=== PATIENT | female | born 1975 | race Native Hawaiian/Other Pacific Islander ===

== ENCOUNTER 2020-11-20 12:08 | Outpatient (REF) | payer MEDICAID, SELFPAY ==
--- NOTE | 2020-11-20 12:29 | XR_ITS ---
EXAMINATION: THORACIC AND LUMBAR SPINE. RIGHT SHOULDER AND RIGHT CLAVICLE. CLINICAL INFORMATION: Pain. Fall. COMPARISON: None TECHNIQUE: Thoracic spine 2 views. Lumbar spine 3 views. Right shoulder 3 views. Right clavicle 2 views. FINDINGS: Thoracic spine: There is normal thoracic kyphosis. The vertebral heights, alignment and disc heights are normal. No visible acute fracture, dislocation or subluxation seen. Lumbar spine: There is normal lumbar lordosis. The vertebral heights, alignment and disc heights are normal. No visible acute fracture, dislocation or subluxation seen. The soft tissues are normal. Right shoulder: There is no visible acute fracture, dislocation or subluxation seen. There is a small enthesophyte along the right greater tuberosity. The soft tissues are normal. Right clavicle: There is mild uneven appearing AC joint suggestive of grade 1 strain. No calcifications seen. No fracture noted. XR/XR clavicle RT IMPRESSION: Unremarkable thoracic spine exam. Unremarkable lumbar spine exam Mild grade 1 AC separation suspected. The glenohumeral joint is unremarkable. No acute fracture or dislocation.
--- NOTE | 2020-11-20 12:29 | XR_ITS ---
EXAMINATION: THORACIC AND LUMBAR SPINE. RIGHT SHOULDER AND RIGHT CLAVICLE. CLINICAL INFORMATION: Pain. Fall. COMPARISON: None TECHNIQUE: Thoracic spine 2 views. Lumbar spine 3 views. Right shoulder 3 views. Right clavicle 2 views. FINDINGS: Thoracic spine: There is normal thoracic kyphosis. The vertebral heights, alignment and disc heights are normal. No visible acute fracture, dislocation or subluxation seen. Lumbar spine: There is normal lumbar lordosis. The vertebral heights, alignment and disc heights are normal. No visible acute fracture, dislocation or subluxation seen. The soft tissues are normal. Right shoulder: There is no visible acute fracture, dislocation or subluxation seen. There is a small enthesophyte along the right greater tuberosity. The soft tissues are normal. Right clavicle: There is mild uneven appearing AC joint suggestive of grade 1 strain. No calcifications seen. No fracture noted. XR/XR shoulder RT min 2V IMPRESSION: Unremarkable thoracic spine exam. Unremarkable lumbar spine exam Mild grade 1 AC separation suspected. The glenohumeral joint is unremarkable. No acute fracture or dislocation.
[2020-11-20 12:34] LABS: MANUAL DIFF FLAG NO
--- NOTE | 2020-11-20 12:34 | XR_ITS ---
EXAMINATION: THORACIC AND LUMBAR SPINE. RIGHT SHOULDER AND RIGHT CLAVICLE. CLINICAL INFORMATION: Pain. Fall. COMPARISON: None TECHNIQUE: Thoracic spine 2 views. Lumbar spine 3 views. Right shoulder 3 views. Right clavicle 2 views. FINDINGS: Thoracic spine: There is normal thoracic kyphosis. The vertebral heights, alignment and disc heights are normal. No visible acute fracture, dislocation or subluxation seen. Lumbar spine: There is normal lumbar lordosis. The vertebral heights, alignment and disc heights are normal. No visible acute fracture, dislocation or subluxation seen. The soft tissues are normal. Right shoulder: There is no visible acute fracture, dislocation or subluxation seen. There is a small enthesophyte along the right greater tuberosity. The soft tissues are normal. Right clavicle: There is mild uneven appearing AC joint suggestive of grade 1 strain. No calcifications seen. No fracture noted. XR/XR lumbar spine 2-3V IMPRESSION: Unremarkable thoracic spine exam. Unremarkable lumbar spine exam Mild grade 1 AC separation suspected. The glenohumeral joint is unremarkable. No acute fracture or dislocation.
--- NOTE | 2020-11-20 12:34 | XR_ITS ---
EXAMINATION: THORACIC AND LUMBAR SPINE. RIGHT SHOULDER AND RIGHT CLAVICLE. CLINICAL INFORMATION: Pain. Fall. COMPARISON: None TECHNIQUE: Thoracic spine 2 views. Lumbar spine 3 views. Right shoulder 3 views. Right clavicle 2 views. FINDINGS: Thoracic spine: There is normal thoracic kyphosis. The vertebral heights, alignment and disc heights are normal. No visible acute fracture, dislocation or subluxation seen. Lumbar spine: There is normal lumbar lordosis. The vertebral heights, alignment and disc heights are normal. No visible acute fracture, dislocation or subluxation seen. The soft tissues are normal. Right shoulder: There is no visible acute fracture, dislocation or subluxation seen. There is a small enthesophyte along the right greater tuberosity. The soft tissues are normal. Right clavicle: There is mild uneven appearing AC joint suggestive of grade 1 strain. No calcifications seen. No fracture noted. XR/XR thoracic spine 2V IMPRESSION: Unremarkable thoracic spine exam. Unremarkable lumbar spine exam Mild grade 1 AC separation suspected. The glenohumeral joint is unremarkable. No acute fracture or dislocation.
[2020-11-20 12:37] LABS: Basophils Percent Auto 0.2 % (0-2); Eosinophils Absolute Auto 0.4 X10*3/uL (0.0-0.4); Eosinophils Percent Auto 4.6 % (0-4); Hematocrit 38.5 % (37-47); Hemoglobin 12.3 g/dl (12.0-16.0); Imm Gran Abs Auto 0.02 X10*3/uL (0.00-0.03); Imm Gran Pct Auto 0.2 % (0.0-0.4); Lymphocytes Absolute Auto 3.5 X10*3/uL (1.2-4.9); Lymphocytes Percent Auto 43.3 % (20-40); Mean Corpuscular HGB Conc 31.9 g/dl (31.0-35.0); Mean Corpuscular Hemoglobin 28.3 pg (27.0-33.0); Mean Corpuscular Volume 88.7 fL (80-98); Monocytes Absolute Auto 0.4 X10*3/uL (0.1-1.2); Monocytes Percent Auto 5.5 % (2-11); Neutrophils Absolute Auto 3.7 X10*3/uL (2.0-8.3); Neutrophils Percent Auto 46.2 % (45-73); Platelet Count 285 X10*3/uL (160-400); Red Blood Count 4.34 X10*6/uL (4.20-5.50); Red Cell Distribution Width 15.1 % (11.0-16.0)
== END 2020-11-20 12:09 | disposition home or self-care (01) ==
LOC: HO.LAB 12:08
PROVIDERS: Absent Provider Family Medicine; PCP Family Medicine; Referring Provider Emergency Medicine; Visit Provider Internal Medicine Pulmonary Disease
DX: S46.911A Strain of unspecified muscle, fascia and tendon at shoulder and upper arm level, right arm, initial encounter (principal); M54.9 Dorsalgia, unspecified; Z91.09 Other allergy status, other than to drugs and biological substances; W10.9XXA Fall (on) (from) unspecified stairs and steps, initial encounter; Y93.9 Activity, unspecified; Y92.9 Unspecified place or not applicable; Y99.9 Unspecified external cause status
CPT/HCPCS: 36415; 72070; 72100; 73000; 73030; 82785; 85025; 86003

== ENCOUNTER → 2021-04-06 14:40 | Outpatient (BNVA) | payer MEDICAID, SELFPAY | PROVIDERS: Visit Provider Advanced Practice Midwife ==

== ENCOUNTER 2021-04-13 14:15 | Outpatient (REF) | payer MEDICAID, SELFPAY ==
[2021-04-14 12:42] LABS: CT PCR NOT DETECTED (Not Detect.); NG PCR NOT DETECTED (Not Detect.)
[2021-04-14 12:47] LABS: BV Int Neg Control Negative (Negative); BV Int Pos Control Positive (Positive)
== END 2021-04-13 14:16 | disposition home or self-care (01) ==
LOC: HO.LAB 14:15
PROVIDERS: Visit Provider Advanced Practice Midwife
DX: Z11.3 Encounter for screening for infections with a predominantly sexual mode of transmission (principal); R10.2 Pelvic and perineal pain; R23.2 Flushing
CPT/HCPCS: 81003; 87086; 87480; 87491; 87510; 87591; 87660; 99212

== ENCOUNTER 2021-06-11 11:04 | Outpatient (REF) | payer MEDICAID, SELFPAY ==
--- NOTE | ~2021-06-11 | US_ITS ---
EXAMINATION: US PELVIS AND TRANSVAGINAL CLINICAL INFORMATION: Pelvic and perineal pain. COMPARISON: Pelvic ultrasound dated 03/23/2009 TECHNIQUE: Ultrasound of the pelvis is performed using both transabdominal and transvaginal transducers along with Doppler. Transvaginal imaging is performed due to inadequate visualization transabdominally. FINDINGS: Uterus: The uterus is anteverted and measures 7.5 x 4.7 x 4.6 cm. There are multiple nabothian cysts. The endometrium is partially visualized measuring 0.2 cm in thickness. The uterus is smooth in contour and has heterogeneous myometrial echogenicity. No visible fibroid. Adnexa: Both ovaries are visualized. There is normal color flow to the adnexa. There is no ovarian torsion. There is no pelvic ascites or fluid collection. Right ovary measures 2.3 x 1.7 x 2.1 cm. Ovarian volume of 4.0 mL. Left ovary measures 4.7 x 2.6 x 4.1 cm. Ovarian volume of 26.2 mL. US/US pelvic and transvaginal IMPRESSION: Heterogeneous myometrium without discrete lesion. Partially visualized and unremarkable endometrium. Slight asymmetric enlargement of the left ovary. Normal Doppler detectable vascular flow within the right and left ovary. No discrete ovarian lesion.
== END 2021-06-11 11:05 | disposition home or self-care (01) ==
LOC: HO.US 11:04
PROVIDERS: Visit Provider Advanced Practice Midwife
DX: R10.2 Pelvic and perineal pain (principal)
CPT/HCPCS: 76830; 76856

== ENCOUNTER → 2021-06-21 11:05 | Outpatient (BNVA) | payer MEDICAID, SELFPAY | PROVIDERS: Visit Provider Advanced Practice Midwife ==

== ENCOUNTER 2022-03-22 15:32 | Outpatient (REF) | payer MEDICAID, SELFPAY ==
--- NOTE | ~2022-03-22 | US_ITS ---
EXAMINATION: US VENOUS ULTRASOUND WITH DOPPLER LOWER EXTREMITY, LEFT CLINICAL INFORMATION: Left lower extremity pain. COMPARISON: None TECHNIQUE: Ultrasound of the deep veins is performed from the hip to the calf with compression sonography and color and pulse Doppler assessment. Spectral analysis with color-flow imaging is performed. FINDINGS: There is normal venous compression and respiratory variation and augmented flow. The visualized common femoral vein, superficial femoral vein, profunda femoral vein, popliteal vein, and the trifurcation region shows no evidence of deep venous thrombosis. No left popliteal cyst. The subcutaneous soft tissues are unremarkable. If the patient's symptoms persist, followup ultrasound in 5 days 7 days might be of value to exclude proximal propagation from a non-visualized calf vein. US/US venous duplex LE LT IMPRESSION: No DVT demonstrated in the left lower extremity.
== END 2022-03-22 15:33 | disposition home or self-care (01) ==
LOC: HO.US 15:32
PROVIDERS: Visit Provider General Practice
DX: M25.562 Pain in left knee (principal)
CPT/HCPCS: 93971

== ENCOUNTER 2022-11-27 13:58 | Outpatient (REF) | payer MEDICAID, SELFPAY ==
--- NOTE | ~2022-11-27 | MM_ITS ---
EXAMINATION: MM DIAGNOSTIC DIGITAL BREAST TOMOSYNTHESIS, BILATERAL US DIAGNOSTIC ULTRASOUND BREAST, BILATERAL CLINICAL INFORMATION: Pain bilateral upper breast for approximately 2 months. No palpable mass or discharge. Due for yearly. No known family history breast cancer. The lifetime risk of breast cancer based on the Tyrer-Cuzick Model is 7%. COMPARISON: Mammography: 04/14/2020, 07/08/2019 TECHNIQUE: Digital breast tomosynthesis is performed in both the craniocaudal and mediolateral oblique views along with computer-aided detection (CAD). Synthesized 2D images are generated from the tomosynthesis. Ultrasound bilateral breasts is performed targeted to the areas of clinical concern bilateral upper breasts. Grayscale imaging and color Doppler are performed without and with harmonics. FINDINGS: There are scattered areas of fibroglandular density (ACR BI-RADS breast composition Category b). No architectural abnormality or developing density or significant change from prior studies. There are no significant masses, abnormal calcifications, or other abnormalities. No skin thickening or coarsening of the Jose Miguel's ligaments. The axilla are unremarkable. No significant changes. Ultrasound bilateral breasts demonstrate no cystic or solid mass, architectural abnormality, or focal duct ectasia on either side. No skin thickening or edema tracking in soft tissue planes. Results are discussed with the patient at time of visit. MM/MM tomosynthesis diagnostic BI IMPRESSION: 1. No mammographic evidence of malignancy or inflammatory changes. 2. Unremarkable bilateral targeted breast ultrasound. ASSESSMENT: BI-RADS 1: Negative RECOMMENDATION: 1. Patient's bilateral mastodynia should be managed based on the clinical impression. 2. Otherwise, routine annual screening mammography. This patient's information was entered into a reminder system with a target due date for their next mammogram.
== END 2022-11-27 13:59 | disposition home or self-care (01) ==
LOC: HO.MAMMO 13:58
PROVIDERS: PCP Family Medicine; Visit Provider Advanced Practice Midwife
DX: N64.4 Mastodynia (principal)
CPT/HCPCS: 76642; 77062; 77066

== ENCOUNTER 2023-01-30 14:45 | Outpatient (REF) | payer MEDICAID, SELFPAY ==
[2023-01-31 02:29] LABS: CT PCR NOT DETECTED (Not Detect.); NG PCR NOT DETECTED (Not Detect.)
[2023-01-31 09:07] LABS: BV Int Neg Control Negative (Negative); BV Int Pos Control Positive (Positive)
== END 2023-01-30 14:46 | disposition home or self-care (01) ==
LOC: HO.LAB 14:45
PROVIDERS: PCP Family Medicine; Visit Provider Advanced Practice Midwife
DX: N89.8 Other specified noninflammatory disorders of vagina (principal); Z20.2 Contact with and (suspected) exposure to infections with a predominantly sexual mode of transmission
CPT/HCPCS: 0353U; 87480; 87510; 87660

== ENCOUNTER 2023-01-30 15:32 | Outpatient (REF) | payer MEDICAID, SELFPAY | END 2023-01-30 15:33 | disposition home or self-care (01) | LOC: HO.LNP 15:32 | PROVIDERS: Visit Provider Advanced Practice Midwife | DX: Z13.89 Encounter for screening for other disorder (principal) ==

== ENCOUNTER 2024-02-27 14:03 | Outpatient (AMB) | payer MEDICAID, SELFPAY ==
--- NOTE | 2024-02-27 14:07 | A.OFFVIS_ITS ---
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 Doing well with concerns: Her primary care ordered a abdominal CT scan for upper GI pain and it was found that she had adenomyosis, she is concerned and wonders what that is. She denies any pelvic pain. She not eat healthy and stays active with exercise. She has not had a period for 2+ years, following her brain aneurysm. Currently is sexually active. She denies vaginal itching and irritation. STI screening offered; she declines. Denies family history of breast, ovarian or colon cancer. Last pap smear 2019, negative. Mammogram: 2022 [facility] Medical History Migraine with aura Asthma Aneurysm Surgical History S/P Botox injection Status post cholecystectomy Family History Mother Diabetes Social History Household Members: Spouse and Children Housing: House Alcohol intake: never Patient Tobacco Use Status: Never used Tobacco Current occupational status: unemployed Sexual orientation: Straight/Heterosexual Gender identity: Female Female Reproductive History Menstrual Age of Menarche: 8 Menopause type: natural Total pregnancies: 4 Full term: 3 Number of Living Children: 3 Date of Mammogram: 11/27/22 Review of Systems Const All systems reviewed & are unremarkable except as noted in HPI and below Reports as per HPI Eyes Reports no additional complaints ENT Reports no additional complaints Card Reports no additional complaints Resp Reports no additional complaints GI Reports as per HPI and Reports no additional complaints Reports as per HPI Musc Reports no additional complaints Skin/Breast Reports as per HPI Neuro Reports no additional complaints Psych Reports no additional complaints Endo Reports no additional complaints Duane/Lymph Reports no additional complaints Aller/Immun Reports no additional complaints Physical Exam Vital Signs: Last Vital Signs BP 120/72 02/27/24 14:10 BMI result Body Mass Index 32.6 Const General: cooperative, healthy appearing, no acute distress, well developed and alert Orientation/consciousness: patient oriented x3 HEENT Head: Yes normal to inspection Eyes General: appearance normal, both eyes and all related structures Neck Neck: Yes normal visual inspection Thyroid: Thyroid normal Chest Chest palpation & inspection: normal inspection of the chest and other (no puckering, dimpling, peau de orange, retraction, discharge, masses) Breast/axilla inspection: normal inspection of the breasts Breast/axilla palpation: normal palpation of the breasts Resp Effort & Inspection: normal respiratory effort GI Inspection: Yes normal to inspection Palpation (GI): Soft to palpation Rectal Exam - Female: deferred General: Yes bladder normal to palpation External Female Exam: normal external appearance and normal appearance of the urethra Speculum Exam - Vagina: normal appearance of the vagina, normal palpation and normal vaginal discharge Speculum Exam - Cervix: normal appearance of the cervix and normal palpation Bimanual exam- vagina & uterus: normal bimanual exam, normal palpation, uterine size normal, bladder normal to palpation, normal palpation and non-tender Bimanual Exam- Adnexa, other: no masses Skin General skin exam: no rashes or lesions noted Rashes: no rashes Neuro General: patient oriented x3 Cognition (Neuro): normal cognition Extrem General: Yes normal to inspection Psych Attitude: cooperative Thought process: Normal thought process present Assessment & Plan Assessment & Plan (1) Encounter for well woman exam with routine gynecological exam: Code(s): Z01.419 - Encounter for gynecological examination (general) (routine) without abnormal findings Plan Discussed: Current recommendations for pap smears per ASCCP guidelines. Discussed adenomyosis, and she is asymptomatic. Breast awareness and periodic breast exams. Maintain a healthy lifestyle including a well balanced diet and routine exercise. Mammogram yearly. Call with any postmenopausal bleeding for further evaluation. Patient verbalizes understanding and agrees to the plan of care. She was given opportunity to ask questions and all questions were answered to the best of my ability. 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 This note is constructed using voice recognition software. While every effort has been made to ensure accuracy, data compiler errors may have been included. Orders: Orders MM tomosynthesis screening BI Today Z12.31 - Encounter for screening mammogram for malignant neoplasm of breast Coding Level of Care Code Est Pt Prev Care 40-64y(93603) Diagnoses Encounter for well woman exam with routine gynecological exam Z01.419
[2024-02-27 14:10] VITALS: BP 120/72; BMI 32.6
== END 2024-02-27 14:54 | disposition home or self-care (01) ==
PROVIDERS: PCP Family Medicine; Visit Provider Advanced Practice Midwife
DX: Z01.419 Encounter for gynecological examination (general) (routine) without abnormal findings (principal)
CPT/HCPCS: 99396

== ENCOUNTER → 2024-02-27 14:03 | Outpatient (BNVA) | payer MEDICAID, SELFPAY | PROVIDERS: PCP Family Medicine; Visit Provider Advanced Practice Midwife | DX: Z01.419 Encounter for gynecological examination (general) (routine) without abnormal findings (principal) | CPT/HCPCS: 99396 ==

== ENCOUNTER 2024-03-05 15:47 | Outpatient (AMB) | payer MEDICAID, SELFPAY ==
--- NOTE | 2024-03-05 15:51 | A.OFFVIS_ITS ---
Vital Signs 03/05/24 15:53 Height 5 ft 2 in Weight 176 lb 5.917 oz BMI 32.3 BP 107/60 Blood Pressure Location Lt brachial Position Sitting Pulse 87 Intake Visit Reasons: chronic GERD Intake Note: Eli presents in the office as a new patient for GERD. CC: states she also has a medication for her migraines that is a ruthie. (Thompson block) She states that she takes pantoprazole and pepcid for her acid reflux. She goes back and forth between having constipation for months and back to diarrhea. She takes Pepto bismol, mylanta, and aklaseltzer as well every night. Tin Assorter Required: No Allergies No Known Allergies Allergy (Verified 03/05/24 15:53) HPI HPI chronic GERD: Details: 48-year-old female is here today for initial consultation. Patient was sent to us by her PCP. Patient has been experiencing epigastric discomfort and burning postprandially. Patient also reports feeling full for couple hours after eating. Patient reports that her symptoms are worse at night time. Patient has to sleep on couple pillows so acid reflux does not go up all the way to her throat. Patient feels epigastric burning regardless sleeping on couple pills. Patient started taking pantoprazole at night time and is taking famotidine as well. In addition patient has to sometimes take Maalox and [place] his her symptoms are pretty severe. Patient reports that she is not moving her bowels well. Patient feels like she is constipated sometimes after even drinking water though she will have loose stools. Does not feel like she empties her bowels even though she might have loose stools postprandially. Patient denies any abdominal pain or discomfort. Reports dyspepsia without dysphagia or odynophagia. Denies any melena, hematochezia, unintentional weight loss or ribbon like stools. Patient never had colonoscopy in the past. [facility] Medical History Migraine with aura Asthma Aneurysm Surgical History S/P Botox injection Status post cholecystectomy Family History Mother Diabetes Social History Household Members: Spouse and Children Housing: House Alcohol intake: never Patient Tobacco Use Status: Never used Tobacco Current occupational status: unemployed Sexual orientation: Straight/Heterosexual Gender identity: Female Female Reproductive History Menstrual Age of Menarche: 8 Review of Systems Const Denies weight gain and Denies weight loss ENT Reports no additional complaints, Denies dysphagia and Denies odynophagia Card Reports no additional complaints Resp Reports no additional complaints GI Reports abdominal pain (Epigastric), Denies belching, Denies melena, Reports bloating, Reports constipation, Denies dysphagia, Denies excessive flatus, Reports dyspepsia, Reports heartburn, Denies diarrhea, Reports loose stools, Denies nausea, Denies odynophagia and Denies vomiting Reports no additional complaints Musc Reports no additional complaints Neuro Reports no additional complaints Psych Reports no additional complaints Endo Reports no additional complaints Physical Exam Vital Signs: BMI result Body Mass Index 32.3 Const General: healthy appearing and no acute distress Nutritional Appearance: obese Orientation/consciousness: patient oriented x3 Resp Effort & Inspection: normal respiratory effort, able to speak in complete sente nces, no tracheal deviation and symmetric chest movement Auscultation: clear to auscultation bilaterally Cardio Rate: regular rate GI Inspection: Yes normal to inspection, No distended and Yes obesity Palpation (GI): Soft to palpation, not firm, nontender and No hepatosplenomegaly present Auscultation: normal bowel sounds General: Yes no CVA tenderness Back/Spine/Pelvis Back: no CVA tenderness Skin General skin exam: elasticity normal, turgor normal and dry skin Neuro General: patient oriented x3 Psych Appearance: grossly normal Mental Status: mental status grossly normal Assessment & Plan Assessment & Plan (1) Postprandial epigastric pain: Code(s): R10.13 - Epigastric pain (2) GERD (gastroesophageal reflux disease): Code(s): K21.9 - Gastro-esophageal reflux disease without esophagitis Qualifiers: Esophagitis presence: esophagitis presence not specified Qualified Code(s): K21.9 - Gastro-esophageal reflux disease without esophagitis (3) Dyspepsia: Code(s): R10.13 - Epigastric pain (4) Constipation: Code(s): K59.00 - Constipation, unspecified Qualifiers: Constipation type: slow transit constipation Qualified Code(s): K59.01 - Slow transit constipation (5) IBS (irritable bowel syndrome): Code(s): K58.9 - Irritable bowel syndrome without diarrhea Qualifiers: Irritable bowel syndrome type: with both diarrhea and constipation Qualified Code(s): K58.2 - Mixed irritable bowel syndrome Plan Patient will start taking Nexium in the morning half an hour before breakfast. Will take sucralfate at bedtime. Continue avoiding dietary triggers and late night snacking. Staying upright for minimal 3 hours after meals discussed with patient. Patient will start taking Citrucel after breakfast with full glass of water to help her bulk stools. Take Senokot in the evening to help her evacuate her bowels better. Will rule out H pylori, celiac, malabsorption. Patient will go for upper GI with barium swallow to check for reflux, sliding hiatal hernia. If patient continues to feel full postprandially despite moving her bowels well and well controlled reflux we can send her for gastric emptying study to rule out gastroparesis. In the case patient will have to stop fiber. Patient is status post cholecystectomy her symptoms of loose stools postprandially could be related to diet. Avoid food high in fat, greasy or fried. I will see patient in 6 weeks, sooner on as needed basis. Patient is agreeable to this plan and verbalizes understanding of instructions. She was given the opportunity to ask questions and all questions answered. Thank you for allowing me to participate in her care Orders: Orders Transglutaminase Ab IgG Today R10.9 - Unspecified abdominal pain Transglutaminase IgA Today R10.9 - Unspecified abdominal pain Vitamin D 25-OH (D2 and D3) Today E55.9 - Vitamin D deficiency, unspecified TSH reflex Free T4 Today K59.00 - Constipation, unspecified Vitamin B12 and Folate Today R19.7 - Diarrhea, unspecified FL upper GI w Ba Swallow Today K21.9 - Gastro-esophageal reflux disease without esophagitis, R10.13 - Epigastric pain Medications: New sennosides (Natural Senna Laxative) 17.2 mg (2 x 8.6 mg) PO BEDTIME 60 tabs 3RF constipation K59.00 - Constipation, unspecified methylcellulose (laxative) (Citrucel) take it with full glass of water 500 mg PO DAILY 90 tabs 2RF K59.00 - Constipation, unspecified Coding Level of Care Code New Pt Level 4 (74348) Diagnoses Postprandial epigastric pain R10.13 Gastroesophageal reflux disease, unspecified whether esophagitis present K21.9 Esophagitis presence: esophagitis presence not specified Dyspepsia R10.13 Slow transit constipation K59.01 Constipation type: slow transit constipation Irritable bowel syndrome with both constipation and diarrhea K58.2 Irritable bowel syndrome type: with both diarrhea and constipation Time Spent (min) 45 Comment 30 minutes spent with patient and additional 15 minutes spent reviewing her records
[2024-03-05 15:53] VITALS: BP 107/60; PULSE 87; BMI 32.3
== END 2024-03-05 16:22 | disposition home or self-care (01) ==
PROVIDERS: PCP Family Medicine; Visit Provider Nurse Practitioner Family
DX: R10.13 Epigastric pain (principal); K21.9 Gastro-esophageal reflux disease without esophagitis; K59.01 Slow transit constipation; K58.2 Mixed irritable bowel syndrome
CPT/HCPCS: 99204

== ENCOUNTER → 2024-03-05 15:47 | Outpatient (BNVA) | payer MEDICAID, SELFPAY | PROVIDERS: PCP Family Medicine; Visit Provider Nurse Practitioner Family | DX: K21.9 Gastro-esophageal reflux disease without esophagitis (principal); R10.13 Epigastric pain; K59.01 Slow transit constipation; K58.2 Mixed irritable bowel syndrome | CPT/HCPCS: 99212 ==

== ENCOUNTER 2024-04-02 13:56 | Outpatient (REF) | payer MEDICAID, SELFPAY ==
[2024-04-02 16:03] LABS: Folate 11.2 ng/mL (> or = 4.0); Vitamin B12 478 pg/mL (200-900)
[2024-04-05 17:03] LABS: Transglutaminase Ab IgG <1.0 U/mL; Transglutaminase IgA <1.0 U/mL
[2024-04-06 13:12] LABS: Vitamin D 25-OH, D2 <4 ng/mL; Vitamin D 25-OH, D3 35 ng/mL; Vitamin D 25-OH, Total 35 ng/mL (30-100)
== END 2024-04-02 13:57 | disposition home or self-care (01) ==
LOC: HO.LAB 13:56
PROVIDERS: PCP Family Medicine; Visit Provider Nurse Practitioner Family
DX: R10.9 Unspecified abdominal pain (principal); E55.9 Vitamin D deficiency, unspecified; R19.7 Diarrhea, unspecified; K59.00 Constipation, unspecified
CPT/HCPCS: 36415; 82306; 82607; 82746; 84443; 86364

== ENCOUNTER 2024-06-04 16:55 | Outpatient (REF) | payer MEDICAID, SELFPAY ==
[2024-06-05 02:36] LABS: CT PCR NOT DETECTED (Not Detect.); NG PCR NOT DETECTED (Not Detect.)
[2024-06-05 11:21] LABS: Bacterial Vaginosis PCR NEGATIVE (Negative); Candida Group PCR NOT DETECTED (Not Detect); Candida glab krusei PCR DETECTED (Not Detect); Trichomonas vaginalis PCR NOT DETECTED (Not Detect)
== END 2024-06-04 16:56 | disposition home or self-care (01) ==
LOC: HO.HHCLNP 16:55
PROVIDERS: Visit Provider Family Medicine
DX: N89.8 Other specified noninflammatory disorders of vagina (principal); Z68.33 Body mass index [BMI] 33.0-33.9, adult
CPT/HCPCS: 0352U; 87491; 87591

== ENCOUNTER 2024-06-15 09:45 | Outpatient (REF) | payer MEDICAID, SELFPAY ==
--- NOTE | ~2024-06-15 | XR_ITS ---
EXAMINATION: XR KNEE, LEFT CLINICAL INFORMATION: Worsening knee and hamstring pain. COMPARISON: Radiograph dated 04/28/2013. TECHNIQUE: AP, lateral, tunnel, and sunrise views of the left knee. FINDINGS: No fracture or joint effusion. Alignment is anatomic. Joint spaces are maintained. No abnormal soft tissue calcification. XR/XR knee LT 4V IMPRESSION: Normal left knee. Electronically signed by: Tony Cruz MD 07/08/2024 04:04 PM EDT
--- NOTE | ~2024-06-15 | FL_ITS ---
EXAMINATION: XR FLUOROSCOPY UPPER GI WITH AIR CLINICAL INFORMATION: Reflux. COMPARISON: None TECHNIQUE: Fluoroscopic air contrast upper GI examination was performed utilizing standard techniques with thin and thick barium and effervescent granules. Numerous spot images were obtained. FINDINGS: Dual and single contrast images of the esophagus demonstrate a patulous esophagus with a normal contour. There is a granular appearance of the esophageal mucosa, which is suggestive of esophagitis. No mass, or ulcerations are identified. Esophageal peristalsis is moderately disorganized. A nonobstructing Schatzki's ring is present. A small type I hiatal hernia is present. No significant gastroesophageal reflux was seen during the course of the examination and on reflux views. Dual contrast and single contrast images of the stomach demonstrated a normal contour. The gastric rugal folds have a thickened appearance, which suggests gastritis. No masses or ulcerations are seen. Contrast freely passed into the gastric antrum and duodenal bulb without delay. Single and air-contrast images of the duodenal bulb demonstrate no abnormality. The duodenal sweep has a normal appearance, course, and mucosal fold appearance. The imaged proximal jejunum has a normal fold pattern and caliber. FLUOROSCOPY TIME: 3 minutes 59 seconds Number of Spot Images: 16 Number of Cine: 7 DOSE AREA PRODUCT: [id number] uGy-m2 (microgray-meter squared) FL/FL upper GI w air w Ba Swallow IMPRESSION: 1. Patulous esophagus with moderately disorganized peristalsis consistent with esophageal dysmotility. 2. Granular appearance of the esophageal mucosa, suggestive of esophagitis. 3. Nonobstructing Schatzki's ring. 4. Thickened appearance of the gastric rugal folds, which suggest gastritis. This procedure was performed by Humberto Purvis PA-C, and supervised by Dr. Puckett Electronically signed by: Avinash Puckett MD 06/17/2024 03:16 PM EDT
== END 2024-06-15 09:46 | disposition home or self-care (01) ==
LOC: HO.XRAY 09:45
PROVIDERS: Absent Provider Family Medicine; PCP Family Medicine; Visit Provider Nurse Practitioner Family
DX: M25.562 Pain in left knee (principal); G89.29 Other chronic pain; R10.13 Epigastric pain; K21.9 Gastro-esophageal reflux disease without esophagitis
CPT/HCPCS: 73564; 74246

== ENCOUNTER → 2024-06-15 09:52 | Outpatient (BNV) | payer MEDICAID, SELFPAY | PROVIDERS: Absent Provider Family Medicine; PCP Family Medicine; Visit Provider Radiology Diagnostic Radiology | DX: K21.9 Gastro-esophageal reflux disease without esophagitis (principal) | CPT/HCPCS: 74246 ==

== ENCOUNTER 2024-07-02 12:01 | Outpatient (REF) | payer MEDICAID, SELFPAY ==
[2024-07-02 13:44] LABS: Hemoglobin 10.1 g/dl (12.0-16.0); Mean Corpuscular HGB Conc 30.6 g/dl (31.0-35.0); Mean Corpuscular Hemoglobin 25.4 pg (27.0-33.0); Mean Corpuscular Volume 82.9 fL (80.0-98.0); Mean Platelet Volume 9.3 fL (9.4-12.3); Platelet Count 289 X10*3/uL (160-400); Red Blood Count 3.98 X10*6/uL (4.20-5.50); Red Cell Distribution Width 17.3 % (11.0-16.0); White Blood Count 7.5 X10*3/uL (4.8-10.8)
[2024-07-02 14:21] LABS: Estimated Average Glucose 123 mg/dL; Hemoglobin A1c % 5.9 % (<6.0)
[2024-07-02 14:24] LABS: Cortisol Random 6.6 ug/dL
[2024-07-02 14:35] LABS: Anion Gap 13 (12-20); Blood Urea Nitrogen 8 mg/dL (9-16); Calcium 9.5 mg/dL (8.4-10.2); Carbon Dioxide 30 mmol/L (22-29); Chloride 103 mmol/L (96-108); Cholesterol 259 mg/dL (<200); Estimated Glomerular Filt Rate 49; Free T4 (Free Thyroxine) 0.97 ng/dL (0.71-1.85); Glucose Random 85 mg/dL (60-115); HDL Cholesterol 45 mg/dL (>40); LDL Cholesterol Calculated 167 mg/dL (<100); Potassium 3.2 mmol/L (3.3-5.1); Sodium 143 mmol/L (135-145); Thyroid Stimulating Hormone 1.04 uIU/mL (0.32-4.0); Triglycerides 239 mg/dL (<150); Vitamin D 25-OH Total 32.8 ng/mL (>30)
[2024-07-03 07:37] LABS: Hepatitis A Antibody IgG Nonreactive (Nonreactive); ~Hepatitis A Antibody IgG 0.24 S/CO (0.00-0.99)
[2024-07-03 08:01] LABS: HBc Num1 0.14 S/CO (0.00-0.79); HIV AB/AG Nonreactive (Nonreactive); HIV Num 1 0.05 S/CO (0.00-0.99); Hepatitis B Core Antibody Nonreactive (Nonreactive); Hepatitis B Surface Antigen Negative (Negative); ~HepC Num1 0.13 S/CO (0.00-0.79); ~Hepatitis B Surface Antibody NONREACTIVE (Nonreactive); ~Hepatitis C Antibody Nonreactive (Nonreactive)
[2024-07-05 12:39] LABS: RPR Rapid Plasma Reagin NON-REACTIVE (NON-REACTIVE)
== END 2024-07-02 12:02 | disposition home or self-care (01) ==
LOC: HO.LAB 12:01
PROVIDERS: PCP Family Medicine; Visit Provider Family Medicine
DX: Z13.89 Encounter for screening for other disorder (principal)
CPT/HCPCS: 36415; 80048; 80061; 82306; 82533; 83036; 84439; 84443; 85027; 86592; 86704; 86706; 86708; 86803; 87340; 87389

== ENCOUNTER 2024-10-06 12:43 | Outpatient (REF) | payer MEDICAID, SELFPAY ==
[2024-10-06 13:24] LABS: Hemoglobin 10.1 g/dl (12.0-16.0); Mean Corpuscular HGB Conc 31.6 g/dl (31.0-35.0); Mean Corpuscular Volume 82.5 fL (80.0-98.0); Mean Platelet Volume 9.3 fL (9.4-12.3); Platelet Count 309 X10*3/uL (160-400); Red Blood Count 3.88 X10*6/uL (4.20-5.50); Red Cell Distribution Width 16.8 % (11.0-16.0); White Blood Count 9.7 X10*3/uL (4.8-10.8)
[2024-10-06 14:13] LABS: Anion Gap 12 (12-20); Blood Urea Nitrogen 21 mg/dL (9-16); Calcium 10.6 mg/dL (8.4-10.2); Carbon Dioxide 28 mmol/L (22-29); Chloride 104 mmol/L (96-108); Cholesterol 249 mg/dL (<200); Estimated Glomerular Filt Rate 44; Ferritin 10 ng/mL (10-250); Glucose Random 90 mg/dL (60-115); HDL Cholesterol 43 mg/dL (>40); Iron 29 mcg/dL (30-160); LDL Cholesterol Calculated 152 mg/dL (<100); Percent Iron Saturation 8 % (15-50); Potassium 4.1 mmol/L (3.3-5.1); Sodium 140 mmol/L (135-145); Total Iron Binding Capacity 378 mcg/dL (228-428); Triglycerides 272 mg/dL (<150); Unsaturated Iron Binding 349 ug/dL
[2024-10-06 14:31] LABS: Folate 5.3 ng/mL (> or = 4.0); Vitamin B12 437 pg/mL (200-900)
--- OUTSIDE RECORDS SUMMARY | 2024-10-07 02:13 | XMS_ITS | Continuity of Care Document ---
Author Organization [facility] Address [address] [place] [address] Phone Care Team Providers Care Remedial Teacher Name Role Phone Jacob HOYOS, RVT, VALERY, Danilo Unavailable U navailable Allergies, Adverse Reactions, Alerts Substance Reaction Status Criticality No Known Allergies Active No Inform ation Medications Medication Instructions Dosage Effective Dates (start - stop) Status Comments baclofen 20 mg tablet - Acti ve diazepam 10 mg tablet - Acti ve quetiapine 25 mg tablet - Ac tive Zofran 4 mg tablet - Active Nurtec ODT 75 mg disintegrating tablet - Active Plavix 75 mg tablet - Active aspirin 325 mg tablet - Acti ve montelukast 10 mg tablet - A ctive Advair Diskus 250 mcg-50 mcg/dose powder for inhalation - Active Proair Digihaler 90 mcg/actuation aerosol powder breath act, sensor - Active Procedures Procedure Date Office/Outpt E&M Established 15 Mins- CT & [place] Duplex Scan-extrem Veins; Comp- CT & [place] Office/Outpt E&M Established 15 Mins Sep Duplex Scan-extrem Veins; Comp Office/Outpt E&M Established 15 Mins Aug Duplex Scan-extrem Veins; Uni/ Endovenous Laser, 1st Vein Endovenous Laser, 1st Vein Endovenous laser vein addon Duplex Scan-extrem Veins; Uni/ Endovenous Laser, 1st Vein Endovenous Laser, 1st Vein Endovenous laser vein addon Office/Outpt E&M Established 15 Mins Jan Duplex Scan-extrem Veins; Comp Office/Outpt E&M Established 25 Mins Oct Advance Directives Directive Yes / No Effective Date File Name No Information Encounters Encounter Description Practice Location Reason(s) For Visit Diagnoses Date Provider Providers Copied on Encounter Office/Outpt E&M Established 15 Mins- CT & [place] [facility], [address] [place] [address] Dr Lerma [address] [place], [id number], [place] tel:[phone] CVR - [facility] Localized edemaVenous insufficiency (chronic) (peripheral) 4 Jacob HOYOS RVT, VALERY Carrasco. [address] [place] [address], [facility] [place], [id number], [place]. tel:[phone] Referring Provider: Sera Morales, [address], [address]. tel:[phone] [facility], [address] [place] [address] Dr Lerma [address], [place], [id number], [place] tel:[phone] [facility] Chronic venous hypertension (idiopathic) with inflammation of bilateral lower extremity 4 Jacob HOYOS RVT, VALERY Carrasco. [address] [place] [address], Barb hernandez [place], [id number], [place]. tel:[phone] Referring Provider: Sera Morales, [address], [address]. tel:[phone] Office/Outpt E&M Established 15 Mins [facility], [address] [place] [address] Dr Lerma [address]Remy [place], [id number], [place] tel:[phone] CV[facility] - [facility] Encounter for other preprocedural examination 3 Paloma Da Silva. [address] [facility], Suite [facility], [place], [place], [id number], [place]. tel:[phone] Referring Provider: Sera Morales, [address], [address]. tel:[phone] [facility], [address] [place] [address] Dr Lerma [address]Suite Remy Swain [place], [id number], [place] tel:[phone] CVR - [facility] Chronic venous hypertension (idiopathic) with other complications of bilateral lower extremityEdema , unspecified 3 Yehuda HOYOS FACS T VALERY Pedraza. [facility] [address], [place], [address], [place]. tel:[phone] Referring Provider: Sera Morales, [address], [address]. tel:[phone] Office/Outpt E&M Established 15 Mins [facility], [address] [place] [address] Dr Lerma 1000SuRemy armas [place], [id number], [place] tel:[phone] CVR - [facility] Varicose veins of bilateral lower extremities with pain 3 Yehuda HOYOS FACS T VALERY Pedraza. [address] [address], [place], [address], [place]. tel:[phone] Referring Provider: Sera Morales, [address], [address]. tel:[phone] [facility], [address] [place] [address] Dr Lerma [address]Suite Remy Swain [place], [id number], [place] tel:[phone] CVR - [facility] Encounter for follow-up examination after completed treatment for conditions other than malignant neVaricose veins of right lower extremity with pain Jul- 3 Yehuda HOYOS FACS T VALERY Pedraza. [address] [facility], [address] [address], [place], [address], [place]. tel:[phone] Referring Provider: Sera Morales, [address], [address]. tel:[phone] [facility], [address] [place] [address] [facility] [address]Remy [place], [id number], [place] tel:[phone] [facility] - [place] [facility] [place] Chronic venous hypertension (idiopathic) with inflammation of right lower extremity Jul-0 3 Yehuda HOYOS FACS Juan Pedraza. [address] [place] [address], [place], [address], [place]. tel:[phone] Referring Provider: Sera Morales, [address], [address]. tel:[phone] [facility], [address] [place] [address] Dr Lerma [address]Remy [place], [id number], [place] tel:[phone] CVR - [place] Chronic venous hypertension (idiopathic) with inflammation of right lower extremity Jul-0 3 Yehuda HOYSO FACS T VALERY Pedraza. [facility], [place] [address], [place], [address], [place]. tel:[phone] Referring Provider: Sera Morales, [address], [address]. tel:[phone] [facility], [address] [place] [address] [address]Remy [place], [id number], [place] tel:[phone] CV[facility] - [place] [facility] [place] Chronic venous hypertension w oth comp of l low extrem 3 Yehuda HOYOS FACS T VALERY Pedraza. [address] [facility], Suite [facility], [place], [address], [place]. tel:[phone] Referring Provider: Sera Morales, [address], [address]. tel:[phone] [facility], [address] [place] [address] Dr Lerma 1000[address] 1000Remy [place], [id number], [place] tel:[phone] CVR - [facility] Chronic venous hypertension w inflammation of l low extrem 3 Yehuda HOYOS FACS Juan Pedraza. [address] [place] [address], [place], [address], [place]. tel:[phone] Referring Provider: Sera Morales, [address], [address]. tel:[phone] [facility], [address] [place] [address] Dr Lerma [address]Remy [place], [id number], [place] tel:[phone] CVR - [facility] Chronic venous hypertension w inflammation of l low [facility] 3 Yehuda HOYOS FACS Juan Pedraza. [address] [place] [address], [place], [address], [place]. tel:[phone] Referring Provider: Sera Morales, [address], [address]. tel:[phone] Office/Outpt E&M Established 15 Mins [facility], [address] [place] [address] Dr Lerma 1000[address] 1000Remy [place], [id number], [place] tel:[phone] [facility] - [facility] Body mass index (BMI) 32.0-32.9, adultVenous insufficiency (chronic) (peripheral) 3 Yehuda HOYOS FACS Juan Pedraza. [address] [place] [address], [place], [address], [place]. tel:[phone] Referring Provider: Sera Morales, [address], [address]. tel:[phone] [facility], [address] [place] [address] Dr Lerma [address] 1000Remy [place], [id number], tel:[phone] CVR - [place] - [place] Venous insufficiency (chronic) (peripheral) [address] [facility] [employer]. [address] [facility], [place] [address], [place], [address], . tel:[phone] Referring Provider: Sera Morales, [address], [address]. tel:[phone] Office/Outpt E&M Established 25 Mins [facility], [address] [facility] [address], [place], [id number], [place] tel:[phone] CVR - [place] Body mass index (BMI) 30.0-30.9, adultVenous insufficiency (chronic) (peripheral) 3 [facility] [employer]. [facility] [address], [place], [address], [place]. tel:[phone] Referring Provider: Sera Morales, [address], [address]. tel:[phone] Family History Family Member Type Diagnosis Age At Onset No Information Payers Payer name Insurance type Covered alliance party ID Authoriza tijeremy(s) Medical Assistance KIRERA [id number] Social History Type Description Quantity Date Captured Comments Alcohol Use Details Unknown Caffeine Use Details Unknown Tobacco Use Status Current non-smoker Smoking Status Never Smoker Non-Smoking Tobacco Use Details : No Details Available : No Details Available Sex Female Vital Signs Date / Time: Height Weight BMI Pulse Rate Blood Pressure Temperature Respiratory Rate Body Surface Area Head Circumference Head Circ. Percentile Wt./Jem. Percentile BMI percentile Pulse Ox Inhaled Ox 80.740 kg (178.00 lbs) 32.5 9 kg/m eter (2) 120/80 mm[Hg] Chief Complaint And Reason For Visit No Information Reason For Referral Reason For Referral No Information Plan Of Treatment Date Type Action Status Goal Diet education completed Goal Tobacco cessation counseling completed Goal Diet education completed Goal Diet education completed Referral Ordered: Weight management: Referral to physician timeframe: 3 Months (related to Body mass index (BMI) 32.0-32.9, adult) ordered History Of Present Illness Encounter Date Complaint History Of Prese nt Illness No Information Functional Status Date Functional Assessmen t No Information Instructions Date Instruction Additional Infor gage Diet education Related to Body mass index (BMI) 32.0-32.9, adult Giving Encouragement to exercise Related to Body mass index (BMI) 32.0-32.9, adult Lifestyle education Related to B luis mass index (BMI) 32.0-32.9, adult Compression stocking usage as conservative measure Related to Localized edema Patient education booklet given Related to Localized edema Patient education booklet given Related to V V w/ Other Complctns (PAIN); BILAT Continue compression stocking us e Related to V V w/ Other Complctns (PAIN); BILAT Dietary needs education Related to Body mass index [BMI] 32.0-32.9, adult Patient education booklet given Related to Venous Insufficiency (Chronic / Peripheral) Giving Encouragement to Exercise Related to Body mass index [BMI] 30.0-30.9, adult Diet education Related to Body mass index [BMI] 30.0-30.9, adult Giving Encouragement to Exercise Related to Body mass index [BMI] 30.0-30.9, adult Diet education Related to Body mass index [BMI] 30.0-30.9, adult Assessments Type Assessment Date No Information Patient Care Teams Name Effective Dates (start - stop) Status Members No Information
[2024-10-07 04:23] LABS: CT PCR NOT DETECTED (Not Detect.); NG PCR NOT DETECTED (Not Detect.)
[2024-10-07 09:21] LABS: Bacterial Vaginosis PCR NEGATIVE (Negative); Candida Group PCR NOT DETECTED (Not Detect); Candida glab krusei PCR NOT DETECTED (Not Detect); Trichomonas vaginalis PCR NOT DETECTED (Not Detect)
== END 2024-10-06 12:44 | disposition home or self-care (01) ==
LOC: HO.HHCL 12:43
PROVIDERS: Visit Provider Family Medicine
DX: E78.49 Other hyperlipidemia (principal); D64.9 Anemia, unspecified; N89.8 Other specified noninflammatory disorders of vagina
CPT/HCPCS: 0352U; 36415; 80048; 80061; 82607; 82728; 82746; 83540; 85027; 87491; 87591

== ENCOUNTER 2024-10-15 18:28 | Outpatient (REF) | payer MEDICAID, SELFPAY ==
--- NOTE | ~2024-10-15 | MR_ITS ---
EXAMINATION: MR KNEE WITHOUT CONTRAST, LEFT CLINICAL INFORMATION: Worsening knee pain and locking. COMPARISON: None available. TECHNIQUE: MRI of the knee without contrast was performed using routine sequences on a high-field scanner. FINDINGS: Exam partially limited by image degrading motion artifact. MENISCI: Medial Meniscus: Lateral Meniscus: There is linear horizontal increased signal in the body and posterior horn of the meniscus possibly extending to the tibial articular surface near the free edge. Findings suspicious but not definitive for tear. LIGAMENTS: Cruciate: Intact Collateral: z EXTENSOR MECHANISM: Intact ARTICULAR CARTILAGE/BONE: Patellofemoral Compartment: Cartilage heterogeneity in the lateral facet of the patella and lateral trochlea. Overall mild patellofemoral arthrosis. Medial Compartment: Normal Lateral Compartment: Focal cartilage heterogeneity and subchondral cystic change along the medial weightbearing tibial articular surface. There is some cartilage thinning and heterogeneity along the posterior weightbearing femoral articular surface. Small marginal osteophytes. Overall mild arthrosis. JOINT FLUID AND BURSAE: Mild joint effusion and synovitis. I cannot exclude a tiny loose body in the posterior recess. MR/MR knee LT wo con IMPRESSION: 1. Findings suspicious for tear of the lateral meniscus. 2. Mild arthrosis of the patellofemoral compartment and lateral compartment. 3. Mild joint effusion and synovitis. I cannot exclude tiny loose body in the posterior recess. Electronically signed by: Alonso Cheng MD 10/16/2024 08:00 AM EZEKIEL
== END 2024-10-15 18:29 | disposition home or self-care (01) ==
LOC: HO.MRI 18:28
PROVIDERS: PCP Family Medicine; Visit Provider Family Medicine
DX: M25.562 Pain in left knee (principal); G89.29 Other chronic pain
CPT/HCPCS: 73721

== ENCOUNTER → 2024-10-29 13:34 | Outpatient (BNVA) | payer MEDICAID, SELFPAY | PROVIDERS: PCP Family Medicine; Visit Provider Nurse Practitioner Family ==

== ENCOUNTER 2024-11-16 15:24 | Outpatient (REF) | payer MEDICAID, SELFPAY ==
--- OUTSIDE RECORDS SUMMARY | 2024-11-17 17:43 | XMS_ITS | Encounter Summary ---
Author Organization [employer] Address [address] [facility] 7t [place] [address] Care Team Providers Care Take Out Waiter Name Role Phone Jesse Sera Primary Care Provider + [phone] Reason for Visit * Reason Onset Date Comments Results 10/25/2024 Encounter Details Date Type Department Care Team ([facility] st Contact Info) Description 10/25/2024 Telephone [facility] [address] [place] [address] Jennifer Hernandez, RN [address] [place] [address] Results Social History Tobacco Use Types Packs/Day [...] PCP inquiring if patient kept appointment with [facility] as we will fax them the results for them to review and determine best POC otherwise PCP will place new ortho referral. TC placed to patient reports she was seen at [facility] on 10/19/24 for her R fibula fracture and was advised she will have a f/u in 6 weeks. Patient reports she was advised to increase protein and take a multivitamin as fracture is still not healing. Patient advised of knee MRI results. Patient advised RN will call [facility] to obtain fax number and will fax results for ortho provider to review at patientsnext appointment. Patient reports she will call [facility] to see if she can be seen sooner for MRI results POC. Patient to f/u PRN. TC placed to [facility] [phone] to obtain fax number to send MRI knee results. RN was provided fax number of [phone] and was informed patient has upcoming appointment for her knee on 11/09/24. RN has printed results and faxed to [phone], confirmation page received. documented in this encounter Plan of Treatment Upcoming Encounters Date Type Department Care Team (Late st Contact Info) Description 11/24/2024 3:30 PM EST Office Visit [facility] OPTOMETRY [address] [facility] [place] [address] Kaela Garcia, OD [address] [place] [address] 12/03/2024 10:30 AM EST Procedure Visit [facility] [address] [place] [address] Sera Molina DO [address] [place] [address] 12/20/2024 2:30 PM EST Office Visit [facility] ADULT DENTAL [address] [place] [address] Ward Schultz DDS [address] [place] [address] 04/12/2025 3:00 PM EDT Office Visit [facility] ADULT DENTAL [address] [place] [address] Jessica, Loreto [address] [place] [address] documented as of this encounter Visit Diagnoses Not on filedocumented in this encounter Additional Health Concerns Assessment Noted Time PHQ-9 Depression Total Score: 20 024 8:02 AM EST documented as of this encounter Care Teams Take Out Waiter Relationship Specialty Start Date End Date Sera Molina DO [address] [place] [address] PCP - General Family Medicine 09/09/13 documented as of this encounter
--- OUTSIDE RECORDS SUMMARY | 2024-11-17 17:43 | XMS_ITS | Encounter Summary ---
Author Organization [employer] Address [address] [facility] 7t [place] [address] Care Team Providers Care Drawing Kiln Operator Name Role Phone JesseSera Primary Care Provider + [phone] Encounter Details Date Type Department Care Team ([facility] st Contact Info) Description 11/01/2024 10:30 AM EST Office Visit [facility] OPTOMETRY [address] [place], [place] [phone] Jose, Kaela, OD [address] [place] [address] Myopia of both eyes (Primary Dx) Social [...] Description 11/24/2024 3:30 PM EST Office Visit [facility] OPTOMETRY [address] [place] [address] Kaela Garcia OD [address] [place] [address] 12/03/2024 10:30 AM EST Procedure Visit [facility] [address] [place] [address] Sera Molina DO [address] [place] [address] 12/20/2024 2:30 PM EST Office Visit [facility] ADULT DENTAL [address] [place] [address] Ward Schultz DDS [address] [place] [address] 04/12/2025 3:00 PM EDT Office Visit [facility] ADULT DENTAL [address] [place] [address] Loreto Lopez [address] [place], [place] [phone] documented as of this encounter Visit Diagnoses Diagnosis Myopia of both eyes- Primary documented in this encounter Additional Health Concerns Assessment Noted Time PHQ-9 Depression Total Score: 20 10/08/ 024 8:02 AM EST documented as of this encounter Care Teams Drawing Kiln Operator Relationship Specialty Start Date End Date Sera Molina DO [address] [place] [address] PCP - General Family Medicine 09/09/13 documented as of this encounter
--- OUTSIDE RECORDS SUMMARY | 2024-11-17 17:43 | XMS_ITS | Continuity of Care Document ---
Author Organization [facility] Address [address] [place] [address] Phone Care Team Providers Care Car Sweeper Name Role Phone Jacob HOYOS, RVT, VALERY, [...] Mins- [place] & [place] [facility], [address] [place] [address] Dr Lerma [address]Remy [place], [id number], [place] tel:[phone] CVR - [facility] Localized edemaVenous insufficiency (chronic) (peripheral) 4 Jacob HOYOS RVT, VAELRY Carrasco. [address] [place] [address], [facility] [place], [id number], [place]. tel:[phone] Referring Provider: Sera Morales, [address], [address]. tel:[phone] [facility], [address] [place] [address] Dr Lerma [address], [place], [id number], [place] tel:[phone] [facility] Chronic venous hypertension (idiopathic) with inflammation of bilateral lower extremity 4 Jacob HOYOS RVT, VALERY Carrasco. [address] [place] [address], Barb hernandez [place], [id number], [place]. tel:[phone] Referring Provider: Sera Morales, [address], [address]. tel:[phone] Office/Outpt E&M Established 15 Mins [facility] MD LEWIS, [address] [place] [address] Dr Lerma [address] 1000Remy [place], [id number], [place] tel:[phone] [facility] - [facility] Encounter for other preprocedural examination 3 Paloma Da Silva. [address] [facility], Suite [facility], [place], [place], [id number], [place]. tel:[phone] Referring Provider: Sera Morales, [address], [address]. tel:[phone] [facility] MD [place], [address] [place] [address] Dr Lerma 1000Suite Remy Swain [place], [id number], [place] tel:[phone] [facility] - [facility] Chronic venous hypertension (idiopathic) with other complications of bilateral lower extremityEdema , unspecified 3 Yehuda HOYOS FACS T VALERY Pedraza. [facility] [place] [address], [place], [address], [place]. tel:[phone] Referring Provider: Sera Morales, [address], [address]. tel:[phone] Office/Outpt E&M Established 15 Mins [facility] MD [place]W[facility], [address] [place] [address] Dr Lerma 1000SuRemy armas [place], [id number], [place] tel:[phone] [facility] - [facility] Varicose veins of bilateral lower extremities with pain 3 Yehuda HOYOS FACS T VALERY Pedraza. [address] [address], [place], [address], [place]. tel:[phone] Referring Provider: eSra Morales, [address], [address]. tel:[phone] [facility] MD [place], [address] [place] [address] Dr Lerma 1000Suite Remy Swain [place], [id number], [place] tel:[phone] [facility] - [facility] Encounter for follow-up examination after completed treatment for conditions other than malignant neVaricose veins of right lower extremity with pain Jul- 3 Yehuda HOYOS FACS T VALERY Pedraza. [address] [facility] [place], [place] [address], [place], [address], [place]. tel:[phone] Referring Provider: Sera Morales, [address], [address]. tel:[phone] [facility] MD [place], [address] [place] [address] [facility] 1000[address] 1000Remy [place], [id number], [place] tel:[phone] [facility] - [place] [facility] [place] Chronic venous hypertension (idiopathic) with inflammation of right lower extremity Jul-0 3 Yehuda HOYOS FACS Juan Pedraza. [address] [place] [address], [place], [address], [place]. tel:[phone] Referring Provider: Sera Morales, [address], [address]. tel:[phone] [facility] MD [facility], [address] [place] [address] Dr Lerma [address] 1000Remy [place], [id number], [place] tel:[phone] [facility] [place] [facility] [place] Chronic venous hypertension (idiopathic) with inflammation of right lower extremity Jul-0 3 Yehuda HOYOS FACS T VALERY Pedraza. [facility], [place], [place] [address], [place], [address], [place]. tel:[phone] Referring Provider: Sera Morales, [address], [address]. tel:[phone] [facility] MD [facility], [address] [place] [address] [address] 1000Remy [place], [id number], [place] tel:[phone] [facility] - [place] [facility] [place] Chronic venous hypertension w oth comp of l low extrem 3 Yehuda HOYOS FACS T VALERY Pedraza. [address] [facility], [place], Suite [facility], [place], [address], [place]. tel:[phone] Referring Provider: Sera Morales, [address], [address]. tel:[phone] [facility] MD [place], [address] [place] [address] Dr Lerma 1000[address] 1000Remy [place], [id number], [place] tel:[phone] [facility] - [facility] Chronic venous hypertension w inflammation of l low extrem 3 Yehuda HOYOS FACS Juan Pedraza. [address] [place] [address], [place], [address], [place]. tel:[phone] Referring Provider: Sera Morales, [address], [address]. tel:[phone] [facility] Taoist MD [place], [address] [place] [address] Dr Lerma [address] 1000Remy [place], [id number], [place] tel:[phone] [facility] - [facility] Chronic venous hypertension w inflammation of l low [facility] 3 Yehuda HOYOS FACS Juan Pedraza. [address] [place] [address], [place], [address], [place]. tel:[phone] Referring Provider: Sera Morales, [address], [address]. tel:[phone] Office/Outpt E&M Established 15 Mins Terell Thomas [facility] Taoist MD [facility], [address] [place] [address] Dr Lerma [address] 1000Remy [place], [id number], [place] tel:[phone] [facility] - [facility] Body mass index (BMI) 32.0-32.9, adultVenous insufficiency (chronic) (peripheral) 3 Yehuda HOYOS FACS Juan Pedraza. [address] [place] [address], [place], [address], [place]. tel:[phone] Referring Provider: Sera Morales, [address], [address]. tel:[phone] [facility] Tao[facility] MD [facility], [address] [place] [address] Dr Lerma [address] 1000Remy [place], [id number], tel:[phone] CVR - [place] - [place] Venous insufficiency (chronic) (peripheral) 3 Yehuda HOYOS FACS [facility] [employer]. [address] [facility], [place], [place] [address], [place], [address], . tel:[phone] Referring Provider: Sera Morales, [address], [address]. tel:[phone] Office/Outpt E&M Established 25 Mins [facility], [address] [facility] [address], [place], [id number], [place] tel:[phone] [facility] - [place] [facility] [place] Body mass index (BMI) 30.0-30.9, adultVenous insufficiency (chronic) (peripheral) [address] [facility] [employer]. [facility] [address], [place], [address], [place]. tel:[phone] Referring Provider: Sera Morales, [address], [address]. tel:[phone] Family History Family Member Type Diagnosis Age At Onset No Information Payers Payer name Insurance type Covered democrat ID Authoriza tijeremy(s) Medical Assistance KIERRA [id number] Social History Type Description Quantity Date Captured [...]
--- OUTSIDE RECORDS SUMMARY | 2024-11-17 17:43 | XMS_ITS | Encounter Summary ---
Author Organization [employer] Address [address] [facility] 7 [place] [address] Care Team Providers Care Bicycle Technician Name Role Phone Sera Molina DO Primary Care Provider + [phone] Reason for Visit * Reason Onset Date Comments Med Refill 11/16/2024 Encounter Details Date Type Department Care Team (Late st Contact Info) Description 11/16/[address] [facility] MEDICINE [address] [place], [place] [phone] Sera Molina DO [address] [place] [address] Social History Tobacco Use Types Packs/Day Years [...] sent to: [facility] [place], [place] - [address] [place] [address] documented in this encounter Plan of Treatment Upcoming Encounters Date Type Department Care Team (Late st Contact Info) Description 11/24/2024 3:30 PM EST Office Visit [facility] OPTOMETRY [address] [place] [address] Kaela Garcia, OD [address] [place] [address] 12/03/2024 10:30 AM EST Procedure Visit [facility] MEDICINE [address] [place] [address] Sera Molina DO [address] [place] [address] 12/20/2024 2:30 PM EST Office Visit [facility] ADULT DENTAL [address] [place] [address] Ward Schultz DDS [address] [place], [place] [phone] 04/12/2025 3:00 PM EDT Office Visit [facility] ADULT DENTAL [address] [facility], [place] [phone] Albert Lopezaris [address] [place], [place] [phone] documented as of this encounter Visit Diagnoses Not on filedocumented in this encounter Additional Health Concerns Assessment Noted Time PHQ-9 Depression Total Score: 20 10/08/ 024 8:02 AM EST documented as of this encounter Care Teams Bicycle Technician Relationship Specialty Start Date End Date Sera Molina DO [address] [place] [address] PCP - General Family Medicine 09/09/13 documented as of this encounter
--- OUTSIDE RECORDS SUMMARY | 2024-11-17 17:43 | XMS_ITS | Encounter Summary ---
Author Organization [employer] Address [address] [place] [address] 7t [place] [address] Care Team Providers Care Silk Weaver Name Role Phone Sera Molina DO Primary Care Provider + [phone] Reason for Referral * Imaging (Routine) - Closed Specialty Diagnoses / Procedures Referred By Contac t Referred To Contact Diagnoses Dizziness Tinnitus of both ears Procedures Mr Brain w/ and w/o Contrast Sera Molina DO [address] [place] [address] Phone: tel: fax: [address] Phone: tel: fax: Referral ID Status Reason Start Date Expiration Date Visits Re quested Visits Authorized [id number] Closed 03/12/2023 03/11/2024 1 1 Reason for Visit * Reason Onset Date Comments MRI order 03/12/2023 Encounter Details Date Type Department Care Team (Late st Contact Info) Description 03/12/2023 Telephone [facility] MED[facility] [address] [place], [place] [phone] Sera Molina DO [address] [place], [place] [phone] MRI order Social History Tobacco Use Types [...] 9:28 AM EDT Tc [place] [facility] [place] status on message below. Pt is scheduled for tomorrow 03/14/23 * Telephone Encounter - Adriana Ochoa - 03/12/2023 1:57 PM EDT Tc from Kwame from [facility] MRI department requesting for order to be modify to MRI brain with and without contract . Please call to clarify [phone] . documented in this encounter Plan of Treatment Upcoming Encounters Date Type Department Care Team (Late st Contact Info) Description 11/24/2024 3:30 PM EST Office Visit [facility] OPTOMETRY [address] [place] [address] Kaela Garcia, OD [address] [place] [address] 12/03/2024 10:30 AM EST Procedure Visit [facility] MEDICINE [address] [place] [address] Sera Molina DO [address] [place] [address] 12/20/2024 2:30 PM EST Office Visit [facility] ADULT DENTAL [address] [place], [place] [phone] Ward Schultz DDS [address] [place], [place] [phone] 04/12/2025 3:00 PM EDT Office Visit [facility] ADULT DENTAL [address] [place], [place] [phone] Loreto Lopez [address] [place], [place] [phone] Scheduled Orders Name Type Priority Associated Diagnoses [...] documented as of this encounter Care Teams Silk Weaver Relationship Specialty Start Date End Date Sera Molina DO [address] [place], [place] [phone] PCP - General Family Medicine 09/09/13 documented as of this encounter
--- OUTSIDE RECORDS SUMMARY | 2024-11-17 17:43 | XMS_ITS | Clinical Summary ---
Author Organization [facility] Address [address] [place] [address] Care Team Providers Care Dust Handler Name Role Phone Unavailable Primary Care Provider [...]
--- OUTSIDE RECORDS SUMMARY | 2024-11-17 17:43 | XMS_ITS | Encounter Summary ---
Author Organization [employer] Address [address] [facility] 7 [place] [address] Care Team Providers Care Line Dancer Name Role Phone Sera Molina DO Primary Care Provider + [phone] Reason for Visit * Reason Onset Date Comments Med Refill 11/16/2024 Encounter Details Date Type Department Care Team (Late st Contact Info) Description 11/16/[address] [facility] MEDICINE [address] [place], [place] [phone] Sera Molina DO [address] [place], [place] [phone] Nonintractable chronic migraine Social History Tobacco Use [...] sent to: [facility] [place], [place] - [address] [place] [address] TC from pt stating that the Neurologist wont Give pt the Tylenol till She is a established pt of his. documented in this encounter Plan of Treatment Upcoming Encounters Date Type Department Care Team (Late st Contact Info) Description 11/24/2024 3:30 PM EST Office Visit [facility] OPTOMETRY [address] [place] [address] Kaela Garcia, OD [address] [place] [address] 12/03/2024 10:30 AM EST Procedure Visit [facility] MEDICINE [address] [place] [address] Sera Molina DO [address] [place] [address] 12/20/2024 2:30 PM EST Office Visit [facility] ADULT DENTAL [address] [place], [place] [phone] Ward Schultz DDS [address] [place] [address] 04/12/2025 3:00 PM EDT Office Visit [facility] ADULT DENTAL [address] [place], [place] [phone] Jessica, Loreto [address] [place] [address] documented as of this encounter Visit Diagnoses Diagnosis Nonintractable chronic migraine documented in this encounter Additional Health Concerns Assessment Noted Time PHQ-9 Depression Total Score: 20 024 8:02 AM EST documented as of this encounter Care Teams Line Dancer Relationship Specialty Start Date End Date Sera Molina DO [address] [place] [address] PCP - General Family Medicine 09/09/13 documented as of this encounter
--- OUTSIDE RECORDS SUMMARY | 2024-11-17 17:43 | XMS_ITS | Encounter Summary ---
Author Organization [employer] Address [address] [place] [address] 7 [place] [address] Care Team Providers Care Customer Facilities Supervisor Name Role Phone Sera Molina DO Primary Care Provider + [phone] Reason for Visit * Reason Onset Date Comments Order US abdomen 04/16/2023 Encounter Details Date Type Department Care Team (Late st Contact Info) Description 04/16/2023 Telephone [facility] [address] [place], [place] [phone] Sera Molina DO [address] [place] [address] Order US abdomen Social History Tobacco Use [...] calling in regards to US abdomen order. Licensed Final Expense Agents does not see order on chart. Patientstates it was order on 03/22/23. documented in this encounter Plan of Treatment Upcoming Encounters Date Type Department Care Team (Late st Contact Info) Description 11/24/2024 3:30 PM EST Office Visit [facility] OPTOMETRY [address] [place] [address] Kaela Garcia, OD [address] [place] [address] 12/03/2024 10:30 AM EST Procedure Visit [facility] [address] [place] [address] Sera Molina DO [address] [place] [address] 12/20/2024 2:30 PM EST Office Visit [facility] ADULT DENTAL 230 [place] [address] Ward Schultz, DDS [address] [place] [address] 04/12/2025 3:00 PM EDT Office Visit [facility] [address] [place] [address] Albert Lopezaris [address] [place] [address] documented as of this encounter Visit Diagnoses Not on filedocumented in this encounter Additional Health Concerns Assessment Noted Time PHQ-9 Depression Total Score: 15 023 10:49 AM EDT documented as of this encounter Care Teams Customer Facilities Supervisor Relationship Specialty Start Date End Date Sera Molina DO [address] [place] [address] PCP - General Family Medicine 09/09/13 documented as of this encounter
--- OUTSIDE RECORDS SUMMARY | 2024-11-17 17:43 | XMS_ITS | Encounter Summary ---
Author Organization [employer] Address [address] [place] [address] 7 [place] [address] Care Team Providers Care Contract Assistant Name Role Phone Sera Molina DO Primary Care Provider + [phone] Encounter Details Date Type Department Care Team (Latest Contact Info) Description 04/24/2022 Abstract [facility] CONVERSIONS Dental, Provider, DDS Social History [...] 3:30 PM EST Office Visit [facility] OPTOMETRY [address] [place] [address] Kaela Garcia, OD 230 [place] [address] 12/03/2024 10:30 AM EST Procedure Visit [facility] MEDICINE [address] [place] [address] Sera Molina DO [address] [place] [address] 12/20/2024 2:30 PM EST Office Visit [facility] ADULT DENTAL 230 [place] [address] Ward Schultz DDS [address] [place] [address] 04/12/2025 3:00 PM EDT Office Visit [facility] ADULT DENTAL [address] [place], [place] [phone] JessicaLoreto 230 [place] [address] documented as of this encounter Visit Diagnoses Not on filedocumented in this encounter Care Teams Contract Assistant Relationship Specialty Start Date End Date Sera Molina DO [address] [place], [place] [phone] PCP - General Family Medicine 09/09/13 documented as of this encounter
--- OUTSIDE RECORDS SUMMARY | 2024-11-17 17:43 | XMS_ITS | Encounter Summary ---
Author Organization [email or web address] Address [address] [facility] [address] [place] [address] Care Team Providers Care Energy Sales Broker Name Role Phone Jesse Sera Primary Care Provider + [phone] Reason for Visit * Reason Comments Filling Encounter Details Date Type Department Care Team ([facility] st Contact Info) Description 11/16/2024 3:00 PM EST Office Visit [facility] ADULT DENTAL [address] [place], [place] [phone] Ward Schultz, DDS [address] [place] [address] Fractured dental alevism without loss of material (Primary Dx) Social [...] (composit tooth# 10), Timeout Time: 1524 Location: [facility] Tooth: Maxilla and #10 Procedure: Yazdanism Verified the above with patient, assistant facility manager, and provider. Confirmed via patient's chart, intraorally and by radiographs. Epitaxial Reactor Technician: not applicable Chief Complaint Patient presents with [...] ONE SURFACE, ANTERIOR 10 L Diagnosis: Fractured alevism Topical: 20% Benzocaine Anesthesia: 2% Lidocaine (Xylocaine) w/ 1:100,000 epinephrine Number of Cartridges: .50 Injection Type: Buccal infiltration Confirmed profound anesthesia. Isolation: high speed suction and cotton rolls Prep: Preparation finalized Matrix: None Etch: 37% Phosphoric Acid Etch Desensitizer: Gluma Liner/Base: None Camacho: I-Camacho Yazdanism Material: Filtek Lostant Flowable Composite and Paradigm Composite Shade: A3 Polished. Occlusion & contacts verified. Patient satisfied with comfort and esthetics. Patient tolerated procedure well. Post-operative instructions were given. Patient departed alert, oriented, and in stable condition. NV: Anuradha # 7 fractured incisal angle Dog Trainer: Katelyn Berger Dentist: Ward Schultz DDS documented in this encounter Plan of Treatment Upcoming Encounters Date Type Department Care Team (Late st Contact Info) Description 11/24/2024 3:30 PM EST Office Visit [facility] OPTOMETRY [address] [place] [address] Kaela Garcia, OD [address] [place] [address] 12/03/2024 10:30 AM EST Procedure Visit [facility] MEDICINE [address] [place] [address] Sera Molina DO 230 [place] [address] 12/20/2024 2:30 PM EST Office Visit [facility] ADULT DENTAL [address] [place] [address] Ward Schultz DDS [address] [place] [address] 04/12/2025 3:00 PM EDT Office Visit [facility] ADULT DENTAL [address] [place] [address] Loreto Lopez [address] [place] [address] documented as of this encounter Procedures Procedure [...] this encounter Visit Diagnoses Diagnosis Fractured dental alevism without loss of material- Primary Fractured dental restorative material without loss of material documented in this encounter Additional Health Concerns Assessment Noted Time PHQ-9 Depression Total Score: 20 10/08/ 024 8:02 AM EST documented as of this encounter Care Teams Energy Sales Broker Relationship Specialty Start Date End Date Sera Molina DO 230 [place] [address] PCP - General Family Medicine 09/09/13 documented as of this encounter
--- OUTSIDE RECORDS SUMMARY | 2024-11-17 17:43 | XMS_ITS | Encounter Summary ---
Author Organization [employer] Address [address] [facility] 7 [place] [address] Care Team Providers Care Travel Administrator Name Role Phone Sera Molina DO Primary Care Provider + [phone] Reason for Visit * Reason Onset Date Comments Med Refill 06/29/2024 Encounter Details Date Type Department Care Team (Late st Contact Info) Description 06/29/2024 Telephone [facility] 230 [place], [place] [phone] Sera Molina DO 230 [place], [place] [phone] Med Refill Social History Tobacco Use Types [...] sent to: [id number] [place], [place] - [address] [place] [address] documented in this encounter Plan of Treatment Upcoming Encounters Date Type Department Care Team (Late st Contact Info) Description 11/24/2024 3:30 PM EST Office Visit [facility] OPTOM[facility] [address] [place] [address] Kaela Garcia, OD [address] [place] [address] 12/03/2024 10:30 AM EST Procedure Visit [facility] [address] [place] [address] Sera Molina DO 230 [place] [address] 12/20/2024 2:30 PM EST Office Visit [facility] ADULT DENTAL [address] [place], [place] [phone] Ward Schultz, DAVIDS 230 [place], [place] [phone] 04/12/2025 3:00 PM EDT Office Visit [facility] ADULT DENTAL [address] [place], [place] [phone] Jessica, Loreto 230 [place], [place] [phone] documented as of this encounter Visit Diagnoses Not on filedocumented in this encounter Additional Health Concerns Assessment Noted Time PHQ-9 Depression Total Score: 15 023 10:49 AM EDT documented as of this encounter Care Teams Travel Administrator Relationship Specialty Start Date End Date Sera Molina DO 230 [place], [place] [phone] PCP - General Family Medicine 09/09/13 documented as of this encounter
--- OUTSIDE RECORDS SUMMARY | 2024-11-17 17:43 | XMS_ITS | Encounter Summary ---
Author Organization [employer] Address [address] [place] [address] 7 [place] [address] Care Team Providers Care Dump Attendant Name Role Phone Sera Molina DO Primary Care Provider + [phone] Encounter Details Date Type Department Care Team (Latest Contact Info) Description 01/04/2021 Abstract [facility] CONVERSIONS Dental, Provider, DDS Social History [...] Description 11/24/2024 3:30 PM EST Office Visit [facility] OPTOMETRY [address] [place] [address] Kaela Garcia, OD [address] [place] [address] 12/03/2024 10:30 AM EST Procedure Visit [facility] [address] [place] [address] Sera Molina DO 230 [place] [address] 12/20/2024 2:30 PM EST Office Visit [facility] ADULT DENTAL [address] [place] [address] Ward Schultz DDS [address] [place] [address] 04/12/2025 3:00 PM EDT Office Visit [facility] ADULT DENTAL [address] [place], [place] [phone] JessicaLoreto [address] [place] [address] documented as of this encounter Visit Diagnoses Not on filedocumented in this encounter Care Teams Dump Attendant Relationship Specialty Start Date End Date Sera Molina DO [address] [place], [place] [phone] PCP - General Family Medicine 09/09/13 documented as of this encounter
--- OUTSIDE RECORDS SUMMARY | 2024-11-17 17:43 | XMS_ITS | Encounter Summary ---
Author Organization [employer] Address [address] [facility] 7t [place] [address] Care Team Providers Care Mellowing Machine Operator Name Role Phone Jesse Sera Primary Care Provider + [phone] Reason for Visit * Reason Comments Med Refill Encounter Details Date Type Department Care Team ([facility] st Contact Info) Description 01/24/2024 Refill [facility] [address] [place], [place] [phone] Tigist Belcher NP [address] [place] [address] Chronic gastroesophageal reflux disease Social History Tobacco [...] Office Visit [facility] OPT[facility] [address] [place] [address] Jose, Kaela, OD [address] [place] [address] 12/03/2024 10:30 AM EST Procedure Visit [facility] [address] [place] [address] Sera Molina DO [address] [place] [address] 12/20/2024 2:30 PM EST Office Visit [facility] ADULT DENT[facility] [address] [place] [address] Ward Schultz DDS [address] [place] [address] 04/12/2025 3:00 PM EDT Office Visit [facility] ADULT DENT[facility] [address] [place] [address] Albert Lopezaris [address] [place] [address] documented as of this encounter Visit Diagnoses Diagnosis Chronic gastroesophageal reflux disease documented in this encounter Additional Health Concerns Assessment Noted Time PHQ-9 Depression Total Score: 15 023 10:49 AM EDT documented as of this encounter Care Teams Mellowing Machine Operator Relationship Specialty Start Date End Date Sera Molina DO [address] [place] [address] PCP - General Family Medicine 09/09/13 documented as of this encounter
--- OUTSIDE RECORDS SUMMARY | 2024-11-17 17:43 | XMS_ITS | Clinical Summary ---
Author Organization [employer] Address [address] [place] [address] 7[address] [place] [address] Care Team Providers Care Bioprocess Engineer Name Role Phone JesseSera Primary Care Provider + [phone] Allergies Active Allergy Reactions Criticality Noted Date [...] tooth 10/12/2024 Dental plaque 10/12/2024 Fractured dental jewish without loss of mat erial 10/12/2024 Chronic [...] Self Plan [facility], Patient to engage in OP therapy , and Patient to reach out to [facility] as needed Generalized anxiety disorder 03/07/2023 Assessment [...] Description 11/16/2024 3:00 PM EST Office Visit [facility] [address], [place] [address] Ward Schultz DDS Fractured dental jewish without loss of material (Primary Dx) 11/16/2024 Refill [facility] [address] [place] [address] Sera Molina, Nonintractable chronic migraine 11/16/2024 Refill [facility] [address] [place] [address] Sera Molina, 11/02/2024 Outside Procedure [facility] [address], [place] [address] Kaela Garcia, OD Presbyopia (Primary Dx) 11/02/2024 Telephone [facility] [address] [place] [address] Sera Molina, 11/01/2024 10:30 AM EST Office Visit [facility] [address] [place] [address] Kaela Garcia, OD Myopia of both eyes (Primary Dx) 11/01/2024 Refill [facility] [address], [place] [address] Sera Molina DO 10/25/2024 Telephone [facility] [address] [place] [address] Jennifer Hernandez, RN Results 10/15/2024 Telephone [facility] [address], [place] [address] Ward Schultz DDS 10/13/2024 Refill [facility] [address] [place] [address] Sera Molina DO 10/12/2024 1:00 PM EST Office Visit [facility] [address] [place] [address] Loreto Lopez Dental plaque (Primary Dx); Impacted tooth; Fractured dental jewish without loss of material 10/08/2024 Refill [facility] [address] [place] [address] Sera Molina DO Chronic migraine 10/08/2024 Refill [facility] [address] [place] [address] Jennifer Hernandez, ARVIN Bilateral swelling of feet and ankles 10/06/2024 10:45 AM EST Office Visit [facility] [address] [place] [address] Sera Molina DO Nonintractable chronic migraine (Primary Dx); Vaginal discharge 10/06/2024 Travel 09/27/2024 Refill [facility] [address] [place] [address] Sera Molina DO 09/16/2024 Telephone [facility] [address] [place] [address] Sera Molina DO Medication Question 09/10/2024 Telephone [facility] [address] [place] [address] Sera Molina DO 09/10/2024 Refill [facility] [address] [place] [address] Caterina Lan RN Chronic migraine (Primary Dx); Chronic low back pain, unspecified back pain laterality, unspecified whether sciatica present 09/09/2024 Telephone [facility] [address] [place] [address] Sera Molina DO Medication Question; Prior Authorization ( PA: Emgality) 09/08/2024 Telephone [facility] [address] [place] [address] Sheila Nair RNnibbler operator 09/08/2024 Telephone [facility] [address] [place] [address] Sheila Nair RNnibbler operator 09/07/[address] [address] Sheila Nair RNnibbler operator 09/03/[address] [address] Sera Molina DO Closed fracture of shaft of right fibula, unspecified fracture morphology, initial encounter (Primary Dx) 09/02/2024 10:15 AM EST Telemedicine [address] [address] Sera Molina DO Major depression, recurrent, chronic (CMS/HCC) (Primary Dx); Chronic migraine; Chronic pain of left knee; Chronic gastroesophageal reflux disease; BMI 33.0-33.9,adult; Moderate persistent asthma without complication; Dorsal cervical fat pad; Anemia, unspecified type; Other hyperlipidemia; Closed fracture of shaft of right fibula, unspecified fracture morphology, initial encounter 09/02/2024 Travel 08/30/2024 2:30 PM EST Office Visit [facility] [address] [place] [address] Jose, Kaela, OD Severe myopia of both eyes (Primary Dx) 08/30/2024 Travel 08/25/[address] [address] Sera Molina DO Nurse Triage 08/19/[address] [address] Sera Molina DO Hospital Follow-up 08/18/[address] [address] Sera Molina DO Med Refill 08/18/[address] [address] Sera Molina DO Nurse Triage from Last 3 Months [...] Description 11/24/2024 3:30 PM EST Office Visit [facility] [address] [place] [address] Kaela Garcia, OD [address] [place] [address] 12/03/2024 10:30 AM EST Procedure Visit [facility] [address] [place] [address] Sera Molina, DO 230 [place] [address] 12/20/2024 2:30 PM EST Office Visit [facility] [address] [place] [address] Ward Schultz, DDS [address] [place] [address] 04/12/2025 3:00 PM EDT Office Visit [facility] [address] [place] [address] Albert Lopezaris [address] [place] [address] Health Maintenance Due Date Last Done Comments [...] EST Narrative 10/16/2024 8:03 AM EST ? [facility] ?[address] ?[place] [address] ? Magnetic Resonance Report ? Signed ? Patient: Saenz,Eli ?MR#: [id number] ?? 89 ? : 1975 ?Acct:[id number] ? Age/Sex: 48 / F ?ADM Date: 12/20/24 ? Loc: HO.MRI ? Attending Dr: Sera Molina DO ? Ordering Physician: Sera Molina DO ?? Date of Service: 10/15/24 ?? Procedure(s): MR knee LT wo con ?? Accession Number(s): [id number] ? cc: Sera Molina DO ? EXAMINATION: [...] DD/ 1640 ? TD/TT: 10/15/24 1705 ? Assistant Professor Of Communication: WG ? Procedure Note Donotuseinterpreter, Image - 10/16/2024 [place] [address] Magnetic Resonance Report Signed Patient: Inocencia Saenz#: [id number] : 1975Acct:[id number] Age/Sex: 48 / FADM Date: 10/15/24 Loc: HO.MRI Attending Dr: Sera Molina DO Ordering Physician: Sera Molina DO Date of Service: 10/15/24 Procedure(s): MR knee LT wo con Accession Number(s): [id number] cc: Sera Molina DO EXAMINATION: MR KNEE [...] 10/16/24 0800 DD/ 1640 TD/TT: 10/15/24 1705 Assistant Professor Of Communication: GIANLUCA Sera Molina DO IMG MRI PROCEDURES Edited Re sult - Final * Vitamin B12 (Cobalamin) and Folate Panel, Serum (10/06/2024 12:46 PM EST) Vitamin B12 437 200 - 900 pg/mL [facility] Comment:NORMAL 200-900 PG/ML INDETERMINATE 160-199 PG/ML DEFICIENT < 160 PG/ML Folate 5.3 > or = 4.0 ng/mL [facility] Comment:Reference Values:> o r = 4.0 ng/mL< 4.0 ng/mL suggests folate deficiency Methotrexate, aminopterin and folinic acid(leucovorin) are chemotherapeutic agents whose molecularstructures are similar to folate; therefore, the Architectfolate assay cannot be used for patients using these drugs. Blood 10/06/2024 12:4 6 PM EST 10/06/2024 1:13 PM EST Sera Molina DO LAB BLOOD ORDERABLES Final R esult [facility] [address] [place] [phone] * (ABNORMAL) Iron And Total Iron Binding Capacity (10/06/2024 12:46 PM EST) Iron 29(L) 30 - 160 mcg/dL [facility] Total Iron Binding Capacity 378 228 - 428 mcg/dL [facility] Percent Iron Saturation 8(L) 15 - 50 % [facility] Unsaturated Iron Binding 349 ug/dL [facility] Blood Venous blood specimen / Unknown 10/06/2024 12:46 PM EST 10/06/2024 1:13 PM EST Sera Molina DO LAB BLOOD ORDERABLES Final R esult Performing Organization Address City/[facility]/ZIP Co de Phone Number [facility] [address] [place] [address] [phone] * (ABNORMAL) CBC (10/06/2024 12:46 PM EST) White Blood Count 9.7 4.8 - 10.8 X10*3/uL [facility] Red Blood Count 3.88(L) 4.20 - 5.50 X10*6/uL [facility] Hemoglobin 10.1(L) 12.0 - 16.0 g/dl [facility] Hematocrit 32.0(L) 37.0 - 47.0 % [facility] Mean Corpuscular Volume 82.5 80.0 - 98.0 fL [facility] Mean Corpuscular Hemoglobin 26.0(L) 27.0 - 33.0 pg [facility] Mean Corpuscular HGB Conc 31.6 31.0 - 35.0 g/dl [facility] Red Cell Distribution Width 16.8(H) 11.0 - 16.0 % [facility] Platelet Count 309 160 - 400 X10*3/uL [facility] Mean Platelet Volume 9.3(L) 9.4 - 12.3 fL [facility] NRBC Pct Auto 0.0 0.0 - 0.2 /100WBC [facility] NRBC Abs Auto 0.000 0.0 - 0.012 X10*3/uL [facility] Blood Venous blood specimen / Unknown 10/06/2024 12:46 PM EST 10/06/2024 1:13 PM EST Sera Molina DO LAB BLOOD ORDERABLES Final R esult Performing Organization Address City/[facility]/ZIP Co de Phone Number [facility] [address] [place] [address] [phone] * Ferritin (10/06/2024 12:46 PM EST) Ferritin 10 10 - 250 ng/mL [facility] Blood Venous blood specimen / Unknown 10/06/2024 12:46 PM EST 10/06/2024 1:13 PM EST Sera Molina LAB BLOOD ORDERABLES Final R esult Performing Organization Address [facility] Co de Phone Number [facility] [address] [place] [phone] * (ABNORMAL) Lipid Panel, Standard (10/06/2024 12:46 PM EST) Triglycerides 272(H) <150 mg/dL [facility] Comment:Desirable Triglyceri de: less than 150 mg/dLBorderline High Triglyceride 150-199 mg/dLHigh Triglyceride: 200-499 mg/dLVery High Triglyceride: greater than or equal to 5OO mg/dL Cholesterol 249(H) <200 mg/dL [facility] Comment:Desirable Cholestero l: less than 200 mg/dLBorderline High Cholesterol: 200-239 mg/dLHigh Cholesterol: greater than 239 mg/dL LDL Cholesterol Calculated 152(H) <100 mg/dL [facility] Comment:Desirable LDL: less than 100 mg/dLNear Optimal/Above Optimal LDL: 110- 129 mg/dLBorderline High LDL: 130-159 mg/dLHigh LDL: 160-189 mg/dLVery High LDL: greater than or equal to 190 mg/dL HDL Cholesterol 43 >40 mg/dL [facility] Comment:Desirable HDL: great er than 40 mg/dL Note: This HDL assay may give artificially low results in patients with liver disease. Blood Venous blood specimen / Unknown 10/06/2024 12:46 PM EST 10/06/2024 1:13 PM EST Sera Molina DO LAB BLOOD ORDERABLES Final R esult Performing Organization Address City/[facility]/ZIP Co de Phone Number [facility] [address] [place] [address] [phone] * (ABNORMAL) Basic Metabolic Panel (10/06/2024 12:46 PM EST) Pathologist [facility] Sodium 140 135 - 145 mmol/L [facility] Potassium 4.1 3.3 - 5.1 mmol/L [facility] Chloride 104 96 - 108 mmol/L [facility] Carbon Dioxide 28 22 - 29 mmol/L [facility] Anion Gap 12 12 - 20 [facility] Urea Nitrogen (BUN) 21(H) 9 - 16 mg/dL [facility] Creatinine, Serum 1.28 0.5 - 1.4 mg/dL [facility] Estimated Glomerular Filt Rate 44 [facility] Comment:Chronic Kidney Disea se: Estimated GFR < 60 mL/min/1.98h3Ggtpeq Kidney Disease: Estimated GFR < 15 mL/min/1.73m2 Glucose 90 60 - 115 mg/dL [facility] Calcium 10.6(H) 8.4 - 10.2 mg/dL [facility] Blood Venous blood specimen / Unknown 10/06/2024 12:46 PM EST 10/06/2024 1:13 PM EST Sera Molina DO LAB BLOOD ORDERABLES Final R esult [facility] [address] [place] [address] [phone] * Bacterial Vaginosis Panel (10/06/2024 11:52 AM EST) Pathologist [facility] TRICHOMONAS VAGINALIS DETECTION BY PCR NOT DETECTED Not Detect [facility] BACTERIAL VAGINOSIS DETECTION BY PCR NEGATIVE Negative [facility] Comment:The BV organism targ ets of [...] DETECTION BY PCR NOT DETECTED Not Detect [facility] Shayla glab krusei PCR NOT DETECTED Not Detect [facility] Swab Vaginal structure / Unknown 10/06/2024 11:52 AM EST 10/06/2024 6:07 PM EST us Sera Molina DO LAB MICROBIOLOGY - GENERAL O RDERABLES Final Result [facility] [address] [place] [address] [phone] * Chlamydia/N. Gonorrhoeae RNA, TMA, Urogenitial (10/06/2024 11:52 AM EST) CT PCR NOT DETECTED Not Detect. [facility] Comment:A not detected test result does [...] psychologicalconsequences. NG PCR NOT DETECTED Not Detect. [facility] Comment:A not detected test result does [...] AM EST 10/06/2024 6:07 PM EST Narrative [facility] - 10/07/2024 4:24 AM EST Vaginal Sera Molina DO LAB MICROBIOLOGY - GENERAL O RDERABLES Final Result Performing Organization Address [facility] Co de Phone Number [facility] [address] [place] [phone] * Hepatitis B, C Profile (07/02/2024 12:34 PM EDT) ~Hepatitis B Surface Antibody NONREACTIVE Nonreactive [facility] Comment:Nonreactive: < 8.00 mIU/mL Hepatitis B Core Antibody Nonreactive Nonreactive [facility] Hepatitis C Antibody Nonreactive Nonreactive [facility] Comment:Antibodies to HCV no t detected; does not exclude early acuteHCV infection. Hepatitis B Surface Ag Negative Negative [facility] 07/02/2024 12:3 4 PM EDT 07/02/2024 12:34 PM EDT Sera Molina DO LAB BLOOD ORDERABLES Final R esult Performing Organization Address [facility]/ZIP Co de Phone Number [facility] [address] [place] [phone] * HIV-1/2 Antigen and Antibodies, Fourth Generation, with Reflexes (07/02/2024 12:34 PM EDT) HIV AB/AG Nonreactive Nonreactive [facility] Comment:HIV-1 p24 Ag and/or HIV-1/HIV-2 Ab not detected.A test result that is nonreactive does not exclude thepossibility of exposure to or infection with HIV-1 and/orHIV-2. Nonreactive results in this assay for individualswith prior exposure to HIV-1 and/or HIV-2 may be due toantigen and antibody levels that are below the limit ofdetection of this assay.The [employer] HIV Ag/Ab Combo assay result andsupplemental assay results should be interpreted inconjunction with the patient's clinical presentation,history and other laboratory results. If the results areinconsistent with clinical evidence, additional testing issuggested to confirm the result. Blood Venous blood specimen / Unknown 07/02/2024 12:34 PM EDT 07/02/2024 12:34 PM EDT Sera Molina LAB BLOOD ORDERABLES Final R esult Performing Organization Address [facility] Co de Phone Number [facility] [address] [place] [phone] * Hemoglobin A1c (07/02/2024 12:34 PM EDT) Hemoglobin A1c 5.9 <6.0 % [facility] Comment:Hemoglobin A1C Refer ence Range Adults: 4.8 - 6.0 % Non diabetic: < 6.0 % Goal: < 7.0 %Additional Action Suggested: > 8.0 %Note: Hemoglobin A1c results are invalid for patients with abnormal amounts of HbF. Blood transfusions may impact the HbA1c concentration in the patient sample. Estimated Average Glucose 123 mg/dL [facility] Comment:eAG = Estimated ave rage glucose which is %A1C expressed asaverage glucose, using the formula of the V7V-DbiylfyTtmfaav Glucose study (ADAG), Diabetes Care, Vol.31,#8,2007 Blood Venous blood specimen / Unknown 07/02/2024 12:34 PM EDT 07/02/2024 12:34 PM EDT Sera Molina [employer] LAB BLOOD ORDERABLES Final R esult Performing Organization Address [facility] Co de Phone Number [facility] [address] [place] [phone] * Mammography (03/07/2023 2:40 PM EDT) Pathologist [facility] Mammogram BI-rads 1 Anatomical Region Laterality Modality Other Radha Pascual CN HEALTH MAINTENANCE Final Result * HPV E6/E7 RFLX FAROOQ 16 18/45 (07/24/2018 10:25 AM EDT) [facility] HPV 16 RNA Test not performed [facility] HPV 18/45 RNA Test not performed [facility] HPV mRNA E6/E7 Not Detected NOT DETECTED [facility] Comment: This test was performed using the APTIMA(R) HPV Assay ([employer] This assay detects E6/E7 viral messenger RNA (mRNA) from 14 high-risk HPV types (16,18,31,33,35,39,45,51, 52,56,58,59,66,68). For additional information please refer to: http://education.[employer]/faq/HKQ945s6 (This link is being provided for informational/ educational purposes only.) The analytical performance characteristics of this assay have been determined by [employer] [place], [place]. The modifications have not been cleared or approved by the FDA. This assay has been validated pursuant to the CLIA regulations and is used for clinical purposes. Please note: ??Effective 07/08/2016, HPV testing will be performed using [employer]'s APTIMA test which targets mRNA. Detecting mRNA instead of DNA, as in older methods, offers significant improvements in specificity. ADDITIONAL TESTING Not indicated () [facility] Comment: Test Performed by [email or web address], [employer], [address] [place] [address] Nikhil Ron M.D., Ph.D., Director of Laboratories , CLIA [id number] 07/24/2018 10:2 5 AM EDT Sera Molina DO HISTORICAL/NON ORDERABLE LAB S Final Result [facility] [address] * Pap Smear (07/24/2018) Pap smear performed Historical Provider MD HEALTH MAINTENANCE Final Result from Last 3 Months or Most Recently Relevant to Health Maintenance Insurance [employer] [id number] C3 D[facility]AL-[facility] MEDICAID STAND ADULT DENTAL - [facility] Care Teams Bioprocess Engineer Relationship Specialty Start Date End Date Sera Molina DO [address] [place] [phone] PCP - General Family Medicine 09/09/13
--- OUTSIDE RECORDS SUMMARY | 2024-11-17 17:43 | XMS_ITS | Encounter Summary ---
Author Organization [employer] Address [address] [facility] 7 [place] [address] Care Team Providers Care Fan Mail Clerk Name Role Phone Sera Molina DO Primary Care Provider + [phone] Reason for Visit * Reason Onset Date Comments Nurse Triage 08/18/2024 Encounter Details Date Type Department Care Team ([facility] st Contact Info) Description 08/18/2024 Telephone [facility] [address] [place], [place] [phone] Sera Molina DO [address] [place] [address] Nurse Triage Social History Tobacco Use Types [...] vapo rub liquid and [place] [facility] [place]. Pt reports ever since then has had some asthma symptoms that are not going away. Pt denies fever, cough. Pt reports using daughters symbicort inhaler with good effect. Pt is aware that using another persons prescription medication is not to be done. Pt is advised to come to [facility] and Pt reports will come tomorrow, Hours given thurs-fri 830am- 400pm and Sat. 900am-12pm. Pt agrees with this disposition. Pt is advised to bring insurance card to visit feature writer unable to verify. Protocol Used: Asthma Attack [...] Description 11/24/2024 3:30 PM EST Office Visit [facility] [address] [place] [address] JoseKaela neumann, OD [address] [place] [address] 12/03/2024 10:30 AM EST Procedure Visit [facility] [address] [place] [address] Sera Molina DO [address] [place] [address] 12/20/2024 2:30 PM EST Office Visit [facility] [address] [place] [address] Ward Schultz DDS [address] [place] [address] 04/12/2025 3:00 PM EDT Office Visit [facility] [address] [place] [address] Loreto Lopez [address] [place] [address] documented as of this encounter Visit Diagnoses Not on filedocumented in this encounter Additional Health Concerns Assessment Noted Time PHQ-9 Depression Total Score: 15 023 10:49 AM EDT documented as of this encounter Care Teams Fan Mail Clerk Relationship Specialty Start Date End Date Sera Molina DO [address] [place] [address] PCP - General Family Medicine 09/09/13 documented as of this encounter
--- OUTSIDE RECORDS SUMMARY | 2024-11-17 17:43 | XMS_ITS | Encounter Summary ---
Author Organization [employer] Address [address] [facility] 7 [place] [address] Care Team Providers Care Reagent Tender Name Role Phone Sera Molina DO Primary Care Provider + [phone] Reason for Visit * Reason Onset Date Comments Med Refill 08/22/2023 Encounter Details Date Type Department Care Team ([facility] st Contact Info) Description 08/22/2023 Telephone [facility] [address] [place], [place] [phone] Sera Molina DO [address] [place], [place] [phone] Med Refill Social History Tobacco Use Types [...] sign off on med. Please contact at [phone] * Telephone Encounter - Sera Zambrano LPN [...] Visit [facility] [address] [facility] [place] [address] Kaela Garcia, OD [address] [place] [address] 12/03/2024 10:30 AM EST Procedure Visit [facility] [address] [place] [address] Sera Molina DO [address] [place] [address] 12/20/2024 2:30 PM EST Office Visit [facility]ULT DENTAL [address] [place] [address] Ward Schultz DDS [address] [place] [address] 04/12/2025 3:00 PM EDT Office Visit [facility] [address] [place] [address] Jessica Loreto [address] [place] [address] documented as of this encounter Visit Diagnoses Not on filedocumented in this encounter Additional Health Concerns Assessment Noted Time PHQ-9 Depression Total Score: 15 023 10:49 AM EDT documented as of this encounter Care Teams Reagent Tender Relationship Specialty Start Date End Date Sera Molina DO [address] [place] [address] PCP - General Family Medicine 09/09/13 documented as of this encounter
--- OUTSIDE RECORDS SUMMARY | 2024-11-17 17:43 | XMS_ITS | Encounter Summary ---
Author Organization [employer] Address [address] [facility] 7t [place] [address] Care Team Providers Care Supervisor Waterproofing Name Role Phone JesseSera Primary Care Provider + [phone] Encounter Details Date Type Department Care Team (Latest Contact Info) Description 11/02/2024 Outside Procedure [facility] OPTOMETRY [address] [place] [address] Jose, Kaela, OD [address] [place] [address] Presbyopia (Primary Dx) Social History Tobacco Use [...] Description 11/24/2024 3:30 PM EST Office Visit [facility] OPTOMETRY [address] [place] [address] Kaela Garcia, JEAN CARLOS [address] [place] [address] 12/03/2024 10:30 AM EST Procedure Visit [facility] MEDICINE [address] [place] [address] Sera Molina DO [address] [place] [address] 12/20/2024 2:30 PM EST Office Visit [facility] ADULT DENTAL [address] [place] [address] Ward Schultz DDS [address] [place] [address] 04/12/2025 3:00 PM EDT Office Visit [facility] ADULT DENTAL [address] [place] [address] Loreto Lopez [address] [place] [address] documented as of this encounter Visit Diagnoses Diagnosis Presbyopia- Primary documented in this encounter Additional Health Concerns Assessment Noted Time PHQ-9 Depression Total Score: 20 10/08/ 024 8:02 AM EST documented as of this encounter Care Teams Supervisor Waterproofing Relationship Specialty Start Date End Date Sera Molina DO [address] [place] [address] PCP - General Family Medicine 09/09/13 documented as of this encounter
--- OUTSIDE RECORDS SUMMARY | 2024-11-17 17:43 | XMS_ITS | Encounter Summary ---
Author Organization [employer] Address [address] [facility] 7 [place] [address] Care Team Providers Care Infant Babysitter Name Role Phone Sera Molina DO Primary Care Provider + [phone] Reason for Visit * Reason Onset Date Comments Med Refill 11/01/2024 Encounter Details Date Type Department Care Team (Late st Contact Info) Description 11/01/2024 Refill [facility] MEDICINE [address] [place], [place] [phone] Sera Molina DO [address] [place] [address] Social History Tobacco Use Types Packs/Day Years [...] 11/24/2024 3:30 PM EST Office Visit [facility] OPTOMETRY [address] [place] [address] Kaela Garcia, OD [address] [place] [address] 12/03/2024 10:30 AM EST Procedure Visit [facility] MEDICINE [address] [place] [address] Sera Molina DO [address] [place] [address] 12/20/2024 2:30 PM EST Office Visit [facility] ADULT DENTAL [address] [place] [address] Ward Schultz DDS [address] [place] [address] 04/12/2025 3:00 PM EDT Office Visit [facility] ADULT DENTAL [address] [place] [address] Albert Lopezaris [address] [place] [address] documented as of this encounter Visit Diagnoses Not on filedocumented in this encounter Additional Health Concerns Assessment Noted Time PHQ-9 Depression Total Score: 20 024 8:02 AM EST documented as of this encounter Care Teams Infant Babysitter Relationship Specialty Start Date End Date Sera Molina DO [address] [place] [address] PCP - General Family Medicine 09/09/13 documented as of this encounter
--- OUTSIDE RECORDS SUMMARY | 2024-11-17 17:43 | XMS_ITS | Encounter Summary ---
Author Organization [employer] Address [address] [facility] 7t [place] [address] Care Team Providers Care Storage Solutions Architect Name Role Phone Sera Molina DO Primary Care Provider + [phone] Reason for Visit * Reason Comments Med Refill Encounter Details Date Type Department Care Team ([facility] st Contact Info) Description 09/10/2023 Refill [facility] MEDICINE [address] [place], [place] [phone] Sera Molina DO [address] [place], [place] [phone] Social History Tobacco Use Types Packs/Day Years [...] 3:30 PM EST Office Visit [facility] OPTOMETRY [address] [place] [address] Jose, Kaela, OD 230 [place] [address] 12/03/2024 10:30 AM EST Procedure Visit [facility] MEDICINE [address] [place] [address] Sera Molina DO [address] [place] [address] 12/20/2024 2:30 PM EST Office Visit [facility] ADULT DENTAL [address] [place] [address] Ward Schultz DDS [address] [place] [address] 04/12/2025 3:00 PM EDT Office Visit [facility] ADULT DENTAL [address] [place] [address] Jessica, Loreto [address] [place] [address] documented as of this encounter Visit Diagnoses Not on filedocumented in this encounter Additional Health Concerns Assessment Noted Time PHQ-9 Depression Total Score: 15 023 10:49 AM EDT documented as of this encounter Care Teams Storage Solutions Architect Relationship Specialty Start Date End Date Sera Molina DO [address] [place] [address] PCP - General Family Medicine 09/09/13 documented as of this encounter
--- OUTSIDE RECORDS SUMMARY | 2024-11-17 17:43 | XMS_ITS | Encounter Summary ---
Author Organization [employer] Address [address] [place] [address] 7 [place] [address] Care Team Providers Care Hard Candy Batch Mixer Name Role Phone Sera Molina DO Primary Care Provider + [phone] Encounter Details Date Type Department Care Team (Latest Contact Info) Description 08/11/2019 Abstract [facility] CONVERSIONS Dental, Provider, DDS Social History [...] Visit [facility] OPTOMETRY [address] [place] [address] Kaela Garcia, OD [address] [place] [address] 12/03/2024 10:30 AM EST Procedure Visit [facility] MEDICINE [address] [place] [address] Sera Molina DO [address] [place] [address] 12/20/2024 2:30 PM EST Office Visit [facility] ADULT DENTAL [address] [place] [address] Ward Schultz DDS [address] [place] [address] 04/12/2025 3:00 PM EDT Office Visit [facility] ADULT DENTAL [address] [place] [address] Jessica, Loreto [address] [place] [address] documented as of this encounter Visit Diagnoses Not on filedocumented in this encounter Care Teams Hard Candy Batch Mixer Relationship Specialty Start Date End Date Sera Molina DO [address] [place] [address] PCP - General Family Medicine 09/09/13 documented as of this encounter
--- OUTSIDE RECORDS SUMMARY | 2024-11-17 17:43 | XMS_ITS | Encounter Summary ---
Author Organization [employer] Address [address] [facility] 7t [place] [address] Care Team Providers Care Copyright Manager Name Role Phone Sera Molina DO Primary Care Provider + [phone] Encounter Details Date Type Department Care Team ([facility] st Contact Info) Description 11/02/2024 Telephone [facility] MEDICINE [address] [place], [place] [phone] Sera Molina DO 230 [place], [place] [phone] Social History Tobacco Use Types Packs/Day Years [...] a different facility. Please contact pt at [phone]. documented in this encounter Plan of Treatment Upcoming Encounters Date Type Department Care Team (Late st Contact Info) Description 11/24/2024 3:30 PM EST Office Visit [facility] OPTOMETRY [address] [place] [address] Kaela Garcia, OD [address] [place] [address] 12/03/2024 10:30 AM EST Procedure Visit [facility] MEDICINE [address] [place], [place] [phone] Sera Molina DO 230 [place] [address] 12/20/2024 2:30 PM EST Office Visit [facility] ADULT DENTAL 230 [facility], [place] [phone] Marion ENA Hopper [address] [place] [address] 04/12/2025 3:00 PM EDT Office Visit [facility] ADULT DENTAL 230 [facility], [place] [phone] Loreto Lopez [address] [place] [address] documented as of this encounter Visit Diagnoses Not on filedocumented in this encounter Additional Health Concerns Assessment Noted Time PHQ-9 Depression Total Score: 20 024 8:02 AM EST documented as of this encounter Care Teams Copyright Manager Relationship Specialty Start Date End Date Sera Molina DO 230 [place] [address] PCP - General Family Medicine 09/09/13 documented as of this encounter
--- OUTSIDE RECORDS SUMMARY | 2024-11-17 17:43 | XMS_ITS | Encounter Summary ---
Author Organization [employer] Address [address] [facility] 7t [place] [address] Care Team Providers Care Certified Medicine Aide Name Role Phone Sera Molina DO Primary Care Provider + [phone] Encounter Details Date Type Department Care Team ([facility] st Contact Info) Description 11/25/2023 Telephone [facility] MEDICINE [address] [place], [place] [phone] Sera Molina DO [address] [place], [place] [phone] Social History Tobacco Use Types Packs/Day Years [...] Description 11/24/2024 3:30 PM EST Office Visit [facility] OPTOMETRY [address] [place] [address] Kaela Garcia, OD 230 [place] [address] 12/03/2024 10:30 AM EST Procedure Visit [facility] MEDICINE [address] [place] [address] Sera Molina DO [address] [place] [address] 12/20/2024 2:30 PM EST Office Visit [facility] ADULT DENTAL [address] [place] [address] Ward Schultz DDS [address] [place] [address] 04/12/2025 3:00 PM EDT Office Visit [facility] ADULT DENTAL [address] [place] [address] Albert Lopezaris [address] [place] [address] documented as of this encounter Visit Diagnoses Not on filedocumented in this encounter Additional Health Concerns Assessment Noted Time PHQ-9 Depression Total Score: 15 023 10:49 AM EDT documented as of this encounter Care Teams Certified Medicine Aide Relationship Specialty Start Date End Date Sera Molina DO [address] [place] [address] PCP - General Family Medicine 09/09/13 documented as of this encounter
== END 2024-11-17 14:27 | disposition home or self-care (01) ==
LOC: HO.LNP 15:24
PROVIDERS: PCP Family Medicine; Visit Provider Nurse Practitioner Family
DX: K21.9 Gastro-esophageal reflux disease without esophagitis (principal)
CPT/HCPCS: 87338

== ENCOUNTER 2024-11-17 14:26 | Outpatient (AMB) | payer MEDICAID, SELFPAY ==
[2024-11-17 14:29] VITALS: BP 120/76; PULSE 74; O2SAT 100; BMI 34.3
--- NOTE | 2024-11-17 14:29 | MHC.OFFVIS ---
Vital Signs 11/17/24 14:29 Height 5 ft 2 in Weight 187 lb 6.287 oz BMI 34.3 BP 120/76 Blood Pressure Location Rt brachial Position Sitting Pulse 74 Pulse Source Pulse Oximeter Pulse Oximetry (%) 100 Oxygen Delivery Method Room Air Intake Visit Reasons: 8 mos FUV. Discuss double procedure Intake Note: ESTABLISHED PATIENT Reason; 8 mos FU. Labs and imaging done. H Pylori BT done. Changes/concerns? Test results. Pt just dropped off stool sample, will monitor for results. Pt also recently started OTC PPI again due to severity of sx. Pt has been able to control sx again with pepcid, nexium, and carafate. Allergies No Known Allergies Allergy (Verified 11/17/24 14:29) HPI HPI 8 mos FUV. Discuss double procedure: Details: LAST VISIT: Postprandial epigastric pain GERD (gastroesophageal reflux disease) Dyspepsia Constipation IBS (irritable bowel syndrome) Plan Patient will start taking Nexium in the morning half an hour before breakfast. Will take sucralfate at bedtime. Continue avoiding dietary triggers and late night snacking. Staying upright for minimal 3 hours after meals discussed with patient. Patient will start taking Citrucel after breakfast with full glass of water to help her bulk stools. Take Senokot in the evening to help her evacuate her bowels better. Will rule out H pylori, celiac, malabsorption. Patient will go for upper GI with barium swallow to check for reflux, sliding hiatal hernia. If patient continues to feel full postprandially despite moving her bowels well and well controlled reflux we can send her for gastric emptying study to rule out gastroparesis. In the case patient will have to stop fiber. Patient is status post cholecystectomy her symptoms of loose stools postprandially could be related to diet. Avoid food high in fat, greasy or fried. I will see patient in 6 weeks, sooner on as needed basis. Patient is agreeable to this plan and verbalizes understanding of instructions. She was given the opportunity to ask questions and all questions answered. ? Thank you for allowing me to participate in her care Orders Orders Transglutaminase Ab IgG Today R10.9 Transglutaminase IgA Today R10.9 Vitamin D 25-OH (D2 and D3) Today E55.9 TSH reflex Free T4 Today K59.00 Vitamin B12 and Folate Today R19.7 FL upper GI w Ba Swallow Today K21.9, R10.13 Medications New sennosides (Natural Senna Laxative) 17.2 mg (2 x 8.6 mg) PO BEDTIME 60 tabs 3RF constipation K59.00 methylcellulose (laxative) (Citrucel) take it with full glass of water 500 mg PO DAILY 90 tabs 2RF K59.00 TODAY'S VISIT Patient is here today for requested visit. Patient was last seen in February of 2024 and was supposed to follow-up in 6 weeks. However we ordered upper GI barium swallow x-ray that was not done till May. Patient was taking Nexium and famotidine at bedtime and her symptoms were suppressed. Patient reports that she has trouble and has recently not received anymore refills. Her symptoms have come back. Patient has nausea, dyspepsia, acid reflux. Epigastric pain postprandially as well as bloating. Patient reports constipation. Denies melena, hematochezia, unintentional weight loss or ribbon like stools. Patient went to get her stool study done yesterday. Take senna and reports that it helps with bowel movements, however patient reports that she still feels like she is constipated. Patient denies melena, hematochezia, unintentional weight loss or ribbon like stools. [facility] Medical History Migraine with aura Asthma Aneurysm Surgical History S/P Botox injection Status post cholecystectomy Family History Mother Diabetes Social History Household Members: Spouse and Children Housing: House Alcohol intake: never Patient Tobacco Use Status: Never used Tobacco Current occupational status: unemployed Sexual orientation: Straight/Heterosexual Gender identity: Female Female Reproductive History Menstrual Age of Menarche: 8 Review of Systems Const Denies weight gain and Denies weight loss ENT Reports no additional complaints, Denies dysphagia and Denies odynophagia Card Reports no additional complaints Resp Reports no additional complaints GI Reports abdominal pain (Epigastric), Denies belching, Denies melena, Reports bloating, Reports constipation, Denies dysphagia, Denies excessive flatus, Reports dyspepsia, Reports heartburn, Denies diarrhea, Denies loose stools, Denies nausea, Denies odynophagia and Denies vomiting Reports no additional complaints Musc Reports no additional complaints Neuro Reports no additional complaints Psych Reports no additional complaints Endo Reports no additional complaints Physical Exam Vital Signs: Last Vital Signs Pulse 74 11/17/24 14:29 BP 120/76 11/17/24 14:29 Pulse Ox 100 11/17/24 14:29 Oxygen Delivery Method Room Air 11/17/24 14:29 BMI result Body Mass Index 34.3 Const General: healthy appearing and no acute distress Nutritional Appearance: obese Orientation/consciousness: patient oriented x3 Resp Effort & Inspection: normal respiratory effort, able to speak in complete sentences, no tracheal deviation and symmetric chest movement Auscultation: clear to auscultation bilaterally Cardio Rate: regular rate GI Inspection: Yes normal to inspection, No distended and Yes obesity Palpation (GI): Soft to palpation, not firm, nontender and No hepatosplenomegaly present Auscultation: normal bowel sounds General: Yes no CVA tenderness Back/Spine/Pelvis Back: no CVA tenderness Skin General skin exam: elasticity normal, turgor normal and dry skin Neuro General: patient oriented x3 Psych Appearance: grossly normal Mental Status: mental status grossly normal Results Reviewed Results Reviewed: Laboratory Tests 04/02/24 14:09 Vitamin B12 478 25-OH Vitamin D Total 35 Folate 11.2 TSH 2.70 Tiss Transglutamin IgG <1.0 Tiss Transglutamin IgA <1.0 UPPER GI BARIUM SWALLOW X-RAY 06/15/2024 IMPRESSION: 1. Patulous esophagus with moderately disorganized peristalsis consistent with esophageal dysmotility. 2. Granular appearance of the esophageal mucosa, suggestive of esophagitis. 3. Nonobstructing Schatzki's ring. 4. Thickened appearance of the gastric rugal folds, which suggest gastritis. Assessment & Plan Assessment & Plan (1) Postprandial epigastric pain: Code(s): R10.13 - Epigastric pain (2) GERD (gastroesophageal reflux disease): Code(s): K21.9 - Gastro-esophageal reflux disease without esophagitis Qualifiers: Esophagitis presence: esophagitis presence not specified Qualified Code(s): K21.9 - Gastro-esophageal reflux disease without esophagitis (3) Dyspepsia: Code(s): R10.13 - Epigastric pain (4) Constipation: Code(s): K59.00 - Constipation, unspecified Qualifiers: Constipation type: slow transit constipation Qualified Code(s): K59.01 - Slow transit constipation (5) IBS (irritable bowel syndrome): Code(s): K58.9 - Irritable bowel syndrome, unspecified Qualifiers: Irritable bowel syndrome type: without diarrhea Qualified Code(s): K58.9 - Irritable bowel syndrome, unspecified Plan Patient will start taking Nexium 40 mg every morning and famotidine at bedtime. Patient can take sucralfate in the afternoon to help with breakthrough symptoms. Discussed with patient avoiding dietary triggers and late night snacking. Staying upright for minimal 3 hours after meals discussed with patient. Will start her on Linzess as senna is not helpful. Increase fluid intake and activity to promote better bowel motility. Discussed with patient low FODMAP diet. Patient reports bloating. List of food recommended as well as list of food to avoid given to patient. Patient will return in 2 months and we will discuss going for colonoscopy and upper endoscopy. Awaiting H pylori testing. Will treat empirically if positive. Patient is agreeable to this plan and verbalizes understanding of instructions. She was given the opportunity to ask questions and all questions answered. Thank you for allowing me to participate in her care Medications: New esomeprazole magnesium (Nexium) 40 mg PO DAILY 30 caps 5RF K21.9 - Gastro-esophageal reflux disease without esophagitis linaclotide (Linzess) 145 mcg PO DAILY 30 caps 2RF famotidine 40 mg PO BEDTIME 30 tabs 3RF K21.9 - Gastro-esophageal reflux disease without esophagitis sucralfate Daily at 2 pm 10 mL PO DAILY 400 mL 3RF K21.9 - Gastro-esophageal reflux disease without esophagitis Changed From sucralfate 1 g PO QIDACHS 120 tabs 1RF K21.9 - Gastro-esophageal reflux disease without esophagitis, R10.9 - Unspecified abdominal pain To sucralfate 1 g PO DAILY 30 tabs 1RF K21.9 - Gastro-esophageal reflux disease without esophagitis, R10.9 - Unspecified abdominal pain Discontinued famotidine Discontinued Reason: Doctor's Order 20 mg PO BID 30 tabs 3RF K29.70 - Gastritis, unspecified, without bleeding Coding Level of Care Code Est Pt Level 4 (18096) Complex EM visit Add On G2211 Diagnoses Postprandial epigastric pain R10.13 Gastroesophageal reflux disease, unspecified whether esophagitis present K21.9 Esophagitis presence: esophagitis presence not specified Dyspepsia R10.13 Slow transit constipation K59.01 Constipation type: slow transit constipation Irritable bowel syndrome without diarrhea K58.9 Irritable bowel syndrome type: without diarrhea Time Spent (min) 40 Comment 25 minutes spent with patient and additional 15 minutes spent reviewing her records
--- OUTSIDE RECORDS SUMMARY | 2024-11-17 16:49 | XMS_ITS | Clinical Summary ---
Author Organization [facility] ity Address [address] [place] [address] Care Team Providers Care Compliance Counsel Name Role Phone Unavailable Primary Care Provider Unavailabl e Social History Tobacco Use Types Packs/Day Years Used Date Smoking Tobacco: Never Assessed Sex and Gender Information Value Date Recorded Sex Assigned at Not on file Gender Identity Not on file Sexual Orientation Not on file Plan of Treatment Health Maintenance Due Date Last Done Comments Breast Cancer Screening 1974 DTaP,Tdap,and Td Vaccines (1 - Tdap) 1993 Hepatitis B Vaccines (1 of 3 - 19+ 3-dose series) 1993 Cervical Cancer Screening: P ap Smear 1995 Colorectal Cancer Screening: Colonoscopy 09/28/2022 Depression Screening 09/28/2022 HIV Screening 09/28/2022 Hepatitis C Screening 09/28/2022 Social Influencers of Health Screening 09/28/2022 COVID-19 Vaccine ( - 2023-2 5 season) 2024 Influenza Vaccine (#1) 2024 Zoster Vaccines (1 of 2) 2024 HIB Vaccines Aged Out No longer eligi ble based on patient's age to complete this topic HPV Vaccines Aged Out No longer eligi ble based on patient's age to complete this topic Hepatitis A Vaccines Aged Out No long er eligible based on patient's age to complete this topic IPV Vaccines Aged Out No longer eligi ble based on patient's age to complete this topic MMR Vaccines Aged Out No longer eligi ble based on patient's age to complete this topic Meningococcal ACWY Vaccine Aged Out N o longer eligible based on patient's age to complete this topic Pneumococcal Vaccine: Pediat rics (0 to 5 Years) and At-Risk Patients (6 to 64 Years) Aged Out No longer eligible b ased on patient's age to complete this topic RSV Immunization Patients Un primo 20 months Aged Out No longer eligible b ased on patient's age to complete this topic Varicella Vaccines Aged Out No longer eligible based on patient's age to complete this topic
--- OUTSIDE RECORDS SUMMARY | 2024-11-17 16:49 | XMS_ITS | Clinical Summary ---
Author Organization [employer] Address [address] [place] [address] [address] [place] [address] Care Team Providers Care Offender Employment Specialist Name Role Phone JesseSera Primary Care Provider + [phone] Allergies Active Allergy Reactions Criticality Noted Date Comments Pineapple 12/06/2022 Medications * This document contains information received from the source organization and may not represent a complete record from that organization. acetaminophen (Tylenol) 500 MG tablet Take 1 tablet by mouth every 8 (eight) hours. 021 Active cholecalciferol (Vitamin D-3) 50 MCG (2000 UT) tablet Take 1 tablet by mouth in the morning. 022 Active eletriptan (Relpax) 40 MG tablet Take 1 tablet by mouth. May repeat after 2 hours if headache returns Active fluticasone (Flonase Allergy Relief) 50 MCG/ACT nasal spray Administer 2 sprays into affected nostril(s) in the morning. 021 Active QUEtiapine (SEROquel) 50 MG tablet Take 1 tablet by mouth at bedtime. Active clopidogrel (Plavix) 75 MG tablet Take 1 tablet by mouth at bed time. 022 Active diazePAM (Valium) 10 MG tablet Take 10 mg by mouth at bedtime. 023 Active aspirin EC 325 MG EC tablet Take 325 mg by mouth in the morning. 023 Active Botox 200 units injection 023 Active Sennosides (Senna) 8.6 MG capsule Take 2 capsules by mouth if needed at bedtime (constipation) . 60 capsule 3 023 Active Diclofenac Sodium 1 % gel Apply 2 g topically every 6 (six) hours if needed (pain). 150 g 3 023 Active cetirizine (ZyrTEC) 10 MG tablet TAKE 1 TABLET BY MOUTH EVERY DAY 90 tablet 023 Active cyclobenzaprine (Flexeril) 5 MG tablet Take 1-2 tablets (5-10 mg) by mouth if needed at bedtime for muscle spasms. 30 tablet 1 023 Active Rimegepant Sulfate (Nurtec) 75 MG tablet dispersibleIndicat ions:Nonintractabl e chronic migraine PLACE ONE TABLET BY MOUTH EVERY DAY NEEDED FOR MIGRAINE REPEAT 1 DOSE IN 24 HOURS 12 tablet 024 Active famotidine (Pepcid) 40 MG tabletIndications: Chronic gastroesophageal reflux disease TAKE ONE TABLET BY MOUTH AT BEDTIME 90 tablet 3 024 Active Emgality 120 MG/ML auto-injector INJECT 120MG UNDER THE SKIN ONCE A MONTH IN THE ABDOMEN, THIGH, OUTER UPPER ARM, OR BUTTOCKS 024 Active senna (Senokot) 8.6 MG tablet TAKE TWO TABLETS BY MOUTH DAILY AT BEDTIME FOR CONSTIPATION 024 Active sucralfate (Carafate) 1 g tablet Take 1 g by mouth at bedtime. Active Blood Pressure kit 1 each 1 (one) time per week. 1 kit 024 Active lidocaine (Lidoderm) 5 % patch APPLY 1 PATCH TOPICALLY ONCE A DAY AT THE SAME TIME EACH DAY 30 patch Active albuterol (2.5 MG/3ML) 0.083% nebulizer solution INHALE 1 VIAL VIA NEBULIZER ROUTE EVERY 4 HOURS IF NEEDED 75 mL 1 024 Active Ventolin HFA 108 (90 Base) MCG/ACT inhalerIndications :Mild persistent asthma, unspecified whether complicated INHALE 2 PUFFSS EVERY 4 HOURS IF NEEDED FOR WHEEZING 18 g 024 Active sertraline (Zoloft) 25 MG tablet Take 1 tablet (25 mg) by mouth Once per day. 30 tablet 2 024 2024 Active Semaglutide-Weight Management (Wegovy) 0.25 MG/0.5ML solution auto-injector Inject 0.5 mL (0.25 mg) under the skin 1 (one) time per week. 2 mL 3 Active budesonide-formote rol (Symbicort) 160-4.5 MCG/ACT inhaler Inhale 2 puffs in the morning and at bedtime. Rinse mouth with water after use to reduce aftertaste and incidence of candidiasis. Do not swallow. 1 each 024 2024 Active diclofenac (Voltaren) 50 MG EC tablet Take 50 mg by mouth 3 times daily. Active Spacer/Aero-Holdin g Chambers (AeroChamber Pls FloVu Mthpiece) device USE WITH INHALER Active montelukast (Singulair) 10 MG tablet TAKE ONE TABLET BY MOUTH EVERY EVENING 90 tablet Active dexlansoprazole (Dexilant) [address] capsule Take 1 capsule (30 mg) by mouth before breakfast and before evening meal. Do not crush or chew. 60 capsule 3 024 2024 Active ferrous sulfate (Fe Tabs) 325 (65 Fe) MG EC tablet Take 1 tablet (325 mg) by mouth Once per day. Do not crush, chew, or split. 90 tablet 3 024 2024 Active amitriptyline (Elavil) 25 MG tabletIndications: Nonintractable chronic migraine TAKE ONE TABLET BY MOUTH DAILY AT BEDTIME 90 tablet Active baclofen (Lioresal) 20 MG tablet TAKE ONE TABLET BY MOUTH THREE TIMES A DAY NEEDED FOR PAIN 90 tablet Active ondansetron ODT (Zofran-ODT) 8 MG disintegrating tablet DISSOLVE ONE TABLET BY MOUTH EVERY 6 HOURS NEEDED 20 tablet 025 Active acetaminophen-code ine (Tylenol w/ Codeine #4) 300-60 MG tabletIndications: Nonintractable chronic migraine Take 1 tablet by mouth every 6 (six) hours if needed for severe pain. 30 tablet 025 Active ondansetron ODT (Zofran-ODT) 8 MG disintegrating tablet DISSOLVE ONE TABLET BY MOUTH EVERY 6 HOURS NEEDED 024 2024 Discontinued(R eorder (will not trigger notification to Pharmacy)) acetaminophen-code ine (Tylenol w/ Codeine #4) 300-60 MG tabletIndications: Nonintractable chronic migraine Take 1 tablet by mouth every 6 (six) hours if needed for severe pain. 30 tablet 024 2024 Discontinued(R eorder (will not trigger notification to Pharmacy)) ondansetron ODT (Zofran-ODT) 8 MG disintegrating tablet DISSOLVE ONE TABLET BY MOUTH EVERY 6 HOURS NEEDED 20 tablet 025 2024 Discontinued(R eorder (will not trigger notification to Pharmacy)) Active Problems Problem Noted Date Diagnosed Date Impacted tooth 10/12/2024 Dental plaque 10/12/2024 Fractured dental christianity without loss of mat erial 10/12/2024 Chronic pain of left knee 09/02/2024 Chronic low back pain 09/02/2024 Chronic neck pain 09/02/2024 BMI 33.0-33.9,adult 09/02/2024 Prediabetes 09/02/2024 Anemia 09/02/2024 Hyperlipidemia 09/02/2024 Major depression, recurrent, chronic 03/07/2023 Assessment & Plan (10/08/2024 8:20 AM EST): PROGRESS NOTE: ID: Eli is a 48 y.o. Other straight-identified cis-female with previous documented hx of Depression, Anxiety, and Trauma No previous hx of MH services who presents for Anxiety and Depression During IBH Consult Eli presenting with crying spells , irritable mood, loss of interests/pleasure , sense of isolation/loneliness , change in appetite or weight overeating, changes in sleep difficulty falling asleep and difficulty staying asleep , psychomotor agitation, fatigue/loss of energy, difficulty concentrating, excessive worry/anxiety, difficulty controlling worry, and anxiety/worry associated to restlessness and/or feeling keyed-up/On edge , easily fatigued , difficulty concentrating and/or mind going blank , irritability, muscle tension , and sleep disturbance difficulty falling asleep and difficulty staying asleep , and Intrusive trauma memories and thoughts, Nightmares/night terrors, Hypervigilance, Increased startle response, Fear and distrust in relationships, Difficulty with crowds, and Feelings of being out of control; for a period of 18+ mo, for most or all symptoms in the context of new dxs of brain aneurisms pending one surgery, going to school for counseling . PLAN: (check all that apply) New/Additional Services needed Off-site services for Behavioral Health Integration Plan Patient Self Plan Patient to reach out to [facility] team as needed, Patient to engage in OP therapy , and Patient to reach out to [facility] as needed Generalized anxiety disorder 03/07/2023 Assessment & Plan (11/27/2023 3:06 PM EST): -DESMOND score 14 today -being medically managed with amitriptyline and diazepam -referral for placed to assist patient with engaging with therapist Post traumatic stress disorder 03/07/2023 Moderate persistent asthma 12/06/2022 Chronic gastroesophageal reflux disease 12/06/19 23 Assessment & Plan (11/27/2023 3:19 PM EST): -cardiac involvement ruled out with normal 12 lead EKG -symptoms most likely correlate with GERD -rx for famotidine and pantoprazole reinstated -GI referral placed for further evaluation of existing hernia -weight loss advised -avoid caffeine, chocolate, spicy foods, food with high fat content, carbonated beverages, and peppermint -avoid tight-fitting garments to prevent increasing intragastric pressure -remain upright for at least 1 hour following meals -follow-up with PCP if symptoms persist Chronic migraine 12/06/2022 Allergic rhinitis 12/06/2022 Cerebral arterial aneurysm 11/20/2022 Onychomycosis 09/24/2022 Eczema 04/25/2016 Resolved Problems Problem Noted Date Diagnosed Date Resolved Date Bilateral swelling of feet and ankles 11/27/2023 06/04/2024 Assessment & Plan (11/27/2023 3:08 PM EST): -normal ECHO in 2019 -no evidence of DVT -possibly effects of vein ablation -patient advised to continue elevating legs -follow-up with vein surgeon if symptoms worsen or progress -patient provided with rx for bilateral compression socks today Dysarthria 03/07/2023 03/07/2023 Headache 03/07/2023 03/07/2023 12/09/2022 12/11/2022 Asthma 04/25/2016 12/06/2022 Gastroesophageal reflux disease 04/25/2016 12/06/2022 Migraine headache 04/25/2016 03/07/2023 Encounters * This document contains information received from the source organization and may not represent a complete record from that organization. Date Type Department Care Team Description 11/16/2024 3:00 PM EST Office Visit [facility] [address], [place] [address] Ward Schultz DDS Fractured dental christianity without loss of material (Primary Dx) 11/16/2024 Refill [facility] [address] [place] [address] Sera Molina, Nonintractable chronic migraine 11/16/2024 Refill [facility] [address] [place] [address] Sera Molina, 11/02/2024 Outside Procedure [facility] [address], [place] [address] Kaela Garcia, OD Presbyopia (Primary Dx) 11/02/2024 Telephone [facility] [address] [place] [address] Sera Molina, 11/01/2024 10:30 AM EST Office Visit [facility] [address] [place] [address] Kaela Garcia, OD Myopia of both eyes (Primary Dx) 11/01/2024 Refill [facility] [address], [place] [address] Sera Molina DO 10/25/2024 Telephone [facility] [address] [place] [address] Jennifer Hernandez, RN Results 10/15/2024 Telephone [facility] [address], [place] [address] Ward Schultz DDS 10/13/2024 Refill [facility] [address] [place] [address] Sera Molina DO 10/12/2024 1:00 PM EST Office Visit [facility] [address] [place] [address] Loreto Lopez Dental plaque (Primary Dx); Impacted tooth; Fractured dental christianity without loss of material 10/08/2024 Refill [facility] [address] [place] [address] Sera Molina DO Chronic migraine 10/08/2024 Refill [facility] [address] [place] [address] Jennifer Hernandez, ARVIN Bilateral swelling of feet and ankles 10/06/2024 10:45 AM EST Office Visit [facility] [address] [place] [address] Sera Molina DO Nonintractable chronic migraine (Primary Dx); Vaginal discharge 10/06/2024 Travel 09/27/2024 Refill [facility] [address] [place] [address] Sera Molina DO 09/16/2024 Telephone [facility] [address] [place] [address] Sera Molina DO Medication Question 09/10/2024 Telephone [facility] [address] [place] [address] Sera Molina DO 09/10/2024 Refill [facility] [address] [place] [address] Caterina Lan RN Chronic migraine (Primary Dx); Chronic low back pain, unspecified back pain laterality, unspecified whether sciatica present 09/09/2024 Telephone [facility] [address] [place] [address] Sera Molina DO Medication Question; Prior Authorization ( PA: Emgality) 09/08/2024 Telephone [facility] [address] [place] [address] Sheila Nair RNresident advisor 09/08/2024 Telephone [facility] [address] [place] [address] Sheila Nair RNresident advisor 09/07/[address] [address] Sheila Nair RNresident advisor 09/03/[address] [address] Sera Molina DO Closed fracture of shaft of right fibula, unspecified fracture morphology, initial encounter (Primary Dx) 09/02/2024 10:15 AM EST Telemedicine [address] [address] Sera Molina DO Major depression, recurrent, chronic (CMS/HCC) (Primary Dx); Chronic migraine; Chronic pain of left knee; Chronic gastroesophageal reflux disease; BMI 33.0-33.9,adult; Moderate persistent asthma without complication; Dorsal cervical fat pad; Anemia, unspecified type; Other hyperlipidemia; Closed fracture of shaft of right fibula, unspecified fracture morphology, initial encounter 09/02/2024 Travel 08/30/2024 2:30 PM EST Office Visit [facility] [address] [place] [address] Jose, Kaela, OD Severe myopia of both eyes (Primary Dx) 08/30/2024 Travel 08/25/[address] [address] Sera Molina DO Nurse Triage 08/19/[address] [address] Sera Molina DO Hospital Follow-up 08/18/[address] [address] Sera Molina DO Med Refill 08/18/[address] [address] Sera Mloina DO Nurse Triage from Last 3 Months Immunizations Name Administration Dates Next Due Influenza, Split (incl. purified surface antigen ) 08/31/2012 Moderna Covid-19 Vaccine 12+ 03/08/2021,02/09/20 21 Pneumococcal Polysaccharide PPSV23 09/15/2006 TD (adult), 2 Lf tetanus tox oid, preservative free, adsorbed 02/21/2009 Family History Medical History Relation Name Comments Diabetes Mother Hypertension Mother Cancer Mother's Sister Coronary artery disease Neg Hx Stroke Neg Hx Relation Name Status Comments Mother Mother's Sister Social History Tobacco Use Types Packs/Day Years Used Date Smoking Tobacco: Never Passive Smoke Exposure: Never Smokeless Tobacco: Never Tobacco Cessation:Counseling Given: Not Answered Alcohol Use Standard Drinks/Week Comments Never 0 (1 standard drink = 0.6 oz pur e alcohol) Depression Answer Date Recorded Patient Health Questionnaire-9 Score 20 10/08/2024 Patient Health Questionnaire-9 Score 20 10/08/2024 Last PHQ-9: Questionnaire Data Not on file 1 12/09/2023 Housing Stability Answer Date Recorded What is your housing situation today? I have ca vivar 09/02/[address] you li ve. Do you have problems with any of the following? Mold 09/02/2024 Food Insecurity Answer Date Recorded Within the past 12 months, y ou worried that your food would run out before you got money to buy more: Never True 09/02/2024 Within the past 12 months,th e food you bought just didn't last and you didn't have enough money to get more: Never True 04/2024 Transportation Answer Date Recorded In the past 12 months, has l ack of transportation kept you from medical appts, meetings, work or from getting things needed for daily living? No 09/02/2024 Utilities Answer Date Recorded In the past 12 months, has t he electric, gas, oil or water company threatened to shut off services in your home? No 09/02/2024 Depression Answer Date Recorded Patient Health Questionnaire-2 Score 4 10/08/2024 Internet Access Answer Date Recorded Internet Access Q1 Yes 09/02/2024 Internet Access Q2 Not on file 09/02/2024 Comments Unknown Sex and Gender Information Value Date Recorded Sex Assigned at Female 08/26/2022 10:19 AM EDT Legal Sex Female 10:19 AM EDT Gender Identity Female 08/26/2022 10:19 AM EDT Sexual Orientation Straight 08/26/2022 10 :19 AM EDT Last Filed Vital Signs Vital Sign Reading Time Taken Comments Blood Pressure 130/80 11/16/2024 3:00 PM EST Pulse 82 10/06/2024 10:56 AM EST Temperature 36.6 ??C (97.9 ??F) 10/06/2024 10:[address] Respiratory Rate 18 10/06/2024 10:56 AM EST Oxygen Saturation 97% 06/04/2024 12:43 PM EDT Inhaled Oxygen Concentration - - Weight 86 kg (189 lb 8 oz) 10/06/2024 10:[address] Height 157.5 cm (5' 2 ) 10/06/2024 10:56 AM EST Body Mass Index 34.66 10/06/2024 10:56 AM EST Plan of Treatment Upcoming Encounters Date Type Department Care Team (Late st Contact Info) Description 11/24/2024 3:30 PM EST Office Visit [facility] [address] [place] [address] Kaela Garcia, OD [address] [place] [address] 12/03/2024 10:30 AM EST Procedure Visit [facility] [address] [place] [address] Sera Molina, DO [address] [place] [address] 12/20/2024 2:30 PM EST Office Visit [facility] [address] [place] [address] Ward Schultz, DDS [address] [place] [address] 04/12/2025 3:00 PM EDT Office Visit [facility] [address] [place] [address] Albert Lopezaris [address] [place] [address] Health Maintenance Due Date Last Done Comments CT Colonography 1974 Colonoscopy 1974 Colorectal Cancer Screening 1974 FIT DNA/Cologuard 1974 FIT 1974 FOBT 1975 Sigmoidoscopy 1974 Family Planning (PISQ) 1989 Hepatitis B Vaccines (1 of 3 - 19+ 3-dose series) 1993 Pneumococcal Vaccine: Pediatrics (0 to 5 Years) and At-Risk Patients (6 to 64 Years) (2 of 2 - PCV) 09/15/2007 09/15/2006 DTaP/Tdap/Td Vaccines (1 - Tdap) 02/22/2009 02/21/2009 Dental Oral Exam 10/25/2022 04/24/2022, 12/2020, 08/11/2019, Additional history exists Cervical Cancer Screening 07/24/2023 HPV/Cotest 07/24/2023 07/24/2018 Pap Smear 07/24/2023 07/24/2018 COVID-19 Vaccine ( season) 2024 03/08/2021, 02/08/2021 Influenza Vaccine (#1) 2024 08/31/2012 Zoster Vaccines (1 of 2) 2024 Mammogram 03/07/2025 03/07/2023, 03/27, 04/14/2020, Additional history exists Depression Monitoring (PHQ-9) 04/08/2025 10/08/2024, 10/08/2024 Dental Prophylaxis 04/13/2025 10/12/2024, 0 04/24/2022, 01/04/2021, Additional history exists Diabetes: Hemoglobin A1C 07/02/2025 07/02/2024 SDOH Screening 09/02/2025 09/02/2024 Alcohol/Substance Use Screening 10/06/2025 10/06/2024 Depression Screening 10/08/2025 10/08/2024, 10/08/20 24 Dental X-Ray: Bitewings 10/13/2025 10/12/20 24, 09/30/2023, 04/24/2022, Additional history exists Tobacco Screening 11/16/2025 11/16/2024 Dental X-Ray: Full Mouth 10/13/2027 024, 12/27/2020, 03/06/2018, Additional history exists Lipid Panel 10/06/2029 10/06/2024, 07/02/2024 RSV Patients and Patients Aged 60 years or older (1 - 1-dose 75+ series) 2049 HIV Screening Completed 07/02/2024, 01/12/2021 Hepatitis C Screening Completed 07/02/2024, 021 HIB Vaccines Aged Out No longer eligi [...] patient's age to complete this topic Meningococcal Vaccine Aged Out No krishna hector eligible based on patient's age to complete this topic RSV under 20 months Aged Out No longe r eligible based on patient's age to complete this topic Rotavirus Vaccines Aged Out No longer eligible based on patient's age to complete this topic Procedures Procedure Name Priority Date/Time Associated Diagnosis Comments ADJUNCTIVE GENERAL SERVICES - PROFESSIONAL VISITS - CASE PRESENTATION, SUBSEQUENT TO DETAILED AND EXTENSIVE TREATMENT PLANNING Routine 11/16/2024 3:00 PM EST 10 L RESTORATIVE - RESIN-BASED COMPOSITE RESTORATIONS - DIRECT - RESIN-BASED COMPOSITE - ONE SURFACE, ANTERIOR Routine 11/16/2024 3:00 PM EST MR KNEE WO CONTRAST LEFT Routine 10/15/2024 4:40 PM EST Chronic pain of left knee ORAL HYGIENE INSTRUCTIONS Routine 10/12/2024 1:00 PM EST DIAGNOSTIC - DIAGNOSTIC IMAGING - INTRAORAL - COMPREHENSIVE SERIES OF RADIOGRAPHIC IMAGES Routine 10/12/2024 1:00 PM EST PROPHYLAXIS - ADULT Routine 10/12/2024 1 :00 PM EST 17 EXTRACTION Routine 10/12/2024 12:00 AM EST LIPID PANEL, STANDARD Routine 10/06/2024 12:46 PM EST Other hyperlipidemia BASIC METABOLIC PANEL Routine 10/06/2024 12:46 PM EST Other hyperlipidemia CBC Routine 10/06/2024 12:46 PM EST Anemia, unspecified type IRON AND TOTAL IRON BINDING CAPACITY Routine 10/06/2024 12:46 PM EST Anemia, unspecified type FERRITIN Routine 10/06/2024 12:46 PM EST Anemia, unspecified type VITAMIN B12/FOLATE, SERUM PANEL Routine 10/06/2024 12:46 PM EST Anemia, unspecified type BACTERIAL VAGINOSIS PANEL Routine 10/06/2024 11:52 AM EST Vaginal discharge CHLAMYDIA/N. GONORRHOEAE RNA, TMA, UROGENITAL Routine 10/06/2024 11:52 AM EST Vaginal discharge HEPATITIS B, C PROFILE Routine 07/02/2024 12:34 PM EDT HIV 1/2 ANTIGEN/ANTIBODY, FOURTH GENERATION W/RFL Routine 07/02/2024 12:34 PM EDT BMI 33.0-33.9,adult HEMOGLOBIN A1C Routine 07/02/2024 12:34 PM EDT BMI 33.0-33.9,adult HM MAMMOGRAPHY Routine 03/07/2023 2:40 PM EDT PERIODIC ORAL EVALUATION - ESTABLISHED PATIENT Routine 04/24/2022 12:00 AM EDT ZZZ HISTORICAL HPV E6/E7 RFLX FAROOQ 16 18/45 Routine 07/24/2018 10:25 AM EDT PAP/HPV Routine 07/24/2018 from Last 3 Months or Most Recently Relevant to Health Maintenance Results * MR Knee w/o Contrast Left (10/15/2024 4:40 PM EST) Anatomical Region Laterality Modality Magnetic Resonan ce 10/15/2024 4:40 PM EST Narrative 10/16/2024 8:03 AM EST ? [facility] ?[address] ?[place] [address] ? Magnetic Resonance Report ? Signed ? Patient: Saenz,Eli ?MR#: [id number] ?? 92 ? : 1975 ?Acct:[id number] ? Age/Sex: 48 / F ?ADM Date: 12/20/24 ? Loc: HO.MRI ? Attending Dr: Sera Molina DO ? Ordering Physician: Sera Molina DO ?? Date of Service: 10/15/24 ?? Procedure(s): MR knee LT wo con ?? Accession Number(s): [id number] ? cc: Sera Molina DO ? EXAMINATION: ?? MR KNEE WITHOUT CONTRAST, LEFT ? CLINICAL INFORMATION: ?? Worsening knee pain and locking. ? COMPARISON: ?? None available. ? TECHNIQUE: ?? MRI of the knee without contrast was performed using routine sequences ?? on a high-field scanner. ? FINDINGS: ?? Exam partially limited by image degrading motion artifact. ? MENISCI: ? Medial Meniscus: ? Lateral Meniscus: There is linear horizontal increased signal in the ?? body and posterior horn of the meniscus possibly extending to the ?? tibial articular surface near the free edge. Findings suspicious but ?? not definitive for tear. ? LIGAMENTS: ? Cruciate: Intact ?? Collateral: z ? EXTENSOR MECHANISM: Intact ? ARTICULAR CARTILAGE/BONE: ? Patellofemoral Compartment: Cartilage heterogeneity in the lateral ?? facet of the patella and lateral trochlea. Overall mild patellofemoral ?? arthrosis. ? Medial Compartment: Normal ? Lateral Compartment: Focal cartilage heterogeneity and subchondral ?? cystic change along the medial weightbearing tibial articular surface. ?? There is some cartilage thinning and heterogeneity along the posterior ?? weightbearing femoral articular surface. Small marginal osteophytes. ?? Overall mild arthrosis. ? JOINT FLUID AND BURSAE: Mild joint effusion and synovitis. I cannot ?? exclude a tiny loose body in the posterior recess. ? MR/MR knee LT wo con ?? IMPRESSION: ?? 1. Findings suspicious for tear of the lateral meniscus. ? 2. Mild arthrosis of the patellofemoral compartment and lateral ?? compartment. ? 3. Mild joint effusion and synovitis. I cannot exclude tiny loose body ?? in the posterior recess. ? Electronically signed by: ??Alonso Cheng MD ??10/16/2024 08:00 AM ?? EST RP ? Dictated By: ?Alonso Cheng MD ? Signed By: ?<Electronically signed by Alonso Cheng MD in OV> ?10/16/24 0800 ? DD/ 1640 ? TD/TT: 10/15/24 1705 ? Coroner/Medical Examiner: WG ? Procedure Note Donotuseinterpreter, Image - 10/16/2024 [place] [id number] Magnetic Resonance Report Signed Patient: Inocencia Saenz#: [id number] 92 : 1975Acct:[id number] Age/Sex: 48 / FADM Date: 10/15/24 Loc: HO.MRI Attending Dr: Sera Molina DO Ordering Physician: Sera Molina DO Date of Service: 10/15/24 Procedure(s): MR knee LT wo con Accession Number(s): [id number] cc: Sera Molina DO EXAMINATION: MR KNEE WITHOUT CONTRAST, LEFT CLINICAL INFORMATION: Worsening knee pain and locking. COMPARISON: None available. TECHNIQUE: MRI of the knee without contrast was performed using routine sequences on a high-field scanner. FINDINGS: Exam partially limited by image degrading motion artifact. MENISCI: Medial Meniscus: Lateral Meniscus: There is linear horizontal increased signal in the body and posterior horn of the meniscus possibly extending to the tibial articular surface near the free edge. Findings suspicious but not definitive for tear. LIGAMENTS: Cruciate: Intact Collateral: z EXTENSOR MECHANISM: Intact ARTICULAR CARTILAGE/BONE: Patellofemoral Compartment: Cartilage heterogeneity in the lateral facet of the patella and lateral trochlea. Overall mild patellofemoral arthrosis. Medial Compartment: Normal Lateral Compartment: Focal cartilage heterogeneity and subchondral cystic change along the medial weightbearing tibial articular surface. There is some cartilage thinning and heterogeneity along the posterior weightbearing femoral articular surface. Small marginal osteophytes. Overall mild arthrosis. JOINT FLUID AND BURSAE: Mild joint effusion and synovitis. I cannot exclude a tiny loose body in the posterior recess. MR/MR knee LT wo con IMPRESSION: 1. Findings suspicious for tear of the lateral meniscus. 2. Mild arthrosis of the patellofemoral compartment and lateral compartment. 3. Mild joint effusion and synovitis. I cannot exclude tiny loose body in the posterior recess. Electronically signed by: Alonso Cheng MD 10/16/2024 08:00 AM EST RP Dictated By: Alonso Cheng MD Signed By: <Electronically signed by Alonso Cheng MD inOV> 10/16/24 0800 DD/ 1640 TD/TT: 10/15/24 1705 Coroner/Medical Examiner: GIANLUCA Sera Molina DO IMG MRI PROCEDURES Edited Re sult - Final * Vitamin B12 (Cobalamin) and Folate Panel, Serum (10/06/2024 12:46 PM EST) Vitamin B12 437 200 - 900 pg/mL [facility] Comment:NORMAL 200-900 PG/ML INDETERMINATE 160-199 PG/ML DEFICIENT < 160 PG/ML Folate 5.3 > or = 4.0 ng/mL [facility] Comment:Reference Values:> o r = 4.0 ng/mL< 4.0 ng/mL suggests folate deficiency Methotrexate, aminopterin and folinic acid(leucovorin) are chemotherapeutic agents whose molecularstructures are similar to folate; therefore, the Architectfolate assay cannot be used for patients using these drugs. Blood 10/06/2024 12:4 6 PM EST 10/06/2024 1:13 PM EST Sera Molina DO LAB BLOOD ORDERABLES Final R esult [facility] [address] [place] [phone] * (ABNORMAL) Iron And Total Iron Binding Capacity (10/06/2024 12:46 PM EST) Iron 29(L) 30 - 160 mcg/dL [facility] Total Iron Binding Capacity 378 228 - 428 mcg/dL [facility] Percent Iron Saturation 8(L) 15 - 50 % [facility] Unsaturated Iron Binding 349 ug/dL [facility] Blood Venous blood specimen / Unknown 10/06/2024 12:46 PM EST 10/06/2024 1:13 PM EST Sera Molina DO LAB BLOOD ORDERABLES Final R esult Performing Organization Address City/[facility]/ZIP Co de Phone Number [facility] [address] [place] [phone] * (ABNORMAL) CBC (10/06/2024 12:46 PM EST) White Blood Count 9.7 4.8 - 10.8 X10*3/uL [facility] Red Blood Count 3.88(L) 4.20 - 5.50 X10*6/uL [facility] Hemoglobin 10.1(L) 12.0 - 16.0 g/dl [facility] Hematocrit 32.0(L) 37.0 - 47.0 % [facility] Mean Corpuscular Volume 82.5 80.0 - 98.0 fL [facility] Mean Corpuscular Hemoglobin 26.0(L) 27.0 - 33.0 pg [facility] Mean Corpuscular HGB Conc 31.6 31.0 - 35.0 g/dl [facility] Red Cell Distribution Width 16.8(H) 11.0 - 16.0 % [facility] Platelet Count 309 160 - 400 X10*3/uL [facility] Mean Platelet Volume 9.3(L) 9.4 - 12.3 fL [facility] NRBC Pct Auto 0.0 0.0 - 0.2 /100WBC [facility] NRBC Abs Auto 0.000 0.0 - 0.012 X10*3/uL [facility] Blood Venous blood specimen / Unknown 10/06/2024 12:46 PM EST 10/06/2024 1:13 PM EST Sera Molina DO LAB BLOOD ORDERABLES Final R esult Performing Organization Address City/[facility]/ZIP Co de Phone Number [facility] [address] [place] [phone] * Ferritin (10/06/2024 12:46 PM EST) Ferritin 10 10 - 250 ng/mL [facility] Blood Venous blood specimen / Unknown 10/06/2024 12:46 PM EST 10/06/2024 1:13 PM EST Sera Molina LAB BLOOD ORDERABLES Final R esult Performing Organization Address [facility] Co de Phone Number [facility] [address] [place] [phone] * (ABNORMAL) Lipid Panel, Standard (10/06/2024 12:46 PM EST) Triglycerides 272(H) <150 mg/dL [facility] Comment:Desirable Triglyceri de: less than 150 mg/dLBorderline High Triglyceride 150-199 mg/dLHigh Triglyceride: 200-499 mg/dLVery High Triglyceride: greater than or equal to 5OO mg/dL Cholesterol 249(H) <200 mg/dL [facility] Comment:Desirable Cholestero l: less than 200 mg/dLBorderline High Cholesterol: 200-239 mg/dLHigh Cholesterol: greater than 239 mg/dL LDL Cholesterol Calculated 152(H) <100 mg/dL [facility] Comment:Desirable LDL: less than 100 mg/dLNear Optimal/Above Optimal LDL: 110- 129 mg/dLBorderline High LDL: 130-159 mg/dLHigh LDL: 160-189 mg/dLVery High LDL: greater than or equal to 190 mg/dL HDL Cholesterol 43 >40 mg/dL [facility] Comment:Desirable HDL: great er than 40 mg/dL Note: This HDL assay may give artificially low results in patients with liver disease. Blood Venous blood specimen / Unknown 10/06/2024 12:46 PM EST 10/06/2024 1:13 PM EST Sera Molina DO LAB BLOOD ORDERABLES Final R esult Performing Organization Address City/[facility]/ZIP Co de Phone Number [facility] [address] [place] [phone] * (ABNORMAL) Basic Metabolic Panel (10/06/2024 12:46 PM EST) Pathologist [facility] Sodium 140 135 - 145 mmol/L [facility] Potassium 4.1 3.3 - 5.1 mmol/L [facility] Chloride 104 96 - 108 mmol/L [facility] Carbon Dioxide 28 22 - 29 mmol/L [facility] Anion Gap 12 12 - 20 [facility] Urea Nitrogen (BUN) 21(H) 9 - 16 mg/dL [facility] Creatinine, Serum 1.28 0.5 - 1.4 mg/dL [facility] Estimated Glomerular Filt Rate 44 [facility] Comment:Chronic Kidney Disea se: Estimated GFR < 60 mL/min/1.25a8Ifobtu Kidney Disease: Estimated GFR < 15 mL/min/1.73m2 Glucose 90 60 - 115 mg/dL [facility] Calcium 10.6(H) 8.4 - 10.2 mg/dL [facility] Blood Venous blood specimen / Unknown 10/06/2024 12:46 PM EST 10/06/2024 1:13 PM EST Sera Molina DO LAB BLOOD ORDERABLES Final R esult [facility] [address] [place] [phone] * Bacterial Vaginosis Panel (10/06/2024 11:52 AM EST) Pathologist [facility] TRICHOMONAS VAGINALIS DETECTION BY PCR NOT DETECTED Not Detect [facility] BACTERIAL VAGINOSIS DETECTION BY PCR NEGATIVE Negative [facility] Comment:The BV organism targ ets of the Xpert Xpress MVP test can becommensal in women; Xpert Xpress MVP positive results forbacterial vaginosis should be considered in conjunction withother clinical and patient information to determine thedisease status. Organisms that are not detected by the XpertXpress MVP test have also been reported to be associatedwith BV and aerobic vaginitis.The Xpert Xpress MVP test performance has not been evaluatedin patients under the age of 14. SHAYLA GROUP DETECTION BY PCR NOT DETECTED Not Detect [facility] Shayla glab krusei PCR NOT DETECTED Not Detect [facility] Swab Vaginal structure / Unknown 10/06/2024 11:52 AM EST 10/06/2024 6:07 PM EST us Sera Molina DO LAB MICROBIOLOGY - GENERAL O RDERABLES Final Result [facility] [address] [place] [phone] * Chlamydia/N. Gonorrhoeae RNA, TMA, Urogenitial (10/06/2024 11:52 AM EST) CT PCR NOT DETECTED Not Detect. [facility] Comment:A not detected test result does not exclude the possibilityof infection because test results can be affected byimproper specimen collection, concurrent antibiotic therapy,or the number of organisms in the specimen which may bebelow the sensitivity of the test. As with many diagnostictests, results from the Xpert CT/NG assay should beinterpreted in conjunction with other laboratory andclinical data available to the clinician.Xpert CT/NG performance has not been evaluated in patientsless than 14 years of age. The assay should not be used forthe evaluationof suspected sexual abuse or for other medico-legalindications. Additional testing is recommended in anycircumstance when false positive or false negative resultscould lead to adverse medical, social or psychologicalconsequences. NG PCR NOT DETECTED Not Detect. [facility] Comment:A not detected test result does not exclude the possibilityof infection because test results can be affected byimproper specimen collection, concurrent antibiotic therapy,or the number of organisms in the specimen which may bebelow the sensitivity of the test. As with many diagnostictests, results from the Xpert CT/NG assay should beinterpreted in conjunction with other laboratory andclinical data available to the clinician.Xpert CT/NG performance has not been evaluated in patientsless than 14 years of age. The assay should not be used forthe evaluationof suspected sexual abuse or for other medico-legalindications. Additional testing is recommended in anycircumstance when false positive or false negative resultscould lead to adverse medical, social or psychologicalconsequences. Swab (Vaginal Swab) 10/06/2024 11:52 AM EST 10/06/2024 6:07 PM EST Narrative [facility] - 10/07/2024 4:24 AM EST Vaginal Sera Molina DO LAB MICROBIOLOGY - GENERAL O RDERABLES Final Result Performing Organization Address [facility] Co de Phone Number [facility] [address] [place] [phone] * Hepatitis B, C Profile (07/02/2024 12:34 PM EDT) ~Hepatitis B Surface Antibody NONREACTIVE Nonreactive [facility] Comment:Nonreactive: < 8.00 mIU/mL Hepatitis B Core Antibody Nonreactive Nonreactive [facility] Hepatitis C Antibody Nonreactive Nonreactive [facility] Comment:Antibodies to HCV no t detected; does not exclude early acuteHCV infection. Hepatitis B Surface Ag Negative Negative [facility] 07/02/2024 12:3 4 PM EDT 07/02/2024 12:34 PM EDT Sera Molina DO LAB BLOOD ORDERABLES Final R esult Performing Organization Address [facility]/ZIP Co de Phone Number [facility] [address] [place] [phone] * HIV-1/2 Antigen and Antibodies, Fourth Generation, with Reflexes (07/02/2024 12:34 PM EDT) HIV AB/AG Nonreactive Nonreactive [facility] Comment:HIV-1 p24 Ag and/or HIV-1/HIV-2 Ab not detected.A test result that is nonreactive does not exclude thepossibility of exposure to or infection with HIV-1 and/orHIV-2. Nonreactive results in this assay for individualswith prior exposure to HIV-1 and/or HIV-2 may be due toantigen and antibody levels that are below the limit ofdetection of this assay.The MarakananiRezora HIV Ag/Ab Combo assay result andsupplemental assay results should be interpreted inconjunction with the patient's clinical presentation,history and other laboratory results. If the results areinconsistent with clinical evidence, additional testing issuggested to confirm the result. Blood Venous blood specimen / Unknown 07/02/2024 12:34 PM EDT 07/02/2024 12:34 PM EDT Sera Molina LAB BLOOD ORDERABLES Final R esult Performing Organization Address [facility] Co de Phone Number [facility] [address] [place] [phone] * Hemoglobin A1c (07/02/2024 12:34 PM EDT) Hemoglobin A1c 5.9 <6.0 % [facility] Comment:Hemoglobin A1C Refer ence Range Adults: 4.8 - 6.0 % Non diabetic: < 6.0 % Goal: < 7.0 %Additional Action Suggested: > 8.0 %Note: Hemoglobin A1c results are invalid for patients with abnormal amounts of HbF. Blood transfusions may impact the HbA1c concentration in the patient sample. Estimated Average Glucose 123 mg/dL [facility] Comment:eAG = Estimated ave rage glucose which is %A1C expressed asaverage glucose, using the formula of the I0I-LieaafuInsgsft Glucose study (ADAG), Diabetes Care, Vol.31,#8,2007 Blood Venous blood specimen / Unknown 07/02/2024 12:34 PM EDT 07/02/2024 12:34 PM EDT Sera Molina Qranio LAB BLOOD ORDERABLES Final R esult Performing Organization Address [facility] Co de Phone Number [facility] [address] [place] [phone] * Mammography (03/07/2023 2:40 PM EDT) Pathologist [facility] Mammogram BI-rads 1 Anatomical Region Laterality Modality Other Radha Pascual CN HEALTH MAINTENANCE Final Result * HPV E6/E7 RFLX FAROOQ 16 18/45 (07/24/2018 10:25 AM EDT) [facility] HPV 16 RNA Test not performed [facility] HPV 18/45 RNA Test not performed [facility] HPV mRNA E6/E7 Not Detected NOT DETECTED [facility] Comment: This test was performed using the APTIMA(R) HPV Assay ([employer] This assay detects E6/E7 viral messenger RNA (mRNA) from 14 high-risk HPV types (16,18,31,33,35,39,45,51, 52,56,58,59,66,68). For additional information please refer to: http://education.[employer]/faq/PDK512j6 (This link is being provided for informational/ educational purposes only.) The analytical performance characteristics of this assay have been determined by [employer] [place], [place]. The modifications have not been cleared or approved by the FDA. This assay has been validated pursuant to the CLIA regulations and is used for clinical purposes. Please note: ??Effective 07/08/2016, HPV testing will be performed using [employer] APTIMA test which targets mRNA. Detecting mRNA instead of DNA, as in older methods, offers significant improvements in specificity. ADDITIONAL TESTING Not indicated () [facility] Comment: Test Performed by [email or web address], [employer], [address] [place] [address] Nikhil Ron M.D., Ph.D., Director of Laboratories , CLIA [id number] 07/24/2018 10:2 5 AM EDT Sera Molina DO HISTORICAL/NON ORDERABLE LAB S Final Result [facility] [address] * Pap Smear (07/24/2018) Pap smear performed Historical Provider MD HEALTH MAINTENANCE Final Result from Last 3 Months or Most Recently Relevant to Health Maintenance Insurance [employer] [id number] C3 DENTAL-[facility] MEDICAID STAND [facility]ULT [facility] - [facility] Care Teams Offender Employment Specialist Relationship Specialty Start Date End Date Sera Molina DO [address] [place] [phone] PCP - General Family Medicine 09/09/13
--- OUTSIDE RECORDS SUMMARY | 2024-11-17 16:49 | XMS_ITS | Encounter Summary ---
Author Organization [employer] Address [address] [facility] 7 [place] [address] Care Team Providers Care Chain Splitter Name Role Phone Sera Molina DO Primary Care Provider + [phone] Reason for Visit * Reason Onset Date Comments Med Refill 11/16/2024 Encounter Details Date Type Department Care Team (Late st Contact Info) Description 11/16/[address] [facility] [address] [place], [place] [phone] Sera Molina DO [address] [place], [place] [phone] Nonintractable chronic migraine Social History Tobacco Use Types Packs/Day Years Used Date Smoking Tobacco: Never Passive Smoke Exposure: Never Smokeless Tobacco: Never Alcohol Use Standard Drinks/Week Comments Never 0 [...] Orientation Straight 08/26/2022 10 :19 AM EDT documented as of this encounter Miscellaneous Notes * Telephone Encounter - Vahid Mccarty - 11/16/2024 1:28 PM EST TC from pt requesting medication refill. Medications needing refill : acetaminophen-codeine (Tylenol w/ Codeine #3) 300-30 MG tablet To be sent to: [id number] [place], [place] - [address] [place] [address] TC from pt stating that the Neurologist wont Give pt the Tylenol till She is a established pt of his. documented in this encounter Plan of Treatment Upcoming Encounters Date Type Department Care Team (Late st Contact Info) Description 11/24/2024 3:30 PM EST Office Visit [facility] [address] [place] [address] Kaela Garcia, OD [address] [place] [address] 12/03/2024 10:30 AM EST Procedure Visit [facility] [address] [place] [address] Sera Molina DO [address] [place] [address] 12/20/2024 2:30 PM EST Office Visit [facility] [address] [place], [place] [phone] Ward Schultz DDS [address] [place] [address] 04/12/2025 3:00 PM EDT Office Visit [facility] [address] [place], [place] [phone] Jessica, [place] [address] [place] [address] documented as of this encounter Visit Diagnoses Diagnosis Nonintractable chronic migraine documented in this encounter Additional Health Concerns Assessment Noted Time PHQ-9 Depression Total Score: 20 024 8:02 AM EST documented as of this encounter Care Teams Chain Splitter Relationship Specialty Start Date End Date Sera Molina DO [address] [place] [address] PCP - General Family Medicine 09/09/13 documented as of this encounter
--- OUTSIDE RECORDS SUMMARY | 2024-11-17 16:50 | XMS_ITS | Continuity of Care Document ---
Author Organization [facility] Address [address] [facility] [facility] [address] [place] [address] Phone Care Team Providers Care Cataract Lens Generator Name Role Phone Jacob HOYOS, RVT, VALERY, [...] Mins- [place] & [place] [facility], [address] [place] [address] Dr Lerma [address]Remy [place], [id number], [place] tel:[phone] CVR - [facility] Localized edemaVenous insufficiency (chronic) (peripheral) 4 Jacob HOYOS RVT, VALERY Carrasco. [address] [place] [address], [facility] [place], [id number], [place]. tel:[phone] Referring Provider: Sera Morales, [address], [address]. tel:[phone] [facility], [address] [place] [address] Dr Lerma [address], [place], [id number], [place] tel:[phone] [facility] Chronic venous hypertension (idiopathic) with inflammation of bilateral lower extremity 4 Jacob HOYOS RVT, VALERY Carrasco. [address] [place] [address], Barb hernandez [place], [id number], [place]. tel:[phone] Referring Provider: Sera Morales, [address], [address]. tel:[phone] Office/Outpt E&M Established 15 Mins [facility] MD LEWIS, [address] [place] [address] Dr Lerma [address]Remy [place], [id number], [place] tel:[phone] CVR - [facility] Encounter for other preprocedural examination 3 Paloma Da Silva. [address] [facility], Suite [facility], [place], [place], [id number], [place]. tel:[phone] Referring Provider: Sera Morales, [address], [address]. tel:[phone] [facility], [address] [place] [address] Dr Lerma 1000Suite Remy Swain [place], [id number], [place] tel:[phone] CVR - [facility] Chronic venous hypertension (idiopathic) with other complications of bilateral lower extremityEdema , unspecified 3 Yehuda HOYOS FACS T VALERY Pedraza. [facility] [address], [place], [address], [place]. tel:[phone] Referring Provider: Sera Morales, [address], [address]. tel:[phone] Office/Outpt E&M Established 15 Mins [facility] MD [facility], [address] [place] [address] Dr Lerma 1000SuRemy armas [place], [id number], [place] tel:[phone] CVR - [facility] Varicose veins of bilateral lower extremities with pain 3 Yehuda HOYOS FACS T VALERY Pedraza. [address] [address], [place], [address], [place]. tel:[phone] Referring Provider: Sera Morales, [address], [address]. tel:[phone] [facility] MD [facility], [address] [place] [address] Dr Lerma 1000Suite Remy Swain [place], [id number], [place] tel:[phone] CVR - [facility] Encounter for follow-up examination after completed treatment for conditions other than malignant neVaricose veins of right lower extremity with pain Jul- 3 Yehuda HOYOS FACS T VALERY Pedraza. [address] [facility], [address] [address], [place], [address], [place]. tel:[phone] Referring Provider: Sera Morales, [address], [address]. tel:[phone] [facility], [address] [place] [address] [facility] 1000[address] 1000Remy [place], [id number], [place] tel:[phone] [facility] - [place] [facility] [place] Chronic venous hypertension (idiopathic) with inflammation of right lower extremity Jul-0 3 Yehuda HOYOS FACS Juan Pedraza. [address] [place] [address], [place], [address], [place]. tel:[phone] Referring Provider: Sera Morales, [address], [address]. tel:[phone] [facility] MD [facility], [address] [place] [address] Dr Lerma 1000[address] 1000Remy [place], [id number], [place] tel:[phone] [facility] - [place] [facility] Chronic venous hypertension (idiopathic) with inflammation of right lower extremity Jul-0 3 Yehuda HOYOS FACS T VALERY Pedraza. [facility], [address] [address], [place], [address], [place]. tel:[phone] Referring Provider: Sera Morales, [address], [address]. tel:[phone] [facility] MD [facility], [address] [place] [address] [address] 1000Remy [place], [id number], [place] tel:[phone] [facility] - [place] [facility] [place] Chronic venous hypertension w oth comp of l low extrem 3 Yehuda HOYOS FACS T VALERY Pedraza. [address] [facility], Suite [facility], [place], [address], [place]. tel:[phone] Referring Provider: Sera Morales, [address], [address]. tel:[phone] [facility] MD [facility], [address] [place] [address] Dr Lerma 1000[address] 1000Remy [place], [id number], [place] tel:[phone] CVR - [facility] Chronic venous hypertension w inflammation of l low extrem 3 Yehuda HOYOS FACS Juan Pedraza. [address] [place] [address], [place], [address], [place]. tel:[phone] Referring Provider: Sera Morales, [address], [address]. tel:[phone] [facility]id[facility] MD [facility], [address] [place] [address] Dr Lerma 1000[address] 1000Remy [place], [id number], [place] tel:[phone] CVR - [facility] Chronic venous hypertension w inflammation of l low [facility] 3 Yehuda HOYOS FACS Juan Pedraza. [address] [place] [address], [place], [address], [place]. tel:[phone] Referring Provider: Sera Morales, [address], [address]. tel:[phone] Office/Outpt E&M Established 15 Mins [facility] Yazidism MD LEWIS, [address] [place] [address] Dr Lerma 1000[address] 1000Remy [place], [id number], [place] tel:[phone] CVR - [facility] Body mass index (BMI) 32.0-32.9, adultVenous insufficiency (chronic) (peripheral) 3 Yehuda HOYOS FACS Juan Pedraza. [address] [place] [address], [place], [address], [place]. tel:[phone] Referring Provider: Sera Morales, [address], [address]. tel:[phone] [facility] MD LEWIS, [address] [place] [address] Dr Lerma 1000[address] 1000Remy [place], [id number], tel:[phone] CVR - [facility] [place] Venous insufficiency (chronic) (peripheral) 3 Yehuda HOYOS FACS [facility] [employer]. [address] [facility], [address] [address], [place], [address], . tel:[phone] Referring Provider: Sera Morales, [address], [address]. tel:[phone] Office/Outpt E&M Established 25 Mins [facility], [address] [facility] [address], [place], [id number], [place] tel:[phone] [facility] - [place] [facility] [place] Body mass index (BMI) 30.0-30.9, adultVenous insufficiency (chronic) (peripheral) 3 [facility] [employer]. [facility] [address], [place], [address], [place]. tel:[phone] Referring Provider: Sera Morales, [address], [address]. tel:[phone] Family History Family Member Type Diagnosis Age At Onset No Information Payers Payer name Insurance type Covered constitution party ID Authoriza tijeremy(s) Medical Assistance KIERRA [id number] Social History Type Description Quantity Date Captured [...] education booklet given Related to Localized edema Continue compression stocking us e Related to V V w/ Other Complctns (PAIN); BILAT Patient education booklet given Related to V [...]
--- OUTSIDE RECORDS SUMMARY | 2024-11-17 16:50 | XMS_ITS | Encounter Summary ---
Author Organization [facility] Address [address] [place] [address] 7 [place] [address] Care Team Providers Care Kitchen Manager Name Role Phone Sera Molina DO Primary Care Provider + [phone] Encounter Details Date Type Department Care Team (Latest Contact Info) Description 01/04/2021 Abstract [facility] CONVERSIONS Dental, Provider, DDS Social History Tobacco Use Types Packs/Day Years Used Date Smoking Tobacco: Never Assessed Comments Unknown Sex and Gender Information Value Date Recorded Sex Assigned at Female 08/26/2022 10:19 AM EDT Legal Sex Female 10:19 AM EDT Gender Identity Female 08/26/2022 10:19 AM EDT Sexual Orientation Straight 08/26/2022 10 :19 AM EDT documented as of this encounter Plan of Treatment Upcoming Encounters Date Type Department Care Team (Late st Contact Info) Description 11/24/2024 3:30 PM EST Office Visit [facility] OPTOMETRY [address] [place] [address] Kaela Garcia, OD 230 [place] [address] 12/03/2024 10:30 AM EST Procedure Visit [facility] MEDICINE [address] [place] [address] Sera Molina DO 230 [place] [address] 12/20/2024 2:30 PM EST Office Visit [facility] ADULT DENTAL [address] [place] [address] Ward Schultz DDS [address] [place] [address] 04/12/2025 3:00 PM EDT Office Visit [facility] ADULT DENTAL [address] [place], [place] [phone] JessicaLoreto [address] [place] [address] documented as of this encounter Visit Diagnoses Not on filedocumented in this encounter Care Teams Kitchen Manager Relationship Specialty Start Date End Date Sera Molina DO 230 [place], [place] [phone] PCP - General Family Medicine 09/09/13 documented as of this encounter
--- OUTSIDE RECORDS SUMMARY | 2024-11-17 16:50 | XMS_ITS | Encounter Summary ---
Author Organization [employer] Address [address] [facility] 7t [place] [address] Care Team Providers Care Ice Cream Maker Name Role Phone Sera Molina DO Primary Care Provider + [phone] Encounter Details Date Type Department Care Team ([facility] st Contact Info) Description 11/25/2023 Telephone [facility] MEDICINE [address] [place], [place] [phone] Sera Molina DO 230 [place], [place] [phone] Social History Tobacco Use Types Packs/Day Years Used Date Smoking Tobacco: Never Passive Smoke Exposure: Never Smokeless Tobacco: Never Alcohol Use Standard Drinks/Week Comments Never 0 (1 standard drink = 0.6 oz pur e alcohol) Depression Answer Date Recorded Patient Health Questionnaire-9 Score 15 03/07/2023 Housing Stability Answer Date Recorded What is your housing situation today? I have ca vivar 08/21/[address] you li ve. Do you have problems with any of the following? None of the above 08/21/2023 Food Insecurity Answer Date Recorded Within the past 12 months, y ou worried that your food would run out before you got money to buy more: Never True 08/21/2023 Within the past 12 months,th e food you bought just didn't last and you didn't have enough money to get more: Never True Transportation Answer Date Recorded In the past 12 months, has l ack of transportation kept you from medical appts, meetings, work or from getting things needed for daily living? No 08/21/2023 Utilities Answer Date Recorded In the past 12 months, has t he electric, gas, oil or water company threatened to shut off services in your home? No 08/21/2023 Depression Answer Date Recorded Patient Health Questionnaire-2 Score 3 03/07/2023 Comments Unknown Sex and Gender Information Value Date Recorded Sex Assigned at Female 08/26/2022 10:19 AM EDT Legal Sex Female 10:19 AM EDT Gender Identity Female 08/26/2022 10:19 AM EDT Sexual Orientation Straight 08/26/2022 10 :19 AM EDT documented as of this encounter Miscellaneous Notes * Telephone Encounter - Alona Bernardino - 11/25/2023 1:50 PM EST Tc from pt calling in regards to famotidine (Pepcid) 40 MG tablet. States she was advised by pharmacy script will need to be a 90 day supply in order for medication to be covered by insurance. Medication was given on 11/14 sick on site visit. documented in this encounter Plan of Treatment Upcoming Encounters Date Type Department Care Team (Late st Contact Info) Description 11/24/2024 3:30 PM EST Office Visit [facility] OPTOMETRY [address] [place] [address] Kaela Garcia, OD 230 [place] [address] 12/03/2024 10:30 AM EST Procedure Visit [facility] MEDICINE [address] [place] [address] Sera Molina DO 230 [place] [address] 12/20/2024 2:30 PM EST Office Visit [facility] ADULT DENTAL [address] [place] [address] Ward Schultz DDS [address] [place] [address] 04/12/2025 3:00 PM EDT Office Visit [facility] ADULT DENTAL [address] [place] [address] Albert Lopezaris [address] [place] [address] documented as of this encounter Visit Diagnoses Not on filedocumented in this encounter Additional Health Concerns Assessment Noted Time PHQ-9 Depression Total Score: 15 023 10:49 AM EDT documented as of this encounter Care Teams Ice Cream Maker Relationship Specialty Start Date End Date Sera Molina DO 230 [place] [address] PCP - General Family Medicine 09/09/13 documented as of this encounter
--- OUTSIDE RECORDS SUMMARY | 2024-11-17 16:50 | XMS_ITS | Encounter Summary ---
Author Organization [employer] Address [address] [facility] 7 [place] [address] Care Team Providers Care Wage And Salary Specialist Name Role Phone Sera Molina DO Primary Care Provider + [phone] Reason for Visit * Reason Onset Date Comments Med Refill 08/22/2023 Encounter Details Date Type Department Care Team ([facility] st Contact Info) Description 08/22/2023 Telephone [facility] MEDICINE 230 [place], [place] [phone] Sera Molina DO 230 [place], [place] [phone] Med Refill Social History Tobacco Use Types Packs/Day Years [...] Patient Health Questionnaire-2 Score 3 03/07/2023 Comments Yes Sex and Gender Information Value Date Recorded Sex Assigned at Female 08/26/2022 10:19 AM EDT Legal Sex Female 10:19 AM EDT Gender Identity Female 08/26/2022 10:19 AM EDT Sexual Orientation Straight 08/26/2022 10 :19 AM EDT documented as of this encounter Miscellaneous Notes * Telephone Encounter - Sera Zambrano LPN - 08/22/2023 4:01 PM EDT Medication was sent to [facility] today 08/22/23. * Telephone Encounter - Dahlia Faith - 08/22/2023 3:54 PM EDT Tc from pt requesting status on medication requested previously , States does not have any medication left also stated they are aware provider leaves early and would like to know if covering providercan sign off on med. Please contact at [phone] * Telephone Encounter - Sera Zambrano LPN - 08/22/2023 11:43 AM EDT Medication pended to PCP. * Telephone Encounter - Tim Munoz - 08/22/2023 11:34 AM EDT Tc from patient requesting a refill for baclofen (Lioresal) 20 MG tablet documented in this encounter Plan of Treatment Upcoming Encounters Date Type Department Care Team (Late st Contact Info) Description 11/24/2024 3:30 PM EST Office Visit [facility] OPTOMETRY [address] [facility] [address] Kaela Garcia, OD 230 [place] [address] 12/03/2024 10:30 AM EST Procedure Visit [facility] MEDICINE [address] [place] [address] Sera Molina DO [address] [place] [address] 12/20/2024 2:30 PM EST Office Visit [facility] ADULT DENTAL [address] [place] [address] Ward Schultz DDS [address] [place] [address] 04/12/2025 3:00 PM EDT Office Visit [facility] ADULT DENTAL [address] [place] [address] Jessica Loreto [address] [place] [address] documented as of this encounter Visit Diagnoses Not on filedocumented in this encounter Additional Health Concerns Assessment Noted Time PHQ-9 Depression Total Score: 15 023 10:49 AM EDT documented as of this encounter Care Teams Wage And Salary Specialist Relationship Specialty Start Date End Date Sera Molina DO [address] [place] [address] PCP - General Family Medicine 09/09/13 documented as of this encounter
--- OUTSIDE RECORDS SUMMARY | 2024-11-17 16:50 | XMS_ITS | Encounter Summary ---
Author Organization [employer] Address [address] [facility] 7t [place] [address] Care Team Providers Care Surgical Endoscopist Name Role Phone Sera Molina DO Primary Care Provider + [phone] Reason for Visit * Reason Comments Med Refill Encounter Details Date Type Department Care Team ([facility] st Contact Info) Description 09/10/2023 Refill [facility] MEDICINE [address] [place], [place] [phone] Sera Molina DO 230 [place], [place] [phone] Social History Tobacco Use Types Packs/Day Years [...] Description 11/24/2024 3:30 PM EST Office Visit [facility] OPTOMETRY [address] [place] [address] Jose, Kaela, OD 230 [place] [address] 12/03/2024 10:30 AM EST Procedure Visit [facility] MEDICINE [address] [place] [address] Sera Molina DO 230 [place] [address] 12/20/2024 2:30 PM EST Office Visit [facility] ADULT DENTAL [address] [place] [address] Ward Schultz DDS [address] [place] [address] 04/12/2025 3:00 PM EDT Office Visit [facility] ADULT DENTAL [address] [place] [address] Jessica, Loreto [address] [place] [address] documented as of this encounter Visit Diagnoses Not on filedocumented in this encounter Additional Health Concerns Assessment Noted Time PHQ-9 Depression Total Score: 15 023 10:49 AM EDT documented as of this encounter Care Teams Surgical Endoscopist Relationship Specialty Start Date End Date Sera Molina DO 230 [place] [address] PCP - General Family Medicine 09/09/13 documented as of this encounter
--- OUTSIDE RECORDS SUMMARY | 2024-11-17 16:50 | XMS_ITS | Encounter Summary ---
Author Organization [employer] Address [address] [facility] 7t [place] [address] Care Team Providers Care Wholesale Diamond Broker Name Role Phone JesseSera Primary Care Provider + [phone] Encounter Details Date Type Department Care Team ([facility] st Contact Info) Description 11/01/2024 10:30 AM EST Office Visit [facility] OPTOMETRY [address] [place], [place] [phone] Jose, Kaela, OD [address] [place] [address] Myopia of both eyes (Primary Dx) Social History Tobacco Use Types Packs/Day Years [...] AM EDT documented as of this encounter Progress Notes * Kaela Garcia OD - 11/01/2024 10:30 AM EST MH glasses were dispensed, 1 of 2. documented in this encounter Plan of Treatment Upcoming Encounters Date Type Department Care Team (Late st Contact Info) Description 11/24/2024 3:30 PM EST Office Visit [facility] OPTOMETRY [address] [place] [address] Kaela Garcia OD 230 [place] [address] 12/03/2024 10:30 AM EST Procedure Visit [facility] MEDICINE [address] [place] [address] Sera Molina DO 230 [place] [address] 12/20/2024 2:30 PM EST Office Visit [facility] ADULT DENTAL [address] [place] [address] Ward Schultz DDS [address] [place] [address] 04/12/2025 3:00 PM EDT Office Visit [facility] ADULT DENTAL [address] [place] [address] Loreto Lopez [address] [place], [place] [phone] documented as of this encounter Visit Diagnoses Diagnosis Myopia of both eyes- Primary documented in this encounter Additional Health Concerns Assessment Noted Time PHQ-9 Depression Total Score: 20 10/08/ 024 8:02 AM EST documented as of this encounter Care Teams Wholesale Diamond Broker Relationship Specialty Start Date End Date Sera Molina DO 230 [place] [address] PCP - General Family Medicine 09/09/13 documented as of this encounter
--- OUTSIDE RECORDS SUMMARY | 2024-11-17 16:50 | XMS_ITS | Encounter Summary ---
Author Organization [email or web address] Address [address] [facility] 7 [place] [address] Care Team Providers Care Pump Oiler Name Role Phone Sera Molina DO Primary Care Provider + [phone] Reason for Visit * Reason Onset Date Comments Nurse Triage 08/18/2024 Encounter Details Date Type Department Care Team ([facility] st Contact Info) Description 08/18/2024 Telephone [facility] MEDICINE [address] [place], [place] [phone] Sera Molina DO [address] [place] [address] Nurse Triage Social History Tobacco Use Types Packs/Day Years [...] encounter Miscellaneous Notes * Telephone Encounter - Mary Granados RN - 08/18/2024 2:35 PM EDT Triage call Pt reports having some asthma symptoms, difficulty breathing at times, wheezing and worsening middle back pain. Pt had an incident of consuming vicks vapo rub liquid and was seen in [facility] 07/29/24. Pt reports ever since then has had some asthma symptoms that are not going away. Pt denies fever, cough. Pt reports using daughters symbicort inhaler with good effect. Pt is aware that using another persons prescription medication is not to be done. Pt is advised to come to [facility] and Pt reports will come tomorrow, Hours given thurs-fri 830am- 400pm and Sat. 900am-12pm. Pt agrees with this disposition. Pt is advised to bring insurance card to visit financial underwriter unable to verify. Protocol Used: Asthma Attack (Adult) Protocol-Based Disposition: See in Office or Video Visit Today or Tomorrow Video visit not offered Positive Triage Question: * Mild asthma attack (e.g., no SOB at rest, mild SOB with walking, speaks normally in sentences, mild wheezing) and lasting > 24 hours on prescribed treatment * All higher-acuity triage questions were negative Care Advice Discussed: * Reassurance and Education - Mild Asthma Attack * Asthma Attack * Drink Plenty of Liquids and Use a Humidifier * Reasons To Call Back - An asthma attack is not better after 2 or 3 quick-relief treatments (such as albuterol by inhaleror nebulizer) 20 minutes apart. - Quick-relief asthma medicine (such as albuterol by inhaler or nebulizer) is needed more often than every 4 hours - Mild asthma symptoms not better after 24 hours - Mild wheezing or other asthma symptoms come and go for more than 3 days - You become worse * Telephone Encounter - Jj Brandon - 08/18/2024 1:10 PM EDT Symptom: Excessive Thirst Outcome: Schedule a same-day appointment or talk to a nurse or provider today Reason: Caller denied all higher acuity questions documented in this encounter Plan of Treatment Upcoming Encounters Date Type Department Care Team (Late st Contact Info) Description 11/24/2024 3:30 PM EST Office Visit [facility] OPTOMETRY [address] [place] [address] JoseKaela neumann, OD 230 [place] [address] 12/03/2024 10:30 AM EST Procedure Visit [facility] MEDICINE [address] [place] [address] Sera Molina DO [address] [place] [address] 12/20/2024 2:30 PM EST Office Visit [facility] ADULT DENTAL [address] [place] [address] Ward Schultz DDS [address] [place] [address] 04/12/2025 3:00 PM EDT Office Visit [facility] ADULT DENTAL [address] [place] [address] Loreto Lopez [address] [place] [address] documented as of this encounter Visit Diagnoses Not on filedocumented in this encounter Additional Health Concerns Assessment Noted Time PHQ-9 Depression Total Score: 15 023 10:49 AM EDT documented as of this encounter Care Teams Pump Oiler Relationship Specialty Start Date End Date Sera Molina DO [address] [place] [address] PCP - General Family Medicine 09/09/13 documented as of this encounter
--- OUTSIDE RECORDS SUMMARY | 2024-11-17 16:50 | XMS_ITS | Encounter Summary ---
Author Organization [employer] Address 75 [facility] 7t [place] [address] Care Team Providers Care Ink Grinder Name Role Phone Jesse Sera Primary Care Provider + [phone] Reason for Visit * Reason Comments Med Refill Encounter Details Date Type Department Care Team ([facility] st Contact Info) Description 01/24/2024 Refill [facility] MEDICINE [address] [place], [place] [phone] Tigist Belcher NP 230 [place] [address] Chronic gastroesophageal reflux disease Social History Tobacco Use Types Packs/Day Years [...] Description 11/24/2024 3:30 PM EST Office Visit [facility] OPTOMETRY [address] [place] [address] Jose, Kaela, OD 230 [place] [address] 12/03/2024 10:30 AM EST Procedure Visit [facility] MEDICINE [address] [place] [address] Sera Molina DO 230 [place] [address] 12/20/2024 2:30 PM EST Office Visit [facility] ADULT DENTAL [address] [place] [address] Ward Schultz DDS [address] [place] [address] 04/12/2025 3:00 PM EDT Office Visit [facility] ADULT DENTAL [address] [place] [address] Albert Lopezaris [address] [place] [address] documented as of this encounter Visit Diagnoses Diagnosis Chronic gastroesophageal reflux disease documented in this encounter Additional Health Concerns Assessment Noted Time PHQ-9 Depression Total Score: 15 023 10:49 AM EDT documented as of this encounter Care Teams Ink Grinder Relationship Specialty Start Date End Date Sera Molina DO 230 [place] [address] PCP - General Family Medicine 09/09/13 documented as of this encounter
--- OUTSIDE RECORDS SUMMARY | 2024-11-17 16:50 | XMS_ITS | Encounter Summary ---
Author Organization [employer] Address 75 [facility] 7 [place] [address] Care Team Providers Care Hypnotherapist Name Role Phone Sera Molina DO Primary Care Provider + [phone] Reason for Visit * Reason Onset Date Comments Med Refill 06/29/2024 Encounter Details Date Type Department Care Team (Late st Contact Info) Description 06/29/2024 Telephone [facility] MEDICINE 230 [place], [place] [phone] Sera Molina DO 230 [place], [place] [phone] Med Refill Social History Tobacco Use Types [...] Telephone Encounter - Sera Zambrano LPN - 06/29/2024 10:28 AM EDT Medication pended to PCP. * Telephone Encounter - Tim Munoz - 06/29/2024 10:02 AM EDT TC from pt requesting medication refill. Medications needing refill : montelukast (Singulair) 10 MG tablet To be sent to: [facility] [place], [place] - [address] [place] [address] documented in this encounter Plan of Treatment Upcoming Encounters Date Type Department Care Team (Late st Contact Info) Description 11/24/2024 3:30 PM EST Office Visit [facility] OPTOMETRY [address] [place] [address] Kaela Garcia, OD 230 [place] [address] 12/03/2024 10:30 AM EST Procedure Visit [facility] MEDICINE [address] [place] [address] Sera Molina DO [address] [place] [address] 12/20/2024 2:30 PM EST Office Visit [facility] ADULT DENTAL 230 [place], [place] [phone] Ward Schultz, DAVIDS [address] [place], [place] [phone] 04/12/2025 3:00 PM EDT Office Visit [facility] ADULT DENTAL [address] [place], [place] [phone] Jessica, Loreto 230 [place], [place] [phone] documented as of this encounter Visit Diagnoses Not on filedocumented in this encounter Additional Health Concerns Assessment Noted Time PHQ-9 Depression Total Score: 15 023 10:49 AM EDT documented as of this encounter Care Teams Hypnotherapist Relationship Specialty Start Date End Date Sera Molina DO 230 [place], [place] [phone] PCP - General Family Medicine 09/09/13 documented as of this encounter
--- OUTSIDE RECORDS SUMMARY | 2024-11-17 16:50 | XMS_ITS | Encounter Summary ---
Author Organization [employer] Address [address] [place] [address] 7 [place] [address] Care Team Providers Care Machine Sorter Name Role Phone Sera Molina DO Primary Care Provider + [phone] Encounter Details Date Type Department Care Team (Latest Contact Info) Description 08/11/2019 Abstract [facility] CONVERSIONS Dental, Provider, DDS Social History Tobacco [...] Description 11/24/2024 3:30 PM EST Office Visit [facility] OPTOMETRY [address] [place] [address] Kaela Garcia, OD 230 [place] [address] 12/03/2024 10:30 AM EST Procedure Visit [facility] MEDICINE 230 [place] [address] Sera Molina DO 230 [place] [address] 12/20/2024 2:30 PM EST Office Visit [facility] ADULT DENTAL 230 [place] [address] Ward Schultz DDS 230 [place] [address] 04/12/2025 3:00 PM EDT Office Visit [facility] ADULT DENTAL 230 [place] [address] Jessica, Loreto 230 [place] [address] documented as of this encounter Visit Diagnoses Not on filedocumented in this encounter Care Teams Machine Sorter Relationship Specialty Start Date End Date Sera Molina DO 230 [place] [address] PCP - General Family Medicine 09/09/13 documented as of this encounter
--- OUTSIDE RECORDS SUMMARY | 2024-11-17 16:50 | XMS_ITS | Encounter Summary ---
Author Organization [email or web address] Address [address] [place] [address] 7 [place] [address] Care Team Providers Care Leather Toggler Name Role Phone Sera Molina DO Primary Care Provider + [phone] Encounter Details Date Type Department Care Team (Latest Contact Info) Description 04/24/2022 Abstract [facility] CONVERSIONS Dental, Provider, DDS Social History [...] [facility] OPTOMETRY [address] [place] [address] Kaela Garcia, OD 230 [place] [address] 12/03/2024 10:30 AM EST Procedure Visit [facility] MEDICINE 230 [place] [address] Sera Molina DO 230 [place] [address] 12/20/2024 2:30 PM EST Office Visit [facility] ADULT DENTAL [address] [place] [address] Ward Schultz DDS [address] [place] [address] 04/12/2025 3:00 PM EDT Office Visit [facility] ADULT DENTAL 230 [place], [place] [phone] JessicaLoreto 230 [place] [address] documented as of this encounter Visit Diagnoses Not on filedocumented in this encounter Care Teams Leather Toggler Relationship Specialty Start Date End Date Sera Molina DO 230 [place], [place] [phone] PCP - General Family Medicine 09/09/13 documented as of this encounter
--- OUTSIDE RECORDS SUMMARY | 2024-11-17 16:50 | XMS_ITS | Encounter Summary ---
Author Organization [employer] Address 75 [facility] 7t [place] [address] Care Team Providers Care Contact Center Team Lead Name Role Phone Jesse Sera Primary Care Provider + [phone] Reason for Visit * Reason Onset Date Comments Results 10/25/2024 Encounter Details Date Type Department Care Team ([facility] st Contact Info) Description 10/25/2024 Telephone [facility] MEDICINE [address] [place] [address] Jennifer Hernandez, RN 230 [place] [address] Results Social History Tobacco Use Types Packs/Day Years [...] encounter Miscellaneous Notes * Telephone Encounter - Jennifer Hernandez RN - 10/25/2024 2:06 PM EST PCP reviewed MRI of knee results which returned suspicious for tear of lateral meniscus. PCP inquiring if patient kept appointment with [facility] as we will fax them the results for them to review and determine best POC otherwise PCP will place new ortho referral. TC placed to patient reports she was seen at [facility] on 10/19/24 for her R fibula fracture and was advised she will have a f/u in 6 weeks. Patient reports she was advised to increase protein and take a multivitamin as fracture is still not healing. Patient advised of knee MRI results. Patient advised RN will call [facility] to obtain fax number and will fax results for ortho provider to review at patientsnext appointment. Patient reports she will call [facility] to see if she can be seen sooner for MRI results POC. Patient to f/u PRN. TC placed to [facility] [phone] to obtain fax number to send MRI knee results. RN was provided fax number of [phone] and was informed patient has upcoming appointment for her knee on 11/09/24. RN has printed results and faxed to [phone], confirmation page received. documented in this encounter Plan of Treatment Upcoming Encounters Date Type Department Care Team (Late st Contact Info) Description 11/24/2024 3:30 PM EST Office Visit [facility] OPTOMETRY [address] [place] [address] Kaela Garcia, OD 230 [place] [address] 12/03/2024 10:30 AM EST Procedure Visit [facility] MEDICINE [address] [place] [address] Sera Molina DO 230 [place] [address] 12/20/2024 2:30 PM EST Office Visit [facility] ADULT DENTAL [address] [place] [address] Ward Schultz DDS [address] [place] [address] 04/12/2025 3:00 PM EDT Office Visit [facility] ADULT DENTAL [address] [place] [address] Jessica, Loreto [address] [place] [address] documented as of this encounter Visit Diagnoses Not on filedocumented in this encounter Additional Health Concerns Assessment Noted Time PHQ-9 Depression Total Score: 20 024 8:02 AM EST documented as of this encounter Care Teams Contact Center Team Lead Relationship Specialty Start Date End Date Sera Molina DO 230 [place] [address] PCP - General Family Medicine 09/09/13 documented as of this encounter
--- OUTSIDE RECORDS SUMMARY | 2024-11-17 16:50 | XMS_ITS | Encounter Summary ---
Author Organization [employer] Address 75 [facility] 7t [place] [address] Care Team Providers Care Cleaning Matron Name Role Phone Jesse Sera Primary Care Provider + [phone] Reason for Visit * Reason Comments Filling Encounter Details Date Type Department Care Team ([facility] st Contact Info) Description 11/16/2024 3:00 PM EST Office Visit [facility] ADULT DENTAL [address] [place], [place] [phone] Ward Schultz, DDS [address] [place] [address] Fractured dental caodaism without loss of material (Primary Dx) Social History Tobacco Use Types [...] AM EDT documented as of this encounter Last Filed Vital Signs Vital Sign Reading Time Taken Comments Blood Pressure 130/80 11/16/2024 3:00 PM EST Pulse - - Temperature - - Respiratory Rate - - Oxygen Saturation - - Inhaled Oxygen Concentration - - Weight - - Height - - Body Mass Index - - documented in this encounter Progress Notes * Ward Schultz DDS - 11/16/2024 3:00 PM EST Patient ID: Eli Saenz is a 49 y.o. female. Time Out: Timeout Date: 11/16/24 (composit tooth# 10), Timeout Time: 1524 Location: [facility] Tooth: Maxilla and #10 Procedure: Jew Verified the above with patient, anatomic pathology assistant, and provider. Confirmed via patient's chart, intraorally and by radiographs. Medical Secretary Teacher: not applicable Chief Complaint Patient presents with Filling Medical Hx: Vitals: Blood pressure 130/80, unknown if currently . Medications, Med Hx reviewed with patient and updated in chart. Consent Obtained: The risks, benefits, indications, potential complications, and alternatives were explained to the patient and informed consent was obtained with good understanding. Treatment Provided: Dental procedures in this visit D2330 - RESTORATIVE - RESIN-BASED COMPOSITE RESTORATIONS - DIRECT - RESIN-BASED COMPOSITE - ONE SURFACE, ANTERIOR 10 L Diagnosis: Fractured caodaism Topical: 20% Benzocaine Anesthesia: 2% Lidocaine (Xylocaine) w/ 1:100,000 epinephrine Number of Cartridges: .50 Injection Type: Buccal infiltration Confirmed profound anesthesia. Isolation: high speed suction and cotton rolls Prep: Preparation finalized Matrix: None Etch: 37% Phosphoric Acid Etch Desensitizer: Gluma Liner/Base: None Camacho: I-Camacho Jew Material: Filtek [place] [employer] Flowable Composite and Paradigm Composite Shade: A3 Polished. Occlusion & contacts verified. Patient satisfied with comfort and esthetics. Patient tolerated procedure well. Post-operative instructions were given. Patient departed alert, oriented, and in stable condition. NV: Anuradha # 7 fractured incisal angle Air Brake Operator: Katelyn Berger Dentist: Ward Schultz DDS documented in this encounter Plan of Treatment Upcoming Encounters Date Type Department Care Team (Late st Contact Info) Description 11/24/2024 3:30 PM EST Office Visit [facility] OPTOMETRY [address] [place] [address] Kaela Garcia, OD 230 [place] [address] 12/03/2024 10:30 AM EST Procedure Visit [facility] MEDICINE [address] [place] [address] Sera Molina DO 230 [place] [address] 12/20/2024 2:30 PM EST Office Visit [facility] ADULT DENTAL [address] [place] [address] Ward Schultz DDS [address] [place] [address] 04/12/2025 3:00 PM EDT Office Visit [facility] ADULT DENTAL [address] [place] [address] Loreto Lopez [address] [place] [address] documented as of this encounter Procedures Procedure Name Priority Date/Time Associated Diagnosis Comments 10 L RESTORATIVE - RESIN-BASED COMPOSITE RESTORATIONS - DIRECT - RESIN-BASED COMPOSITE - ONE SURFACE, ANTERIOR Routine 11/16/2024 3:00 PM EST [facility] - PROFESSIONAL VISITS - CASE PRESENTATION, SUBSEQUENT TO DETAILED AND EXTENSIVE TREATMENT PLANNING Routine 11/16/2024 3:00 PM EST documented in this encounter Visit Diagnoses Diagnosis Fractured dental caodaism without loss of material- Primary Fractured dental restorative material without loss of material documented in this encounter Additional Health Concerns Assessment Noted Time PHQ-9 Depression Total Score: 20 10/08/ 024 8:02 AM EST documented as of this encounter Care Teams Cleaning Matron Relationship Specialty Start Date End Date Sera Molina DO 230 [place] [address] PCP - General Family Medicine 09/09/13 documented as of this encounter
--- OUTSIDE RECORDS SUMMARY | 2024-11-17 16:50 | XMS_ITS | Encounter Summary ---
Author Organization [employer] Address [address] [place] [address] 7t [place] [address] Care Team Providers Care Live Out Nanny Name Role Phone Sera Molina DO Primary Care Provider + [phone] Reason for Referral * Imaging (Routine) - Closed Specialty Diagnoses / Procedures Referred By Contac t Referred To Contact Diagnoses Dizziness Tinnitus of both ears Procedures Mr Brain w/ and w/o Contrast Sera Molina DO 230 [place] [address] Phone: tel: fax: [address] Phone: tel: fax: Referral ID Status Reason Start Date Expiration Date Visits Re quested Visits Authorized [id number] Closed 03/12/2023 03/11/2024 1 1 Reason for Visit * Reason Onset Date Comments MRI order 03/12/2023 Encounter Details Date Type Department Care Team (Late st Contact Info) Description 03/12/2023 Telephone [facility] MEDICINE 230 [place], [place] [phone] Sera Molina DO 230 [place], [place] [phone] MRI order Social History Tobacco Use Types Packs/Day Years Used Date Smoking Tobacco: Never Passive Smoke Exposure: Never Smokeless Tobacco: Never Alcohol Use Standard Drinks/Week Comments Never 0 (1 standard drink = 0.6 oz pur e alcohol) Depression Answer Date Recorded Patient Health Questionnaire-9 Score 15 03/07/2023 Depression Answer Date Recorded Patient Health Questionnaire-2 Score 3 03/07/2023 Comments Yes Sex and Gender Information Value Date Recorded Sex Assigned at Female 08/26/2022 10:19 AM EDT Legal Sex Female 10:19 AM EDT Gender Identity Female 08/26/2022 10:19 AM EDT Sexual Orientation Straight 08/26/2022 10 :19 AM EDT documented as of this encounter Miscellaneous Notes * Telephone Encounter - Loreto Reyna - 03/13/2023 9:28 AM EDT Tc from [facility]ame at [facility] requesting status on message below. Pt is scheduled for tomorrow 03/14/23 * Telephone Encounter - Adriana Ochoa - 03/12/2023 1:57 PM EDT Tc from Kwame from [facility] MRI department requesting for order to be modify to MRI brain with and without contract . Please call to clarify [phone] . documented in this encounter Plan of Treatment Upcoming Encounters Date Type Department Care Team (Late st Contact Info) Description 11/24/2024 3:30 PM EST Office Visit [facility] OPTOMETRY [address] [place] [address] Kaela Garcia, OD 230 [place] [address] 12/03/2024 10:30 AM EST Procedure Visit [facility] MEDICINE [address] [place] [address] Sera Molina DO [address] [place] [address] 12/20/2024 2:30 PM EST Office Visit [facility] ADULT DENTAL 230 [place], [place] [phone] Ward Schultz DDS [address] [place], [place] [phone] 04/12/2025 3:00 PM EDT Office Visit [facility] ADULT DENTAL [address] [place], [place] [phone] Loreto Lopez 230 [place], [place] [phone] Scheduled Orders Name Type Priority Associated Diagnoses Orde r Schedule Mr Brain w/ and w/o Contrast Imaging Routine Dizziness Tinnitus of both ears Expected: 03/12/2023, Expires: 03/12/2024 documented as of this encounter Visit Diagnoses Diagnosis Dizziness Dizziness and giddiness Tinnitus of both ears Unspecified tinnitus documented in this encounter Additional Health Concerns Assessment Noted Time PHQ-9 Depression Total Score: 15 023 10:49 AM EDT documented as of this encounter Care Teams Live Out Nanny Relationship Specialty Start Date End Date Sera Molina DO 230 [place], [place] [phone] PCP - General Family Medicine 09/09/13 documented as of this encounter
--- OUTSIDE RECORDS SUMMARY | 2024-11-17 16:50 | XMS_ITS | Encounter Summary ---
Author Organization [employer] Address 75 [facility] 7 [place] [address] Care Team Providers Care Glassie Name Role Phone Sera Molina DO Primary Care Provider + [phone] Reason for Visit * Reason Onset Date Comments Med Refill 11/16/2024 Encounter Details Date Type Department Care Team (Late st Contact Info) Description 11/16/2024 Refill [facility] MEDICINE 230 [place], [place] [phone] Sera Molina DO 230 [place] [address] Social History Tobacco Use Types Packs/Day Years [...] Telephone Encounter - Sera Zambrano LPN - 11/16/2024 1:38 PM EST Next appointment 12/03/24. * Telephone Encounter - Vahid Mccarty - 11/16/2024 1:26 PM EST TC from pt requesting medication refill. Medications needing refill : ondansetron ODT (Zofran-ODT) 8 MG disintegrating tablet To be sent to: [facility] [place], [place] - [address] [place] [address] documented in this encounter Plan of Treatment Upcoming Encounters Date Type Department Care Team (Late st Contact Info) Description 11/24/2024 3:30 PM EST Office Visit [facility] OPTOMETRY [address] [place] [address] Kaela Garcia, OD [address] [place] [address] 12/03/2024 10:30 AM EST Procedure Visit [facility] MEDICINE [address] [place] [address] Sera Molina DO [address] [place] [address] 12/20/2024 2:30 PM EST Office Visit [facility] ADULT DENTAL 230 [place] [address] Ward Schultz DDS [address] [place], [place] [phone] 04/12/2025 3:00 PM EDT Office Visit [facility] ADULT DENTAL 230 [facility], [place] [phone] Albert Lopezaris 230 [place], [place] [phone] documented as of this encounter Visit Diagnoses Not on filedocumented in this encounter Additional Health Concerns Assessment Noted Time PHQ-9 Depression Total Score: 20 10/08/ 024 8:02 AM EST documented as of this encounter Care Teams Glassie Relationship Specialty Start Date End Date Sera Molina DO [address] [place] [address] PCP - General Family Medicine 09/09/13 documented as of this encounter
--- OUTSIDE RECORDS SUMMARY | 2024-11-17 16:50 | XMS_ITS | Encounter Summary ---
Author Organization [employer] Address 75 [facility] 7 [place] [address] Care Team Providers Care Commercial Light Fixture Assembler Name Role Phone Sera Molina DO Primary Care Provider + [phone] Reason for Visit * Reason Onset Date Comments Med Refill 11/01/2024 Encounter Details Date Type Department Care Team (Late st Contact Info) Description 11/01/2024 Refill [facility] MEDICINE [address] [place], [place] [phone] Sera Molina DO [address] [place] [address] Social History Tobacco Use Types Packs/Day Years [...] encounter Miscellaneous Notes * Telephone Encounter - Rachael Batista - 11/01/2024 11:34 AM EST TC from pt requesting medication refill. Medications needing refill : ondansetron ODT (Zofran-ODT) 8 MG disintegrating tablet To be sent to: [facility] documented in this encounter Plan of Treatment Upcoming Encounters Date Type Department Care Team (Late st Contact Info) Description 11/24/2024 3:30 PM EST Office Visit [facility] OPTOMETRY [address] [place] [address] Kaela Garcia, OD [address] [place] [address] 12/03/2024 10:30 AM EST Procedure Visit [facility] MEDICINE [address] [place] [address] Sera Molina DO [address] [place] [address] 12/20/2024 2:30 PM EST Office Visit [facility] ADULT DENTAL [address] [place] [address] Ward Schultz DDS [address] [place] [address] 04/12/2025 3:00 PM EDT Office Visit [facility] ADULT DENTAL [address] [place] [address] Albert Lopezaris [address] [place] [address] documented as of this encounter Visit Diagnoses Not on filedocumented in this encounter Additional Health Concerns Assessment Noted Time PHQ-9 Depression Total Score: 20 024 8:02 AM EST documented as of this encounter Care Teams Commercial Light Fixture Assembler Relationship Specialty Start Date End Date Sera Molina DO [address] [place] [address] PCP - General Family Medicine 09/09/13 documented as of this encounter
--- OUTSIDE RECORDS SUMMARY | 2024-11-17 16:50 | XMS_ITS | Encounter Summary ---
Author Organization [employer] Address 75 [facility] 7t [place] [address] Care Team Providers Care Textbook Associate Name Role Phone JesseSera Primary Care Provider + [phone] Encounter Details Date Type Department Care Team (Latest Contact Info) Description 11/02/2024 Outside Procedure [facility] OPTOMETRY [address] [place] [address] Jose, Kaela, OD [address] [place] [address] Presbyopia (Primary Dx) Social History Tobacco Use Types [...] Progress Notes * Kaela Garcia OD - 11/02/2024 4:45 PM EST MH glasses were dispensed, 2 of 2. documented in this encounter Plan of Treatment Upcoming Encounters Date Type Department Care Team (Late st Contact Info) Description 11/24/2024 3:30 PM EST Office Visit [facility] OPTOMETRY [address] [place] [address] Kaela Garcia, JEAN CARLOS [address] [place] [address] 12/03/2024 10:30 AM EST Procedure Visit [facility] MEDICINE [address] [place] [address] Sera Molina DO [address] [place] [address] 12/20/2024 2:30 PM EST Office Visit [facility] ADULT DENTAL [address] [place] [address] Ward Schultz DDS [address] [place] [address] 04/12/2025 3:00 PM EDT Office Visit [facility] ADULT DENTAL [address] [place] [address] Loreto Lopez [address] [place] [address] documented as of this encounter Visit Diagnoses Diagnosis Presbyopia- Primary documented in this encounter Additional Health Concerns Assessment Noted Time PHQ-9 Depression Total Score: 20 10/08/ 024 8:02 AM EST documented as of this encounter Care Teams Textbook Associate Relationship Specialty Start Date End Date Sera Molina DO [address] [place] [address] PCP - General Family Medicine 09/09/13 documented as of this encounter
--- OUTSIDE RECORDS SUMMARY | 2024-11-17 16:50 | XMS_ITS | Encounter Summary ---
Author Organization [employer] Address [address] [facility] 7[address] [place] [address] Care Team Providers Care Division Engineer Name Role Phone Sera Molina DO Primary Care Provider + [phone] Encounter Details Date Type Department Care Team ([facility] st Contact Info) Description 11/02/2024 Telephone [facility] [address] [place], [place] [phone] Sera Molina DO [address] [place], [place] [phone] Social History Tobacco Use Types Packs/Day Years [...] encounter Miscellaneous Notes * Telephone Encounter - Margarita Kruse MA - 11/03/2024 2:44 PM EST Spoke with patient reschedule PAP for 12/03/24 at 10:30am per patient request. Mailed appt. Letter. * Telephone Encounter - Jj Taylor - 11/02/2024 2:58 PM EST Tc from pt requesting call back to possibly reschedule appt from 11/23 stating she may have another appt with a different facility. Please contact pt at [phone]. documented in this encounter Plan of Treatment Upcoming Encounters Date Type Department Care Team (Late st Contact Info) Description 11/24/2024 3:30 PM EST Office Visit [facility] OPT[facility] [address] [place] [address] Kaela Garcia, OD [address] [place] [address] 12/03/2024 10:30 AM EST Procedure Visit [facility] [address] [place], [place] [phone] Sera Molina DO [address] [place] [address] 12/20/2024 2:30 PM EST Office Visit [facility] ADULT DENTAL [address] [facility], [place] [phone] Marion ENA Hopper [address] [place] [address] 04/12/2025 3:00 PM EDT Office Visit [facility] [address] [facility], [place] [phone] Loreto Lopez [address] [place] [address] documented as of this encounter Visit Diagnoses Not on filedocumented in this encounter Additional Health Concerns Assessment Noted Time PHQ-9 Depression Total Score: 20 024 8:02 AM EST documented as of this encounter Care Teams Division Engineer Relationship Specialty Start Date End Date Sera Molina DO [address] [place] [address] PCP - General Family Medicine 09/09/13 documented as of this encounter
--- OUTSIDE RECORDS SUMMARY | 2024-11-17 16:50 | XMS_ITS | Encounter Summary ---
Author Organization [employer] Address [address] [place] [address] 7 [place] [address] Care Team Providers Care Inside Sales Coordinator Name Role Phone Sera Molina DO Primary Care Provider + [phone] Reason for Visit * Reason Onset Date Comments Order US abdomen 04/16/2023 Encounter Details Date Type Department Care Team (Late st Contact Info) Description 04/16/2023 Telephone [facility] MED[facility] [address] [place], [place] [phone] Sera Molina DO [address] [place] [address] Order US abdomen Social History Tobacco Use Types Packs/Day Years [...] encounter Miscellaneous Notes * Telephone Encounter - Elayne Richard - 04/16/2023 2:45 PM EDT Tc from patient calling in regards to US abdomen order. Apprentice Funeral Director does not see order on chart. Patientstates it was order on 03/22/23. documented in this encounter Plan of Treatment Upcoming Encounters Date Type Department Care Team (Late st Contact Info) Description 11/24/2024 3:30 PM EST Office Visit [facility] OPTOMETRY [address] [place] [address] Kaela Garcia, OD [address] [place] [address] 12/03/2024 10:30 AM EST Procedure Visit [facility] MEDICINE [address] [place] [address] Sera Molina DO [address] [place] [address] 12/20/2024 2:30 PM EST Office Visit [facility] ADULT DENTAL [address] [facility] [place] [address] Ward Schultz, DDS [address] [place] [address] 04/12/2025 3:00 PM EDT Office Visit [facility] ADULT DENTAL [address] [place] [address] Albert Lopezaris [address] [place] [address] documented as of this encounter Visit Diagnoses Not on filedocumented in this encounter Additional Health Concerns Assessment Noted Time PHQ-9 Depression Total Score: 15 023 10:49 AM EDT documented as of this encounter Care Teams Inside Sales Coordinator Relationship Specialty Start Date End Date Sera Molina DO [address] [place] [address] PCP - General Family Medicine 09/09/13 documented as of this encounter
--- OUTSIDE RECORDS SUMMARY | 2024-11-17 16:51 | XMS_ITS | Continuity of Care Document ---
Author Organization [facility] Address [address] [facility] [place] [address] Care Team Providers Care Revenue Agent Name Role Phone NORM CAUSEY Referring Provider NORM CAUSEY Primary Care Provider [phone] Assessment Encounter Date Assessment Date Assessment LastModified by Organization Details LastModified Time 11/02/2024 11/02/2024 IMPRESSION: Chronic migraine, intermittently debilitating. I am able to continue Botox, with focus on duplicating location and amount of distribution of 400 units Botox every 3 months, following the regimen developed by her previous neurologist. She would like me to take over Botox injections. Sometimes, Botox and Emgality are difficult to obtain preauthorization for together. She already has preauthorization and an existing prescription for her Emgality with primary care. Although she says that her previous neurologist was able to prescribe Botox and Emgality together, for the time being I will leave the Emgality prescription with primary care to minimize difficulty of taking over medications. I am able to prescribe the ondansetron, eletriptan, and quetiapine as she has been taking, as detailed in HPI. I will try to get the Cambia prescribed for migraine abortive relief. Her previous neurologist was unable to get it approved by insurance but mentions that what was lacking was documentation of failure with other NSAIDs, diclofenac in particular. His last note contained that documentation. I will give the preauthorization a try with this documentation. I do not prescribe opiates in general in my practice and so I cannot take over her current Tylenol #4. I do not prescribe benzodiazepines for jaw clenching or for migraine more generally. We discussed the burdens of both of these medications which involve addiction with tolerance and dependency in some individuals. As this addiction potential that has caused situations in the past that has led me to these practice policies. She wondered how I could handle her residual pain, therefore. I do not have immediate answers. I will first try to duplicate what I can. And then we will work on residual pain. Of note, her migraine burden described today, as detailed in HPI, is considerably worse than as described by her previous neurologist in his last note June 01, 2024: ? I n month one after Botox she had 15 head and neck pain days, month two she had 10 and a month three she had 12.? I wonder if this was because the Botox administration she has had previously did not follow the protocol developed by her previous neurologist, a protocol that I will attempt to follow-up given documentation in chart notes. She has these chart notes and will bring them to Botox injection follow-up. I will leave amitriptyline with primary care. At some point I will suggest discontinuation as Dr. Denny documents the lack of effectiveness for migraine and patient says that there is no other treatment target of amitriptyline that she knows of. Medications per patient: Emgality, Botox, Tylenol #4, diazepam, amitriptyline 25 mg daily, quetiapine, Advair, baclofen (from another provider), sucralfate, senna, iron. >>>>>>>>>>>> PLAN Eli Saenz November 02, 2024 Ondansetron 8 m tablet as needed, every 6 hours, for nausea with migraine Eletriptan 40 mg,1 tablet at beginning of migraine, may repeat after 1 hour, maximum 2 tablets / 24 hours Quetiapine 50 mg, 1 tablet at bedtime to reduce clenching Cambia 1 packet at migraine onset, maximum 1 packet / 24 hours Follow-up for Botox, 4 units, for multifocal muscle spasm triggering migraine Follow-up 10 weeks after that for reevaluation [email or web address] Not available 11/02/2024 18:21:41 Plan of Treatment Reminders Order Date Submit Date Provider Last Modified By Organization Details Last Modified Time Details Appointments BOTOX 2024 02:00P Hannah Jerez MD PhD Not available Not available Not available Lab None recorded. Referral None recorded. Procedures None recorded. Surgeries None recorded. Imaging None recorded. Medication Orders ondansetr on 8 mg disintegr ating tablet 2024 025 [facility], [address] [place], [address], 11/02/2024 18:21:51 eletripta n 40 mg tablet 2024 025 [facility], [address] [place], [address], 11/02/2024 18:21:48 quetiapin e 50 mg tablet 2024 025 [facility], [address] [facility], [place], [address], 11/02/2024 18:21:49 Cambia 50 mg oral powder packet 2024 025 [facility], [address] [facility], [place], [address], 11/02/2024 18:21:50 Patient TargetsNo targets recorded. Patient Instructions Encounter Date Encounter Id Patient Instructions Last Modified By Organization Details Last Modified Time 11/02/2024 [id number] Discussion acros s issues of diagnoses and management and same day associated chart review and management greater than 50% greater than 90 minutes [email or web address] Not available 11/02/2024 18:22:10 Reason for Referral None Reported. Procedures Surgical History Date Name Laterality Status Provider Name and Address Organization Details Recorded Time 11/02/2024 DATA REVIEW completed Camilo Jerez MD [address] [place] [address] [place], [address], Formerly [facility] 11/02/2024 18:20:48 Imaging Results None recorded. Procedure Notes None recorded. Medical Equipment None Reported. Allergies No known drug allergies Medications Name Sig Start Date Stop Date Status Note LastModified by Organization Details LastModified Time amoxicillin 500 mg capsule TAKE TWO CAPSULES BY MOUTH THREE TIMES A DAY FOR 7 DAYS active Not Available Not Available N ot Available terconazole 0.4 % vaginal cream INSERT 1 APPLICATORF UL INTO THE VAGINA AT BEDTIME FOR 7 DAYS active Not Available Not Available No t Available albuterol sulfate 2.5 mg/3 mL (0.083 %) solution for nebulization INHALE CONTENTS OF 1 VIAL VIA NEBULIZER EVERY 4 HOURS IF NEEDED active Not Available Not Available No t Available cetirizine 10 mg tablet TAKE ONE TABLET BY MOUTH EVERY DAY active Not Available Not Available No t Available azithromycin 250 mg tablet TAKE ONE TABLET BY MOUTH EVERY DAY FOR 5 DAYS active Not Available Not Available No t Available fluconazole 150 mg tablet TAKE THE 1 TABLET active Not Available Not Available No t Available benzonatate 200 mg capsule TAKE ONE CAPSULE BY MOUTH THREE TIMES A DAY active Not Available Not Available Not Available senna 8.6 mg tablet TAKE TWO TABLETS BY MOUTH DAILY AT BEDTIME NEEDED FOR CONSTIPATIO N active Not Available Not Available No t Available ondansetron HCl 8 mg tablet TAKE ONE TABLET BY MOUTH EVERY 6 HOURS NEEDED active Not Available Not Available No t Available sucralfate 1 gram tablet TAKE ONE TABLET BY MOUTH DAILY AT BEDTIME active Not Available Not Available N ot Available famotidine 40 mg tablet TAKE ONE TABLET BY MOUTH DAILY AT BEDTIME active Not Available Not Available N ot Available prednisone 20 mg tablet TAKE TWO TABLETS BY MOUTH EVERY DAY FOR 5 DAYS active Not Available Not Available No t Available ondansetron 8 mg disintegrati ng tablet 1 tablet as needed, every 6 hours, for nausea with migraine 2024 active Not Available Not Available Not Avai lable baclofen 20 mg tablet TAKE ONE TABLET BY MOUTH THREE TIMES A DAY NEEDED FOR PAIN active Not Available Not Available No t Available amitriptylin e 25 mg tablet TAKE ONE TABLET BY MOUTH DAILY AT BEDTIME active Not Available Not Available N ot Available pantoprazole 40 mg tablet,delay ed release TAKE ONE TABLET BY MOUTH EVERY 12 HOURS active Not Available Not Available No t Available esomeprazole magnesium 40 mg capsule,alex yed release TAKE ONE CAPSULE BY MOUTH EVERY DAY active Not Available Not Available No t Available lansoprazole 30 mg capsule,alex yed release TAKE ONE CAPSULE BY MOUTH EVERY DAY active Not Available Not Available No t Available lidocaine 5 % topical patch APPLY ONE PATCH ONCE A DAY AT THE SAME TIME EACH DAY active Not Available Not Available No t Available Advair Diskus 500 mcg-50 mcg/dose powder for inhalation INHALE 1 PUFF EVERY 12 HOURS active Not Available Not Available No t Available sertraline 25 mg tablet TAKE ONE TABLET BY MOUTH EVERY DAY active Not Available Not Available No t Available montelukast 10 mg tablet TAKE ONE TABLET BY MOUTH EVERY EVENING active Not Available Not Available No t Available acetaminophe n 300 mg-codeine 60 mg tablet TAKE ONE TABLET BY MOUTH EVERY 6 HOURS NEEDED FOR SEVERE PAIN active Not Available Not Available Not Available diclofenac sodium 50 mg tablet,delay ed release TAKE ONE TABLET BY MOUTH THREE TIMES A DAY active Not Available Not Available Not Available diazepam 10 mg tablet TAKE ONE TABLET BY MOUTH EVERY EVENING AT BEDTIME active Not Available Not Available No t Available ibuprofen 600 mg tablet TAKE ONE TABLET BY MOUTH EVERY 6 HOURS FOR 5 DAYS active Not Available Not Available No t Available ferrous sulfate 325 mg (65 mg iron) tablet,delay ed release TAKE ONE TABLET BY MOUTH EVERY DAY - DO NOT CRUSH, CHEW, OR SPLIT. active Not Available Not Available No t Available fluticasone propionate 50 mcg/actuatio n nasal spray,suspen evita USE 2 SPRAYS IN EACH NOSTRIL DAILY active Not Available Not Available No t Available Ventolin HFA 90 mcg/actuatio n aerosol inhaler INHALE 2 PUFFS EVERY 4 HOURS IF NEEDED FOR WHEEZING active Not Available Not Available No t Available oxycodone 5 mg tablet TAKE 1 TABLET BY MOUTH EVERY 6 OURS NEEDED FOR 30 DAYS active Not Available Not Available No t Available eletriptan 40 mg tablet 1 tablet at beginning of migraine, may repeat after 1 hour, maximum 2 tablets / 24 hours 2024 active Not Available Not Available Not Avai lable quetiapine 50 mg tablet Take 1 tablet every day by oral route at bedtime for 90 days, for to reduce clenching. 2024 active Not Available Not Available Not Avai lable Symbicort 160 mcg-4.5 mcg/actuatio n HFA aerosol inhaler INHALE 2 PUFFS IN THE MORNING AND AT BEDTIME - RINSE AND EXPECTORATE MOUTH AFTER WITH WATER active Not Available Not Available N ot Available Symbicort 80 mcg-4.5 mcg/actuatio n HFA aerosol inhaler INHALE TWO PUFFS BY MOUTH TWICE A DAY active Not Available Not Available No t Available ClearLax 17 gram/dose oral powder MIX AND TAKE 17 GRAMS BY MOUTH TWO TIMES A DAY active Not Available Not Available Not Available Botox 200 unit injection INJECT UP TO 400 UNITS IN THE MUSCLE IN THE HEAD AND NECK EVERY 90 DAYS DIRECTED AND DISCARD REMAINDER active Not Available Not Available No t Available diclofenac potassium 50 mg oral powder packet active Not Available Not Available Not Available Aerochamber Plus Flow-Vu USE WITH INHALER active Not Available Not Available No t Available Emgality Pen 120 mg/mL subcutaneous pen injector INJECT 120MG UNDER THE SKIN ONCE A MONTH IN THE ABDOMEN, THIGH, OUTER UPPER ARM, OR BUTTOCKS active Not Available Not Available No t Available Nurtec ODT 75 mg disintegr[address] ng tablet PLACE ONE TABLET BY MOUTH EVERY DAY NEEDED FOR MIGRAINE REPEAT 1 DOSE IN 24 HOURS active Not Available Not Available No t Available Vitals Date Recorded Body height Body mass index (BMI) Body weight Respiratory rate Provider Name and Address Organization Details Last Updated DateTime 11/02/2024 157.48 cm 32.7 kg/m2 26792.03 g 12 /min Liss Mata [facility] 11/02/2024 14:21:32 Social History Question Answer Notes LastModified by Organizat ion Details LastModified Time Tobacco Smoking Status Never Smoker [email or web address] 11/02/2024 14:30:41 What Is Your Level Of Alcohol Consumption? None Information not available 11/02/2024 What Is Your Level Of Caffeine Consumption? Occasional Information not available 11/02/2024 What Is The Highest Grade Or Level Of School You Have Completed Or The Highest Degree You Have Received? [id number] Information not available 11/02/2024 Which Of Your Hands Is Dominant? Right Information not available 11/02/2024 Sex: Unknown Functional Status None recorded. Mental Status None recorded. Family History Nothing Reported. Medical History Condition Response Claustrophobia N Hospitalizations N Head Trauma/Injury N High Blood Pressure or Hypertension N Thyroid Problems N Lung Disease N Depression N COPD or emphysema N Brain Tumors N Encephalitis N PTSD N Vitamin B12 deficiency N Heart Attack ([place]) N Spine Problems N Obstructive Sleep Apnea N Alcoholism N Diabetes N Autoimmune disease N Bleeding Disorder N Arthritis N Developmental Problems N Tuberculosis N Cerebral Palsy N Neck Problems N Cancer N Back Problems N Stroke N Asthma Y Heartburn, acid reflux, GERD Y Vitamin D Deficiency Y Epilepsy/Seizures N Bipolar Disorder N Sleep Disorder N Hepatitis N Aneurysm N Liver Disease N Heart Disease N Headaches Y Fibromyalgia N Osteoporosis N High Cholesterol or Hyperlipidemia N Kidney Disease N Gynecological HistoryNo gynecological history recorded. Obstetrics History GPAL:G 0 P 0 0 0 0 Past Encounters Encounter ID Performer Location Encounter Start Date Encounter Closed Date Diagnosis/Indication Diagnosis SNOMED-CT Code Diagnosis ICD10 Code Diagnosis Note [id number] Camilo Jerez MD [facility] [address] [place] [address] [place] [address] 11/02/2024 12:52:14 11/03/2024 07:51:48 Migraine with aura 8654767 G43.109 Health Concerns Section Related Observation LastModified by Organization Detai ls LastModified Time None Recorded Concern Status LastModified by Organization Details LastModified Time None Recorded Payers Encounter Date Sequence Insurance Name Policy Number Policy Pate Covered Member ID Pate Member ID Guarantor Name 11/02/2024 1 [place] [facility] Eli Saenz [id number] Eli Saenz Notes Date Note Type Note Provider Name and Address Organization Details Recorded Time 11/02/2024 text/html Eli Saenz presents for initial neurology consultation for assessment and management of chronic daily migraine. She is a former patient of retired neurologist, Dr. Denny.? She is unaccompanied>>>>>> >>>>>>November 02, 2024 presenting symptomatology:She has a many year history of debilitating migraine. Historically, she used to go to the emergency room frequently for migraine. She started working with her former neurologist who developed a management protocol that helped partially but significantly. With this management, she still had significant migraine burden but did not need to go to the emergency room.Currently, she has daily continuous symmetric thumping at both temples, 7-8/10 intensity. Superimposed, 25/30 days on average, she has more significant pain? m igraine? 9 -10/10 intensity. This is disabling ~20/30 days of a month. There is associated light sensitivity, nausea and emesis. With more intense migraine pain, in addition to the temples, posterior lateral neck, left greater than right is involved with the migraine pain. There is also significant jaw pain associated with migraine and this jaw pain increases if she clenches at night..Botox has helped significantly. After her previous neurologist retired, she had a session of Botox with pain management at [facility]. This did not seem to help as much as it had with her previous neurologist. She does not believe that they followed the pattern of injections developed by that neurologist as documented in his dictations.Among NSAIDs, only Cambia has helped without side effects for migraine abortive benefit. She agrees with her previous neurologist summary: ibuprofen 800 mg cause gastric upset; diclofenac 50 mg 3 times daily without benefit , Naprosyn without benefit at 50 mg 3 times daily; indomethacin 25 mg 3 times daily caused gastric upset. She is not currently on Cambia as insurance approval has not been forthcoming.Eletrip fair 40 mg has provided migraine abortive benefit as well. She has tried daily eletriptan and it has also provided preventative benefit. However, insurance has allowed only 18/month.Ondansetro n 8 mg has helped with her nausea associated with migraines.Amitripty line 25 mg daily has not helped. He she was on this before starting work with her previous neurologist. She has continued on this medication.Quetiapi ne 50 mg nightly has helped her sleep in the context of migraine and has reduced clenching at night.Diazepam has helped for clenching at night. Opiates have helped as a last line of defense for migraine abortive treatment. Camilo Jerez MD [address] [place] [address] [place], [address], [facility] 11/02/2024 18:22:40 OBGyn Episode No OBEpisode recorded.
--- OUTSIDE RECORDS SUMMARY | 2024-11-17 16:51 | XMS_ITS | Data Portability ---
Author Organization [facility] [employer], [place] Address [address] [place] [address] Care Team Providers Care Quality Compliance Manager Name Role Phone NORM CAUSEY Referring Provider NORM CAUSEY Primary Care Provider [phone] Assessment Encounter Date Assessment Date Assessment LastModified [...] Follow-up 10 weeks after that for reevaluation [email or web address] Not available 11/02/2024 18:21:41 Plan of Treatment Reminders Order Date Submit Date Provider Last Modified By Organization Details Last Modified Time Details Appointments BOTOX 2024 02:00P Hannah Jerez MD PhD Not available Not available Not available Lab None recorded. Referral None recorded. Procedures None recorded. Surgeries None recorded. Imaging None recorded. Medication Orders ondansetr on 8 mg disintegr ating tablet 2024 025 [facility], [address] [place], [address], 11/02/2024 18:21:51 eletripta n 40 mg tablet 2024 025 [facility], [address] [place], [address], 11/02/2024 18:21:48 quetiapin e 50 mg tablet 2024 025 [facility], [address] [place], [address], 11/02/2024 18:21:49 Cambia 50 mg oral powder packet 2024 025 [facility], [address], [place], [address], 11/02/2024 18:21:50 Patient TargetsNo targets recorded. Patient Instructions Encounter Date Encounter Id Patient Instructions Last Modified By Organization Details Last Modified Time 11/02/2024 [id number] Discussion acros s issues of diagnoses and management and same day associated chart review and management greater than 50% greater than 90 minutes [email or web address] Not available 11/02/2024 18:22:10 Reason for Referral None Reported. Procedures Surgical History Date Name Laterality Status Provider Name and Address Organization Details Recorded Time 11/02/2024 DATA REVIEW completed Camilo Jerez MD [address] [place] [address], [id number], Formerly [facility] 11/02/2024 18:20:48 Imaging Results None recorded. Procedure [...] Updated DateTime 11/02/2024 157.48 cm 32.7 kg/m2 99887.03 g 12 /min Liss [facility] 11/02/2024 14:21:32 Social History Question Answer Notes LastModified by Organizat ion Details LastModified Time Tobacco Smoking Status [facility] 11/02/2024 14:30:41 What Is Your Level Of Alcohol Consumption? None Information not available 11/02/2024 What Is Your Level Of Caffeine Consumption? Occasional Information not available 11/02/2024 What Is The Highest Grade Or Level Of School You Have Completed Or The Highest Degree You Have Received? [id number] Information not available 11/02/2024 Which Of Your Hands Is Dominant? Right Information not available 11/02/2024 Sex: Unknown Functional Status None recorded. Mental Status None recorded. Family History Nothing Reported. Medical History Condition Response Claustrophobia N Hospitalizations N Head Trauma/Injury N High Blood Pressure or Hypertension N Thyroid Problems N Lung Disease N COPD or emphysema N Brain Tumors N Depression N Encephalitis N Vitamin B12 deficiency N PTSD N Spine Problems N Heart Attack ([place]) N Obstructive Sleep Apnea N Alcoholism N Diabetes N Autoimmune disease N Bleeding Disorder N Arthritis N Tuberculosis N Developmental Problems N Cerebral Palsy N Neck Problems N [...] SNOMED-CT Code Diagnosis ICD10 Code Diagnosis Note [id number] Camilo Jerez MD [facility] [address] [place] [address] [place] [address] 11/02/2024 12:52:14 11/03/2024 07:51:48 Migraine with aura [id number] G43.109 Health Concerns Section Related Observation LastModified by Organization Detai ls LastModified Time None Recorded Concern Status LastModified by Organization Details LastModified Time None Recorded Advance Directives Directive None Recorded Payers Encounter Date Sequence Insurance Name Policy Number Policy Pate Covered Member ID Pate Member ID Guarantor Name 11/02/2024 1 [place] [facility] Eli Saenz [id number] Eli Saenz Notes Date Note Type Note [...] session of Botox with pain management at [facility]. This did not seem to help as [...] for migraine abortive treatment. Camilo Jerez MD [address] [place] [address] [place], [address], Formerly [facility] 11/02/2024 18:22:40 OBGyn Episode No OBEpisode recorded.
== END 2024-11-17 15:24 | disposition home or self-care (01) ==
PROVIDERS: PCP Family Medicine; Visit Provider Nurse Practitioner Family
DX: R10.13 Epigastric pain (principal); K21.9 Gastro-esophageal reflux disease without esophagitis; K59.01 Slow transit constipation; K58.9 Irritable bowel syndrome, unspecified
CPT/HCPCS: 99214

== ENCOUNTER → 2024-11-17 14:26 | Outpatient (BNVA) | payer MEDICAID, SELFPAY | PROVIDERS: PCP Family Medicine; Visit Provider Nurse Practitioner Family | DX: K21.9 Gastro-esophageal reflux disease without esophagitis (principal); K58.1 Irritable bowel syndrome with constipation; R10.13 Epigastric pain; K59.01 Slow transit constipation; K29.70 Gastritis, unspecified, without bleeding | CPT/HCPCS: 99212 ==

== ENCOUNTER 2024-12-14 15:03 | Outpatient (AMB) | payer MEDICAID, SELFPAY ==
--- NOTE | 2024-12-14 15:05 | A.OFFVIS_ITS ---
Vital Signs 12/14/24 15:06 Height 5 ft 2 in Weight 187 lb 6.287 oz BMI 34.3 BP 111/55 L Blood Pressure Location Lt brachial Position Sitting Pulse 88 Intake Visit Reasons: GERD, abd pain, constip, discuss upper endo & colo Intake Note: Eli presents in the office as a follow up. CC: States she is no longer having constipation and stomach pains but she is still having the GERD. She states she has doubled the famotidine and nexium and that is helping her. She takes one in the AM and one in the PM for both medications. Projection Welding Machine Operator Required: No Allergies No Known Allergies Allergy (Verified 12/14/24 15:06) HPI HPI GERD, abd pain, constip, discuss upper endo & colo: Details: LAST VISIT: Postprandial epigastric pain GERD (gastroesophageal reflux disease) Dyspepsia Constipation IBS (irritable bowel syndrome) Plan Patient will start taking Nexium 40 mg every morning and famotidine at bedtime. Patient can take sucralfate in the afternoon to help with breakthrough symptoms. Discussed with patient avoiding dietary triggers and late night snacking. Staying upright for minimal 3 hours after meals discussed with patient. Will start her on Linzess as senna is not helpful. Increase fluid intake and activity to promote better bowel motility. Discussed with patient low FODMAP diet. Patient reports bloating. List of food recommended as well as list of food to avoid given to patient. Patient will return in 2 months and we will discuss going for colonoscopy and upper endoscopy. Awaiting H pylori testing. Will treat empirically if positive. Patient is agreeable to this plan and verbalizes understanding of instructions. She was given the opportunity to ask questions and all questions answered. ? Thank you for allowing me to participate in her care Medications New esomeprazole magnesium (Nexium) 40 mg PO DAILY 30 caps 5RF K21.9 linaclotide (Linzess) 145 mcg PO DAILY 30 caps 2RF famotidine 40 mg PO BEDTIME 30 tabs 3RF K21.9 sucralfate Daily at 2 pm 10 mL PO DAILY 400 mL 3RF K21.9 Changed Changed From sucralfate 1 g PO QIDACHS 120 tabs 1RF K21.9, R10.9 Changed To sucralfate 1 g PO DAILY 30 tabs 1RF K21.9, R10.9 Discontinued famotidine Discontinued Reason: Doctor's Order 20 mg PO BID 30 tabs 3RF K29.70 TODAY'S VISIT Patient is here today for follow-up and to discuss going for colonoscopy. Patient denies any melena, hematochezia, unintentional weight loss or ribbon like stools. Patient reports that she continues to have occasional acid reflux. Occasional postprandial diarrhea, however reports that her symptoms are better now. She is taking Linzess and she is able to move her bowels better. Patient reports occasional dyspepsia without dysphagia or odynophagia. Currently is taking Nexium and famotidine. Patient denies any issues with anesthesia in the past. No history of sleep apnea. Patient is taking aspirin. Patient denies any family history of CRC. [facility] Medical History Migraine with aura Asthma Aneurysm Surgical History S/P Botox injection Status post cholecystectomy Family History Mother Diabetes Social History Household Members: Spouse and Children Housing: House Alcohol intake: never Patient Tobacco Use Status: Never used Tobacco Current occupational status: unemployed Sexual orientation: Straight/Heterosexual Gender identity: Female Female Reproductive History Menstrual Age of Menarche: 8 Review of Systems Const Denies weight gain and Denies weight loss ENT Reports no additional complaints, Denies dysphagia and Denies odynophagia Card Reports no additional complaints Resp Reports no additional complaints GI Reports abdominal pain, Denies belching, Denies melena, Reports bloating, Denies change in bowel habits, Denies dysphagia, Denies excessive flatus, Denies dyspepsia, Denies diarrhea, Denies loose stools, Denies nausea, Denies odynophagia and Denies vomiting Reports no additional complaints Musc Reports no additional complaints Neuro Reports no additional complaints Psych Reports no additional complaints Endo Reports no additional complaints Physical Exam Vital Signs: Last Vital Signs Pulse 88 12/14/24 15:06 BP 111/55 L 12/14/24 15:06 BMI result Body Mass Index 34.3 Const General: healthy appearing and no acute distress Nutritional Appearance: obese Orientation/consciousness: patient oriented x3 Resp Effort & Inspection: normal respiratory effort, able to speak in complete sentences, no tracheal deviation and symmetric chest movement Auscultation: clear to auscultation bilaterally Cardio Rate: regular rate GI Inspection: Yes normal to inspection, No distended and Yes obesity Palpation (GI): Soft to palpation, not firm, nontender and No hepatosplenomegaly present Auscultation: normal bowel sounds General: Yes no CVA tenderness Back/Spine/Pelvis Back: no CVA tenderness Skin General skin exam: elasticity normal, turgor normal and dry skin Neuro General: patient oriented x3 Psych Appearance: grossly normal Mental Status: mental status grossly normal Assessment & Plan Assessment & Plan (1) Postprandial epigastric pain: Code(s): R10.13 - Epigastric pain (2) GERD (gastroesophageal reflux disease): Code(s): K21.9 - Gastro-esophageal reflux disease without esophagitis Qualifiers: Esophagitis presence: esophagitis presence not specified Qualified Code(s): K21.9 - Gastro-esophageal reflux disease without esophagitis (3) Dyspepsia: Code(s): R10.13 - Epigastric pain (4) Constipation: Code(s): K59.00 - Constipation, unspecified Qualifiers: Constipation type: slow transit constipation Qualified Code(s): K59.01 - Slow transit constipation (5) IBS (irritable bowel syndrome): Code(s): K58.9 - Irritable bowel syndrome, unspecified Qualifiers: Irritable bowel syndrome type: with both diarrhea and constipation Qualified Code(s): K58.2 - Mixed irritable bowel syndrome (6) Screen for colon cancer: Code(s): Z12.11 - Encounter for screening for malignant neoplasm of colon Plan Continue Nexium and famotidine. Patient will be sent for upper endoscopy to rule out gastritis, duodenitis, esophagitis, gastric or peptic ulcer. Stool for H pylori negative. Continue Linzess and patient can not take fiber to help her bulk stool. What to expect before during and after procedure discussed with patient. Stressed importance of good bowel prep and clear liquid diet day before procedure. Patient will be booked for the procedure. Message sent to Surgical schedules double procedure for patient. I will see her after the procedure. Patient was encouraged to call our office if she will have worsening symptoms or any additional GI concerning symptoms. Patient is agreeable to current plan of care and verbalizes understanding of instructions. She was given the opportunity to ask questions and all questions answered. Thank you for allowing me to participate in her care Medications: New bisacodyl (Dulcolax (bisacodyl)) take 4 tabs at noon the day before your colonoscopy 20 mg (4 x 5 mg) PO ONCE 4 tabs 0RF constipation 1 day Z12.11 - Encounter for screening for malignant neoplasm of colon polyethylene glycol 3350 (Miralax) As directed by gastroenterology department at [facility] 238 grams PO ONCE 238 grams 0RF Z12.11 - Encounter for screening for malignant neoplasm of colon Refilled methylcellulose (laxative) (Citrucel) take it with full glass of water 500 mg PO DAILY 90 tabs 2RF K59.00 - Constipation, unspecified Coding Level of Care Code Est Pt Level 4 (28760) Complex EM visit Add On G2211 Diagnoses Postprandial epigastric pain R10.13 Gastroesophageal reflux disease, unspecified whether esophagitis present K21.9 Esophagitis presence: esophagitis presence not specified Dyspepsia R10.13 Slow transit constipation K59.01 Constipation type: slow transit constipation Irritable bowel syndrome with both constipation and diarrhea K58.2 Irritable bowel syndrome type: with both diarrhea and constipation Screen for colon cancer Z12.11 Time Spent (min) 35 Comment 25 minutes spent with patient and additional 10 minute spent reviewing her records
[2024-12-14 15:06] VITALS: BP 111/55; PULSE 88; BMI 34.3
--- OUTSIDE RECORDS SUMMARY | 2024-12-14 15:59 | XMS_ITS | Encounter Summary ---
Author Organization [employer] Address 75 [facility] 7t [place] [address] Care Team Providers Care Department Of Natural Resources Officer Name Role Phone Sera Molina DO Primary Care Provider + [phone] Encounter Details Date Type Department Care Team ([facility] st Contact Info) Description 11/25/2023 Telephone [facility] MEDICINE [address] [place], [place] [phone] Sera Molina DO [address] [place], [place] [phone] Social History Tobacco Use Types Packs/Day Years [...] Care Team (Late st Contact Info) Description 01/18/2025 10:00 AM EDT Office Visit [facility] MEDICINE [address] [place] [address] Sera Molina DO [address] [place] [address] 04/12/2025 3:00 PM EDT Office Visit [facility] ADULT DENTAL [address] [place] [address] Jessica, Loreto [address] [place] [address] documented as of this encounter Visit Diagnoses Not on filedocumented in this encounter Additional Health Concerns Assessment Noted Time PHQ-9 Depression Total Score: 15 023 10:49 AM EDT documented as of this encounter Care Teams Department Of Natural Resources Officer Relationship Specialty Start Date End Date Sera Molina DO [address] [place] [address] PCP - General Family Medicine 09/09/13 documented as of this encounter
--- OUTSIDE RECORDS SUMMARY | 2024-12-14 15:59 | XMS_ITS | Encounter Summary ---
Author Organization [employer] Address [address] [facility] 7 [place] [address] Care Team Providers Care Mixing Technician Name Role Phone Sera Molina DO Primary Care Provider + [phone] Reason for Visit * Reason Onset Date Comments Med Refill 11/16/2024 Encounter Details Date Type Department Care Team (Late st Contact Info) Description 11/16/2024 Refill [facility] MEDICINE [address] [place], [place] [phone] Sera Molina DO 230 [place] [address] Social History Tobacco Use Types Packs/Day Years [...] sent to: [id number] documented in this encounter Plan of Treatment Upcoming Encounters Date Type Department Care Team (Late st Contact Info) Description 01/18/2025 10:00 AM EDT Office Visit [facility] MEDICINE [address] [place] [address] Sera Molina DO [address] [place] [address] 04/12/2025 3:00 PM EDT Office Visit [facility] ADULT DENTAL [address] [place] [address] JessicaLoreto [address] [place] [address] documented as of this encounter Visit Diagnoses Not on filedocumented in this encounter Additional Health Concerns Assessment Noted Time PHQ-9 Depression Total Score: 20 10/08/ 024 8:02 AM EST documented as of this encounter Care Teams Mixing Technician Relationship Specialty Start Date End Date Sera Molina DO [address] [place] [address] PCP - General Family Medicine 09/09/13 documented as of this encounter
--- OUTSIDE RECORDS SUMMARY | 2024-12-14 15:59 | XMS_ITS | Encounter Summary ---
Author Organization [employer] Address 75 [facility] 7 [place] [address] Care Team Providers Care Sealer Aircraft Name Role Phone Sera Molina DO Primary Care Provider + [phone] Reason for Visit * Reason Onset Date Comments Durable Medical Equipment 12/08/2024 Encounter Details Date Type Department Care Team ([facility] st Contact Info) Description 12/08/2024 Telephone [facility] MEDICINE 230 [place], [place] [phone] Sera Molina DO [address] [place], [place] [phone] Durable Medical Equipment Social History Tobacco Use Types Packs/Day Years [...] encounter Miscellaneous Notes * Telephone Encounter - Danay Rendon - 12/08/2024 10:34 AM EST Tc from pt requesting new nebulizer. documented in this encounter Plan of Treatment Upcoming Encounters Date Type Department Care Team (Late st Contact Info) Description 01/18/2025 10:00 AM EDT Office Visit [facility] MEDICINE [address] [place] [address] Sera Molina DO [address] [place] [address] 04/12/2025 3:00 PM EDT Office Visit [facility] ADULT DENTAL [address] [place] [address] Jessica, Loreto [address] [place] [address] documented as of this encounter Visit Diagnoses Not on filedocumented in this encounter Additional Health Concerns Assessment Noted Time PHQ-9 Depression Total Score: 20 024 8:02 AM EST documented as of this encounter Care Teams Sealer Aircraft Relationship Specialty Start Date End Date Sera Molina DO [address] [place] [address] PCP - General Family Medicine 09/09/13 documented as of this encounter
--- OUTSIDE RECORDS SUMMARY | 2024-12-14 15:59 | XMS_ITS | Encounter Summary ---
Author Organization [employer] Address [address] [facility] 7t [place] [address] Care Team Providers Care Vehicle Operator Technician Name Role Phone JaimeSera mazariegos Primary Care Provider + [phone] Encounter Details Date Type Department Care Team (Latest Contact Info) Description 12/07/2024 Travel Social History Tobacco Use Types Packs/Day Years [...] is your housing situation today? I have capaige vivar 09/02/[address] you [...] Description 01/18/2025 10:00 AM EDT Office Visit [facility] MEDICINE [address] [place] [address] Sera Molina DO [address] [place] [address] 04/12/2025 3:00 PM EDT Office Visit [facility] ADULT DENTAL [address] [place] [address] Jessica, Loreto [address] [place] [address] documented as of this encounter Visit Diagnoses Not on filedocumented in this encounter Additional Health Concerns Assessment Noted Time PHQ-9 Depression Total Score: 20 024 8:02 AM EST documented as of this encounter Care Teams Vehicle Operator Technician Relationship Specialty Start Date End Date Sera Molina DO [address] [place] [address] PCP - General Family Medicine 09/09/13 documented as of this encounter
--- OUTSIDE RECORDS SUMMARY | 2024-12-14 15:59 | XMS_ITS | Encounter Summary ---
Author Organization [employer] Address [address] [facility] 7t [place] [address] Care Team Providers Care It Sales Representative Name Role Phone JaimeSera mazariegos Primary Care Provider + [phone] Encounter Details Date Type Department Care Team (Latest Contact Info) Description 11/24/2024 Travel Social History Tobacco Use Types Packs/Day [...] Description 01/18/2025 10:00 AM EDT Office Visit [facility] MEDICINE [address] [place] [address] Sera Molina DO [address] [place] [address] 04/12/2025 3:00 PM EDT Office Visit [facility] ADULT DENTAL [address] [place] [address] Jessica, Loreto [address] [place] [address] documented as of this encounter Visit Diagnoses Not on filedocumented in this encounter Additional Health Concerns Assessment Noted Time PHQ-9 Depression Total Score: 20 024 8:02 AM EST documented as of this encounter Care Teams It Sales Representative Relationship Specialty Start Date End Date Sera Molina DO [address] [place] [address] PCP - General Family Medicine 09/09/13 documented as of this encounter
--- OUTSIDE RECORDS SUMMARY | 2024-12-14 15:59 | XMS_ITS | Encounter Summary ---
Author Organization [employer] Address 75 [facility] 7 [place] [address] Care Team Providers Care Electrical Engineering Technologist Name Role Phone Sera Molina DO Primary Care Provider + [phone] Reason for Visit * Reason Onset Date Comments Med Refill 12/08/2024 Encounter Details Date Type Department Care Team (Late st Contact Info) Description 12/08/2024 Refill [facility] MEDICINE [address] [place], [place] [phone] Sera Molina DO 230 [place], [place] [phone] Chronic migraine; Nonintractable chronic migraine Social History Tobacco Use [...] Description 01/18/2025 10:00 AM EDT Office Visit [facility] MEDICINE [address] [place] [address] Sera Molina DO [address] [place] [address] 04/12/2025 3:00 PM EDT Office Visit [facility] ADULT DENTAL [address] [place] [address] Jessica, Loreto [address] [place] [address] documented as of this encounter Visit Diagnoses Diagnosis Chronic migraine documented in this encounter Additional Health Concerns Assessment Noted Time PHQ-9 Depression Total Score: 20 024 8:02 AM EST documented as of this encounter Care Teams Electrical Engineering Technologist Relationship Specialty Start Date End Date Sera Molina DO [address] [place] [address] PCP - General Family Medicine 09/09/13 documented as of this encounter
--- OUTSIDE RECORDS SUMMARY | 2024-12-14 15:59 | XMS_ITS | Encounter Summary ---
Author Organization [employer] Address 75 [facility] 7 [place] [address] Care Team Providers Care Mine Captain Name Role Phone Sear Molina DO Primary Care Provider + [phone] Reason for Visit * Reason Onset Date Comments Call Back Request 11/30/2024 Encounter Details Date Type Department Care Team ([facility] st Contact Info) Description 11/30/[address] [facility] MEDICINE [address] [place], [place] [phone] Sera Molina DO 230 [place], [place] [phone] Call Back Request Social History Tobacco Use Types Packs/Day Years [...] encounter Miscellaneous Notes * Telephone Encounter - Rhea Santo RN - 12/01/2024 2:11 PM EST TC placed to pt in regards to request to cancel appt on Friday12/03/[address] Molina for a pelvic exam. The pt states that she has a neurology f/u on 12/03 at the same time. Pt needs to keep the neurology appt as she has a history of an aneurysm and had a angiogram done recently and will be getting the results on 12/03. Pt informed that Dr. Carmona has no openings to r/s the pelvic exam and her schedule is not open past December. Pt was understanding of this but wanted to schedule a sick onsite with PCP for next week on 12/03/2024 to discuss ongoing concerns with migraine headaches. * Telephone Encounter - Memo Martines - 12/01/2024 12:24 PM EST Tc from pt returning call. * Telephone Encounter - Jennifer Hernandez RN - 11/30/2024 12:13 PM EST TC placed to patient [phone] in regards to below message. Patient did not answer, RN left requesting CB to red team nurses. Patient to f/u PRN. * Telephone Encounter - Danay Hamrobyn Rendon - 11/30/2024 10:57 AM EST Tc from pt requesting a call back from red team nurses. No details provided. [phone] documented in this encounter Plan of Treatment Upcoming Encounters Date Type Department Care Team (Late st Contact Info) Description 01/18/2025 10:00 AM EDT Office Visit [facility] MEDICINE [address] [place] [address] Sera Molina DO [address] [place] [address] 04/12/2025 3:00 PM EDT Office Visit [facility] ADULT DENTAL [address] [place] [address] Loreto Lopez [address] [place] [address] documented as of this encounter Visit Diagnoses Not on filedocumented in this encounter Additional Health Concerns Assessment Noted Time PHQ-9 Depression Total Score: 20 10/08/2 024 8:02 AM EST documented as of this encounter Care Teams Mine Captain Relationship Specialty Start Date End Date Sera Molina DO [address] [place] [address] PCP - General Family Medicine 09/09/13 documented as of this encounter
--- OUTSIDE RECORDS SUMMARY | 2024-12-14 15:59 | XMS_ITS | Encounter Summary ---
Author Organization [employer] Address 75 [facility] 7t [place] [address] Care Team Providers Care Supervisor Roving Name Role Phone Jesse Sera Primary Care Provider + [phone] Reason for Visit * Reason Comments Filling Encounter Details Date Type Department Care Team ([facility] st Contact Info) Description 11/16/2024 3:00 PM EST Office Visit [facility] ADULT DENTAL [address] [place], [place] [phone] Ward Schultz, DDS 230 [place] [address] Fractured dental amish without loss of material (Primary Dx) Social [...] (composit tooth# 10), Timeout Time: 1524 Location: [facility] Tooth: Maxilla and #10 Procedure: Rastafarian Verified the above with patient, nurseryman assistant, and provider. Confirmed via patient's chart, intraorally and by radiographs. Core Baker: not applicable Chief Complaint Patient presents with [...] ONE SURFACE, ANTERIOR 10 L Diagnosis: Fractured amish Topical: 20% Benzocaine Anesthesia: 2% Lidocaine (Xylocaine) w/ 1:100,000 epinephrine Number of Cartridges: .50 Injection Type: Buccal infiltration Confirmed profound anesthesia. Isolation: high speed suction and cotton rolls Prep: Preparation finalized Matrix: None Etch: 37% Phosphoric Acid Etch Desensitizer: Gluma Liner/Base: None Camacho: I-Camacho Rastafarian Material: Filtek Forada Flowable Composite and Paradigm Composite Shade: A3 Polished. Occlusion & contacts verified. Patient satisfied with comfort and esthetics. Patient tolerated procedure well. Post-operative instructions were given. Patient departed alert, oriented, and in stable condition. NV: Anuradha # 7 fractured incisal angle Licensed Prosthetist/Orthotist: Katelyn Berger Dentist: Ward Schultz DDS documented in this encounter Plan of Treatment Upcoming Encounters Date Type Department Care Team (Late st Contact Info) Description 01/18/2025 10:00 AM EDT Office Visit [facility] MEDICINE [address] [place] [address] Sera Molina DO 230 [place] [address] 04/12/2025 3:00 PM EDT Office Visit [facility] ADULT DENTAL [address] [place] [address] Jessica, Loreto 230 [place] [address] documented as of this encounter Procedures Procedure Name Priority Date/Time Associated Diagnosis Comments 10 L RESIN-BASED COMPOSITE - 1 SURF, ANTERIOR Routine 11/16/2024 3:00 PM EST CASE PRESENTATION, DETAILED AND EXTENSIVE TREATMENT PLANNING Routine 11/16/2024 3:00 PM EST documented in this encounter Visit Diagnoses Diagnosis Fractured dental amish without loss of material- Primary Fractured dental restorative material without loss of material documented in this encounter Additional Health Concerns Assessment Noted Time PHQ-9 Depression Total Score: 20 12/13/2 024 8:02 AM EST documented as of this encounter Care Teams Supervisor Roving Relationship Specialty Start Date End Date Sera Molina DO 230 [place] [address] PCP - General Family Medicine 09/09/13 documented as of this encounter
--- OUTSIDE RECORDS SUMMARY | 2024-12-14 15:59 | XMS_ITS | Encounter Summary ---
Author Organization [employer] Address 75 [facility] 7 [place] [address] Care Team Providers Care Compliance Review Specialist Name Role Phone JesseSanjuanaSera Primary Care Provider + [phone] Reason for Visit * Reason Onset Date Comments Med Refill 12/08/2024 Encounter Details Date Type Department Care Team (Late st Contact Info) Description 12/08/2024 Refill [facility] MEDICINE 230 [place], [place] [phone] Cony Yanez MD [address] [place] [address] Nonintractable chronic migraine Social History Tobacco Use [...] Description 01/18/2025 10:00 AM EDT Office Visit [facility] MEDICINE [address] [place] [address] Sera Molina DO [address] [place] [address] 04/12/2025 3:00 PM EDT Office Visit [facility] ADULT DENTAL [address] [place] [address] Jessica, Loreto [address] [place] [address] documented as of this encounter Visit Diagnoses Diagnosis Nonintractable chronic migraine documented in this encounter Additional Health Concerns Assessment Noted Time PHQ-9 Depression Total Score: 20 024 8:02 AM EST documented as of this encounter Care Teams Compliance Review Specialist Relationship Specialty Start Date End Date Sera Molina DO 230 [place] [address] PCP - General Family Medicine 09/09/13 documented as of this encounter
--- OUTSIDE RECORDS SUMMARY | 2024-12-14 15:59 | XMS_ITS | Encounter Summary ---
Author Organization [employer] Address [address] [place] [address] 7 [place] [address] Care Team Providers Care Campaign Assistant Name Role Phone Sera Molina DO Primary Care Provider + [phone] Reason for Visit * Reason Onset Date Comments Order US abdomen 04/16/2023 Encounter Details Date Type Department Care Team (Late st Contact Info) Description 04/16/2023 Telephone [facility] MEDICINE [address] [place], [place] [phone] Sera Molina DO 230 [place] [address] Order US abdomen Social History Tobacco Use [...] calling in regards to US abdomen order. Washer Carcass does not see order on chart. Patientstates it was order on 03/22/23. documented in this encounter Plan of Treatment Upcoming Encounters Date Type Department Care Team (Late st Contact Info) Description 01/18/2025 10:00 AM EDT Office Visit [facility] MEDICINE [address] [place] [address] Sera Molina DO [address] [place] [address] 04/12/2025 3:00 PM EDT Office Visit [facility] ADULT DENTAL [address] [place] [address] JessicaLoreto [address] [place] [address] documented as of this encounter Visit Diagnoses Not on filedocumented in this encounter Additional Health Concerns Assessment Noted Time PHQ-9 Depression Total Score: 15 023 10:49 AM EDT documented as of this encounter Care Teams Campaign Assistant Relationship Specialty Start Date End Date Sera Molina DO 230 [place], [place] [phone] PCP - General Family Medicine 09/09/13 documented as of this encounter
--- OUTSIDE RECORDS SUMMARY | 2024-12-14 15:59 | XMS_ITS | Encounter Summary ---
Author Organization [employer] Address 75 [facility] 7t [place] [address] Care Team Providers Care Renal Dietitian Name Role Phone JesseSera Primary Care Provider + [phone] Encounter Details Date Type Department Care Team (Latest Contact Info) Description 12/01/2024 Outside Procedure [facility] OPTOMETRY [address] [place], [place] [phone] Jose, Kaela, OD [address] [place] [address] Regular astigmatism of both eyes (Primary Dx) Social History [...] Progress Notes * Kaela Garcia OD - 12/01/2024 1:29 PM EST [facility] Contact Lens Order Cost per unit:$192.80 Number of units: 2 Total cost: $385.60 Prior Auth Number: [id number] Dates: 09/27/24-09/27/25 documented in this encounter Plan of Treatment Upcoming Encounters Date Type Department Care Team (Late st Contact Info) Description 01/18/2025 10:00 AM EDT Office Visit [facility] MEDICINE 230 [place] [address] Sera Molina DO 230 [place] [address] 04/12/2025 3:00 PM EDT Office Visit [facility] ADULT DENTAL [address] [place] [address] Loreto Lopez [address] [place] [address] documented as of this encounter Visit Diagnoses Diagnosis Regular astigmatism of both eyes- Primary documented in this encounter Additional Health Concerns Assessment Noted Time PHQ-9 Depression Total Score: 20 024 8:02 AM EST documented as of this encounter Care Teams Renal Dietitian Relationship Specialty Start Date End Date Sera Molina DO [address] [place] [address] PCP - General Family Medicine 09/09/13 documented as of this encounter
--- OUTSIDE RECORDS SUMMARY | 2024-12-14 15:59 | XMS_ITS | Encounter Summary ---
Author Organization [employer] Address 75 [facility] 7 [place] [address] Care Team Providers Care Bander And Cellophaner Machine Name Role Phone Sera Molina DO Primary Care Provider + [phone] Reason for Visit * Reason Onset Date Comments Med Refill 11/30/2024 Encounter Details Date Type Department Care Team (Late st Contact Info) Description 11/30/2024 Refill [facility] MEDICINE 230 [place], [place] [phone] Sera Molina DO [address] [place] [address] Social History Tobacco Use Types Packs/Day Years [...] Telephone Encounter - Sera Zambrano LPN - 11/30/2024 11:01 AM EST Next appointment 12/03/24. * Telephone Encounter - Danay Rendon - 11/30/2024 10:53 AM EST TC from pt requesting medication refill. Medications needing refill : ondansetron ODT (Zofran-ODT) 8 MG disintegrating tablet To be sent to: [facility] [place], [place] - [address] [place] [address] documented in this encounter Plan of Treatment Upcoming Encounters Date Type Department Care Team (Late st Contact Info) Description 01/18/2025 10:00 AM EDT Office Visit [facility] MEDICINE [address] [place] [address] Sera Molina DO [address] [place] [address] 04/12/2025 3:00 PM EDT Office Visit [facility] ADULT DENTAL [address] [place] [address] Loreto Lopez [address] [place] [address] documented as of this encounter Visit Diagnoses Not on filedocumented in this encounter Additional Health Concerns Assessment Noted Time PHQ-9 Depression Total Score: 20 10/08/ 024 8:02 AM EST documented as of this encounter Care Teams Bander And Cellophaner Machine Relationship Specialty Start Date End Date Sera Molina DO [address] [place] [address] PCP - General Family Medicine 09/09/13 documented as of this encounter
--- OUTSIDE RECORDS SUMMARY | 2024-12-14 15:59 | XMS_ITS | Encounter Summary ---
Author Organization [employer] Address 75 [facility] 7 [place] [address] Care Team Providers Care Intensive Care Specialist Name Role Phone Sera Molina DO Primary Care Provider + [phone] Reason for Visit * Reason Onset Date Comments Med Refill 11/16/2024 Encounter Details Date Type Department Care Team (Late st Contact Info) Description 11/16/2024 Refill [facility] [address] [place], [place] [phone] Sera Molina DO [address] [place], [place] [phone] Nonintractable chronic migraine Social History Tobacco Use [...] sent to: [facility] [place], [place] - [address] [place] [address] TC from pt stating that the Neurologist wont Give pt the Tylenol till She is a established pt of his. documented in this encounter Plan of Treatment Upcoming Encounters Date Type Department Care Team (Late st Contact Info) Description 01/18/2025 10:00 AM EDT Office Visit [facility] MED[facility] [address] [place] [address] Sera Molina DO [address] [place] [address] 04/12/2025 3:00 PM EDT Office Visit [facility] ADULT DENTAL [address] [place] [address] Loreto Lopez [address] [place] [address] documented as of this encounter Visit Diagnoses Diagnosis Nonintractable chronic migraine documented in this encounter Additional Health Concerns Assessment Noted Time PHQ-9 Depression Total Score: 20 10/08/ 024 8:02 AM EST documented as of this encounter Care Teams Intensive Care Specialist Relationship Specialty Start Date End Date Sera Molina DO [address] [place] [address] PCP - General Family Medicine 09/09/13 documented as of this encounter
--- OUTSIDE RECORDS SUMMARY | 2024-12-14 15:59 | XMS_ITS | Encounter Summary ---
Author Organization [employer] Address 75 [facility] 7t [place] [address] Care Team Providers Care Machinist Instructor Name Role Phone Sera Molina DO Primary Care Provider + [phone] Encounter Details Date Type Department Care Team ([facility] st Contact Info) Description 12/07/2024 12:00 PM EST Office Visit [facility] MEDICINE 230 [place], [place] [phone] Sera Molina DO [address] [place] [address] Social History Tobacco Use Types Packs/Day Years [...] Sign Reading Time Taken Comments Blood Pressure 148/83 12/07/2024 12:13 PM EST Pulse 76 12/07/2024 12:13 PM EST Temperature 35.8 ??C (96.5 ??F) 12/07/2024 12:[address] Respiratory Rate 18 12/07/2024 12:13 PM EST Oxygen Saturation - - Inhaled Oxygen Concentration - - Weight 86.7 kg (191 lb 3.2 oz) 12/07/2024 12:13 PM EST Height 157.5 cm (5' 2 ) 12/07/2024 12:13 PM EST Body Mass Index 34.97 12/07/2024 12:13 PM EST documented in this encounter Plan of Treatment Upcoming Encounters Date Type Department Care Team (Late st Contact Info) Description 01/18/2025 10:00 AM EDT Office Visit [facility] MEDICINE [address] [place] [address] Sera Molina DO [address] [place] [address] 04/12/2025 3:00 PM EDT Office Visit [facility] ADULT DENTAL [address] [place] [address] Loreto Lopez [address] [place] [address] documented as of this encounter Visit Diagnoses Not on filedocumented in this encounter Additional Health Concerns Assessment Noted Time PHQ-9 Depression Total Score: 20 10/08/ 024 8:02 AM EST documented as of this encounter Care Teams Machinist Instructor Relationship Specialty Start Date End Date Sera Molina DO [address] [place] [address] PCP - General Family Medicine 09/09/13 documented as of this encounter
--- OUTSIDE RECORDS SUMMARY | 2024-12-14 15:59 | XMS_ITS | Encounter Summary ---
Author Organization [employer] Address [address] [facility] 7t [place] [address] Care Team Providers Care Collections Attorney Name Role Phone JaimeSera mazariegos Primary Care Provider + [phone] Encounter Details Date Type Department Care Team (Late st Contact Info) Description 11/16/2024 Orders Only GENERIC EXTERNAL DATA DEPARTMENT Provider, Generic External Data Social History Tobacco Use Types Packs/Day Years [...] Description 01/18/2025 10:00 AM EDT Office Visit [facility] MEDICINE [address] [place] [address] Sera Molina DO [address] [place] [address] 04/12/2025 3:00 PM EDT Office Visit [facility] ADULT DENTAL [address] [place] [address] Jessica, Loreto [address] [place] [address] documented as of this encounter Procedures Procedure Name Priority Date/Time Associated Diagnosis Comments HELICOBACTER PYLORI AG, EIA, STOOL Routine 11/16/2024 9:10 AM EST documented in this encounter Results * Helicobacter pylori??Antigen, EIA, Stool (11/16/2024 9:10 AM EST) H pylori Ag Stool SEE NOTE [facility] Comment:HELICOBACTER PYLORI AG, EIA, STOOL Micro Number: [id number] Test Status: Final Specimen Source: Stool Specimen Quality: Adequate H.pylori Ag: Not Detected Antimicrobials, proton pump inhibitors, and bismuth preparations inhibit H. pylori and ingestion up to two weeks prior to testing may cause false negative results. If clinically indicated the test should be repeated on a new specimen obtained two weeks after discontinuing treatment. Reference Range: Not DetectedTHIS TEST WAS PERFORMED AT:[facility] [address] [id number] J RALPH MD 11/16/2024 9:10 AM EST 11/17/2024 3:24 PM EST us Generic External Data Provider LAB BODY FLUIDS A ND STOOLS ORDERABLES Final Result [facility] [address] [place] [address] [phone] documented in this encounter Visit Diagnoses Not on filedocumented in this encounter Additional Health Concerns Assessment Noted Time PHQ-9 Depression Total Score: 20 024 8:02 AM EST documented as of this encounter Care Teams Collections Attorney Relationship Specialty Start Date End Date Sera Molina DO [address] [place] [address] PCP - General Family Medicine 09/09/13 documented as of this encounter
--- OUTSIDE RECORDS SUMMARY | 2024-12-14 15:59 | XMS_ITS | Encounter Summary ---
Author Organization [employer] Address 75 [facility] 7t [place] [address] Care Team Providers Care Hand Crocheter Name Role Phone Jesse Sera Primary Care Provider + [phone] Reason for Visit * Reason Comments Contacts Encounter Details Date Type Department Care Team ([facility] st Contact Info) Description 11/24/2024 3:30 PM EST Office Visit [facility] OPTOMETRY [address] [place] [address] Jose, Kaela, OD [address] [place] [address] Regular astigmatism of both eyes (Primary Dx) [...] of this encounter Progress Notes * Kaela Garcia, OD - 11/24/2024 3:30 PM EST Eye Care Progress Note Patient ID: Eli Saenz is a 49 y.o. female. Chief Complaint Contacts HPI Here for contact lens fitting for high myopia. Happy with vision through current [employer] MyDaytoric daily lenses. Has worn contact lenses for 20 years. Last exam was here on 08/30/2024. Last edited by Kaela Garcia, OD on 11/25/2024 8:58 AM. Current Outpatient Medications Medication Sig Dispense Refill acetaminophen (Tylenol) 500 MG tablet Take 1 tablet by mouth every 8 (eight) hours. acetaminophen-codeine (Tylenol w/ Codeine #4) 300-60 MG tablet Take 1 tablet by mouth every 6 (six)hours if needed for severe pain. 30 tablet 0 albuterol (2.5 MG/3ML) 0.083% nebulizer solution INHALE 1 VIAL VIA NEBULIZER ROUTE EVERY 4 HOURS IFNEEDED 75 mL 1 amitriptyline (Elavil) 25 MG tablet TAKE ONE TABLET BY MOUTH DAILY AT BEDTIME 90 tablet 0 aspirin EC 325 MG EC tablet Take 325 mg by mouth in the morning. baclofen (Lioresal) 20 MG tablet TAKE ONE TABLET BY MOUTH THREE TIMES A DAY NEEDED FOR PAIN 90 tablet 0 Blood Pressure kit 1 each 1 (one) time per week. 1 kit 0 Botox 200 units injection budesonide-formoterol (Symbicort) 160-4.5 MCG/ACT inhaler Inhale 2 puffs in the morning and at bedtime. Rinse mouth with water after use to reduce aftertaste and incidence of candidiasis. Do not swallow. 1 each 11 cetirizine (ZyrTEC) 10 MG tablet TAKE 1 TABLET BY MOUTH EVERY DAY 90 tablet 0 cholecalciferol (Vitamin D-3) 50 MCG (2000 UT) tablet Take 1 tablet by mouth in the morning. clopidogrel (Plavix) 75 MG tablet Take 1 tablet by mouth at bed time. cyclobenzaprine (Flexeril) 5 MG tablet Take 1-2 tablets (5-10 mg) by mouth if needed at bedtime formuscle spasms. 30 tablet 1 dexlansoprazole (Dexilant) [address] capsule Take 1 capsule (30 mg) by mouth before breakfast and before evening meal. Do not crush or chew. 60 capsule 3 diazePAM (Valium) 10 MG tablet Take 10 mg by mouth at bedtime. diclofenac (Voltaren) 50 MG EC tablet Take 50 mg by mouth 3 times daily. Diclofenac Sodium 1 % gel Apply 2 g topically every 6 (six) hours if needed (pain). 150 g 3 eletriptan (Relpax) 40 MG tablet Take 1 tablet by mouth. May repeat after 2 hours if headache returns Emgality 120 MG/ML auto-injector INJECT 120MG UNDER THE SKIN ONCE A MONTH IN THE ABDOMEN, THIGH, OUTER UPPER ARM, OR BUTTOCKS famotidine (Pepcid) 40 MG tablet TAKE ONE TABLET BY MOUTH AT BEDTIME 90 tablet 3 ferrous sulfate (Fe Tabs) 325 (65 Fe) MG EC tablet Take 1 tablet (325 mg) by mouth Once per day. Donot crush, chew, or split. 90 tablet 3 fluticasone (Flonase Allergy Relief) 50 MCG/ACT nasal spray Administer 2 sprays into affected nostril(s) in the morning. lidocaine (Lidoderm) 5 % patch APPLY 1 PATCH TOPICALLY ONCE A DAY AT THE SAME TIME EACH DAY 30 patch 0 montelukast (Singulair) 10 MG tablet TAKE ONE TABLET BY MOUTH EVERY EVENING 90 tablet 0 ondansetron ODT (Zofran-ODT) 8 MG disintegrating tablet DISSOLVE ONE TABLET BY MOUTH EVERY 6 HOURS NEEDED 20 tablet 0 QUEtiapine (SEROquel) 50 MG tablet Take 1 tablet by mouth at bedtime. Rimegepant Sulfate (Nurtec) [address] ONE TABLET BY MOUTH EVERY DAY NEEDED FOR MIGRAINE REPEAT 1 DOSE IN 24 HOURS 12 tablet 0 Semaglutide-Weight Management (Wegovy) 0.25 MG/0.5ML solution auto-injector Inject 0.5 mL (0.25 mg)under the skin 1 (one) time per week. 2 mL 3 senna (Senokot) 8.6 MG tablet TAKE TWO TABLETS BY MOUTH DAILY AT BEDTIME FOR CONSTIPATION Sennosides (Senna) 8.6 MG capsule Take 2 capsules by mouth if needed at bedtime (constipation). 60 capsule 3 sertraline (Zoloft) 25 MG tablet Take 1 tablet (25 mg) by mouth Once per day. 30 tablet 2 Spacer/Aero-Holding Chambers (AeroChamber Pls FloVu Mthpiece) device USE WITH INHALER sucralfate (Carafate) 1 g tablet Take 1 g by mouth at bedtime. Ventolin HFA 108 (90 Base) MCG/ACT inhaler INHALE 2 PUFFSS EVERY 4 HOURS IF NEEDED FOR WHEEZING 18 g 0 No current facility-administered medications for this visit. Past Medical History: Diagnosis Date Cerebral aneurysm flow diverter stent, left. 08/19/2022 Chronic migraine with aura [place] retinal degeneration, right GERD (gastroesophageal reflux disease) Jaw pain Plantar fasciitis 12/09/2022 Varicose veins of bilateral lower extremities with pain White without pressure of peripheral retina of left eye Past Surgical History: Procedure Laterality Date CEREBRAL ANEURYSM REPAIR 08/19/2022 left supraclinoid ICA - flow diverter stent placement CHOLECYSTECTOMY 1990 Family History Problem Relation Name Age of Onset Hypertension Mother Diabetes Mother Cancer Mother's Sister Stroke Neg Hx Coronary artery disease Neg Hx Social History Socioeconomic History Marital status: Spouse name: Not on file Number of children: Not on file Years of education: Not on file Highest education level: Not on file Occupational History Not on file Tobacco Use Smoking status: Never Passive exposure: Never Smokeless tobacco: Never Vaping Use Vaping status: Never Used Substance and Sexual Activity Alcohol use: Never Drug use: Never Sexual activity: Defer Other Topics Concern Not on file Social History Narrative Not on file Social Drivers of Health Food Insecurity: Low Risk (09/02/2024) Food Insecurity Within the past 12 months, you worried that your food would run out before you got money to buy more:: Never True Within the past 12 months,the food you bought just didn't last and you didn't have enough money to get more: : Never True Transportation Needs: Low Risk (09/02/2024) Transportation In the past 12 months, has lack of transportation kept you from medical appts, meetings, work or from getting things needed for daily living? : No Intimate Partner Violence: Not on file Housing Stability: High Risk (09/02/2024) Housing Stability What is your housing situation today?: I have housing Think about the place you live. Do you have problems with any of the following? : Mold Allergies Allergen Reactions Pineapple ROS Negative for: Constitutional, Gastrointestinal, Neurological, Skin, Genitourinary, Musculoskeletal,HENT, Endocrine, Cardiovascular, Eyes, Respiratory, Psychiatric, Allergic/Imm, Heme/Lymph Last edited by Kaela Garcia, OD on 11/25/2024 8:58 AM. Base Eye Exam Visual Acuity (Snellen - Linear) Right Left Dist cc 20/25 -2 20/25 Correction: Contacts Pupils Pupils APD Right PERRL None Left PERRL None Extraocular Movement Right Left Full Full Neuro/Psych Oriented x3: Yes Mood/Affect: Normal Dilation Not necessary for exam Slit Lamp and Fundus Exam External Exam Right Left External Normal Normal Slit Lamp Exam Right Left Lids/Lashes Normal Normal Conjunctiva/Sclera White and quiet White and quiet Cornea Clear Clear Anterior Chamber Deep and quiet Deep and quiet Iris Flat Flat Lens Clear Clear Refraction Wearing Rx Sphere Cylinder Baltic Add Right -6.75 -1.25 025 +1.75 Left -7.00 -1.00 175 +1.75 Contact Lens Exam Current Contact Lens Rx (Trial Lens) Brand Base Curve Diameter Sphere Cylinder Baltic Lens Dist VA Near VA Right MyDay 1-day toric 8.6 14.5 -6.50 -1.25 020 20/20-1 20/30 Left MyDay 1-day toric 8.6 14.5 -6.50 -0.75 180 20/20-1 20/20- Centration Movement Rotation Over-Sphere Right centered good 2 degrees to the left [place] Left centered good 3 degrees to the left [place] Current Contact Lens Rx #2 Brand Base Curve Diameter Sphere Cylinder Baltic Lens Dist VA Near VA Right My Day Toric 8.6 14.5 -6.00 -1.25 020 Daily Wear Left My Day Toric 8.6 14.5 -6.50 -0.75 180 Daily Wear Centration Movement Rotation Over-Sphere Right Left Current Contact Lens Rx Comments Rx1: Trial lens today Rx2: 2022 Contact History Replacement Frequency: Daily Final Contact Lens Rx Brand Base Curve Diameter Sphere Cylinder Baltic Lens Right MyDay Toric 8.6 14.5 -6.50 -1.25 020 Daily Wear Left MyDay Toric 8.6 14.5 -6.50 -0.75 180 Daily Wear Expiration Date: 11/24/2025 Replacement: Daily Additional Notes Do NOT swim, shower, hot-tub in lenses Assessment/plan: Diagnoses and all orders for this visit: Regular astigmatism of both eyes Prescription updated and given to patient. The patient was reeducated on proper contact lens hygiene practices including no sleeping, no swimming, and no hot- tubbing in the lenses. She was educated to take the lenses out each night and throw them away. She was educated to use a new pair of lenses each time she wears them. She was educated to return with any pain, redness, or other sign of injury/infection KARI. Prior Auth #: [id number] Dates: 09/27/2024 - 09/27/2025 Kaela Garcia, OD 11/25/2024, 9:06 AM Student Name: Efren Lau I attest that I was physically present with the optometry student. I personally saw and evaluated the patient and performed my own history and examination. I have reviewed, verified, and revised the documented findings as necessary and agree with the content and plan as written. Assurance Engineer Source: _X__ None ___ Bilingual Staff ___ Qualified Staff Policy Advisor ___ Telephone Assurance Engineer; ID# ___ Assurance Engineer brought by patient (family member, friend, PHOTO STYLIST, etc) ___ In person seismic interpreter ___ Ipad Assurance Engineer; ID#: Language Spoken During Exam: ___English documented in this encounter Plan of Treatment Upcoming Encounters Date Type Department Care Team (Late st Contact Info) Description 01/18/2025 10:00 AM EDT Office Visit [facility] MEDICINE [address] [place] [address] Sera Molina DO [address] [place] [address] 04/12/2025 3:00 PM EDT Office Visit [facility] ADULT DENTAL [address] [place] [address] Loreto Lopez [address] [place] [address] documented as of this encounter Visit Diagnoses Diagnosis Regular astigmatism of both eyes- Primary documented in this encounter Additional Health Concerns Assessment Noted Time PHQ-9 Depression Total Score: 20 10/08/2 024 8:02 AM EST documented as of this encounter Care Teams Hand Crocheter Relationship Specialty Start Date End Date Sera Molina DO [address] [place] [address] PCP - General Family Medicine 09/09/13 documented as of this encounter
--- OUTSIDE RECORDS SUMMARY | 2024-12-14 15:59 | XMS_ITS | Encounter Summary ---
Author Organization [employer] Address 75 [facility] 7 [place] [address] Care Team Providers Care Commodity Buyer Name Role Phone Sera Molina DO Primary Care Provider + [phone] Reason for Visit * Reason Onset Date Comments Prior Authorization 12/14/2024 HERNANDEZ wray: Wegovy? Encounter Details Date Type Department Care Team ([facility] st Contact Info) Description 12/14/2024 Telephone [facility] MEDICINE [address] [place] [address] Sera Molina DO [address] [place], [place] [phone] Prior Authorization (HERNANDEZ Franks: Wegovy?) Social History Tobacco Use Types Packs/Day Years [...] encounter Miscellaneous Notes * Telephone Encounter - Tessie Taylor - 12/14/2024 9:52 AM EST PA request we received from for [place] preferred Med is Zepbound. Would you like to change this medication? Please advise. documented in this encounter Plan of Treatment Upcoming Encounters Date Type Department Care Team (Late st Contact Info) Description 01/18/2025 10:00 AM EDT Office Visit [facility] MEDICINE [address] [place] [address] Sera Molina DO [address] [place] [address] 04/12/2025 3:00 PM EDT Office Visit [facility] ADULT DENTAL [address] [place] [address] Loreto Lopez [address] [place] [address] documented as of this encounter Visit Diagnoses Not on filedocumented in this encounter Additional Health Concerns Assessment Noted Time PHQ-9 Depression Total Score: 20 024 8:02 AM EST documented as of this encounter Care Teams Commodity Buyer Relationship Specialty Start Date End Date Sera Molina DO [address] [place] [address] PCP - General Family Medicine 09/09/13 documented as of this encounter
--- OUTSIDE RECORDS SUMMARY | 2024-12-14 15:59 | XMS_ITS | Encounter Summary ---
Author Organization [employer] Address [address] [place] [address] 7t [place] [address] Care Team Providers Care Fraternity House Cook Name Role Phone Sera Molina DO Primary Care Provider + [phone] Reason for Referral * Imaging (Routine) - Closed Specialty Diagnoses / Procedures Referred By Contac t Referred To Contact Diagnoses Dizziness Tinnitus of both ears Procedures Mr Brain w/ and w/o Contrast Sera Molina DO [address] [place] [address] Phone: tel: fax: [address] Phone: tel: fax: Referral ID Status Reason Start Date Expiration Date Visits Re quested Visits Authorized [id number] Closed 03/12/2023 03/11/2024 1 1 Reason for Visit * Reason Onset Date Comments MRI order 03/12/2023 Encounter Details Date Type Department Care Team (Late st Contact Info) Description 03/12/2023 Telephone [facility] MEDICINE [address] [place], [place] [phone] Sera Molina DO [address] [place], [place] [phone] MRI order Social History Tobacco Use Types [...] EDT Tc [place] Kw[facility] [place] [facility] requesting status on message below. Pt is scheduled for tomorrow 03/14/23 * Telephone Encounter - Adriana Ochoa - 03/12/2023 1:57 PM EDT Tc from Kwame from [facility] MRI department requesting for order to be modify to MRI brain with and without contract . Please call to clarify [phone] . documented in this encounter Plan of Treatment Upcoming Encounters Date Type Department Care Team (Late st Contact Info) Description 01/18/2025 10:00 AM EDT Office Visit [facility] MEDICINE [address] [place] [address] Sera Molina DO [address] [place] [address] 04/12/2025 3:00 PM EDT Office Visit [facility] ADULT DENTAL [address] [place] [address] Loreto Lopez [address] [place] [address] Scheduled Orders Name Type Priority Associated Diagnoses [...] documented as of this encounter Care Teams Fraternity House Cook Relationship Specialty Start Date End Date Sera Molina DO [address] [place] [address] PCP - General Family Medicine 09/09/13 documented as of this encounter
--- OUTSIDE RECORDS SUMMARY | 2024-12-14 15:59 | XMS_ITS | Encounter Summary ---
Author Organization [employer] Address 75 [facility] 7 [place] [address] Care Team Providers Care Dietetic Technician Registered Name Role Phone JesseSera Primary Care Provider + [phone] Reason for Visit * Reason Onset Date Comments Med Refill 12/08/2024 Encounter Details Date Type Department Care Team (Late st Contact Info) Description 12/08/2024 Refill [facility] MEDICINE [address] [place] [address] Emmy Cruz MD [address] [place] [address] Nonintractable chronic migraine Social History Tobacco Use [...] Office Visit [facility] MEDICINE [address] [place] [address] Sera Molina DO [address] [place] [address] 04/12/2025 3:00 PM EDT Office Visit [facility] ADULT DENTAL [address] [place] [address] JessicaAlbertLoreto [address] [place] [address] documented as of this encounter Visit Diagnoses Diagnosis Nonintractable chronic migraine documented in this encounter Additional Health Concerns Assessment Noted Time PHQ-9 Depression Total Score: 20 024 8:02 AM EST documented as of this encounter Care Teams Dietetic Technician Registered Relationship Specialty Start Date End Date Sera Molina DO [address] [place] [address] PCP - General Family Medicine 09/09/13 documented as of this encounter
--- OUTSIDE RECORDS SUMMARY | 2024-12-14 16:00 | XMS_ITS | Continuity of Care Document ---
Author Organization [facility] Address [address] [place] [address] Phone Care Team Providers Care Account Executive Agribusiness Name Role Phone Jacob HOYOS, RVT, VALERY, [...] Mins- [place] & [place] [facility], [address] [place] [address] Dr Lerma [address]Rem[address] [place], [id number], [place] tel:[phone] [facility] Localized edemaVenous insufficiency (chronic) (peripheral) 4 Jacob HOYOS RVT, VALERY Carrasco. [address] [place] [address], [facility] [place] [place], [id number], [place]. tel:[phone] Referring Provider: Sera Morales, [address], [address]. tel:[phone] [facility], [address] [place] [address] Dr Lerma [address], [place], [id number], [place] tel:[phone] [facility] Chronic venous hypertension (idiopathic) with inflammation of bilateral lower extremity 4 Jacob HOYOS RVT, VALERY Carrasco. [address] [place] [address], Barb hernandez [place], [id number], [place]. tel:[phone] Referring Provider: Sera Morales, [address], [address]. tel:[phone] Office/Outpt E&M Established 15 Mins [facility], [address] [place] [address] Dr Lerma [address]Remy [place], [id number], [place] tel:[phone] [facility] Encounter for other preprocedural examination 3 Paloma Da Silva. [address] [facility], [address] [facility], [place], [place], [id number], [place]. tel:[phone] Referring Provider: Sera Morales, [address], [address]. tel:[phone] [facility], [address] [place] [address] Dr Lerma [address] Remy Swain [place], [id number], [place] tel:[phone] [facility] - [facility] Chronic venous hypertension (idiopathic) with other complications of bilateral lower extremityEdema , unspecified 3 Yehuda HOYOS FACS T VALERY Pedraza. [facility] [place] [address], [place], [address], [place]. tel:[phone] Referring Provider: Sera Morales, [address], [address]. tel:[phone] Office/Outpt E&M Established 15 Mins [facility], [address] [place] [address] Dr Lerma 1000SuRemy armas [place], [id number], [place] tel:[phone] [facility] Varicose veins of bilateral lower extremities with pain 3 Yehuda HOYOS FACS T VALERY Pedraza. [address] [place] [address], [place], [address], [place]. tel:[phone] Referring Provider: Sera Morales, [address], [address]. tel:[phone] [facility], [address] [place] [address] Dr Lerma [address] Remy Swain [place], [id number], [place] tel:[phone] [facility] Encounter for follow-up examination after completed treatment for conditions other than malignant neVaricose veins of right lower extremity with pain Jul- 3 Yehuda HOYOS FACS T VALERY Pedraza. [address] [facility], [place] [address], [place], [address], [place]. tel:[phone] Referring Provider: Sera Morales, [address], [address]. tel:[phone] [facility], [address] [place] [address] [facility] [address]Remy [place], [id number], [place] tel:[phone] [facility] [place] [facility] [place] Chronic venous hypertension (idiopathic) with inflammation of right lower extremity Jul-0 3 Yehuda HOYOS FACS Juan Pedraza. [address] [place] [address], [place], [address], [place]. tel:[phone] Referring Provider: Sera Morales, [address], [address]. tel:[phone] [facility], [address] [place] [address] Dr Lerma [address]Reym [place], [id number], [place] tel:[phone] [facility] [place] [facility] [place] Chronic venous hypertension (idiopathic) with inflammation of right lower extremity Jul-0 3 Yehuda HOYOS FACS T VALERY Pedraza. [facility], [place] [address], [place], [address], [place]. tel:[phone] Referring Provider: Sera Morales, [address], [address]. tel:[phone] [facility], [address] [place] [address] [address]Remy [place], [id number], [place] tel:[phone] [facility] [place] [facility] [place] Chronic venous hypertension w oth comp of l low extrem 3 Yehuda HOYOS FACS T VALERY Pedraza. [address] [facility], [address] [facility], [place], [address], [place]. tel:[phone] Referring Provider: Sera Morales, [address], [address]. tel:[phone] [facility], [address] [place] [address] Dr Lerma [address]Remy [place], [id number], [place] tel:[phone] [facility] - [facility] Chronic venous hypertension w inflammation of l low extrem 3 Yehuda HOYOS FACS Juan Pedraza. [address] [place] [address], [place], [address], [place]. tel:[phone] Referring Provider: Sera Morales, [address], [address]. tel:[phone] [facility], [address] [place] [address] Dr Lerma [address]Remy [place], [id number], [place] tel:[phone] [facility] Chronic venous hypertension w inflammation of l low [facility] 3 Yehuda HOYOS FACS Juan Pedraza. [address] [place] [address], [place], [address], [place]. tel:[phone] Referring Provider: Sera Morales, [address], [address]. tel:[phone] Office/Outpt E&M Established 15 Mins [facility], [address] [place] [address] Dr Lerma [address]Remy [place], [id number], [place] tel:[phone] [facility] Body mass index (BMI) 32.0-32.9, adultVenous insufficiency (chronic) (peripheral) 3 Yehuda HOYOS FACS Juan Pedraza. [address] [place] [address], [place], [address], [place]. tel:[phone] Referring Provider: Sera Morales, [address], [address]. tel:[phone] [facility], [address] [place] [address] Dr Lerma [address]Remy [place], [id number], tel:[phone] [facility]R - [place] - [place] Venous insufficiency (chronic) (peripheral) [address] [facility] [employer]. [address] [facility], [place] [address], [place], [address], . tel:[phone] Referring Provider: Sera Morales, [address], [address]. tel:[phone] Office/Outpt E&M Established 25 Mins [facility], [address] [facility] [address], [place], [id number], [place] tel:[phone] [facility] - [place] [facility] [place] Body mass index (BMI) 30.0-30.9, adultVenous insufficiency (chronic) (peripheral) 3 Yehuda HOYOS FACS [facility] [employer]. [facility] [place] [address], [place], [address], [place]. tel:[phone] Referring Provider: Sera Morales, [address], [address]. tel:[phone] Family History Family Member Type Diagnosis Age At Onset No Information Payers Payer name Insurance type Covered constitution party ID Authoriza tijeremy(s) Medical Assistance KIERRA [id number] Social History Type Description Quantity Date Captured [...]
--- OUTSIDE RECORDS SUMMARY | 2024-12-14 16:00 | XMS_ITS | Encounter Summary ---
Author Organization [employer] [facility] Address [address] [place] [address] 7 [place] [address] Care Team Providers Care Air Compressor Operator Name Role Phone Sera Molina DO Primary Care Provider + [phone] Encounter Details Date Type Department Care Team (Latest Contact Info) Description 01/04/2021 Abstract [facility] CONVERSIONS Dental, Provider, DDS Social History [...] Upcoming Encounters Date Type Department Care Team ( st Contact Info) Description 01/18/2025 10:00 AM EDT Office Visit [facility] MEDICINE [address] [place] [address] Sera Molina DO [address] [place] [address] 04/12/2025 3:00 PM EDT Office Visit [facility] ADULT DENTAL [address] [place] [address] Loreto Lopez [address] [place] [address] documented as of this encounter Visit Diagnoses Not on filedocumented in this encounter Care Teams Air Compressor Operator Relationship Specialty Start Date End Date Sera Molina DO [address] [place] [address] PCP - General Family Medicine 09/09/13 documented as of this encounter
--- OUTSIDE RECORDS SUMMARY | 2024-12-14 16:00 | XMS_ITS | Encounter Summary ---
Author Organization [employer] Address [address] [facility] 7 [place] [address] Care Team Providers Care Case Supervisor Name Role Phone Sera Molina DO Primary Care Provider + [phone] Reason for Visit * Reason Onset Date Comments Med Refill 08/22/2023 Encounter Details Date Type Department Care Team ([facility] st Contact Info) Description 08/22/[address] [facility] MEDICINE [address] [place], [place] [phone] Sera Molina DO [address] [place], [place] [phone] Med Refill Social History Tobacco Use Types [...] sign off on med. Please contact at [phone] * Telephone Encounter - Sera Zambrano LPN [...] Description 01/18/2025 10:00 AM EDT Office Visit [facility] MEDICINE [address] [place] [address] Sera Molina DO [address] [place] [address] 04/12/2025 3:00 PM EDT Office Visit [facility] ADULT DENTAL [address] [place] [address] Jessica, Loreto [address] [place] [address] documented as of this encounter Visit Diagnoses Not on filedocumented in this encounter Additional Health Concerns Assessment Noted Time PHQ-9 Depression Total Score: 15 023 10:49 AM EDT documented as of this encounter Care Teams Case Supervisor Relationship Specialty Start Date End Date Sera Molina DO [address] [place] [address] PCP - General Family Medicine 09/09/13 documented as of this encounter
--- OUTSIDE RECORDS SUMMARY | 2024-12-14 16:00 | XMS_ITS | Clinical Summary ---
Author Organization [facility] Address [address] [place] [address] Care Team Providers Care Wired Sweatband Cutter Name Role Phone Unavailable Primary Care Provider Unavailabl e Social History Tobacco Use Types Packs/Day Years Used Date Smoking Tobacco: Never Assessed Comments Unknown Sex and Gender Information Value Date Recorded Sex Assigned at Not on file Legal Sex Female 7:31 PM EST Gender Identity Not on file Sexual Orientation [...] Influencers of Health Screening 09/28/2022 COVID-19 Vaccine (1 - 2023-2 5 season) 2024 Influenza Vaccine (#1) 2024 Pneumococcal Vaccine: 50+ Ye ars (1 of 1 - PCV) 2024 Zoster Vaccines (1 of 2) 2024 [...] patient's age to complete this topic Meningococcal B Vacine Aged Out No lo nger eligible based on patient's age to complete [...]
--- OUTSIDE RECORDS SUMMARY | 2024-12-14 16:00 | XMS_ITS | Encounter Summary ---
Author Organization [employer] Address 75 [facility] 7 [place] [address] Care Team Providers Care Molding Process Technician Name Role Phone Sera Molina DO Primary Care Provider + [phone] Encounter Details Date Type Department Care Team (Latest Contact Info) Description 10/06/2024 10:45 AM EST Office Visit [facility] MEDICINE [address] [place], [place] [phone] Sera Molina DO [address] [place] [address] Nonintractable chronic migraine (Primary Dx); Major depression, recurrent, chronic (CMS/HCC); Chronic gastroesophageal reflux disease; Chronic pain of left knee; Closed fracture of distal end of right fibula with routine healing, unspecified fracture morphology, subsequent encounter; Vaginal discharge; BMI 34.0-34.9,adult Social History Tobacco Use Types Packs/Day Years [...] Sign Reading Time Taken Comments Blood Pressure 102/70 10/06/2024 10:56 AM EST Pulse 82 10/06/2024 10:56 AM EST Temperature 36.6 ??C (97.9 ??F) 10/06/2024 10:[address] Respiratory Rate 18 10/06/2024 10:56 AM EST Oxygen Saturation - - Inhaled Oxygen Concentration - - Weight 86 kg (189 lb 8 oz) 10/06/2024 10:[address] Height 157.5 cm (5' 2 ) 10/06/2024 10:56 AM EST Body Mass Index 34.66 10/06/2024 10:56 AM EST documented in this encounter Progress Notes * Srea Molina, - 10/06/2024 10:45 AM EST SUBJECTIVE: Eli Saenz is a 48 y.o. year old female who presents for follow up. HPI She feels like everything is falling apart. She never started the zoloft. She wasn't sure how it was going to affect her and didn't want it to interfere with school so she decided to wait. Her semester ended yesterday. She was referred to [facility] for therapist and she says that they are kuckoo. She had appt with therapist but never called her 2 times. She got a new therapist and they called in crisis b/c her voice was raspy. Her new thearpist doesn't call her back. She just doesn't have a lot of confidence in them. She thinks her raspy thinks from sphenopalatine blocks. She says that the medicine goes down her nose 1st. She has no globus sensation. She says that her heartburn is horrible. She called GI and told them that meds are not working. She is drinking tums regularly and needs to sleep upright. She does not have EGD scheduled. She had 3 rounds of prednisone for bad asthma in Jul. She hasn't seen ortho for her fibula fracture yet. She has no appt for her L knee yet. She says that it still hurts especially when on her feet all day. She uses tylenol prn but needs refill. She has appt with ortho for her R knee on 10/13 and for ankle pain on 11/12. She says her ankles hurt and are always swollen. Review of Systems Constitutional: Negative for chills and fever. Respiratory: Negative for shortness of breath. Cardiovascular: Negative for chest pain and leg swelling. Gastrointestinal: Negative for abdominal pain, diarrhea and vomiting. Musculoskeletal: Positive for arthralgias and gait problem. Neurological: Negative for headaches. Patient Active Problem List Diagnosis Eczema Onychomycosis Cerebral arterial aneurysm Moderate persistent asthma Chronic gastroesophageal reflux disease Chronic migraine Allergic rhinitis Major depression, recurrent, chronic (CMS/HCC) Generalized anxiety disorder Post traumatic stress disorder Chronic pain of left knee Chronic low back pain Chronic neck pain BMI 33.0-33.9,adult Prediabetes Anemia Hyperlipidemia Allergies Allergen Reactions Pineapple OBJECTIVE Vitals: 10/06/24 1056 BP: 102/70 BP Location: Left arm Patient Position: Sitting BP Cuff Size: Large adult Pulse: 82 Resp: 18 Temp: 97.9 ??F (36.6 ??C) TempSrc: Oral Weight: 189 lb 8 oz (86 kg) Height: 5' 2 (1.575 m) Physical Exam Constitutional: General: She is not in acute distress. Appearance: Normal appearance. Cardiovascular: Rate and Rhythm: Normal rate and regular rhythm. Heart sounds: Normal heart sounds. No murmur heard. Pulmonary: Effort: Pulmonary effort is normal. Breath sounds: Normal breath sounds. No wheezing or rhonchi. Neurological: General: No focal deficit present. Mental Status: She is alert and oriented to person, place, and time. Cranial Nerves: No cranial nerve deficit. Motor: No weakness. Gait: Gait normal. Psychiatric: Attention and Perception: Attention normal. Mood and Affect: Mood is depressed. Speech: Speech normal. Behavior: Behavior normal. Thought Content: Thought content normal. ASSESSMENT/PLAN Diagnoses and all orders for this visit: Nonintractable chronic migraine Severe migraines, c/b spasmodic torticollis and TMJ -cont NB with pain mgmt -cont trigger point injections and botox therapy with pain mgmt for now -cont emgality monthly for migraine prophylaxis -cont amitriptyline and seroquel nightly -cont relpax prn acute migraine -cont tylenol #3/oxycodone prn severe migraine -cont diazepam nightly -cont baclofen and diclofenac as needed -f/u with PM as scheduled -awaiting eval with new neurologist, appt next mos -consider eval with [facility] pending neurology eval Major depression, recurrent, chronic (CMS/HCC) With PTSD, worsening sx -she denies any SI -she has the number for crisis -encouraged trial low dose zoloft daily -she will meet with clinician for referral to new therapist Chronic gastroesophageal reflux disease Sx uncontrolled -change prevacid BID to dexilant BID -cont pepcid nightly -cont tums prn -advised schedule f/u with GI Chronic pain of left knee With worsening pain and locking -knee xrays nml May 2024 -keep MRI as scheduled -keep eval with ortho as scheduled Closed fracture of distal end of right fibula with routine healing, unspecified fracture morphology, subsequent encounter -cont tylenol and motrin prn -cont T#3 as needed -keep upcoming eval with ortho Vaginal discharge -send BV panel and GC/CT -will treat pending results - Chlamydia/N. Gonorrhoeae RNA, TMA, Urogenitial - Bacterial Vaginosis Panel BMI 33.0-33.9,adult With preDM, weight up nearly 10 lbs since last visit, desiring weight loss -she meets criteria for GLP-1 and desires trial wemoncho weekly, will reattempt PA F/U with me in 3 mos or sooner prn Current Outpatient Medications: acetaminophen (Tylenol) 500 MG tablet, Take 1 tablet by mouth every 8 (eight) hours., Disp: , Rfl: acetaminophen-codeine (Tylenol w/ Codeine #4) 300-60 MG tablet, Take 1 tablet by mouth every 4 (four) hours if needed., Disp: , Rfl: albuterol (2.5 MG/3ML) 0.083% nebulizer solution, INHALE 1 VIAL VIA NEBULIZER ROUTE EVERY 4 HOURS IF NEEDED, Disp: 75 mL, Rfl: 1 amitriptyline (Elavil) 25 MG tablet, TAKE ONE TABLET BY MOUTH DAILY AT BEDTIME, Disp: 90 tablet, Rfl: 0 aspirin EC 325 MG EC tablet, Take 325 mg by mouth in the morning., Disp: , Rfl: baclofen (Lioresal) 20 MG tablet, TAKE ONE TABLET BY MOUTH THREE TIMES A DAY NEEDED FOR PAIN, Disp: 90 tablet, Rfl: 0 Blood Pressure kit, 1 each 1 (one) time per week., Disp: 1 kit, Rfl: 0 Botox 200 units injection, , Disp: , Rfl: budesonide-formoterol (Symbicort) 160-4.5 MCG/ACT inhaler, Inhale 2 puffs in the morning and at bedtime. Rinse mouth with water after use to reduce aftertaste and incidence of candidiasis. Do not swallow., Disp: 1 each, Rfl: 11 cetirizine (ZyrTEC) 10 MG tablet, TAKE 1 TABLET BY MOUTH EVERY DAY, Disp: 90 tablet, Rfl: 0 cholecalciferol (Vitamin D-3) 50 MCG (2000 UT) tablet, Take 1 tablet by mouth in the morning., Disp: , Rfl: clopidogrel (Plavix) 75 MG tablet, Take 1 tablet by mouth at bed time., Disp: , Rfl: cyclobenzaprine (Flexeril) 5 MG tablet, Take 1-2 tablets (5-10 mg) by mouth if needed at bedtime for muscle spasms., Disp: 30 tablet, Rfl: 1 diazePAM (Valium) 10 MG tablet, Take 10 mg by mouth at bedtime., Disp: , Rfl: diclofenac (Voltaren) 50 MG EC tablet, Take 50 mg by mouth 3 times daily., Disp: , Rfl: Diclofenac Sodium 1 % gel, Apply 2 g topically every 6 (six) hours if needed (pain)., Disp: 150 g, Rfl: 3 eletriptan (Relpax) 40 MG tablet, Take 1 tablet by mouth. May repeat after 2 hours if headache returns, Disp: , Rfl: Emgality 120 MG/ML auto-injector, INJECT 120MG UNDER THE SKIN ONCE A MONTH IN THE ABDOMEN, THIGH, OUTER UPPER ARM, OR BUTTOCKS, Disp: , Rfl: famotidine (Pepcid) 40 MG tablet, TAKE ONE TABLET BY MOUTH AT BEDTIME, Disp: 90 tablet, Rfl: 3 fluticasone (Flonase Allergy Relief) 50 MCG/ACT nasal spray, Administer 2 sprays into affected nostril(s) in the morning., Disp: , Rfl: lansoprazole (Prevacid) [address] capsule, Take 1 capsule (30 mg) by mouth before breakfast and before evening meal. Do not crush or chew., Disp: 60 capsule, Rfl: 3 lidocaine (Lidoderm) 5 % patch, APPLY 1 PATCH TOPICALLY ONCE A DAY AT THE SAME TIME EACH DAY, Disp:30 patch, Rfl: 0 montelukast (Singulair) 10 MG tablet, TAKE ONE TABLET BY MOUTH EVERY EVENING, Disp: 90 tablet, Rfl:0 ondansetron ODT (Zofran-ODT) 8 MG disintegrating tablet, DISSOLVE ONE TABLET BY MOUTH EVERY 6 HOURSAS NEEDED, Disp: , Rfl: QUEtiapine (SEROquel) 50 MG tablet, Take 1 tablet by mouth at bedtime., Disp: , Rfl: Rimegepant Sulfate (Nurtec) 75 MG tablet dispersible, PLACE ONE TABLET BY MOUTH EVERY DAY NEEDEDFOR MIGRAINE REPEAT 1 DOSE IN 24 HOURS, Disp: 12 tablet, Rfl: 0 Semaglutide-Weight Management (Wegovy) 0.25 MG/0.5ML solution auto-injector, Inject 0.5 mL (0.25 mg) under the skin 1 (one) time per week., Disp: 2 mL, Rfl: 3 senna (Senokot) 8.6 MG tablet, TAKE TWO TABLETS BY MOUTH DAILY AT BEDTIME FOR CONSTIPATION, Disp: ,Rfl: Sennosides (Senna) 8.6 MG capsule, Take 2 capsules by mouth if needed at bedtime (constipation)., Disp: 60 capsule, Rfl: 3 sertraline (Zoloft) 25 MG tablet, Take 1 tablet (25 mg) by mouth Once per day., Disp: 30 tablet, Rfl: 2 Spacer/Aero-Holding Chambers (AeroChamber Pls FloVu Mthpiece) device, USE WITH INHALER, Disp: , Rfl: sucralfate (Carafate) 1 g tablet, Take 1 g by mouth at bedtime., Disp: , Rfl: Ventolin HFA 108 (90 Base) MCG/ACT inhaler, INHALE 2 PUFFSS EVERY 4 HOURS IF NEEDED FOR WHEEZING, Disp: 18 g, Rfl: 0 documented in this encounter Plan of Treatment Upcoming Encounters Date Type Department Care Team (Late st Contact Info) Description 01/18/2025 10:00 AM EDT Office Visit [facility] MEDICINE [address] [place] [address] Sera Molina DO [address] [place] [address] 04/12/2025 3:00 PM EDT Office Visit [facility] ADULT DENTAL [address] [place] [address] Jessica, Loreto [address] [place] [address] documented as of this encounter Procedures Procedure Name Priority Date/Time Associated Diagnosis Comments BACTERIAL VAGINOSIS PANEL Routine 10/06/2024 11:52 AM EST Vaginal discharge CHLAMYDIA/N. GONORRHOEAE RNA, TMA, UROGENITAL Routine 10/06/2024 11:52 AM EST Vaginal discharge documented in this encounter Results * Bacterial Vaginosis Panel (10/06/2024 11:52 AM EST) TRICHOMONAS VAGINALIS DETECTION BY PCR NOT DETECTED Not Detect [facility] BACTERIAL VAGINOSIS DETECTION BY PCR NEGATIVE Negative [facility] Comment:The BV organism targ ets [...] DETECTION BY PCR NOT DETECTED Not Detect [facility] Shayla glab krusei PCR NOT DETECTED Not Detect [facility] Swab Vaginal structure / Unknown 10/06/2024 11:52 AM EST 10/06/2024 6:07 PM EST Sera Molina DO LAB MICROBIOLOGY - GENERAL O RDERABLES Final Result [facility] [address] [place] [phone] * Chlamydia/N. Gonorrhoeae RNA, TMA, Urogenitial (10/06/2024 11:52 AM EST) Pathologist [facility] CT PCR NOT DETECTED Not Detect. [facility] Comment:A not detected test result [...] psychologicalconsequences. NG PCR NOT DETECTED Not Detect. [facility] Comment:A not detected test result [...] AM EST 10/06/2024 6:07 PM EST Narrative [facility] - 10/07/2024 4:24 AM EST Vaginal Sera Molina DO LAB MICROBIOLOGY - GENERAL O RDERABLES Final Result [facility] [address] [place] [phone] [phone] documented in this encounter Visit Diagnoses Diagnosis Nonintractable chronic migraine- Primary Major depression, recurrent, chronic (CMS/HCC) Chronic gastroesophageal reflux disease Chronic pain of left knee Closed fracture of distal end of right fibula with routine healing, unspecified fracture morphology, subsequent encounter Vaginal discharge Leukorrhea, not specified as infective BMI 34.0-34.9,adult documented in this encounter Additional Health Concerns Assessment Noted Time PHQ-9 Depression Total Score: 17 024 10:13 AM EST documented as of this encounter Care Teams Molding Process Technician Relationship Specialty Start Date End Date Sera Molina DO [address] [place] [address] PCP - General Family Medicine 09/09/13 documented as of this encounter
--- OUTSIDE RECORDS SUMMARY | 2024-12-14 16:00 | XMS_ITS | Encounter Summary ---
Author Organization [employer] Address [address] [facility] 7 [place] [address] Care Team Providers Care Investor Relations Analyst Name Role Phone Sera Molina DO Primary Care Provider + [phone] Reason for Visit * Reason Onset Date Comments Nurse Triage 08/18/2024 Encounter Details Date Type Department Care Team ([facility] st Contact Info) Description 08/18/2024 Telephone [facility] MEDICINE [address] [place], [place] [phone] Sera Molina DO [address] [place] [address] Nurse Triage Social History Tobacco Use Types [...] vapo rub liquid and was seen in [facility] 07/29/24. Pt reports ever since then has had some asthma symptoms that are not going away. Pt denies fever, cough. Pt reports using daughters symbicort inhaler with good effect. Pt is aware that using another persons prescription medication is not to be done. Pt is advised to come to [facility] and Pt reports will come tomorrow, Hours given thurs-fri 830am- 400pm and Sat. 900am-12pm. Pt agrees with this disposition. Pt is advised to bring insurance card to visit sql report writer unable to verify. Protocol Used: Asthma [...] Description 01/18/2025 10:00 AM EDT Office Visit [facility] MEDICINE [address] [place] [address] Sera Molina DO [address] [place] [address] 04/12/2025 3:00 PM EDT Office Visit [facility] ADULT DENTAL [address] [place] [address] Jessica, Loreto [address] [place] [address] documented as of this encounter Visit Diagnoses Not on filedocumented in this encounter Additional Health Concerns Assessment Noted Time PHQ-9 Depression Total Score: 15 023 10:49 AM EDT documented as of this encounter Care Teams Investor Relations Analyst Relationship Specialty Start Date End Date Sera Molina DO [address] [place] [address] PCP - General Family Medicine 09/09/13 documented as of this encounter
--- OUTSIDE RECORDS SUMMARY | 2024-12-14 16:00 | XMS_ITS | Encounter Summary ---
Author Organization [employer] [facility] Address [address] [place] [address] 7 [place] [address] Care Team Providers Care Trade Show Coordinator Name Role Phone Sera Molina DO Primary Care Provider + [phone] Encounter Details Date Type Department Care Team (Latest Contact Info) Description 04/24/2022 Abstract [facility] CONVERSIONS Dental, Provider, DDS Social History Tobacco [...] Description 01/18/2025 10:00 AM EDT Office Visit [facility] MEDICINE [address] [place] [address] Sera Molina DO [address] [place] [address] 04/12/2025 3:00 PM EDT Office Visit [facility] ADULT DENTAL [address] [place] [address] Albert Lopezaris [address] [place] [address] documented as of this encounter Visit Diagnoses Not on filedocumented in this encounter Care Teams Trade Show Coordinator Relationship Specialty Start Date End Date Sera Molina DO [address] [place] [address] PCP - General Family Medicine 09/09/13 documented as of this encounter
--- OUTSIDE RECORDS SUMMARY | 2024-12-14 16:00 | XMS_ITS | Encounter Summary ---
Author Organization [employer] Address [address] [facility] 7t [place] [address] Care Team Providers Care Prefabricator Name Role Phone Sera Molina DO Primary Care Provider + [phone] Reason for Visit * Reason Comments Med Refill Encounter Details Date Type Department Care Team ([facility] st Contact Info) Description 09/10/2023 Refill [facility] MEDICINE [address] [place], [place] [phone] Sera Molina DO [address] [place], [place] [phone] Social History Tobacco Use Types Packs/Day Years Used Date Smoking Tobacco: Never Passive Smoke Exposure: Never Smokeless Tobacco: Never Alcohol Use Standard Drinks/Week Comments Never 0 (1 standard drink = 0.6 oz pur e alcohol) Depression Answer Date Recorded Patient Health Questionnaire-9 Score 15 03/07/2023 Housing Stability Answer Date Recorded What is your housing situation today? I have ca viavr 08/21/[address] you li [...] Description 01/18/2025 10:00 AM EDT Office Visit [facility] MEDICINE [address] [place] [address] Sera Molina DO [address] [place] [address] 04/12/2025 3:00 PM EDT Office Visit [facility] ADULT DENTAL [address] [place] [address] Jessica, Loreto [address] [place] [address] documented as of this encounter Visit Diagnoses Not on filedocumented in this encounter Additional Health Concerns Assessment Noted Time PHQ-9 Depression Total Score: 15 023 10:49 AM EDT documented as of this encounter Care Teams Prefabricator Relationship Specialty Start Date End Date Sera Molina DO [address] [place] [phone] PCP - General Family Medicine 09/09/13 documented as of this encounter
--- OUTSIDE RECORDS SUMMARY | 2024-12-14 16:00 | XMS_ITS | Encounter Summary ---
Author Organization [facility] Address [address] [place] [address] Care Team Providers Care Benefit Specialist Name Role Phone Sera Molina Primary Care Provider +1- [phone] Reason for Referral * Diagnostic Imaging (Routine) - Authorized Specialty Diagnoses / Procedures Referred By Ana dolan Referred To Contact Diagnoses Neck mass Procedures US Upper Back Sage Lucio MD [address] [place] [phone] Phone: tel: fax: Referral ID Status Reason Start Date Expiration Date V isits Requested Visits Authorized [id number] Authorized 11/23/2024 05/25/2026 1 1 Reason for Visit * Reason Comments New Patient * Surgical (Urgent) - Pending Review Specialty Diagnoses / Procedures Referred By Ana dolan Referred To Contact Plastic Surgery Diagnoses Dorsal cervical fat pad Sera Molina [address] [place] [address] Phone: tel: fax: [facility] Plastic Cosmetic Surgery [address] [place] [address] Phone: tel: fax: Referral ID Status Reason Start Date Expiration Date Visits Requested Visits Authorized [id number] Pending Review Specialty Services Required 09/28/2024 03/30/2026 6 6 Encounter Details Date Type Department Care Team (Late st Contact Info) Description 11/23/2024 11:15 AM EST Office Visit [facility] Plastic Cosmetic Surgery [address] [place] [address] Car Customizer: Sage Bull MD [address] [place] [address] Neck mass (Primary Dx) Social History Tobacco Use Types Packs/Day Years Used Date Smoking Tobacco: Never Smokeless Tobacco: Never Tobacco Cessation:Counseling Given: Not Answered Comments Unknown Sex and Gender Information Value Date Recorded Sex Assigned at Female 11/21/2024 5:15 PM EST Legal Sex Female 2:10 PM EST Gender Identity Female 11/21/2024 5:15 PM EST Sexual Orientation Straight 11/21/2024 5: 15 PM EST documented as of this encounter Progress Notes * Sage Lucio MD - 11/23/2024 12:40 PM EST Plastic Surgery Initial Consult Note Name: Eli Saenz : 1975 PCP: Sera Molina Date of Visit: 11/23/2024 SUBJECTIVE Eli Saenz is a 49 y.o. female presenting to clinic today for evaluation of the [place]alo hump deformity. Patient reports that she had this deformity since age 17 and that is getting worse. This makes it difficult to move around and also difficult to lay on her back and sometimes tender. It causes symptoms. No history of HIV disease or use of HIV medication. Non-smoker. No past medical history on file. No past surgical history on file. Social History Socioeconomic History Marital status: Single Spouse name: None Number of children: None Years of education: None Highest education level: None Occupational History None Tobacco Use Smoking status: Never Smokeless tobacco: Never Substance and Sexual Activity Alcohol use: None Drug use: None Sexual activity: None Other Topics Concern None Social History Narrative None Social Drivers of Health Food: Low Risk (09/02/2024) Received from [employer] Food Insecurity Within the past 12 months, you worried that your food would run out before you got money to buy more:: Never True Within the past 12 months,the food you bought just didn't last and you didn't have enough money to get more: : Never True Transportation: Low Risk (09/02/2024) Received from [employer] Transportation In the past 12 months, has lack of transportation kept you from medical appts, meetings, work or from getting things needed for daily living? : No No family history on file. No Known Allergies No current outpatient medications on file. No current facility-administered medications for this visit. Review of Systems Constitutional: Negative for chills, diaphoresis and fever. HENT: Negative for congestion and tinnitus. Eyes: Negative for discharge and itching. Respiratory: Negative for shortness of breath and wheezing. Cardiovascular: Negative for chest pain and palpitations. Gastrointestinal: Negative for nausea and vomiting. Endocrine: Negative for polydipsia and polyuria. Genitourinary: Negative for dysuria and hematuria. Musculoskeletal: Negative for arthralgias and myalgias. Neurological: Negative for tremors and light-headedness. Psychiatric/Behavioral: Negative for confusion and hallucinations. OBJECTIVE There were no vitals filed for this visit. General Physical Exam Constitutional: The patient is well-developed, well-nourished, and does not appear acutely ill. HEENT: Normocephalic and atraumatic, EOMI with normal conjunctiva, external ears are normal. Cardiovascular: Patient is well perfused globally. Pulmonary/Chest: No respiratory distress. Abdominal: Soft. Nondistended. Neurological: Oriented to person, place, and time. Gait normal. Skin: Skin is warm and dry. Psychiatric: Patient exhibits normal mood and affect. Behavior normal. Focused Plastics Exam Head and neck examination shows that extraocular motions intact mucosa is moist neck examination issoft. In the upper back area extending to the posterior neck is quite large diffuse lipodystrophy soft. No evidence for infection. ASSESSMENT AND PLAN [place] hump deformity symptomatic. I am going to order ultrasound for evaluation of of the deformity to find out whether it represents any lipoma type mass or more fatty deposit which will dictate either excision or liposuction and we will request prior authorization thank you Sage Lucio MD documented in this encounter Plan of Treatment Scheduled Orders Name Type Priority Associated Diagnoses Orde r Schedule US Upper Back Imaging Routine Neck mass Expected: 12/24/2024, Expires: 02/21/2025 documented as of this encounter Visit Diagnoses Diagnosis Neck mass- Primary Swelling, mass, or lump in head and neck documented in this encounter Care Teams Benefit Specialist Relationship Specialty Start Date End Date Sera Molina [address] [place] [id number] PCP - General Family Medicine 09/30/24 documented as of this encounter
--- OUTSIDE RECORDS SUMMARY | 2024-12-14 16:00 | XMS_ITS | Clinical Summary ---
Author Organization [facility] Address [address] [place] [address] Care Team Providers Care Hand Clipper Name Role Phone Sera Molina Primary Care Provider +1- [phone] Allergies No known active allergies Medications No known medications Active Problems Problem Noted Date Diagnosed Date Neck mass 11/23/2024 Encounters Date Type Department Care Team Description 11/23/2024 11:15 AM EST Office Visit [facility] Plastic Cosmetic Surgery [address] [place] [address] Web Retailer: Sage Bull MD Neck mass (Primary Dx) 09/28/2024 Transcribe Orders [facility] [address] [place] [address] Sera Molina Dorsal cervical fat pad (Primary Dx) from Last 3 Months Social History Tobacco Use Types Packs/Day Years Used Date Smoking Tobacco: Never Smokeless Tobacco: Never Tobacco Cessation:Counseling Given: Not Answered Comments Unknown Sex and Gender Information Value Date Recorded Sex Assigned at Female 11/21/2024 5:15 PM EST Legal Sex Female 2:10 PM EST Gender Identity Female 11/21/2024 5:15 PM EST Sexual Orientation Straight 11/21/2024 5: 15 PM EST Plan of Treatment Health Maintenance Due Date Last Done Comments Cervical Cancer Screening 1975 Cologuard 1975 Colonoscopy 1975 HPV and Pap Smear 1975 Hepatitis C Screening 1975 Pap Smear 1974 Sigmoidoscopy 1974 Hepatitis B Vaccines (1 of 3 - 19+ 3-dose series) 1993 Pneumococcal Vaccine: 50+ Ye ars (2 of 2 - PCV) 09/15/2007 09/15/2006 Pneumococcal Vaccine: Pediat netta (0-5 Years) and At-Risk Patients (6-50 Years) (2 of 2 - PCV) 09/15/2007 09/15/2006 DTaP,Tdap,and Td Vaccines (1 - Tdap) 02/22/200901/26 Mammogram 04/14/2022 04/14/2020, 07/09/2019 COVID-19 Vaccine (3 - season) 2024, 02/08/2021 Influenza Vaccine (#1) 2024 08/31/2012 Alcohol/Substance Use Screening 10/27/2024 Depression Screening and Follow-Up 10/27/2024 Social Drivers of Health Annual Screening 10/27/2024 Zoster Vaccines (1 of 2) 2024 Colon Cancer Screening 07/02/2025 FOBT / Fit Test 07/02/2025 07/02/2024 RSV Vaccine (60+ years old a nd patients) (1 - 1-dose 75+ series) 2049 HIV Screening Completed 07/02/2024 [place] [id number] Care Teams Hand Clipper Relationship Specialty Start Date End Date Sera Molina [address] [place] [id number] PCP - General Family Medicine 09/30/24
--- OUTSIDE RECORDS SUMMARY | 2024-12-14 16:00 | XMS_ITS | Encounter Summary ---
Author Organization [facility] Address [address] [place] [address] Care Team Providers Care Online Health And Fitness Coach Name Role Phone Sera Molina Primary Care Provider +1- [phone] Reason for Referral * Surgical (Urgent) - Pending Review Specialty Diagnoses / Procedures Referred By Ana dolan Referred To Contact Plastic Surgery Diagnoses Dorsal cervical fat pad Sera Molina [address] [place] [address] Phone: tel: fax: [facility] Plastic Cosmetic Surgery [address] [place] [address] Phone: tel: fax: Referral ID Status Reason Start Date Expiration Date Visits Requested Visits Authorized [id number] Pending Review Specialty Services Required 09/28/2024 03/30/2026 6 6 Encounter Details Date Type Department Care Team (Late st Contact Info) Description 09/28/2024 Transcribe Orders [facility] [address] [place] [address] Sera Molina [address] [place] [address] Dorsal cervical fat pad (Primary Dx) Social History Tobacco Use Types Packs/Day Years Used Date Smoking Tobacco: Never Assessed Comments Unknown Sex and Gender Information Value Date Recorded Sex Assigned at Female 11/21/2024 5:15 PM EST Legal Sex Female 2:10 PM EST Gender Identity Female 11/21/2024 5:15 PM EST Sexual Orientation Straight 11/21/2024 5: 15 PM EST documented as of this encounter Plan of Treatment Scheduled Referrals Name Type Priority Associated Diagnoses Order Schedule Ambulatory referral to Plastic Surgery Outpatient Referral Routine Dorsal cervical fat pad Expected: 09/28/2024, Expires: 03/29/2025 documented as of this encounter Visit Diagnoses Diagnosis Dorsal cervical fat pad- Primary documented in this encounter Care Teams Online Health And Fitness Coach Relationship Specialty Start Date End Date Sera Molina [address] [place] [phone] PCP - General Family Medicine 09/30/24 documented as of this encounter
--- OUTSIDE RECORDS SUMMARY | 2024-12-14 16:00 | XMS_ITS | Referral Summary ---
Author Organization [facility] Address [address] [place] [address] Care Team Providers Care Director Of Enterprise Architecture Name Role Phone Sera Molina Primary Care Provider +1- [phone] Encounters Date Type Department Care Team Description 11/23/2024 11:15 AM EST Office Visit [facility] Plastic Cosmetic Surgery [address] [place] [phone] Plywood Stock Grader: Sage Bull MD Neck mass (Primary Dx) 09/28/2024 Transcribe Orders [facility]erral [facility] [address] [place] [address] Sera Molina Dorsal cervical fat pad (Primary Dx) from Last 3 Months Allergies No known active allergies Medications No known medications Active Problems Problem Noted Date Diagnosed Date Neck mass 11/23/2024 Social History Tobacco Use Types Packs/Day Years Used Date Smoking Tobacco: Never Smokeless Tobacco: Never Tobacco Cessation:Counseling Given: Not Answered Comments Unknown Sex and Gender Information Value Date Recorded Sex Assigned at Female 11/21/2024 5:15 PM EST Legal Sex Female 2:10 PM EST Gender Identity Female 11/21/2024 5:15 PM EST Sexual Orientation Straight 11/21/2024 5: 15 PM EST Plan of Treatment Not on file Insurance [facility] Care Teams Director Of Enterprise Architecture Relationship Specialty Start Date End Date Sera Molina [address] [place] [address] PCP - General Family Medicine 09/30/24
--- OUTSIDE RECORDS SUMMARY | 2024-12-14 16:00 | XMS_ITS | Encounter Summary ---
Author Organization [facility] Address [address] [place] [address] [address] [place] [address] Care Team Providers Care Photogrammetry Airplane Pilot Name Role Phone Sera Molina DO Primary Care Provider +1 [phone] Encounter Details Date Type Department Care Team (Latest Contact Info) Description 08/11/2019 Abstract [facility] CONVERSIONS Dental, Provider, DDS Social History [...] Description 01/18/2025 10:00 AM EDT Office Visit [facility] MEDICINE [address] [place] [address] Sera Molina DO [address] [place] [address] 04/12/2025 3:00 PM EDT Office Visit [facility] ADULT DENTAL [address] [place] [address] Jessica Loreto [address] [place] [address] documented as of this encounter Visit Diagnoses Not on filedocumented in this encounter Care Teams Photogrammetry Airplane Pilot Relationship Specialty Start Date End Date Sera Molina DO [address] [place] [address] PCP - General Family Medicine 09/09/13 documented as of this encounter
--- OUTSIDE RECORDS SUMMARY | 2024-12-14 16:00 | XMS_ITS | Clinical Summary ---
Author Organization [employer] Address [address] [place] [address] 7[address] [place] [address] Care Team Providers Care Public Health Informatician Name Role Phone JesseSera Primary Care Provider + [phone] Allergies Active Allergy Reactions Criticality Noted Date [...] needed (pain). 150 g 3 023 Active cyclobenzaprine (Flexeril) 5 MG tablet Take 1-2 tablets (5-10 mg) by mouth if needed at bedtime for muscle spasms. 30 tablet 1 023 Active famotidine (Pepcid) 40 MG tabletIndications: Chronic gastroesophageal reflux disease TAKE ONE TABLET BY MOUTH AT BEDTIME 90 tablet 3 024 Active Emgality 120 MG/ML auto-injector INJECT 120MG UNDER THE SKIN ONCE A MONTH IN THE ABDOMEN, THIGH, OUTER UPPER ARM, OR BUTTOCKS 024 Active senna (Senokot) 8.6 MG tablet TAKE TWO TABLETS BY MOUTH DAILY AT BEDTIME FOR CONSTIPATION Active sucralfate (Carafate) 1 g tablet Take 1 g by mouth at bedtime. Active Blood Pressure kit 1 each 1 (one) time per week. 1 kit 024 Active albuterol (2.5 MG/3ML) 0.083% nebulizer solution [...] (one) time per week. 2 mL 3 024 Active budesonide-formote rol (Symbicort) 160-4.5 MCG/ACT inhaler Inhale 2 puffs in the morning and at bedtime. Rinse mouth with water after use to reduce aftertaste and incidence of candidiasis. Do not swallow. 1 each 11 024 2024 Active diclofenac (Voltaren) 50 MG [...] MOUTH DAILY AT BEDTIME 90 tablet Active ondansetron ODT (Zofran-ODT) 8 MG disintegrating tablet DISSOLVE ONE TABLET BY MOUTH EVERY 6 HOURS NEEDED 20 tablet 025 Active cetirizine (ZyrTEC) 10 MG tablet TAKE 1 TABLET BY MOUTH EVERY DAY 90 tablet 1 025 Active acetaminophen-code ine (Tylenol w/ Codeine #4) 300-60 MG tabletIndications: Nonintractable chronic migraine Take 1 tablet by mouth every 6 (six) hours if needed for severe pain. 30 tablet 025 Active Rimegepant Sulfate (Nurtec) 75 MG tablet dispersibleIndicat ions:Nonintractabl e chronic migraine PLACE ONE TABLET BY MOUTH EVERY DAY NEEDED FOR MIGRAINE REPEAT 1 DOSE IN 24 HOURS 12 tablet 025 Active lidocaine (Lidoderm) 5 % patch APPLY 1 PATCH TOPICALLY ONCE A DAY AT THE SAME TIME EACH DAY 30 patch 025 Active baclofen (Lioresal) 20 MG tablet TAKE ONE TABLET BY MOUTH THREE TIMES A DAY NEEDED FOR PAIN 90 tablet 025 Active cetirizine (ZyrTEC) 10 MG tablet TAKE 1 TABLET BY MOUTH EVERY DAY 90 tablet 023 2024 Discontinued(R eorder (will not trigger notification to Pharmacy)) Rimegepant Sulfate (Nurtec) 75 MG tablet dispersibleIndicat ions:Nonintractabl e chronic migraine PLACE ONE TABLET BY MOUTH EVERY DAY NEEDED FOR MIGRAINE REPEAT 1 DOSE IN 24 HOURS 12 tablet 024 2024 Discontinued(R eorder (will not trigger notification to Pharmacy)) lidocaine (Lidoderm) 5 % patch APPLY 1 PATCH TOPICALLY ONCE A DAY AT THE SAME TIME EACH DAY 30 patch 024 2024 Discontinued(R eorder (will not trigger notification to Pharmacy)) acetaminophen-code ine (Tylenol w/ Codeine #4) 300-60 MG tabletIndications: Nonintractable chronic migraine Take 1 tablet by mouth every 6 (six) hours if needed for severe pain. 30 tablet 024 2024 Discontinued(R eorder (will not trigger notification to Pharmacy)) baclofen (Lioresal) 20 MG tablet TAKE ONE TABLET BY MOUTH THREE TIMES A DAY NEEDED FOR PAIN 90 tablet 024 2024 Discontinued(R eorder (will not [...] needed for severe pain. 30 tablet 025 2024 Discontinued(R eorder (will not trigger notification to Pharmacy)) Active Problems Problem Noted Date Diagnosed Date Impacted tooth 10/12/2024 Dental plaque 10/12/2024 Fractured dental druze without loss of mat erial 10/12/2024 Chronic pain of left knee 09/02/2024 Chronic low back pain 09/02/2024 Chronic neck pain 09/02/2024 BMI 34.0-34.9,adult 09/02/2024 Prediabetes 09/02/2024 Anemia 09/02/2024 Hyperlipidemia 09/02/2024 Major depression, recurrent, chronic 03/07/2023 Assessment & Plan (10/08/2024 8:20 AM EST): PROGRESS NOTE: ID: Eli is a 48 y.o. Other straight-identified cis-female with previous documented hx of Depression, Anxiety, and Trauma No previous hx of services who presents for Anxiety and Depression [...] Self Plan [facility], Patient to engage in OP therapy , and Patient to reach out to [facility] as needed Generalized anxiety disorder 03/07/2023 Assessment & Plan (11/27/2023 3:06 PM EST): -DESMOND score 14 today -being medically managed with amitriptyline and diazepam -referral for placed to assist patient with engaging with therapist Post traumatic stress disorder 03/07/2023 Moderate persistent asthma 12/06/2022 Chronic gastroesophageal reflux disease 12/06/19 Assessment & Plan (11/27/2023 3:19 PM EST): [...] organization. Date Type Department Care Team Description 12/14/2024 Telephone [facility] [address] [place] [address] Sera Molina DO Prior Authorization ( [employer]: [place]?) 12/08/2024 Refill [facility] [address] [place] [address] Sera Molina DO Chronic migraine; Nonintractable chronic migraine 12/08/2024 Refill [facility] [address] [place] [address] Cony Yanez MD Nonintractable chronic migraine 12/08/2024 Refill [facility] [address] [place] [phone] Emmy Cruz MD Nonintractable chronic migraine 12/08/2024 Telephone [facility] [address] [place] [phone] Sera Molina DO Durable Medical Equipment 12/07/2024 12:00 PM EST Office Visit [facility] [address] [place] [address] Sera Molina DO 12/07/2024 Travel 12/01/2024 Outside Procedure [facility] OPTOMETRY [address] [place] [phone] Jose, Kaela, OD Regular astigmatism of both eyes (Primary Dx) 11/30/[address] [address] Sera Molina DO Call Back Request 11/30/2024 Refill [facility] [address] [place] [phone] Sera Molina DO 11/24/2024 3:30 PM EST Office Visit [facility] OPTOM[facility] [address] [place] [phone] Jose, Kaela, OD Regular astigmatism of both eyes (Primary Dx) 11/24/2024 Travel 11/16/2024 3:00 PM EST Office Visit [facility] ADULT DENTAL [address] [place] [phone] Ward Schultz DDS Fractured dental druze without loss of material (Primary Dx) 11/16/2024 Orders Only GENERIC EXTERNAL DATA DEPARTMENT Provider, Generic External Data 11/16/2024 Refill [facility] [place] [address] Sera Molina DO Nonintractable chronic migraine 11/16/2024 Refill [facility] [address] [place] [phone] Sera Molina DO 11/02/2024 Outside Procedure [facility] OPTOMETRY [address] [place] [address] Jose, Akela, OD Presbyopia (Primary Dx) 11/02/2024 Telephone [facility] [address] [facility] [place] [address] Sera Molina, DO 11/01/2024 10:30 AM EST Office Visit [facility] OPTOMETRY [address] [place] [address] Jose, Kaela, OD Myopia of both eyes (Primary Dx) 11/01/2024 Refill [facility] [address] [facility] [place] [address] Sera Molina, DO 10/25/2024 Telephone [facility] [address] [facility] [place] [address] Jennifer Hernandez, RN Results 10/15/2024 Telephone [facility] ADULT DENTAL [address] [facility] [place] [address] Ward Schultz DDS 10/13/2024 Refill [facility] [address] [facility] [place] [address] Sera Molina, DO 10/12/2024 1:00 PM EST Office Visit [facility] ADULT DENTAL [address] [facility] [place] [address] Loreto Lopez Dental plaque (Primary Dx); Impacted tooth; Fractured dental druze without loss of material 10/08/2024 Refill [facility] [address] [place] [address] Sera Molina, Chronic migraine 10/08/2024 Refill [facility] [address] [facility] [place] [address] Jennifer Hernandez, RN Bilateral swelling of feet and ankles 10/06/2024 10:45 AM EST Office Visit [facility] [address] [facility] [place] [address] Sera Molina, Nonintractable chronic migraine (Primary Dx); Major depression, recurrent, chronic (CMS/HCC); Chronic gastroesophageal reflux disease; Chronic pain of left knee; Closed fracture of distal end of right fibula with routine healing, unspecified fracture morphology, subsequent encounter; Vaginal discharge; BMI 34.0-34.9,adult 10/06/2024 Travel 09/27/2024 Refill [facility] [address] [place] [address] Sera Molina, 09/16/2024 Telephone [facility] [address] [place] [address] Sera Molina, Medication Question from Last 3 Months Immunizations Name Administration [...] the past 12 months, has t he [employer], [employer], oil or water company threatened to shut [...] 18 12/07/2024 12:13 PM EST Oxygen Saturation 97% 06/04/2024 12:43 PM EDT Inhaled Oxygen Concentration - - Weight 86.7 kg (191 lb 3.2 oz) 12/07/2024 12:13 PM EST Height 157.5 cm (5' 2 ) 12/07/2024 12:13 PM EST Body Mass Index 34.97 12/07/2024 12:13 PM EST Plan of Treatment Upcoming Encounters Date Type Department Care Team (Late st Contact Info) Description 01/18/2025 10:00 AM EDT Office Visit [facility] [address] [place] [address] Sera Molina DO [address] [place] [address] 04/12/2025 3:00 PM EDT Office Visit [facility] ADULT DENTAL [address] [place] [address] Loreto Lopez [address] [place] [address] Health Maintenance Due Date Last Done Comments CT Colonography 1974 Colonoscopy 1974 Colorectal Cancer Screening 1974 FIT DNA/Cologuard 1974 FIT 1974 FOBT 1974 Sigmoidoscopy 1974 Family Planning (PISQ) 1989 Hepatitis B Vaccines (1 of 3 - 19+ 3-dose series) 1993 Pneumococcal Vaccine: 50+ Years (2 of 2 - PCV) 09/15/2007 09/15/2006 DTaP/Tdap/Td Vaccines (1 - Tdap) 02/22/2009 02/21/2009 Dental Oral Exam 10/25/2022 04/24/2022, 12/2020, 08/11/2019, Additional history exists Cervical Cancer Screening 07/24/2023 HPV/Cotest 07/24/2023 07/24/2018 Pap Smear 07/24/2023 07/24/2018 COVID-19 Vaccine ( - season) 2024 03/08/2021, 02/08/2021 Influenza Vaccine (#1) [...] 09/30/2023, 04/24/2022, Additional history exists Tobacco Screening 12/07/2025 12/07/2024 Dental X-Ray: Full Mouth 10/13/2027 024, 12/27/2020, [...] Procedure Name Priority Date/Time Associated Diagnosis Comments CASE PRESENTATION, DETAILED AND EXTENSIVE TREATMENT PLANNING Routine 11/16/2024 3:00 PM EST 10 L RESIN-BASED COMPOSITE - 1 SURF, ANTERIOR Routine 11/16/2024 3:00 PM EST HELICOBACTER PYLORI AG, EIA, STOOL Routine 11/16/2024 9:10 AM EST MR KNEE WO CONTRAST LEFT Routine 10/15/2024 4:40 PM EST Chronic pain of left knee ORAL HYGIENE INSTRUCTIONS Routine 10/12/2024 1:00 PM EST INTRAORAL - COMPLETE SERIES OF RADIOGRAPHIC IMAGES Routine 10/12/2024 1:00 [...] 16 18/45 Routine 07/24/2018 10:25 AM EDT HM PAP/HPV Routine 07/24/2018 from Last 3 Months or Most Recently Relevant to Health Maintenance Results * Helicobacter pylori??Antigen, EIA, Stool (11/16/2024 9:10 AM EST) H pylori Ag Stool SEE NOTE [facility] Comment:HELICOBACTER PYLORI AG, EIA, STOOL Micro Number: [id number] Test Status: Final Specimen Source: Stool Specimen Quality: Adequate H.pylori Ag: Not Detected Antimicrobials, proton pump inhibitors, and bismuth preparations inhibit H. pylori and ingestion up to two weeks prior to testing may cause false negative results. If clinically indicated the test should be repeated on a new specimen obtained two weeks after discontinuing treatment. Reference Range: Not DetectedTHIS TEST WAS PERFORMED AT:[facility] [address] [phone] J RALPH MD 11/16/2024 9:10 AM EST 11/17/2024 3:24 PM EST us Generic External Data Provider LAB BODY FLUIDS A ND STOOLS ORDERABLES Final Result [facility] [address] [place] [address] [phone] * MR Knee w/o Contrast Left (10/15/2024 4:40 PM EST) Anatomical Region Laterality Modality Magnetic Resonan ce 10/15/2024 4:40 PM EST Narrative 10/16/2024 8:03 AM EST ? [facility] ?[address] ?[place] [address] ? Magnetic Resonance Report ? Signed ? Patient: Saenz,Eli ?MR#: [id number] ?? 92 ? : 1975 ?Acct:[id number] ? Age/Sex: 48 / F ?ADM Date: 10/15/24 ? Loc: HO.MRI ? Attending Dr: Sera Molina DO ? Ordering Physician: Sera Molina DO ?? Date of Service: 10/15/24 ?? Procedure(s): MR knee LT wo con ?? Accession Number(s): [id number] ? cc: Sera Molina DO ? EXAMINATION: [...] DD/ 1640 ? TD/TT: 10/15/24 1705 ? Livestock Agent: WG ? Procedure Note Orvilleter, Image - 10/16/2024 [place] [address] Magnetic Resonance Report Signed Patient: Inocencia Saenz#: [id number] : 1975Acct:[id number] Age/Sex: 48 / FADM Date: 10/15/24 Loc: HO.MRI Attending Dr: Sera Molina DO Ordering Physician: Sera Molina DO Date of Service: 10/15/24 Procedure(s): MR knee LT wo con Accession Number(s): [id number] cc: Sera Molina DO EXAMINATION: MR KNEE [...] Alonso Cheng MD 10/16/2024 08:00 AM EST Dictated By: Alonso Cheng MD Signed By: <Electronically signed by Alonso Cheng MD inOV> 10/16/24 0800 DD/ 1640 TD/TT: 10/15/24 1705 Livestock Agent: GIANLUCA us Sera Molina DO IMG MRI PROCEDURES Edited Re sult - Final * Vitamin B12 (Cobalamin) and Folate Panel, Serum (10/06/2024 12:46 PM EST) Vitamin B12 437 200 - 900 pg/mL [facility] Comment:NORMAL 200-900 PG/ML INDETERMINATE 160-199 PG/ML DEFICIENT < 160 PG/ML Folate 5.3 > or = 4.0 ng/mL [facility] Comment:Reference Values:> o r = 4.0 ng/mL< 4.0 ng/mL suggests folate deficiency Methotrexate, aminopterin and folinic acid(leucovorin) are chemotherapeutic agents whose molecularstructures are similar to folate; therefore, the Architectfolate assay cannot be used for patients using these drugs. Blood 10/06/2024 12:4 6 PM EST 10/06/2024 1:13 PM EST Sera Molina LAB BLOOD ORDERABLES Final R esult Performing Organization Address [facility] [address]/[facility] Co de Phone Number [facility] [address] [place] [phone] * (ABNORMAL) Iron And Total Iron Binding Capacity (10/06/2024 12:46 PM EST) Pathologist [facility] Iron 29(L) 30 - 160 mcg/dL [facility] Total Iron Binding Capacity 378 228 - 428 mcg/dL [facility] Percent Iron Saturation 8(L) 15 - 50 % [facility] Unsaturated Iron Binding 349 ug/dL [facility] Blood Venous blood specimen / Unknown 10/06/2024 12:46 PM EST 10/06/2024 1:13 PM EST Sera Molina DO LAB BLOOD ORDERABLES Final R ult Performing Organization Address [facility] [address]/[facility] Co de Phone Number [facility] [address] [place] [phone] * (ABNORMAL) CBC (10/06/2024 12:46 PM EST) White Blood Count 9.7 4.8 - 10.8 X10*3/uL [facility] Red Blood Count 3.88(L) 4.20 - 5.50 X10*6/uL [facility] Hemoglobin 10.1(L) 12.0 - 16.0 g/dl [facility] Hematocrit 32.0(L) 37.0 - 47.0 % [facility] Mean Corpuscular Volume 82.5 80.0 - 98.0 fL [facility] Mean Corpuscular Hemoglobin 26.0(L) 27.0 - 33.0 pg [facility] Mean Corpuscular HGB Conc 31.6 31.0 - 35.0 g/dl [facility] Red Cell Distribution Width 16.8(H) 11.0 - 16.0 % [facility] Platelet Count 309 160 - 400 X10*3/uL [facility] Mean Platelet Volume 9.3(L) 9.4 - 12.3 fL [facility] NRBC Pct Auto 0.0 0.0 - 0.2 /100WBC [facility] NRBC Abs Auto 0.000 0.0 - 0.012 X10*3/uL [facility] Blood Venous blood specimen / Unknown 10/06/2024 12:46 PM EST 10/06/2024 1:13 PM EST [facility] LAB BLOOD ORDERABLES Final R esult Performing Organization Address City/[facility] [address]/ZIP Co de Phone Number [facility] [address] [place] [phone] * Ferritin (10/06/2024 12:46 PM EST) Pathologist [facility] Ferritin 10 10 - 250 ng/mL [facility] Blood Venous blood specimen / Unknown 10/06/2024 12:46 PM EST 10/06/2024 1:13 PM EST [facility] LAB BLOOD ORDERABLES Final R esult Performing Organization Address City/[facility] [address]/ZIP Co de Phone Number [facility] [address] [place] [address] [phone] * (ABNORMAL) Lipid Panel, Standard (10/06/2024 12:46 PM EST) Triglycerides 272(H) <150 mg/dL [facility] Comment:Desirable Triglyceri de: less than 150 mg/dLBorderline High Triglyceride 150-199 mg/dLHigh Triglyceride: 200-499 mg/dLVery High Triglyceride: greater than or equal to 5OO mg/dL Cholesterol 249(H) <200 mg/dL [facility] Comment:Desirable Cholestero l: less than 200 mg/dLBorderline High Cholesterol: 200-239 mg/dLHigh Cholesterol: greater than 239 mg/dL LDL Cholesterol Calculated 152(H) <100 mg/dL [facility] Comment:Desirable LDL: less than 100 mg/dLNear Optimal/Above Optimal LDL: 110- 129 mg/dLBorderline High LDL: 130-159 mg/dLHigh LDL: 160-189 mg/dLVery High LDL: greater than or equal to 190 mg/dL HDL Cholesterol 43 >40 mg/dL [facility] Comment:Desirable HDL: great er than 40 mg/dL Note: This HDL assay may give artificially low results in patients with liver disease. Blood Venous blood specimen / Unknown 10/06/2024 12:46 PM EST 10/06/2024 1:13 PM EST us Sera Molina DO LAB BLOOD ORDERABLES Final R esult [facility] [address] [place] [address] [phone] * (ABNORMAL) Basic Metabolic Panel (10/06/2024 12:46 PM EST) Sodium 140 135 - 145 mmol/L [facility] Potassium 4.1 3.3 - 5.1 mmol/L [facility] Chloride 104 96 - 108 mmol/L [facility] Carbon Dioxide 28 22 - 29 mmol/L [facility] Anion Gap 12 12 - 20 [facility] Urea Nitrogen (BUN) 21(H) 9 - 16 mg/dL [facility] Creatinine, Serum 1.28 0.5 - 1.4 mg/dL [facility] Estimated Glomerular Filt Rate 44 [facility] Comment:Chronic Kidney Disea se: Estimated GFR < 60 mL/min/1.80p5Efsana Kidney Disease: Estimated GFR < 15 mL/min/1.73m2 Glucose 90 60 - 115 mg/dL [facility] Calcium 10.6(H) 8.4 - 10.2 mg/dL [facility] Blood Venous blood specimen / Unknown 10/06/2024 12:46 PM EST 10/06/2024 1:13 PM EST Sera Molina DO LAB BLOOD ORDERABLES Final R esult Performing Organization Address City/[facility] [address]/ZIP Co de Phone Number [facility] [address] [place] [phone] [phone] * Bacterial Vaginosis Panel (10/06/2024 11:52 AM EST) TRICHOMONAS VAGINALIS DETECTION BY PCR NOT DETECTED Not Detect [facility] BACTERIAL VAGINOSIS DETECTION BY PCR NEGATIVE Negative [facility] Comment:The BV organism targ ets [...] DETECTION BY PCR NOT DETECTED Not Detect [facility] Shayla glab krusei PCR NOT DETECTED Not Detect [facility] Swab Vaginal structure / Unknown 10/06/2024 11:52 AM EST 10/06/2024 6:07 PM EST us Sera Molina DO LAB MICROBIOLOGY - GENERAL O RDERABLES Final Result Performing Organization Address City/[facility] [address]/ZIP Co de Phone Number [facility] [address] [place] [phone] * Chlamydia/N. Gonorrhoeae RNA, TMA, Urogenitial (10/06/2024 11:52 AM EST) CT PCR NOT DETECTED Not Detect. [facility] Comment:A not detected test result [...] psychologicalconsequences. NG PCR NOT DETECTED Not Detect. [facility] Comment:A not detected test result [...] AM EST 10/06/2024 6:07 PM EST Narrative [facility] - 10/07/2024 4:24 AM EST Vaginal us Sera Molina DO LAB MICROBIOLOGY - GENERAL O RDERABLES Final Result [facility] [address] [place] [phone] * Hepatitis B, C Profile (07/02/2024 12:34 PM EDT) ~Hepatitis B Surface Antibody NONREACTIVE Nonreactive [facility] Comment:Nonreactive: < 8.00 mIU/mL Hepatitis B Core Antibody Nonreactive Nonreactive [facility] Hepatitis C Antibody Nonreactive Nonreactive [facility] Comment:Antibodies to HCV no t detected; does not exclude early acuteHCV infection. Hepatitis B Surface Ag Negative Negative [facility] 07/02/2024 12:3 4 PM EDT 07/02/2024 12:34 PM EDT Sera Molina Built In LAB BLOOD ORDERABLES Final R esult Performing Organization Address [facility] [address]/[facility] Co de Phone Number [facility] [address] [place] [phone] * HIV-1/2 Antigen and Antibodies, Fourth Generation, with Reflexes (07/02/2024 12:34 PM EDT) [facility] HIV AB/AG Nonreactive Nonreactive [facility] Comment:HIV-1 p24 Ag and/or HIV-1/HIV-2 Ab not detected.A test result that is nonreactive does not exclude thepossibility of exposure to or infection with HIV-1 and/orHIV-2. Nonreactive results in this assay for individualswith prior exposure to HIV-1 and/or HIV-2 may be due toantigen and antibody levels that are below the limit ofdetection of this assay.The FaceAlert[employer] HIV Ag/Ab Combo assay result andsupplemental assay results should be interpreted inconjunction with the patient's clinical presentation,history and other laboratory results. If the results areinconsistent with clinical evidence, additional testing issuggested to confirm the result. Blood Venous blood specimen / Unknown 07/02/2024 12:34 PM EDT 07/02/2024 12:34 PM EDT Sera Jesse DO LAB BLOOD ORDERABLES Final R esult Performing Organization Address City/[facility] [address]/[facility] Co de Phone Number [facility] [address] [place] [address] [phone] * Hemoglobin A1c (07/02/2024 12:34 PM EDT) Hemoglobin A1c 5.9 <6.0 % [facility] Comment:Hemoglobin A1C Refer ence Range Adults: 4.8 - 6.0 % Non diabetic: < 6.0 % Goal: < 7.0 %Additional Action Suggested: > 8.0 %Note: Hemoglobin A1c results are invalid for patients with abnormal amounts of HbF. Blood transfusions may impact the HbA1c concentration in the patient sample. Estimated Average Glucose 123 mg/dL [facility] Comment:eAG = Estimated ave rage glucose which is %A1C expressed asaverage glucose, using the formula of the Q8E-GtihgfvXvobtdw Glucose study (ADAG), Diabetes Care, Vol.31,#8,May. 2007 Blood Venous blood specimen / Unknown 07/02/2024 12:34 PM EDT 07/02/2024 12:34 PM EDT us Sera Molina DO LAB BLOOD ORDERABLES Final R esult [facility] [address] [place] [phone] * Mammography (03/07/2023 2:40 PM EDT) Pathologist [facility] Mammogram BI-rads 1 Anatomical Region Laterality Modality Other Radha Pascual [facility] Final Result * HPV E6/E7 RFLX FAROOQ 16 18/45 (07/24/2018 10:25 AM EDT) Pathologist [facility] HPV 16 RNA Test not performed [facility] HPV 18/45 RNA Test not performed [facility] HPV mRNA E6/E7 Not Detected NOT DETECTED [facility] Comment: This test was performed using the APTIMA(R) HPV Assay ([employer] This assay detects E6/E7 viral messenger RNA (mRNA) from 14 high-risk HPV types (16,18,31,33,35,39,45,51, 52,56,58,59,66,68). For additional information please refer to: http://education.[employer]/faq/AEN559s4 (This link is being provided for informational/ educational purposes only.) The analytical performance characteristics of this assay have been determined by [employer] [place], [place]. The modifications have not been cleared or approved by the FDA. This assay has been validated pursuant to the CLIA regulations and is used for clinical purposes. Please note: ??Effective 07/08/2016, HPV testing will be performed using [employer] APTIMA test which targets mRNA. Detecting mRNA instead of DNA, as in older methods, offers significant improvements in specificity. ADDITIONAL TESTING Not indicated () [facility] Comment: Test Performed by [employer], [employer], [address] [place] [address] Nikhil Ron M.D., Ph.D., Director of Laboratories , [facility] [id number] 07/24/2018 10:2 5 AM EDT Sera Molina DO HISTORICAL/NON ORDERABLE LAB S Final Result [facility] [address] * Pap Smear (07/24/2018) Pap smear performed Historical Provider HEALTH MAINTENANCE Final Result from Last 3 Months or Most Recently Relevant to Health Maintenance Insurance [id number] C3 DENTAL-[facility] MEDICAID STAND ADULT DENTAL - [facility] [place] Care Teams Public Health Informatician Relationship Specialty Start Date End Date Sera Molina DO [address] [place] [address] PCP - General Family Medicine 09/09/13
--- OUTSIDE RECORDS SUMMARY | 2024-12-14 16:00 | XMS_ITS | Encounter Summary ---
Author Organization [employer] Address [address] [facility] 7t [place] [address] Care Team Providers Care Typewriter Repairer Name Role Phone Jesse Sera Primary Care Provider + [phone] Reason for Visit * Reason Comments Med Refill Encounter Details Date Type Department Care Team ([facility] st Contact Info) Description 01/24/2024 Refill [facility] [address] [place], [place] [phone] Tigist Belcher NP [address] [place] [address] Chronic gastroesophageal reflux disease Social History Tobacco [...] Description 01/18/2025 10:00 AM EDT Office Visit [facility] [address] [place] [address] Sera Molina DO [address] [place] [address] 04/12/2025 3:00 PM EDT Office Visit [facility] ADULT DENTAL [address] [place] [address] Jessica, Loreto [address] [place] [address] documented as of this encounter Visit Diagnoses Diagnosis Chronic gastroesophageal reflux disease documented in this encounter Additional Health Concerns Assessment Noted Time PHQ-9 Depression Total Score: 15 023 10:49 AM EDT documented as of this encounter Care Teams Typewriter Repairer Relationship Specialty Start Date End Date Sera Molina DO [address] [place] [id number] PCP - General Family Medicine 09/09/13 documented as of this encounter
--- OUTSIDE RECORDS SUMMARY | 2024-12-14 16:00 | XMS_ITS | Encounter Summary ---
Author Organization [employer] Address [address] [facility] 7 [place] [address] Care Team Providers Care Intermediate Accountant Name Role Phone Sera Molina DO Primary Care Provider + [phone] Reason for Visit * Reason Onset Date Comments Med Refill 06/29/2024 Encounter Details Date Type Department Care Team (Late st Contact Info) Description 06/29/2024 Telephone [facility] [address] [place], [place] [phone] Sera Molina DO [address] [place], [place] [phone] Med Refill Social History Tobacco Use Types [...] sent to: [id number] [place], [place] - [address] [place] [address] documented in this encounter Plan of Treatment Upcoming Encounters Date Type Department Care Team (Late st Contact Info) Description 01/18/2025 10:00 AM EDT Office Visit [facility] [address] [place] [address] Sera Molina DO [address] [place] [address] 04/12/2025 3:00 PM EDT Office Visit [facility] ADULT DENTAL [address] [place] [address] Loreto Lopez [address] [place] [address] documented as of this encounter Visit Diagnoses Not on filedocumented in this encounter Additional Health Concerns Assessment Noted Time PHQ-9 Depression Total Score: 15 023 10:49 AM EDT documented as of this encounter Care Teams Intermediate Accountant Relationship Specialty Start Date End Date Sera Molina DO [address] [place] [address] PCP - General Family Medicine 09/09/13 documented as of this encounter
== END 2024-12-14 15:53 | disposition home or self-care (01) ==
PROVIDERS: PCP Family Medicine; Visit Provider Nurse Practitioner Family
DX: K21.9 Gastro-esophageal reflux disease without esophagitis (principal); K58.2 Mixed irritable bowel syndrome; Z12.11 Encounter for screening for malignant neoplasm of colon
CPT/HCPCS: 99214

== ENCOUNTER → 2024-12-14 15:03 | Outpatient (BNVA) | payer MEDICAID, SELFPAY | PROVIDERS: PCP Family Medicine; Visit Provider Nurse Practitioner Family | DX: K21.9 Gastro-esophageal reflux disease without esophagitis (principal); K58.2 Mixed irritable bowel syndrome; K59.01 Slow transit constipation; R10.13 Epigastric pain | CPT/HCPCS: 99212 ==

== ENCOUNTER → 2025-02-25 15:43 | Outpatient (BNVA) | payer MEDICAID, SELFPAY | PROVIDERS: PCP Family Medicine; Visit Provider Nurse Practitioner Family | DX: K21.9 Gastro-esophageal reflux disease without esophagitis (principal); R10.13 Epigastric pain; K59.04 Chronic idiopathic constipation; K59.01 Slow transit constipation; K58.1 Irritable bowel syndrome with constipation | CPT/HCPCS: 99212 ==

== ENCOUNTER → 2025-02-25 15:43 | Outpatient (AMB) | payer MEDICAID, SELFPAY ==
[2025-02-25 15:45] VITALS: BP 122/66; PULSE 106; O2SAT 99; BMI 32.4
--- NOTE | 2025-02-25 15:45 | A.OFFVIS_ITS ---
Vital Signs 02/25/25 15:45 Height 5 ft 2 in Weight 177 lb BMI 32.4 BP 122/66 Blood Pressure Location Rt brachial Position Sitting Pulse 106 H Pulse Source Pulse Oximeter Pulse Oximetry (%) 99 Oxygen Delivery Method Room Air Intake Visit Reasons: Procedure cancelled. Ongoing sx. Intake Note: ESTABLISHED PATIENT for mgmt of GERD, abd pain, CIC. Procedure was cancelled. CC; Burning abd pain, epigastric, new onset of fecal abn w/ severe abd cramping associated with BMs. Pt reports that she had been doing well up until the last 5-7 days. Pt has stopped taking miralax, citrucel, and senna as she felt that it was too much for her. Pt comments that she has been having some difficulty with the nexium and has been taking it more frequently (BID) and in the midday and evening as that is the best time for her to remember to take it. Pt often skips breakfast and forgets AM meds. Gum Scoring Machine Operator Required: No Accompanied by: Self / Same As Patient Allergies No Known Allergies Allergy (Verified 02/25/25 15:50) HPI HPI Procedure cancelled. Ongoing sx.: Details: LAST VISIT: Postprandial epigastric pain GERD (gastroesophageal reflux disease) Dyspepsia Constipation IBS (irritable bowel syndrome) Screen for colon cancer Plan Continue Nexium and famotidine. Patient will be sent for upper endoscopy to rule out gastritis, duodenitis, esophagitis, gastric or peptic ulcer. Stool for H pylori negative. Continue Linzess and patient can not take fiber to help her bulk stool. What to expect before during and after procedure discussed with caroline pepe. Stressed importance of good bowel prep and clear liquid diet day before procedure. Patient will be booked for the procedure. Message sent to Surgical schedules double procedure for patient. I will see her after the procedure. Patient was encouraged to call our office if she will have worsening symptoms or any additional GI concerning symptoms. Patient is agreeable to current plan of care and verbalizes understanding of instructions. She was given the opportunity to ask questions and all questions answered. ? Thank you for allowing me to participate in her care Medications New bisacodyl (Dulcolax (bisacodyl)) take 4 tabs at noon the day before your colonoscopy 20 mg (4 x 5 mg) PO ONCE 4 tabs 0RF constipation 1 day Z12.11 polyethylene glycol 3350 (Miralax) As directed by gastroenterology department at [facility] 238 grams PO ONCE 238 grams 0RF Z12.11 Refilled methylcellulose (laxative) (Citrucel) take it with full glass of water 500 mg PO DAILY 90 tabs 2RF K59.00 TODAY'S VISIT: Patient is here today for follow-up and also for her request. Patient canceled her endoscopy and colonoscopy as she was still not feeling well and asked to keep her appointment today. Patient reports that she continues to have epigastric pain no matter what she eats. Unable take Citrucel and Linzess. Patient reports severe abdominal pain, bloating. Reports inconsistent bowel movements mostly constipation. Cramping in the left lobe were quadrant when having a bowel movement. Patient denies any melena, hematochezia, unintentional weight loss or ribbon like stools. Patient patient reports dyspepsia and dyspha sudhir without odynophagia. Patient reports to be feeling little stressed out about how she has been feeling. Reports very busy at work and going to school. [facility] Medical History Migraine with aura Asthma Aneurysm Surgical History S/P Botox injection Status post cholecystectomy Family History Mother Diabetes Social History Household Members: Spouse and Children Housing: House Alcohol intake: never Patient Tobacco Use Status: Never used Tobacco Current occupational status: unemployed Sexual orientation: Straight/Heterosexual Gender identity: Female Female Reproductive History Menstrual Age of Menarche: 8 Review of Systems Const Denies weight gain and Denies weight loss ENT Reports no additional complaints, Reports dysphagia and Denies odynophagia Card Reports no additional complaints Resp Reports no additional complaints GI Reports abdominal pain, Denies belching, Denies melena, Reports bloating, Denies change in bowel habits, Reports constipation, Reports dysphagia, Denies excessive flatus, Denies dyspepsia, Reports heartburn, Denies diarrhea, Reports loose stools (Occasional), Denies nausea, Denies odynophagia and Denies vomiting Reports no additional complaints Musc Reports no additional complaints Neuro Reports no additional complaints Psych Reports no additional complaints Endo Reports no additional complaints Physical Exam Vital Signs: Last Vital Signs Pulse 106 H 02/25/25 15:45 BP 122/66 02/25/25 15:45 Pulse Ox 99 02/25/25 15:45 Oxygen Delivery Method Room Air 02/25/25 15:45 BMI result Body Mass Index 32.4 Const General: healthy appearing and no acute distress Nutritional Appearance: obese Orientation/consciousness: patient oriented x3 Resp Effort & Inspection: normal respiratory effort, able to speak in complete sentences, no tracheal deviation and symmetric chest movement Auscultation: clear to auscultation bilaterally Cardio Rate: regular rate GI Inspection: Yes normal to inspection, No distended and Yes obesity Palpation (GI): Soft to palpation, not firm, nontender and No hepatosplenomegaly present Auscultation: normal bowel sounds General: Yes no CVA tenderness Back/Spine/Pelvis Back: no CVA tenderness Skin General skin exam: elasticity normal, turgor normal and dry skin Neuro General: patient oriented x3 Psych Appearance: grossly normal Mental Status: mental status grossly normal Assessment & Plan Assessment & Plan (1) Postprandial epigastric pain: Code(s): R10.13 - Epigastric pain (2) GERD (gastroesophageal reflux disease): Code(s): K21.9 - Gastro-esophageal reflux disease without esophagitis Qualifiers: Esophagitis presence: esophagitis presence not specified Qualified Code(s): K21.9 - Gastro-esophageal reflux disease without esophagitis (3) Dyspepsia: Code(s): R10.13 - Epigastric pain (4) Constipation: Code(s): K59.00 - Constipation, unspecified Qualifiers: Constipation type: slow transit constipation Qualified Code(s): K59.01 - Slow transit constipation (5) IBS (irritable bowel syndrome): Code(s): K58.9 - Irritable bowel syndrome, unspecified Qualifiers: Irritable bowel syndrome type: with constipation Qualified Code(s): K58.1 - Irritable bowel syndrome with constipation (6) Screen for colon cancer: Code(s): Z12.11 - Encounter for screening for malignant neoplasm of colon Plan Patient will continue taking Nexium. Continue avoiding dietary triggers in late night snacking. Staying upright for minimal 3 hours after meals discussed with patient. Patient will follow FODMAP diet. List of food recommended as well as list of food to avoid given to patient. Patient was EKG food patient is feasible she ate courage her to get [id number] fiber with pre and probiotic. Patient will start taking Dulcolax daily. Patient would prefer to return to the office once more before going for endoscopy and colonoscopy. Medications: New bisacodyl (Dulcolax (bisacodyl)) 10 mg (2 x 5 mg) PO BEDTIME 180 tabs 4RF Discontinued linaclotide Discontinued Reason: Doctor's Order 145 mcg PO DAILY 30 caps 2RF Coding Level of Care Code Est Pt Level 4 (86442) Complex EM visit Add On G2211 Diagnoses Postprandial epigastric pain R10.13 Gastroesophageal reflux disease, unspecified whether esophagitis present K21.9 Esophagitis presence: esophagitis presence not specified Dyspepsia R10.13 Slow transit constipation K59.01 Constipation type: slow transit constipation Irritable bowel syndrome with constipation K58.1 Irritable bowel syndrome type: with constipation Screen for colon cancer Z12.11 Time Spent (min) 40 Comment 25 minutes spent with patient and additional 15 minutes spent reviewing her records
--- OUTSIDE RECORDS SUMMARY | 2025-02-25 15:46 | XMS_ITS | Encounter Summary ---
Author Organization [employer] [facility] Address [address] [place] [address] 7 [place] [address] Care Team Providers Care Integrated Marketing Specialist Name Role Phone Sera Molina DO Primary Care Provider [phone] Encounter Details Date Type Department Care Team (Latest Contact Info) Description 08/11/[address] [facility] CONVERSIONS Dental, Provider, DDS Social History [...] Care Team (Late st Contact Info) Description 04/12/2025 3:00 PM EDT Office Visit [facility] ADULT DENTAL [address] [place] [address] Jessica, Loreto [address] [place] [address] documented as of this encounter Visit Diagnoses Not on filedocumented in this encounter Care Teams Integrated Marketing Specialist Relationship Specialty Start Date End Date Sera Molina DO [address] [place] [address] PCP - General Family Medicine 09/09/13 documented as of this encounter
--- OUTSIDE RECORDS SUMMARY | 2025-02-25 15:46 | XMS_ITS | Encounter Summary ---
Author Organization [employer] Address [address] [facility] 7t [place] [address] Care Team Providers Care Fire Department Battalion Chief Name Role Phone Sera Molina DO Primary Care Provider + [phone] Reason for Visit * Reason Comments Med Refill Encounter Details Date Type Department Care Team ([facility] st Contact Info) Description 09/10/2023 Refill [facility] [address] [place], [place] [phone] Sera Molina DO 230 [place], [place] [phone] Social History Tobacco Use Types Packs/Day Years [...] Description 04/12/2025 3:00 PM EDT Office Visit [facility] ADULT DENTAL [address] [place] [address] Albert Lopezaris [address] [place] [address] documented as of this encounter Visit Diagnoses Not on filedocumented in this encounter Additional Health Concerns Assessment Noted Time PHQ-9 Depression Total Score: 15 023 10:49 AM EDT documented as of this encounter Care Teams Fire Department Battalion Chief Relationship Specialty Start Date End Date Sera Molina DO 230 [place] [address] PCP - General Family Medicine 09/09/13 documented as of this encounter
--- OUTSIDE RECORDS SUMMARY | 2025-02-25 15:46 | XMS_ITS | Encounter Summary ---
Author Organization [employer] Address [address] [facility] 7t [place] [address] Care Team Providers Care Hydro Station Operator Name Role Phone Sera Molina DO Primary Care Provider + [phone] Encounter Details Date Type Department Care Team ([facility] st Contact Info) Description 11/25/2023 Telephone [facility] MEDICINE [address] [place], [place] [phone] Sera Molina DO 230 [place], [place] [phone] Social History Tobacco Use Types Packs/Day Years [...] Description 04/12/2025 3:00 PM EDT Office Visit [facility] ADULT DENTAL [address] [place] [address] Jessica, Loreto [address] [place] [address] documented as of this encounter Visit Diagnoses Not on filedocumented in this encounter Additional Health Concerns Assessment Noted Time PHQ-9 Depression Total Score: 15 023 10:49 AM EDT documented as of this encounter Care Teams Hydro Station Operator Relationship Specialty Start Date End Date Sera Molina DO [address] [place] [address] PCP - General Family Medicine 09/09/13 documented as of this encounter
--- OUTSIDE RECORDS SUMMARY | 2025-02-25 15:46 | XMS_ITS | Encounter Summary ---
Author Organization [employer] Address [address] [facility] 7 [place] [address] Care Team Providers Care Armature Winder Repairer Name Role Phone JesseSera Primary Care Provider + [phone] Reason for Visit * Reason Onset Date Comments Med Refill 12/08/2024 Encounter Details Date Type Department Care Team (Late st Contact Info) Description 12/08/2024 Refill [facility] [address] [place] [address] Emmy Cruz MD [address] [place] [address] Nonintractable chronic migraine Social History Tobacco Use [...] Description 04/12/2025 3:00 PM EDT Office Visit [facility] ADULT DENTAL [address] [place] [address] Jessica, Loreto [address] [place] [address] documented as of this encounter Visit Diagnoses Diagnosis Nonintractable chronic migraine documented in this encounter Additional Health Concerns Assessment Noted Time PHQ-9 Depression Total Score: 20 024 8:02 AM EST documented as of this encounter Care Teams Armature Winder Repairer Relationship Specialty Start Date End Date Sera Molina DO [address] [place] [address] PCP - General Family Medicine 09/09/13 documented as of this encounter
--- OUTSIDE RECORDS SUMMARY | 2025-02-25 15:46 | XMS_ITS | Encounter Summary ---
Author Organization [employer] Address [address] [facility] 7 [place] [address] Care Team Providers Care Epic Cupid Analyst Name Role Phone Sera Molina DO Primary Care Provider + [phone] Reason for Visit * Reason Onset Date Comments Med Refill 01/10/2025 Encounter Details Date Type Department Care Team (Late st Contact Info) Description 01/10/2025 Refill [facility] MEDICINE [address] [place], [place] [phone] Sera Molina DO 230 [place] [address] Social History Tobacco Use Types Packs/Day Years [...] your housing situation today? I have ca ivvar 09/02/[address] you li [...] Description 04/12/2025 3:00 PM EDT Office Visit [facility] ADULT DENTAL [address] [place] [address] Jessica, Loreto [address] [place] [address] documented as of this encounter Visit Diagnoses Not on filedocumented in this encounter Additional Health Concerns Assessment Noted Time PHQ-9 Depression Total Score: 20 024 8:02 AM EST documented as of this encounter Care Teams Epic Cupid Analyst Relationship Specialty Start Date End Date Sera Molina DO [address] [place] [address] PCP - General Family Medicine 09/09/13 documented as of this encounter
--- OUTSIDE RECORDS SUMMARY | 2025-02-25 15:46 | XMS_ITS | Clinical Summary ---
Author Organization [facility] ity Address [address] [place] [address] Care Team Providers Care Director Business Development Name Role Phone Unavailable Primary Care Provider [...] Cervical Cancer Screening: P ap Smear 1995 COVID-19 Vaccine ( - 2023-2 5 season) 2024 Pneumococcal Vaccine: 50+ Ye ars (1 of 1 - PCV) 2024 Zoster Vaccines (1 of 2) 2024 Influenza Vaccine (Season Ended) 2025 HIB Vaccines Aged Out No longer eligi [...] age to complete this topic Meningococcal B Vaccine Aged Out No l onger eligible based on patient's age to complete [...]
--- OUTSIDE RECORDS SUMMARY | 2025-02-25 15:46 | XMS_ITS | Encounter Summary ---
Author Organization [employer] [facility] Address [address] [place] [address] 7 [place] [address] Care Team Providers Care Gaming Dealer Name Role Phone Sera Molina DO Primary Care Provider + [phone] Encounter Details Date Type Department Care Team (Latest Contact Info) Description 01/04/[address] [facility] CONVERSION[facility] Dental, Provider, DDS Social History [...] 04/12/2025 3:00 PM EDT Office Visit [facility] ADULT DENTAL [address] [place] [address] Jessica, Loreto [address] [place] [address] documented as of this encounter Visit Diagnoses Not on filedocumented in this encounter Care Teams Gaming Dealer Relationship Specialty Start Date End Date Sera Molina DO [address] [place] [address] PCP - General Family Medicine 09/09/13 documented as of this encounter
--- OUTSIDE RECORDS SUMMARY | 2025-02-25 15:46 | XMS_ITS | Encounter Summary ---
Author Organization [employer] Address [address] [facility] 7 [place] [address] Care Team Providers Care Branch Manager Name Role Phone Sera Molina DO Primary Care Provider + [phone] Reason for Visit * Reason Onset Date Comments Med Refill 12/22/2024 Encounter Details Date Type Department Care Team (Late st Contact Info) Description 12/22/2024 Refill [facility] 230 [place], [place] [phone] Sera Molina DO 230 [place] [address] Social History Tobacco Use Types Packs/Day Years [...] 3:00 PM EDT Office Visit [facility] ADULT D[facility]AL [address] [place] [address] Jessica, Loreto [address] [place] [address] documented as of this encounter Visit Diagnoses Not on filedocumented in this encounter Additional Health Concerns Assessment Noted Time PHQ-9 Depression Total Score: 20 024 8:02 AM EST documented as of this encounter Care Teams Branch Manager Relationship Specialty Start Date End Date Sera Molina DO 230 [place] [address] PCP - General Family Medicine 09/09/13 documented as of this encounter
--- OUTSIDE RECORDS SUMMARY | 2025-02-25 15:46 | XMS_ITS | Referral Summary ---
Author Organization [facility] Address [address] [place] [address] Care Team Providers Care Induction Coordination Power Engineer Name Role Phone Sera Molina Primary Care Provider [phone] Allergies No known active allergies Medications No [...] Plan of Treatment Not on [place] [address] [place] [address] Care Teams Induction Coordination Power Engineer Relationship Specialty Start Date End Date Sera Molina [address] [place] [address] PCP - General Family Medicine 09/30/24
--- OUTSIDE RECORDS SUMMARY | 2025-02-25 15:46 | XMS_ITS | Encounter Summary ---
Author Organization [employer] Address [address] [facility] 7 [place] [address] Care Team Providers Care Textile Broker Name Role Phone Sera Molina DO Primary Care Provider + [phone] Reason for Visit * Reason Onset Date Comments Med Refill 01/06/2025 Encounter Details Date Type Department Care Team (Late st Contact Info) Description 01/06/2025 Refill [facility] MED[facility]INE [address] [place], [place] [phone] Sera Molina DO 230 [place], [place] [phone] Chronic migraine Social History Tobacco Use Types Packs/Day [...] Description 04/12/2025 3:00 PM EDT Office Visit [facility] ADULT DENTAL [address] [place] [address] Jessica, Loreto [address] [place] [address] documented as of this encounter Visit Diagnoses Diagnosis Chronic migraine documented in this encounter Additional Health Concerns Assessment Noted Time PHQ-9 Depression Total Score: 20 024 8:02 AM EST documented as of this encounter Care Teams Textile Broker Relationship Specialty Start Date End Date Sera Molina DO [address] [place] [address] PCP - General Family Medicine 09/09/13 documented as of this encounter
--- OUTSIDE RECORDS SUMMARY | 2025-02-25 15:46 | XMS_ITS | Encounter Summary ---
Author Organization [employer] Address [address] [place] [address] 7 [place] [address] Care Team Providers Care Gamma Operator Name Role Phone Sera Molina DO Primary Care Provider + [phone] Reason for Visit * Reason Onset Date Comments Order US abdomen 04/16/2023 Encounter Details Date Type Department Care Team (Late st Contact Info) Description 04/16/2023 Telephone [facility] MEDICINE [address] [place], [place] [phone] Sera Molina DO 230 [place] [address] Order US abdomen Social History Tobacco Use [...] calling in regards to US abdomen order. Bulk Clerk does not see order on chart. Patientstates it was order on 03/22/23. documented in this encounter Plan of Treatment Upcoming Encounters Date Type Department Care Team (Late st Contact Info) Description 04/12/2025 3:00 PM EDT Office Visit [facility] ADULT DENTAL [address] [place] [address] Jessica, Loreto [address] [place] [address] documented as of this encounter Visit Diagnoses Not on filedocumented in this encounter Additional Health Concerns Assessment Noted Time PHQ-9 Depression Total Score: 15 023 10:49 AM EDT documented as of this encounter Care Teams Gamma Operator Relationship Specialty Start Date End Date Sera Molina DO [address] [place] [address] PCP - General Family Medicine 09/09/13 documented as of this encounter
--- OUTSIDE RECORDS SUMMARY | 2025-02-25 15:46 | XMS_ITS | Encounter Summary ---
Author Organization [employer] Address [address] [facility] 7 [place] [address] Care Team Providers Care Clinical Applications Specialist Name Role Phone Sera Molina DO Primary Care Provider + [phone] Reason for Visit * Reason Onset Date Comments Med Refill 06/29/2024 Encounter Details Date Type Department Care Team (Late st Contact Info) Description 06/29/2024 Telephone [facility] MEDICINE 230 [place], [place] [phone] Sera Molina DO [address] [place], [place] [phone] Med Refill Social History Tobacco Use Types [...] sent to: [id number] [place], [place] - [address] [place] [address] documented in this encounter Plan of Treatment Upcoming Encounters Date Type Department Care Team (Late st Contact Info) Description 04/12/2025 3:00 PM EDT Office Visit [facility] ADULT DENTAL [address] [place] [address] Jessica, Loreto [address] [place] [address] documented as of this encounter Visit Diagnoses Not on filedocumented in this encounter Additional Health Concerns Assessment Noted Time PHQ-9 Depression Total Score: 15 023 10:49 AM EDT documented as of this encounter Care Teams Clinical Applications Specialist Relationship Specialty Start Date End Date Sera Molina DO [address] [place] [address] PCP - General Family Medicine 09/09/13 documented as of this encounter
--- OUTSIDE RECORDS SUMMARY | 2025-02-25 15:46 | XMS_ITS | Clinical Summary ---
Author Organization [facility] Address [address] [place] [address] Care Team Providers Care Medical Collections Specialist Name Role Phone Sera Molina Primary Care Provider +1- [phone] Allergies No known active allergies Medications No [...] COVID-19 Vaccine (3 - season) 2024, 02/08/2021 Alcohol/Substance Use Screening 10/27/2024 Depression Screening and Follow-Up 10/27/2024 Social Drivers of Health [place] ual Screening 10/27/2024 Zoster Vaccines (1 of 2) 2024 Influenza Vaccine (Season Ended) 2025 08/31/20 Colon Cancer Screening 07/02/2025 FOBT / Fit Test 07/02/2025 07/02/2024 RSV Vaccine (60+ years old a nd patients) (1 - 1-dose 75+ series) 2049 HIV Screening Completed 07/02/2024, 03/2024, 01/12/[address] [place] [id number] Care Teams Medical Collections Specialist Relationship Specialty Start Date End Date Sera Molina [address] [place] [address] PCP - General Family Medicine 09/30/24
--- OUTSIDE RECORDS SUMMARY | 2025-02-25 15:46 | XMS_ITS | Encounter Summary ---
Author Organization [facility] Address [address] [place] [address] Care Team Providers Care Supply Analyst Name Role Phone Sera Molina Primary Care Provider +1- [phone] Reason for Referral * Surgical (Urgent) - Pending Review Specialty Diagnoses / Procedures Referred By Ana dolan Referred To Contact Plastic Surgery Diagnoses Dorsal cervical fat pad Sera Molina [address] [place] [address] Phone: tel: fax: [facility] Plastic Cosmetic Surgery [address] [place] [address] Phone: tel: fax: Referral ID Status Reason Start Date Expiration Date Visits Requested Visits Authorized [id number] Pending Review Specialty Services Required 09/28/2024 03/30/2026 6 6 Encounter Details Date Type Department Care Team (Late st Contact Info) Description 09/28/2024 Transcribe Orders [facility] Physician Referral Services [address] [place] [address] Sera Molina [address] [place] [address] Dorsal cervical fat pad (Primary Dx) Social [...] Primary documented in this encounter Care Teams Supply Analyst Relationship Specialty Start Date End Date Sera Molina [address] [place] [address] PCP - General Family Medicine 09/30/24 documented as of this encounter
--- OUTSIDE RECORDS SUMMARY | 2025-02-25 15:46 | XMS_ITS | Clinical Summary ---
Author Organization [employer] Address [address] [place] [address] 7t [place] [address] Care Team Providers Care Building Mover Name Role Phone KarrieSera souza Primary Care Provider + [phone] Allergies Active Allergy Reactions Criticality Noted Date [...] 1 tablet by mouth at bedtime. Active aspirin EC 325 MG EC tablet [...] ABDOMEN, THIGH, OUTER UPPER ARM, OR BUTTOCKS Active senna (Senokot) 8.6 MG tablet TAKE TWO TABLETS BY MOUTH DAILY AT BEDTIME FOR CONSTIPATION Active sucralfate (Carafate) 1 g tablet Take 1 g by mouth at bedtime. Active Blood Pressure kit 1 each 1 (one) time per week. 1 kit Active albuterol (2.5 MG/3ML) 0.083% nebulizer solution INHALE 1 VIAL VIA NEBULIZER ROUTE EVERY 4 HOURS IF NEEDED 75 mL 1 Active Ventolin HFA 108 (90 Base) MCG/ACT inhalerIndications :Mild persistent asthma, unspecified whether complicated INHALE 2 PUFFSS EVERY 4 HOURS IF NEEDED FOR WHEEZING 18 g Active sertraline (Zoloft) 25 MG tablet Take [...] FloVu Mthpiece) device USE WITH INHALER Active ferrous sulfate (Fe Tabs) 325 (65 Fe) MG EC tablet Take 1 tablet (325 mg) by mouth Once per day. Do not crush, chew, or split. 90 tablet 3 024 2024 Active cetirizine (ZyrTEC) 10 MG tablet TAKE 1 TABLET BY MOUTH EVERY DAY 90 tablet 1 Active lidocaine (Lidoderm) 5 % patch APPLY 1 PATCH TOPICALLY ONCE A DAY AT THE SAME TIME EACH DAY 30 patch Active Tirzepatide-Weight Management (Zepbound) 2.5 MG/0.5ML solution auto-injector Inject 0.5 mL (2.5 mg) under the skin 1 (one) time per week. 2 mL 3 Active montelukast (Singulair) 10 MG tablet TAKE ONE TABLET BY MOUTH EVERY EVENING 90 tablet Active ondansetron ODT (Zofran-ODT) 8 MG disintegrating tablet DISSOLVE ONE TABLET BY MOUTH EVERY 6 HOURS NEEDED 20 tablet 3 Active amitriptyline (Elavil) 25 MG tabletIndications: Nonintractable chronic migraine TAKE ONE TABLET BY MOUTH DAILY AT BEDTIME 90 tablet Active Rimegepant Sulfate (Nurtec) 75 MG tablet dispersibleIndicat ions:Nonintractabl e chronic migraine PLACE ONE TABLET BY MOUTH EVERY DAY NEEDED FOR MIGRAINE REPEAT 1 DOSE IN 24 HOURS 12 tablet Active Linzess 145 MCG capsule Take 1 capsule by mouth Once per day. Active esomeprazole (NexIUM) [address] capsule Take 1 capsule by mouth Once per day. Active baclofen (Lioresal) 20 MG tablet TAKE ONE TABLET BY MOUTH THREE TIMES A DAY NEEDED FOR PAIN 90 tablet Active Advair Diskus 500-50 MCG/ACT aerosol powder Inhale 1 puff every 12 (twelve) hours. 60 each 3 025 Active acetaminophen-code ine (Tylenol w/ Codeine #4) 300-60 MG tabletIndications: Nonintractable chronic migraine Take 1 tablet by mouth every 6 (six) hours if needed for severe pain. 30 tablet 04/16/2 025 Active diazePAM (Valium) 10 MG tablet Take 1 tablet (10 mg) by mouth at bedtime. 30 tablet Active acetaminophen-code ine (Tylenol w/ Codeine #4) 300-60 MG tabletIndications: Nonintractable chronic migraine Take 1 tablet by mouth every 6 (six) hours if needed for severe pain. 30 tablet 025 2024 Discontinued(R eorder (will not trigger notification to Pharmacy)) Advair Diskus 500-50 MCG/ACT aerosol powder Inhale 1 puff every 12 (twelve) hours. 025 2024 Discontinued(R eorder (will not trigger notification to Pharmacy)) diazePAM (Valium) 10 MG tablet Take 1 tablet (10 mg) by mouth at bedtime. 30 tablet 025 2024 Discontinued(R eorder (will not trigger notification to Pharmacy)) Active Problems Problem Noted Date Diagnosed Date Impacted tooth 10/12/2024 Dental plaque 10/12/2024 Fractured dental yazidism without loss of mat erial 10/12/2024 Chronic [...] Self Plan [facility], Patient to engage in OP therapy , and Patient to reach out to [facility] as needed Generalized anxiety disorder 03/07/2023 [...] 04/25/2016 12/06/2022 Migraine headache 04/25/2016 03/07/2023 Encounters Date Type Department Care Team Description 02/09/2025 Telephone [facility] [address] [place] [address] Sera Molina DO Prior Authorization ([facility] Denial) 01/20/2025 Refill [facility] [place] [address] Sera Molina DO 01/18/2025 10:00 AM EDT Office Visit [facility] [place] [address] Sera Molina DO Chronic migraine; Chronic gastroesophageal reflux disease 01/18/2025 Travel 01/17/2025 Telephone [facility] [place] [address] Sera Molina DO Prior Authorization ( [facility] Request: [facility]) 01/10/2025 Refill [facility] [place] [address] Sera Molina DO 01/10/2025 Refill [facility] [address] [place] [address] Sera Molina DO Nonintractable chronic migraine 01/10/2025 Telephone [facility] [place] [address] Sera Molina DO Med Refill 01/10/2025 Patient Outreach [facility] [address] [place] [address] Sera Molina DO Pre-visit Planning ((Unable to reach for PVP screening, LVM)) 01/07/2025 Telephone [facility] [address] [place] [address] Sera Molina DO Med Refill 01/07/2025 Population Health Risk Score [facility] () [address] [phone] Provider, Population Health Generic 01/06/2025 Refill [facility] [address] [facility] [place] [address] Sera Molina DO Nonintractable chronic migraine; Chronic migraine 01/06/2025 Refill [facility] [address] [facility] [place] [address] Sera Molina DO Chronic migraine 12/30/2024 Telephone [facility] [address] [facility] [place] [address] Sera Molina DO 12/28/2024 Telephone [facility] [address] [place] [address] Sera Molina DO Prior Authorization 12/22/2024 Refill [facility] [address] [place] [address] Sera Molina, 12/22/2024 Refill [facility] [address] [place] [address] Sera Molina, 12/22/2024 Refill [facility] [address] [place] [address] Sera Molina, 12/14/2024 Refill [facility] [address] [place] [address] Sera Molina, DO 12/08/2024 Refill [facility] [address] [place] [address] Sera Molina DO Chronic migraine; Nonintractable chronic migraine 12/08/2024 Refill [facility] [address] [place] [address] Cony Yanez MD Nonintractable chronic migraine 12/08/2024 Refill [facility] [address] [place] [address] Emmy Cruz MD Nonintractable chronic migraine 12/08/2024 Telephone [facility] [address] [place] [address] Sera Molina DO Durable Medical Equipment 12/07/2024 12:00 PM EST Office Visit [facility] [address] [place] [address] Sera Molina DO 12/07/2024 Travel 12/01/2024 Outside Procedure [facility] OPTOMET[facility] [address] [place] [address] Jose, Kaela, OD Regular astigmatism of both eyes (Primary Dx) 11/30/2024 Telephone [facility] [address] [place] [address] Sera Molina DO Call Back Request 11/30/2024 Refill [facility] [address] [place] [address] Sera Molina DO from Last 3 Months Immunizations Name Administration [...] your housing situation today? I have ca sing 09/02/[address] you li [...] 77 01/18/2025 10:12 AM EDT Temperature 35.7 ??C (96.2 ??F) 01/18/2025 10:12 AM E DT Respiratory Rate 20 01/18/2025 10:12 AM EDT Oxygen Saturation 98% 01/18/2025 10:12 AM EDT Inhaled Oxygen Concentration - - Weight 85.7 kg (189 lb) 01/18/2025 10:12 AM EDT Height 157.5 cm (5' 2 ) 01/18/2025 10:12 AM EDT Body Mass Index 34.57 01/18/2025 10:12 AM EDT Plan of Treatment Upcoming Encounters Date Type Department Care Team (Late st Contact Info) Description 04/12/2025 3:00 PM EDT Office Visit [facility] ADULT DENTAL [address] [place] [address] Loreto Lopez [address] [place] [address] Health Maintenance Due Date Last Done Comments [...] 07/24/2018 Pap Smear 07/24/2023 07/24/2018 COVID-19 Vaccine (3 - season) 2024 03/08/2021, 02/08/2021 Influenza Vaccine (#1) 2024 08/31/2012 Zoster Vaccines (1 of 2) 2024 Mammogram 03/07/2025 03/07/2023, 03/27, 04/14/2020, Additional history exists Dental Prophylaxis 04/13/2025 10/12/2024, 0 04/24/2022, 01/04/2021, Additional history exists Diabetes: Hemoglobin A1C 07/02/2025 07/02/2024 SDOH Screening 09/02/2025 09/02/2024 Depression Screening 10/08/2025 10/08/2024, 10/08/20 24 Dental X-Ray: Bitewings 10/13/2025 10/12/20 24, 09/30/2023, 04/24/2022, Additional history exists Alcohol/Substance Use Screening 01/18/2026 01/18/2025 Tobacco Screening 01/18/2026 01/18/2025 Dental X-Ray: Full Mouth 10/13/2027 024, 12/27/2020, [...] Procedure Name Priority Date/Time Associated Diagnosis Comments AMB REFERRAL TO NEUROLOGY Urgent 12/29/2024 Nonintractable chronic migraine PROPHYLAXIS - ADULT Routine 10/12/2024 1 :00 PM EST INTRAORAL - COMPLETE SERIES OF RADIOGRAPHIC IMAGES Routine 10/12/2024 1:00 PM EST LIPID PANEL, STANDARD Routine 10/06/2024 12:46 PM EST Other hyperlipidemia HEPATITIS B, C PROFILE Routine 07/02/2024 12:34 [...] Recently Relevant to Health Maintenance Results * Referral to Neurology (12/29/2024) Sera Molina DO OUTPATIENT REFERRAL ORDERABL ES Edited Result - Final * (ABNORMAL) Lipid Panel, Standard (10/06/2024 12:46 PM EST) Triglycerides 272(H) <150 mg/dL [facility] Comment:Desirable Triglyceri de: less than 150 mg/dLBorderline High Triglyceride 150-199 mg/dLHigh Triglyceride: 200-499 mg/dLVery High Triglyceride: greater than or equal to 5OO mg/dL Cholesterol 249(H) <200 mg/dL [facility] Comment:Desirable Cholestero l: less than 200 mg/dLBorderline High Cholesterol: 200-239 mg/dLHigh Cholesterol: greater than 239 mg/dL LDL Cholesterol Calculated 152(H) <100 mg/dL [facility] Comment:Desirable LDL: less than 100 mg/dLNear Optimal/Above Optimal LDL: 110- 129 mg/dLBorderline High LDL: 130-159 mg/dLHigh LDL: 160-189 mg/dLVery High LDL: greater than or equal to 190 mg/dL HDL Cholesterol 43 >40 mg/dL [facility] Comment:Desirable HDL: great er than 40 mg/dL Note: This HDL assay may give artificially low results in patients with liver disease. Blood Venous blood specimen / Unknown 10/06/2024 12:46 PM EST 10/06/2024 1:13 PM EST us Sera Molina DO LAB BLOOD ORDERABLES Final R esult [facility] [address] [place] [phone] * Hepatitis B, C Profile (07/02/2024 12:34 PM EDT) ~Hepatitis B Surface Antibody NONREACTIVE Nonreactive [facility] Comment:Nonreactive: < 8.00 mIU/mL Hepatitis B Core Antibody Nonreactive Nonreactive [facility] Hepatitis C Antibody Nonreactive Nonreactive [facility] Comment:Antibodies to HCV no t detected; does not exclude early acuteHCV infection. Hepatitis B Surface Ag Negative Negative [facility] 07/02/2024 12:3 4 PM EDT 07/02/2024 12:34 PM EDT Sera Molina Arnica LAB BLOOD ORDERABLES Final R esult Performing Organization Address [facility]/ZIP Co de Phone Number [facility] [address] [place] [phone] * HIV-1/2 Antigen and Antibodies, Fourth Generation, with Reflexes (07/02/2024 12:34 PM EDT) HIV AB/AG Nonreactive Nonreactive [facility] Comment:HIV-1 p24 Ag and/or HIV-1/HIV-2 Ab not detected.A test result that is nonreactive does not exclude thepossibility of exposure to or infection with HIV-1 and/orHIV-2. Nonreactive results in this assay for individualswith prior exposure to HIV-1 and/or HIV-2 may be due toantigen and antibody levels that are below the limit ofdetection of this assay.The Loopcam HIV Ag/Ab Combo assay result andsupplemental assay results should be interpreted inconjunction with the patient's clinical presentation,history and other laboratory results. If the results areinconsistent with clinical evidence, additional testing issuggested to confirm the result. Blood Venous blood specimen / Unknown 07/02/2024 12:34 PM EDT 07/02/2024 12:34 PM EDT Sera Molian LAB BLOOD ORDERABLES Final R esult Performing Organization Address [facility]/ZIP Co de Phone Number [facility] [address] [place] [phone] * Hemoglobin A1c (07/02/2024 12:34 PM EDT) Hemoglobin A1c 5.9 <6.0 % [facility] Comment:Hemoglobin A1C Refer ence Range Adults: 4.8 - 6.0 % Non diabetic: < 6.0 % Goal: < 7.0 %Additional Action Suggested: > 8.0 %Note: Hemoglobin A1c results are invalid for patients with abnormal amounts of HbF. Blood transfusions may impact the HbA1c concentration in the patient sample. Estimated Average Glucose 123 mg/dL [facility] Comment:eAG = Estimated ave rage glucose which is %A1C expressed asaverage glucose, using the formula of the A7X-FgfuyaeRtljlxj Glucose study (ADAG), Diabetes Care, Vol.31,#8,May. 2007 Blood Venous blood specimen / Unknown 07/02/2024 12:34 PM EDT 07/02/2024 12:34 PM EDT Sera Molina DO LAB BLOOD ORDERABLES Final R esult [facility] [address] [place] [phone] * Mammography (03/07/2023 2:40 PM EDT) Pathologist Counts include 234 beds at the [facility] Mammogram BI-rads 1 Anatomical Region Laterality Modality Other Radha Pascual [facility] HEALTH MAINTENANCE Final Result * HPV E6/E7 RFLX FAROOQ 16 18/45 (07/24/2018 10:25 AM EDT) Pathologist [facility] HPV 16 RNA Test not performed [facility] HPV 18/45 RNA Test not performed [facility] HPV mRNA E6/E7 Not Detected NOT DETECTED [facility] Comment: This test was performed using the APTIMA(R) HPV Assay ([employer] This assay detects E6/E7 viral messenger RNA (mRNA) from 14 high-risk HPV types (16,18,31,33,35,39,45,51, 52,56,58,59,66,68). For additional information please refer to: http://education.questdiagnostics.com/faq/MUD042m0 (This link is being provided for informational/ educational purposes only.) The analytical performance characteristics of this assay have been determined by [employer] [place], [place]. The modifications have not been cleared or approved by the FDA. This assay has been validated pursuant to the CLIA regulations and is used for clinical purposes. Please note: ??Effective 07/08/2016, HPV testing will be performed using [employer]'s APTIMA test which targets mRNA. Detecting mRNA instead of DNA, as in older methods, offers significant improvements in specificity. ADDITIONAL TESTING Not indicated () [facility] Comment: Test Performed by [employer], [address] [place] [address] Nikhil Ron M.D., Ph.D., Director of Laboratories , [place] [id number] 07/24/2018 10:2 5 AM EDT Sera Molina DO HISTORICAL/NON ORDERABLE LAB S Final Result [facility] [address] * Pap Smear (07/24/2018) Pap smear performed Historical Provider MD HEALTH MAINTENANCE Final Result from Last 3 Months or Most Recently Relevant to Health Maintenance Insurance [id number] [employer] FULL [facility] C3 DENTAL-[facility] MEDICAID STAND ADULT [facility]AL - [facility] Care Teams Building Mover Relationship Specialty Start Date End Date Sera Molina DO [address] [place] [address] PCP - General Family Medicine 09/09/13
--- OUTSIDE RECORDS SUMMARY | 2025-02-25 15:46 | XMS_ITS | Encounter Summary ---
Author Organization [employer] Address [address] [facility] 7t [place] [address] Care Team Providers Care Australian Rules Footballer Name Role Phone Jesse Sera Primary Care Provider + [phone] Reason for Visit * Reason Comments Med Refill Encounter Details Date Type Department Care Team ([facility] st Contact Info) Description 01/24/2024 Refill [facility] [address] [place], [place] [phone] Tigist Belcher NP [address] [place] [address] Chronic gastroesophageal reflux disease Social History Tobacco [...] Description 04/12/2025 3:00 PM EDT Office Visit [facility] ADULT DENTAL [address] [place] [address] Albert Lopezaris [address] [place] [address] documented as of this encounter Visit Diagnoses Diagnosis Chronic gastroesophageal reflux disease documented in this encounter Additional Health Concerns Assessment Noted Time PHQ-9 Depression Total Score: 15 023 10:49 AM EDT documented as of this encounter Care Teams Australian Rules Footballer Relationship Specialty Start Date End Date Sera Molina DO [address] [place] [address] PCP - General Family Medicine 09/09/13 documented as of this encounter
--- OUTSIDE RECORDS SUMMARY | 2025-02-25 15:46 | XMS_ITS | Encounter Summary ---
Author Organization [facility] Address [address] [place] [address] 7 [place] [address] Care Team Providers Care Recessing Machine Operator Name Role Phone Sera Molina DO Primary Care Provider + [phone] Encounter Details Date Type Department Care Team (Latest Contact Info) Description 04/24/2022 Abstract [facility] CONVERSIONS Dental, Provider, DDS Social History Tobacco [...] Office Visit [facility] ADULT DENTAL [address] [place] [address] Jessica, Loreto [address] [place] [address] documented as of this encounter Visit Diagnoses Not on filedocumented in this encounter Care Teams Recessing Machine Operator Relationship Specialty Start Date End Date Sera Molina DO [address] [place] [address] PCP - General Family Medicine 09/09/13 documented as of this encounter
--- OUTSIDE RECORDS SUMMARY | 2025-02-25 15:46 | XMS_ITS | Encounter Summary ---
Author Organization [employer] Address [address] [place] [address] 7t [place] [address] Care Team Providers Care High School Biology Teacher Name Role Phone Sera Molina DO Primary Care Provider + [phone] Reason for Referral * Imaging (Routine) - Closed Specialty Diagnoses / Procedures Referred By Contac t Referred To Contact Diagnoses Dizziness Tinnitus of both ears Procedures Mr Brain w/ and w/o Contrast Sera Molina DO [address] [place] [address] Phone: tel: fax: [address] Phone: tel: fax: Referral ID Status Reason Start Date Expiration Date Visits Re quested Visits Authorized [id number] Closed 03/12/2023 03/11/2024 1 1 Reason for Visit * Reason Onset Date Comments MRI order 03/12/2023 Encounter Details Date Type Department Care Team (Late st Contact Info) Description 03/12/2023 Telephone [facility] [address] [place], [place] [phone] Sera Molina DO [address] [place], [place] [phone] MRI order Social History Tobacco Use Types [...] 9:28 AM EDT Tc from Kwame at [facility] requesting status on message below. Pt is scheduled for tomorrow 03/14/23 * Telephone Encounter - Adriana Ochoa - 03/12/2023 1:57 PM EDT Tc from Kwame from [facility] [place] department requesting for order to be modify to MRI brain with and without contract . Please call to clarify [phone] . documented in this encounter Plan of Treatment Upcoming Encounters Date Type Department Care Team (Late st Contact Info) Description 04/12/2025 3:00 PM EDT Office Visit [facility] ADULT DENTAL [address] [place] [address] Loreto Lopez [address] [place] [address] Scheduled Orders Name Type Priority Associated Diagnoses [...] documented as of this encounter Care Teams High School Biology Teacher Relationship Specialty Start Date End Date Sera Molina DO [address] [place] [address] PCP - General Family Medicine 09/09/13 documented as of this encounter
--- OUTSIDE RECORDS SUMMARY | 2025-02-25 15:46 | XMS_ITS | Encounter Summary ---
Author Organization [employer] Address [address] [facility] 7 [place] [address] Care Team Providers Care Business Applications Specialist Name Role Phone Sera Molina DO Primary Care Provider + [phone] Reason for Visit * Reason Onset Date Comments Med Refill 08/22/2023 Encounter Details Date Type Department Care Team ([facility] st Contact Info) Description 08/22/2023 Telephone [facility] MEDICINE [address] [place], [place] [phone] Sera Molina DO [address] [place], [place] [phone] Med Refill Social History Tobacco Use Types [...] sign off on med. Please contact at [phone] * Telephone Encounter - Sera Zambrano LPN [...] Description 04/12/2025 3:00 PM EDT Office Visit [facility] ADULT DENTAL [address] [place] [address] Loreto Lopez [address] [place] [address] documented as of this encounter Visit Diagnoses Not on filedocumented in this encounter Additional Health Concerns Assessment Noted Time PHQ-9 Depression Total Score: 15 023 10:49 AM EDT documented as of this encounter Care Teams Business Applications Specialist Relationship Specialty Start Date End Date Sera Molina DO [address] [place] [address] PCP - General Family Medicine 09/09/13 documented as of this encounter
--- OUTSIDE RECORDS SUMMARY | 2025-02-25 15:47 | XMS_ITS | Encounter Summary ---
Author Organization [employer] Address [address] [facility] 7 [place] [address] Care Team Providers Care Clipping Marker Name Role Phone Sera Molina DO Primary Care Provider + [phone] Reason for Visit * Reason Onset Date Comments Nurse Triage 08/18/2024 Encounter Details Date Type Department Care Team ([facility] st Contact Info) Description 08/18/2024 Telephone [facility] MEDICINE [address] [place], [place] [phone] Sera Molina DO [address] [place] [address] Nurse Triage Social History Tobacco Use Types [...] vapo rub liquid and was seen in [facility] 07/29/24. Pt reports ever since then has had some asthma symptoms that are not going away. Pt denies fever, cough. Pt reports using daughters symbicort inhaler with good effect. Pt is aware that using another persons prescription medication is not to be done. Pt is advised to come to [facility] and Pt reports will come tomorrow, Hours given thurs-fri 830am- 400pm and Sat. 900am-12pm. Pt agrees with this disposition. Pt is advised to bring insurance card to visit credit underwriter unable to verify. Protocol Used: Asthma [...] You become worse * Telephone Encounter - Jjbhavna Taylor - 08/18/2024 1:10 PM EDT Symptom: Excessive Thirst Outcome: Schedule a same-day appointment or talk to a nurse or provider today Reason: Caller denied all higher acuity questions documented in this encounter Plan of Treatment Upcoming Encounters Date Type Department Care Team (Late st Contact Info) Description 04/12/2025 3:00 PM EDT Office Visit [facility] ADULT DENTAL [address] [place] [address] Jessica, Loreto [address] [place] [address] documented as of this encounter Visit Diagnoses Not on filedocumented in this encounter Additional Health Concerns Assessment Noted Time PHQ-9 Depression Total Score: 15 023 10:49 AM EDT documented as of this encounter Care Teams Clipping Marker Relationship Specialty Start Date End Date Sera Molina DO [address] [place] [address] PCP - General Family Medicine 09/09/13 documented as of this encounter
== END ==
LOC: HO.HGI 15:44
PROVIDERS: PCP Family Medicine; Visit Provider Nurse Practitioner Family
DX: R10.13 Epigastric pain (principal); K21.9 Gastro-esophageal reflux disease without esophagitis; K58.1 Irritable bowel syndrome with constipation
CPT/HCPCS: 99214

== ENCOUNTER 2025-06-01 08:16 | Outpatient (AMB) | payer MEDICAID, SELFPAY ==
--- OUTSIDE RECORDS SUMMARY | 2025-06-01 08:19 | XMS_ITS | Clinical Summary ---
Author Organization [facility] Address [address] [place] [address] Care Team Providers Care Welt Maker Name Role Phone Unavailable Primary Care Provider [...] Vaccine ( - 2023-2 5 season) 2024 Depression Screening 10/27/2024 Pneumococcal Vaccine: 50+ Ye ars (1 of 1 - PCV) 2024 Zoster Vaccines (1 of 2) 2024 Influenza Vaccine (#1) 2025 HIB Vaccines Aged Out No longer [...]
--- OUTSIDE RECORDS SUMMARY | 2025-06-01 08:19 | XMS_ITS | Encounter Summary ---
Author Organization [employer] Address [address] [facility] 7 [place] [address] Care Team Providers Care Mapping Technician Name Role Phone Sera Molina DO Primary Care Provider + [phone] Reason for Visit * Reason Onset Date Comments Med Refill 01/10/2025 Encounter Details Date Type Department Care Team (Late st Contact Info) Description 01/10/2025 Refill [facility] [address] [place], [place] [phone] Sera Molina DO [address] [place] [address] Social History Tobacco Use Types Packs/Day Years [...] Care Team (Late st Contact Info) Description 08/18/2025 1:00 PM EDT Clinical Support [facility] [address] [place] [address] Caterina Lan RN documented as of this encounter Visit Diagnoses Not on filedocumented in this encounter Additional Health Concerns Assessment Noted Time PHQ-9 Depression Total Score: 20 024 8:02 AM EST documented as of this encounter Care Teams Mapping Technician Relationship Specialty Start Date End Date Sera Molina DO [address] [place] [address] PCP - General Family Medicine 09/09/13 documented as of this encounter
--- OUTSIDE RECORDS SUMMARY | 2025-06-01 08:20 | XMS_ITS | Referral Summary ---
Author Organization [facility] Address [address] [place] [address] Care Team Providers Care Green Jobs Trainer Name Role Phone Sera Molina Primary Care Provider +1- [phone] Allergies No known active allergies Medications No [...] Plan of Treatment Not on file Insurance [address] [address] Care Teams Green Jobs Trainer Relationship Specialty Start Date End Date Sera Molina [address] [place] [id number] PCP - General Family Medicine 09/30/24
--- NOTE | 2025-06-01 08:26 | A.OFFVIS_ITS ---
Vital Signs 06/01/25 08:31 Height 5 ft 2 in Weight 165 lb BMI 30.2 BP 116/66 Blood Pressure Location Rt brachial Position Sitting Pulse 82 Pulse Source Pulse Oximeter Pulse Oximetry (%) 100 Oxygen Delivery Method Room Air Intake Visit Reasons: reflux, still waking up at night Intake Note: ESTABLISHED PATIENT for mgmt of GERD, abd pain, CIC. CC; Pt reports therapy not effective. Having SOB and waking up at night. Constipation has improved per pt. 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 Continue avoiding dietary triggers in late night snacking. Staying upright for minimal 3 hours after meals discussed with patient. Patient will follow FODMAP diet. List of food recommended as well as list of food to avoid given to patient. Patient was EKG food patient is feasible she ate courage her to get [id number] fiber with pre and probiotic. Patient will start taking Dulcolax daily. Patient would prefer to return to the office once more before going for endoscopy and colonoscopy. New bisacodyl (Dulcolax (bisacodyl)) 10 mg (2 x 5 mg) PO BEDTIME 180 tabs 4RF Discontinued linaclotide Discontinued Reason: Doctor's Order 145 mcg PO DAILY 30 caps 2RF TODAY'S VISIT: Patient is here today to discuss going for colonoscopy and for follow-up. Patient reports she continues to have epigastric pain and reflux during the night. Currently she is taking famotidine at bedtime and Nexium in the morning. Patient reports that she is moving her bowels better now that she is taking Dulcolax. Patient is taking Dulcolax as needed. Patient reports occasional dysphagia without odynophagia. Denies melena, hematochezia, unintentional catia ght loss or ribbon like stools. Patient denies any cardiac or respiratory symptoms. Not on any anticoagulation medication. [facility] Medical History Migraine with aura Asthma Aneurysm Surgical History S/P Botox injection Status post cholecystectomy Family History Mother Diabetes Social History Household Members: Spouse and Children Housing: House Alcohol intake: never Patient Tobacco Use Status: Never used Tobacco Current occupational status: unemployed Sexual orientation: Straight/Heterosexual Gender identity: Female Female Reproductive History Menstrual Age of Menarche: 8 Review of Systems Const Denies weight gain and Denies weight loss ENT Reports no additional complaints, Reports dysphagia and Denies odynophagia Card Reports no additional complaints Resp Reports no additional complaints GI Reports abdominal pain (Epigastric), Denies belching, Denies melena, Reports bloating, Denies change in bowel habits, Reports constipation, Reports dysphagia, Denies excessive flatus, Denies dyspepsia, Reports heartburn, Denies diarrhea, Reports loose stools (Occasional), Denies nausea, Denies odynophagia and Denies vomiting Reports no additional complaints Musc Reports no additional complaints Neuro Reports no additional complaints Psych Reports no additional complaints Endo Reports no additional complaints Physical Exam Vital Signs: Last Vital Signs Pulse 82 06/01/25 08:31 BP 116/66 06/01/25 08:31 Pulse Ox 100 06/01/25 08:31 Oxygen Delivery Method Room Air 06/01/25 08:31 BMI result Body Mass Index 30.2 Const General: healthy appearing and no acute distress Nutritional Appearance: obese Orientation/consciousness: patient oriented x3 Resp Effort & Inspection: normal respiratory effort, able to speak in complete sentences, no tracheal deviation and symmetric chest movement Auscultation: clear to auscultation bilaterally Cardio Rate: regular rate GI Inspection: Yes normal to inspection, No distended and Yes obesity Palpation (GI): Soft to palpation, not firm, nontender and No hepatosplenomegaly present Auscultation: normal bowel sounds General: Yes no CVA tenderness Back/Spine/Pelvis Back: no CVA tenderness Skin General skin exam: elasticity normal, turgor normal and dry skin Neuro General: patient oriented x3 Psych Appearance: grossly normal Mental Status: mental status grossly normal Assessment & Plan Assessment & Plan (1) Postprandial epigastric pain: Code(s): R10.13 - Epigastric pain (2) Gastroesophageal reflux disease: Code(s): K21.9 - Gastro-esophageal reflux disease without esophagitis Qualifiers: Esophagitis presence: esophagitis presence not specified Qualified Code(s): K21.9 - Gastro-esophageal reflux disease without esophagitis (3) Dyspepsia: Code(s): R10.13 - Epigastric pain (4) Constipation: Code(s): K59.00 - Constipation, unspecified Qualifiers: Constipation type: slow transit constipation Qualified Code(s): K59.01 - Slow transit constipation (5) Irritable bowel syndrome: Code(s): K58.9 - Irritable bowel syndrome, unspecified Qualifiers: Irritable bowel syndrome type: with both diarrhea and constipation Qualified Code(s): K58.2 - Mixed irritable bowel syndrome (6) Encounter for screening for malignant neoplasm of colon: Code(s): Z12.11 - Encounter for screening for malignant neoplasm of colon Plan Continue Nexium in the morning. Avoid dietary triggers a late does not her GERD staying upright for minimal 3 hours after meals discussed with patient. Patient will stop famotidine at bedtime and will take sucralfate in the afternoon and at bedtime. Patient may sleep on couple pillows. Continue taking Dulcolax as ordered. Patient will be sent for upper endoscopy and colonoscopy. What to expect before during and after procedure discussed with patient. Stressed the importance of good bowel prep and clear liquid diet after the procedure. Message sent to Surgical schedules to book procedure for patient. Patient is agreeable to current plan of care and verbalizes understanding of instructions. She was given the opportunity to ask questions and all questions answered. Thank you for allowing me to participate in her care Medications: New sucralfate 1 g PO BID 60 tabs 2RF K21.9 - Gastro-esophageal reflux disease without esophagitis Discontinued sucralfate Daily at 2 pm Discontinued Reason: Doctor's Order 10 mL PO DAILY 400 mL 3RF K21.9 - Gastro-esophageal reflux disease without esophagitis famotidine Discontinued Reason: Doctor's Order 40 mg PO BEDTIME 30 tabs 3RF K21.9 - Gastro-esophageal reflux disease without esophagitis Coding Level of Care Code Est Pt Level 4 (77985) Complex EM visit Add On G2211 Diagnoses Postprandial epigastric pain R10.13 Gastroesophageal reflux disease, unspecified whether esophagitis present K21.9 Esophagitis presence: esophagitis presence not specified Dyspepsia R10.13 Slow transit constipation K59.01 Constipation type: slow transit constipation Irritable bowel syndrome with both constipation and diarrhea K58.2 Irritable bowel syndrome type: with both diarrhea and constipation Encounter for screening for malignant neoplasm of colon Z12.11 Time Spent (min) 35 Comment 25 minutes spent with patient and additional 10 minutes spent reviewing her records
[2025-06-01 08:31] VITALS: BP 116/66; PULSE 82; O2SAT 100; BMI 30.2
== END 2025-06-01 08:56 | disposition home or self-care (01) ==
LOC: HO.HGI 08:16
PROVIDERS: PCP Family Medicine; Visit Provider Nurse Practitioner Family
DX: R10.13 Epigastric pain (principal); K21.9 Gastro-esophageal reflux disease without esophagitis; K59.01 Slow transit constipation; K58.2 Mixed irritable bowel syndrome
CPT/HCPCS: 99214

== ENCOUNTER → 2025-06-01 08:16 | Outpatient (BNVA) | payer MEDICAID, SELFPAY | PROVIDERS: PCP Family Medicine; Visit Provider Nurse Practitioner Family | DX: K21.9 Gastro-esophageal reflux disease without esophagitis (principal); K59.01 Slow transit constipation; R10.13 Epigastric pain; K58.2 Mixed irritable bowel syndrome; Z12.11 Encounter for screening for malignant neoplasm of colon | CPT/HCPCS: 99212 ==

== ENCOUNTER 2025-07-22 14:47 | Outpatient (AMB) | payer MEDICAID, SELFPAY ==
--- OUTSIDE RECORDS SUMMARY | 2025-01-18 10:00 | XMS_ITS | Encounter Summary ---
Author Organization [employer] Address [address] [place] [address] Care Team Providers Care Dermatology Nurse Practitioner Name Role Phone Norm Molina DO Primary Care Provider [phone] Reason for Referral * Consultation (Urgent) - Authorized Specialty Diagnoses / Procedures Referred By Ana dolan Referred To Contact Neurology Diagnoses Nonintractable chronic migraine Norm Molina DO [address] [place] [address] Phone: tel: fax: [facility] Neurology [address] [place] [address] Phone: tel: fax: Referral ID Status Reason Start Date Expiration Date Visits Requested Visits Authorized [id number] Authorized Specialty Services Required 07/19/2025 07/19/2026 1 1 * Consultation (Routine) - Authorized Specialty Diagnoses / Procedures Referred By Ana dolan Referred To Contact Chiropractic Medicine Diagnoses Chronic pain of both shoulders Norm Molina DO [address] [place] [address] Phone: tel: fax: [facility] [address] [place] [address] Phone: tel: fax: Referral ID Status Reason Start Date Expiration Date Visits Requested Visits Authorized [id number] Authorized Specialty Services Required 04/12/2025 04/12/2026 20 20 Encounter Details Date Type Department Care Team (Latest Contact Info) Description 01/18/2025 10:00 AM EDT Office Visit [facility] [address] [place] [address] Norm Molina DO [address] [place] [address] Chronic migraine (Primary Dx); Chronic gastroesophageal reflux disease; Chronic pain of both shoulders Social History Tobacco Use Types Packs/Day Years [...] Sign Reading Time Taken Comments Blood Pressure 106/71 01/18/2025 10:12 AM EDT Pulse 77 01/18/2025 10:12 AM EDT Temperature 35.7 C (96.2 F) 01/18/2025 10:12 AM EDT Respiratory Rate 20 01/18/2025 10:12 AM EDT Oxygen Saturation 98% 01/18/2025 10:12 AM EDT Inhaled Oxygen Concentration - - Weight 85.7 kg (189 lb) 01/18/2025 10:12 AM EDT Height 157.5 cm (5' 2 ) 01/18/2025 10:12 AM EDT Body Mass Index 34.57 01/18/2025 10:12 AM EDT documented in this encounter Functional Status * Over the last 2 weeks, how often have you been bothered by any of the following problems? Question Answer Date of Assessment Author Feeling nervous, anxious, or on edge 1 04/27 2:40 PM EDT Caterina Lan RN Not being able to stop or co ntrol worrying 3 05/19/2025 2:40 PM EDT Caterina Lan RN Worrying too much about diff erent things 2 05/19/2025 2:40 PM EDT Caterina Lan RN Trouble relaxing 1 05/19/2025 2:40 PM EDT Caterina Singer ae, RN Being so restless that it is hard to sit still 2 05/19/2025 2:40 PM EDT Caterina Lan RN Becoming easily annoyed or irritable 0 04/27 2:40 PM EDT Caterina Lan RN Feeling afraid as if somethi ng awful might happen 0 05/19/2025 2:40 PM EDT Caterina Lan RN DESMOND-7 Total Score 9 05/19/2025 2:40 PM EDT Caterina Lan RN documented as of this encounter Progress Notes * Norm Molina DO - 01/18/2025 10:00 AM EDT SUBJECTIVE: Eli Saenz is a 49 y.o. year old female who presents for follow up. HPI Her zepbound PA was denied Topamax made her feel terrible Still have a migraine Saw neurology for rescue appt Didn't get full amt of botox and pain clinic only went very superficial Went to get trigger point injections for 8 days straight, better after the last one Had a migraine 4 days late Back in school 2 courses at [facility] Much less stressed Writing about her experiences Tried the depression meds but stopped after 1 week because made her too anxious and couldn't sleep No therapist, thinks that she needs one Elverta better with neurologist, more connected Gave her stretches Asked for her input on where the pain is Feels setback with bad botox for the last Constant pain, Tried a nurtec last mos which provided some relief Using zofran and T#3 Botox with neuro beginning Review of Systems Constitutional: Negative for chills and fever. Respiratory: Negative for shortness of breath. Cardiovascular: Negative for chest pain and leg swelling. Gastrointestinal: Negative for abdominal pain, diarrhea and vomiting. Neurological: Positive for headaches. Patient Active Problem List Diagnosis Eczema Onychomycosis Cerebral arterial aneurysm Moderate persistent asthma Chronic gastroesophageal reflux disease Chronic migraine Allergic rhinitis Major depression, recurrent, chronic (CMS/HCC) Generalized anxiety disorder Post traumatic stress disorder Chronic pain of left knee Chronic low back pain Chronic neck pain BMI 34.0-34.9,adult Prediabetes Anemia Hyperlipidemia Impacted tooth Dental plaque Fractured dental yazidism without loss of material Allergies Allergen Reactions Pineapple OBJECTIVE Vitals: 01/18/25 1012 BP: 106/71 BP Location: Left arm Patient Position: Sitting BP Cuff Size: Adult Pulse: 77 Resp: 20 Temp: 96.2 ??F (35.7 ??C) TempSrc: Temporal SpO2: 98% Weight: 189 lb (85.7 kg) Height: 5' 2 (1.575 m) Physical [...] Motor: No weakness. Gait: Gait normal. Psychiatric: Mood and Affect: Mood is depressed. Speech: Speech normal. Behavior: Behavior normal. Thought Content: Thought content normal. ASSESSMENT/PLAN Diagnoses and all orders for this visit: Chronic migraine Severe migraines, c/b spasmodic torticollis and TMJ, uncontrolled -cont NB with pain mgmt -cont trigger point injections and botox therapy with new neurologist -cont emgality monthly for migraine prophylaxis -cont amitriptyline and seroquel nightly -cont relpax prn acute migraine -cont tylenol #3 prn severe migraine -cont diazepam nightly -cont baclofen and diclofenac as needed -f/u with PM as scheduled -f/u with neurologist as scheduled -referred to neurology at [facility] for 2nd opinion eval - amitriptyline (Elavil) 25 MG tablet; TAKE ONE TABLET BY MOUTH DAILY AT BEDTIME Chronic gastroesophageal reflux disease - famotidine (Pepcid) 40 MG tablet; Take 1 tablet (40 mg) by mouth at bedtime. - montelukast (Singulair) 10 MG tablet; TAKE ONE TABLET BY MOUTH EVERY EVENING - esomeprazole (NexIUM) [address] capsule; Take 1 capsule (40 mg) by mouth Once per day. - diclofenac (Voltaren) 50 MG EC tablet; Take 1 tablet (50 mg) by mouth if needed in the morning and at bedtime (pain). F/U with me in 3 mos or sooner prn Current Outpatient Medications: acetaminophen (Tylenol) 500 MG tablet, Take 1 tablet by mouth every 8 (eight) hours., Disp: , Rfl: acetaminophen-codeine (Tylenol w/ Codeine #4) 300-60 MG tablet, Take 1 tablet by mouth every 6 (six) hours if needed for severe pain., Disp: 30 tablet, Rfl: 0 albuterol (2.5 MG/3ML) 0.083% nebulizer solution, INHALE [...] MOUTH EVERY DAY, Disp: 90 tablet, Rfl: 1 cholecalciferol (Vitamin D-3) 50 MCG (2000 UT) tablet, Take 1 tablet by mouth in the morning., Disp: , Rfl: clopidogrel (Plavix) 75 MG tablet, Take 1 tablet by mouth at bed time., Disp: , Rfl: cyclobenzaprine (Flexeril) 5 MG tablet, Take 1-2 tablets (5-10 mg) by mouth if needed at bedtime for muscle spasms., Disp: 30 tablet, Rfl: 1 dexlansoprazole (Dexilant) [address] capsule, Take 1 capsule (30 mg) by mouth before breakfast and before evening meal. Do not crush or chew., Disp: 60 capsule, Rfl: 3 diazePAM (Valium) 10 MG tablet, Take 1 tablet (10 mg) by mouth at bedtime., Disp: 30 tablet, Rfl: 0 diclofenac (Voltaren) 50 MG EC tablet, Take [...] AT BEDTIME, Disp: 90 tablet, Rfl: 3 ferrous sulfate (Fe Tabs) 325 (65 Fe) MG EC tablet, Take 1 tablet (325 mg) by mouth Once per day. Do not crush, chew, or split., Disp: 90 tablet, Rfl: 3 fluticasone (Flonase Allergy Relief) 50 MCG/ACT nasal spray, Administer 2 sprays into affected nostril(s) in the morning., Disp: , Rfl: lidocaine (Lidoderm) 5 % patch, APPLY 1 PATCH TOPICALLY ONCE A DAY AT THE SAME TIME EACH DAY, Disp:30 patch, Rfl: 0 montelukast (Singulair) 10 MG tablet, TAKE ONE TABLET BY MOUTH EVERY EVENING, Disp: 90 tablet, Rfl:0 ondansetron ODT (Zofran-ODT) 8 MG disintegrating tablet, DISSOLVE ONE TABLET BY MOUTH EVERY 6 HOURSAS NEEDED, Disp: 20 tablet, Rfl: 3 QUEtiapine (SEROquel) 50 MG tablet, Take 1 [...] by mouth at bedtime., Disp: , Rfl: Tirzepatide-Weight Management (Zepbound) 2.5 MG/0.5ML solution auto-injector, Inject 0.5 mL (2.5 mg) under the skin 1 (one) time per week., Disp: 2 mL, Rfl: 3 Ventolin HFA 108 (90 Base) MCG/ACT inhaler, INHALE 2 PUFFSS EVERY 4 HOURS IF NEEDED FOR WHEEZING, Disp: 18 g, Rfl: 0 documented in this encounter Miscellaneous Notes * Addendum Note - Norm Molina DO - 01/18/2025 10:00 AM EDTAddended by: NORM MOLINA on: 04/06/2025 02:06 PM Modules accepted: Orders * Addendum Note - Norm Molina DO - 01/18/2025 10:00 AM EDTAddended by: NORM MOLINA on: 07/19/2025 02:58 PM Modules accepted: Orders documented in this encounter Plan of Treatment Upcoming Encounters Date Type Department Care Team (Late st Contact Info) Description 07/27/2025 9:00 AM EDT Office Visit [facility] [address] [place] [id number] Norm Molina DO [address] [place] [address] 08/18/2025 1:00 PM EDT Clinical Support [facility] [address] [place] [id number] Caterina Lan, RN 09/05/2025 1:00 PM EST Office Visit [facility] OPTOM[facility] [address] [place] [address] Kaela Garcia, OD [address] [place] [address] Scheduled Referrals Name Type Priority Associated Diagnoses Order Schedule Referral to Chiropractic Outpatient Referral Routine Chronic pain of both shoulders Expected: 04/06/2025 (Approximate), Expires: 04/06/2026 Referral to Neurology Outpatient Referral Urgent Chronic migraine Expected: 07/19/2025 (Approximate), Expires: 07/19/2026 documented as of this encounter Visit Diagnoses Diagnosis Chronic migraine- Primary Chronic gastroesophageal reflux disease Chronic pain of both shoulders documented in this encounter Additional Health Concerns Assessment Noted Time PHQ-9 Depression Total Score: 20 024 8:02 AM EST documented as of this encounter Care Teams Dermatology Nurse Practitioner Relationship Specialty Start Date End Date Norm Molina DO [address] [place] [address] PCP - General Family Medicine 09/09/13 documented as of this encounter
--- NOTE | 2025-07-22 14:50 | MHC.OFFVIS ---
Vital Signs 07/22/25 14:51 Height 5 ft 2 in Weight 165 lb BMI 30.2 BP 114/80 Blood Pressure Location Rt brachial Position Sitting Pulse 92 Pulse Source Pulse Oximeter Pulse Oximetry (%) 100 Oxygen Delivery Method Room Air Intake Visit Reasons: GERD mgmt. 5 weeks. Okay to x2 book. Intake Note: ESTABLISHED PATIENT for mgmt of GERD, abd pain, CIC. CC; Pt denies any GI changes or new concerns at this time. Pt confirms that she has been doing well since last visit. Pt reports spending x1 week outside the [place] in [place]. 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 5 weeks. Okay to x2 book.: Details: LAST VISIT Postprandial epigastric pain Gastroesophageal reflux disease Dyspepsia Constipation Irritable bowel syndrome Encounter for screening for malignant neoplasm of colon Plan Continue Nexium in the morning. Avoid dietary triggers a late does not her GERD staying upright for minimal 3 hours after meals discussed with patient. Patient will stop famotidine at bedtime and will take sucralfate in the afternoon and at bedtime. Patient may sleep on couple pillows. Continue taking Dulcolax as ordered. Patient will be sent for upper endoscopy and colonoscopy. What to expect before during and after procedure discussed with patient. Stressed the importance of good bowel prep and clear liquid diet after the procedure. Message sent to Surgical schedules to book procedure for patient. Patient is agreeable to current plan of care and verbalizes understanding of instructions. She was given the opportunity to ask questions and all questions answered. ? Thank you for allowing me to participate in her care New sucralfate 1 g PO BID 60 tabs 2RF K21.9 Discontinued sucralfate Daily at 2 pm Discontinued Reason: Doctor's Order 10 mL PO DAILY 400 mL 3RF K21.9 famotidine Discontinued Reason: Doctor's Order 40 mg PO BEDTIME 30 tabs 3RF K21.9 TODAY'S VISIT Patient is here today for requested visit. Patient had to cancel her colonoscopy and endoscopy as she was not feeling very well. Patient reports that she was still taking steroids. Will need to reschedule her procedures. Patient reports that she has been feeling better lately. She is taking Nexium every morning and is doing better. Patient states that she did not do very well with sucralfate, however she is taking famotidine as needed patient reports that she was definitely doing better when she was in [place] as she was eating fresh food. Noticed that processed food here is not agreeing with her even though patient is trying to eat healthier food. Patient denies any nausea or vomiting. Denies any dyspepsia, dysphagia or odynophagia. [facility] Medical History Migraine with aura Asthma Aneurysm Surgical History S/P Botox injection Status post cholecystectomy Family History Mother Diabetes Social History Household Members: Spouse and Children Housing: House Alcohol intake: never Patient Tobacco Use Status: Never used Tobacco Current occupational status: unemployed Sexual orientation: Straight/Heterosexual Gender identity: Female Female Reproductive History Menstrual Age of Menarche: 8 Review of Systems Const Denies weight gain and Denies weight loss ENT Reports no additional complaints, Denies dysphagia and Denies odynophagia Card Reports no additional complaints Resp Reports no additional complaints GI Reports abdominal pain (Epigastric, occasional), Denies belching, Denies melena, Reports bloating (Occasional), Denies change in bowel habits, Denies constipation, Denies dysphagia, Denies excessive flatus, Denies dyspepsia, Reports heartburn (Occasional), Denies diarrhea, Reports loose stools (Occasional), Denies nausea, Denies odynophagia and Denies vomiting Reports no additional complaints Musc Reports no additional complaints Neuro Reports no additional complaints Psych Reports no additional complaints Endo Reports no additional complaints Physical Exam Vital Signs: Last Vital Signs Pulse 92 07/22/25 14:51 BP 114/80 07/22/25 14:51 Pulse Ox 100 07/22/25 14:51 Oxygen Delivery Method Room Air 07/22/25 14:51 BMI result Body Mass Index 30.2 Assessment & Plan Assessment & Plan (1) Postprandial epigastric pain: Code(s): R10.13 - Epigastric pain (2) Gastroesophageal reflux disease: Code(s): K21.9 - Gastro-esophageal reflux disease without esophagitis Qualifiers: Esophagitis presence: esophagitis presence not specified Qualified Code(s): K21.9 - Gastro-esophageal reflux disease without esophagitis (3) Dyspepsia: Code(s): R10.13 - Epigastric pain (4) Constipation: Code(s): K59.00 - Constipation, unspecified Qualifiers: Constipation type: slow transit constipation Qualified Code(s): K59.01 - Slow transit constipation (5) Irritable bowel syndrome: Code(s): K58.9 - Irritable bowel syndrome, unspecified Qualifiers: Irritable bowel syndrome type: without diarrhea Qualified Code(s): K58.9 - Irritable bowel syndrome without diarrhea (6) Encounter for screening for malignant neoplasm of colon: Code(s): Z12.11 - Encounter for screening for malignant neoplasm of colon Plan Patient will continue taking Nexium in the morning and famotidine at bedtime as needed. Patient will try to avoid dietary triggers and late night snacking. Staying upright for minimum 3 hours after meals discussed with patient. Continue Dulcolax as needed if no bowel movement in 1-2 days. What to expect before during and after procedure discussed with patient. Stressed the importance of good bowel prep day before the procedure. I will see patient after the procedure. She is agreeable to current plan of care and verbalizes understanding of instructions. She was given the opportunity to ask questions and all questions answered Medications: Discontinued sucralfate Discontinued Reason: Patient no longer taking 1 g PO BID 60 tabs 2RF K21.9 - Gastro-esophageal reflux disease without esophagitis Coding Level of Care Code Est Pt Level 4 (96775) Complex EM visit Add On G2211 Diagnoses Postprandial epigastric pain R10.13 Gastroesophageal reflux disease, unspecified whether esophagitis present K21.9 Esophagitis presence: esophagitis presence not specified Dyspepsia R10.13 Slow transit constipation K59.01 Constipation type: slow transit constipation Irritable bowel syndrome without diarrhea K58.9 Irritable bowel syndrome type: without diarrhea Encounter for screening for malignant neoplasm of colon Z12.11 Time Spent (min) 35 Comment 25 minutes spent with patient and additional 10 minutes spent reviewing her records
[2025-07-22 14:51] VITALS: BP 114/80; PULSE 92; O2SAT 100; BMI 30.2
--- OUTSIDE RECORDS SUMMARY | 2025-07-22 15:36 | XMS_ITS | Encounter Summary ---
Author Organization [employer] Address [address] [place] [address] 7 [place] [address] Care Team Providers Care Cook House Supervisor Name Role Phone Sera Molina DO Primary Care Provider [phone] Encounter Details Date Type Department Care Team (Latest Contact Info) Description 08/11/2019 Abstract [facility] CONVERSIONS Dental, Provider, DDS Social [...] Care Team ( st Contact Info) Description 07/27/2025 9:00 AM EDT Office Visit [facility] MEDICINE [address] [place] [address] Sera Molina DO [address] [place] [address] 08/18/2025 1:00 PM EDT Clinical Support [facility] [address] [place] [address] Caterina Lan RN 09/05/2025 1:00 PM EST Office Visit [facility] OPTOMETRY [address] [place] [address] Kaela Garcia, OD [address] [place] [address] documented as of this encounter Visit Diagnoses Not on filedocumented in this encounter Care Teams Cook House Supervisor Relationship Specialty Start Date End Date Sera Molina DO [address] [place] [id number] PCP - General Family Medicine 09/09/13 documented as of this encounter
--- OUTSIDE RECORDS SUMMARY | 2025-07-22 15:36 | XMS_ITS | Encounter Summary ---
Author Organization [facility] Address [address] [place] [address] Care Team Providers Care Power Barker Operator Name Role Phone Sera Molina Primary Care Provider [phone] Encounter Details Date Type Department Care Team (Late st Contact Info) Description 07/22/2025 Telephone [facility] [address] [place] [phone] Telephone Intake, Staff Social History Tobacco Use Types Packs/Day Years Used Date Smoking Tobacco: Never Smokeless Tobacco: Never Comments Unknown Sex and Gender Information Value Date Recorded Sex Assigned at Female 11/21/2024 5:15 PM EST Legal Sex Female 2:10 PM EST Gender Identity Female 11/21/2024 5:15 PM EST Sexual Orientation Straight 11/21/2024 5: 15 PM EST documented as of this encounter Miscellaneous Notes * Telephone Encounter - Elisabeth Giron - 07/22/2025 3:15 PM EDT Called pt and LVM to schedule New Headache with Dr. Daniels documented in this encounter Plan of Treatment Not on file documented as of this encounter Visit Diagnoses Not on filedocumented in this encounter Care Teams Power Barker Operator Relationship Specialty Start Date End Date Sera Molina [address] [place] [address] PCP - General Family Medicine 09/30/24 documented as of this encounter
--- OUTSIDE RECORDS SUMMARY | 2025-07-22 15:36 | XMS_ITS | Encounter Summary ---
Author Organization [employer] Address [address] [facility] 7 [place] [address] Care Team Providers Care Ammonia Solution Preparer Name Role Phone Sera Molina DO Primary Care Provider + [phone] Reason for Visit * Reason Onset Date Comments Med Refill 06/02/2025 Encounter Details Date Type Department Care Team ([facility] st Contact Info) Description 06/02/2025 Telephone [facility] MEDICINE [address] [place], [place] [phone] Sera Molina DO [address] [place], [place] [phone] Med Refill Social History Tobacco Use Types [...] Description 07/27/2025 9:00 AM EDT Office Visit [facility] MEDICINE [address] [place] [address] Sera Molina DO [address] [place] [address] 08/18/2025 1:00 PM EDT Clinical Support [facility] MEDICINE [address] [place] [address] Caterina Lan RN 09/05/2025 1:00 PM EST Office Visit [facility] OPTOMETRY [address] [place] [address] Kaela Garcia, OD [address] [place] [address] documented as of this encounter Visit Diagnoses Not on filedocumented in this encounter Additional Health Concerns Assessment Noted Time PHQ-9 Depression Total Score: 20 024 8:02 AM EST documented as of this encounter Care Teams Ammonia Solution Preparer Relationship Specialty Start Date End Date Sera Molina DO [address] [place] [address] PCP - General Family Medicine 09/09/13 documented as of this encounter
--- OUTSIDE RECORDS SUMMARY | 2025-07-22 15:36 | XMS_ITS | Encounter Summary ---
Author Organization [employer] Address [address] [facility] 7 [place] [address] Care Team Providers Care Coat Fitter Name Role Phone Sera Molina DO Primary Care Provider + [phone] Reason for Visit * Reason Onset Date Comments Med Refill 07/17/2025 Encounter Details Date Type Department Care Team (Late st Contact Info) Description 07/17/2025 Refill [facility] MEDICINE [address] [place], [place] [phone] Sera Molina DO [address] [place], [place] [phone] Social History Tobacco Use Types Packs/Day Years [...] Description 07/27/2025 9:00 AM EDT Office Visit [facility] MEDICINE [address] [place] [address] Sera Molina DO [address] [place] [address] 08/18/2025 1:00 PM EDT Clinical Support [facility] MEDICINE [address] [place] [address] Caterina Lan RN 09/05/2025 1:00 PM EST Office Visit [facility] OPTOMETRY [address] [place] [address] Kaela Garcia, OD [address] [place] [address] documented as of this encounter Visit Diagnoses Not on filedocumented in this encounter Additional Health Concerns Assessment Noted Time PHQ-9 Depression Total Score: 20 024 8:02 AM EST documented as of this encounter Care Teams Coat Fitter Relationship Specialty Start Date End Date Sera Molina DO [address] [place] [address] PCP - General Family Medicine 09/09/13 documented as of this encounter
--- OUTSIDE RECORDS SUMMARY | 2025-07-22 15:36 | XMS_ITS | Encounter Summary ---
Author Organization [employer] Address 75 [facility] 7 [place] [address] Care Team Providers Care Control Panel Operator Crude Unit Name Role Phone Sera Molina DO Primary Care Provider + [phone] Reason for Visit * Reason Onset Date Comments Med Refill 06/08/2025 Encounter Details Date Type Department Care Team (Late st Contact Info) Description 06/08/2025 Refill [facility] MEDICINE [address] [place], [place] [phone] Sera Molina DO [address] [place] [address] Social History Tobacco Use Types Packs/Day Years [...] Description 07/27/2025 9:00 AM EDT Office Visit [facility] MEDICINE [address] [place] [address] Sera Molina DO [address] [place] [address] 08/18/2025 1:00 PM EDT Clinical Support [facility] MEDICINE [address] [place] [address] Caterina Lan RN 09/05/2025 1:00 PM EST Office Visit [facility] OPTOMETRY [address] [place] [address] Kaela Garcia, OD [address] [place] [address] documented as of this encounter Visit Diagnoses Not on filedocumented in this encounter Additional Health Concerns Assessment Noted Time PHQ-9 Depression Total Score: 20 024 8:02 AM EST documented as of this encounter Care Teams Control Panel Operator Crude Unit Relationship Specialty Start Date End Date Sear Molina DO [address] [place] [address] PCP - General Family Medicine 09/09/13 documented as of this encounter
--- OUTSIDE RECORDS SUMMARY | 2025-07-22 15:36 | XMS_ITS | Encounter Summary ---
Author Organization [employer] Address [address] [place] [address] 7 [place] [address] Care Team Providers Care Global Cto Name Role Phone JesseSera Primary Care Provider + [phone] Reason for Visit * Reason Onset Date Comments Med Refill 12/08/2024 Encounter Details Date Type Department Care Team (Late st Contact Info) Description 12/08/2024 Refill [facility] [address] [place] [address] Emmy Cruz MD [address] [place] [address] Nonintractable chronic migraine Social History Tobacco Use [...] Description 07/27/2025 9:00 AM EDT Office Visit [facility] [address] [place] [phone] Sera Molina DO [address] [place] [address] 08/18/2025 1:00 PM EDT Clinical Support [facility] [address] [place] [address] Caternia Lan RN 09/05/2025 1:00 PM EST Office Visit [facility] [address] [place] [address] Jose, Kaela, OD [address] [place] [address] documented as of this encounter Visit Diagnoses Diagnosis Nonintractable chronic migraine documented in this encounter Additional Health Concerns Assessment Noted Time PHQ-9 Depression Total Score: 20 024 8:02 AM EST documented as of this encounter Care Teams Global Cto Relationship Specialty Start Date End Date Sera Molina DO [address] [place] [id number] PCP - General Family Medicine 09/09/13 documented as of this encounter
--- OUTSIDE RECORDS SUMMARY | 2025-07-22 15:36 | XMS_ITS | Encounter Summary ---
Author Organization [employer] Address [address] [facility] 7 [place] [address] Care Team Providers Care Protective Signal Operations Supervisor Name Role Phone Sera Molina DO Primary Care Provider + [phone] Reason for Visit * Reason Onset Date Comments Med Refill 06/06/2025 Encounter Details Date Type Department Care Team (Late st Contact Info) Description 06/06/2025 Refill [facility] [address] [place], [place] [phone] Sera Molina DO [address] [place], [place] [phone] Nonintractable chronic migraine Social History Tobacco Use [...] Description 07/27/2025 9:00 AM EDT Office Visit [facility] [address] [place] [phone] Sera Molina DO [address] [place] [address] 08/18/2025 1:00 PM EDT Clinical Support [facility] [address] [place] [address] Caterina Lan RN 09/05/2025 1:00 PM EST Office Visit [facility] OPTOM[facility] [address] [place] [address] Kaela Garcia, OD [address] [place] [address] documented as of this encounter Visit Diagnoses Diagnosis Nonintractable chronic migraine documented in this encounter Additional Health Concerns Assessment Noted Time PHQ-9 Depression Total Score: 20 024 8:02 AM EST documented as of this encounter Care Teams Protective Signal Operations Supervisor Relationship Specialty Start Date End Date Sera Molina DO [address] [place] [id number] PCP - General Family Medicine 09/09/13 documented as of this encounter
--- OUTSIDE RECORDS SUMMARY | 2025-07-22 15:36 | XMS_ITS | Encounter Summary ---
Author Organization [employer] Address [address] [facility] 7 [place] [address] Care Team Providers Care Camera Tuning Engineer Name Role Phone Sera Molina DO Primary Care Provider + [phone] Reason for Visit * Reason Onset Date Comments Med Refill 06/29/2024 Encounter Details Date Type Department Care Team ([facility] st Contact Info) Description 06/29/2024 Telephone [facility] [address] [place], [place] [phone] Sera Molina DO [address] [place], [place] [phone] Med Refill Social History Tobacco Use Types [...] sent to: [id number] [place], [place] - [address] [place] [address] documented in this encounter Plan of Treatment Upcoming Encounters Date Type Department Care Team (Late st Contact Info) Description 07/27/2025 9:00 AM EDT Office Visit [facility] [address] [place] [address] Sera Molina DO [address] [place] [address] 08/18/2025 1:00 PM EDT Clinical Support [facility] [address] [place] [address] Caterina Lan RN 09/05/2025 1:00 PM EST Office Visit [facility] OPTOMETRY [address] [place] [address] Kaela Garcia, OD [address] [place] [address] documented as of this encounter Visit Diagnoses Not on filedocumented in this encounter Additional Health Concerns Assessment Noted Time PHQ-9 Depression Total Score: 15 023 10:49 AM EDT documented as of this encounter Care Teams Camera Tuning Engineer Relationship Specialty Start Date End Date Sera Molina DO [address] [place] [address] PCP - General Family Medicine 09/09/13 documented as of this encounter
--- OUTSIDE RECORDS SUMMARY | 2025-07-22 15:36 | XMS_ITS | Clinical Summary ---
Author Organization [employer] Address [address] [place] [address] [address] [place] [address] Care Team Providers Care Underground Electrician Name Role Phone Jesse Sera Primary Care Provider + [phone] Allergies Active Allergy Reactions Criticality Noted Date Comments Pineapple 12/06/2022 Medications * This document contains information received from the source organization and may not represent a complete record from that organization. acetaminophen (Tylenol) 500 MG tablet Take 1 tablet by mouth every 8 (eight) hours. Active cholecalciferol (Vitamin D-3) 50 MCG (2000 UT) tablet Take 1 tablet by mouth in the morning. 022 Active fluticasone (Flonase Allergy Relief) 50 MCG/ACT nasal spray Administer 2 sprays into affected nostril(s) in the morning. 021 Active QUEtiapine (SEROquel) 50 MG tablet Take 1 tablet by mouth at bedtime. Active Sennosides (Senna) 8.6 MG capsule Take 2 capsules by mouth if needed at bedtime (constipation) . 60 capsule 3 023 Active Emgality 120 MG/ML auto-injector INJECT 120MG [...] (one) time per week. 1 kit Active Ventolin HFA 108 (90 Base) MCG/ACT inhalerIndications :Mild persistent asthma, unspecified whether complicated INHALE 2 PUFFSS EVERY 4 HOURS IF NEEDED FOR WHEEZING 18 g Active sertraline (Zoloft) 25 MG tablet Take 1 tablet (25 mg) by mouth Once per day. 30 tablet 2 024 2024 Active budesonide-formote rol (Symbicort) 160-4.5 MCG/ACT inhaler Inhale 2 puffs in the morning and at bedtime. Rinse mouth with water after use to reduce aftertaste and incidence of candidiasis. Do not swallow. 1 each 11 024 2024 Active Spacer/Aero-Holdin g Chambers (AeroChamber Pls FloVu Mthpiece) device USE WITH INHALER Active ferrous sulfate (Fe Tabs) 325 (65 Fe) MG EC tablet Take 1 tablet (325 mg) by mouth Once per day. Do not crush, chew, or split. 90 tablet 3 024 2024 Active cetirizine (ZyrTEC) 10 MG tablet TAKE 1 TABLET BY MOUTH EVERY DAY 90 tablet 1 Active Linzess 145 MCG capsule Take 1 capsule by mouth Once per day. 025 Active famotidine (Pepcid) 40 MG tabletIndications: Chronic gastroesophageal reflux disease Take 1 tablet (40 mg) by mouth at bedtime. 90 tablet 3 Active esomeprazole (NexIUM) [address] capsule Take 1 capsule (40 mg) by mouth Once per day. 90 capsule 3 025 2025 Active Advair Diskus 500-50 MCG/ACT aerosol powder Inhale 1 puff every 12 (twelve) hours. 60 each 3 025 Active eletriptan (Relpax) 40 MG tablet May repeat after 2 hours if headache returns 18 tablet 3 025 Active albuterol (2.5 MG/3ML) 0.083% nebulizer solution INHALE 1 VIAL VIA NEBULIZER ROUTE EVERY 4 HOURS IF NEEDED 75 mL 1 025 Active naloxone (Narcan) 4 mg/0.1 mL nasal sprayIndications:L luan-term current use of opiate analgesic Administer 1 spray (4 mg) into affected nostril(s) if needed for opioid reversal. May repeat every 2-3 minutes if needed, alternating nostrils, until medical assistance becomes available. 2 each 3 025 2025 Active ondansetron ODT (Zofran-ODT) 8 MG disintegrating tablet DISSOLVE ONE TABLET BY MOUTH EVERY 6 HOURS NEEDED 20 tablet 3 Active Tirzepatide-Weight Management (Zepbound) 2.5 MG/0.5ML solution auto-injector Inject 0.5 mL (2.5 mg) under the skin 1 (one) time per week. 2 mL 3 Active montelukast (Singulair) 10 MG tablet TAKE ONE TABLET BY MOUTH EVERY EVENING 90 tablet Active diclofenac (Voltaren) 50 MG EC tablet TAKE 1 TABLET BY MOUTH IN THE MORNING AND AT BEDTIME NEEDED FOR PAIN 60 tablet 1 Active bisacodyl (Dulcolax) 5 MG EC tablet Take 5 mg by mouth. Active Diclofenac Potassium,Migraine , 50 MG pack DISSOLVE AND TAKE 1 PACKET BY MOUTH AT MIGRAINE ONSET. MAXIMUM OF 1 PACKET IN 24 HOURS. Active Botox 100 units injection Active Diclofenac Sodium 1 % gel APPLY 2 GRAMS TOPICALLY EVERY 6 HOURS NEEDED FOR PAIN 100 g 3 Active amitriptyline (Elavil) 25 MG tabletIndications: Nonintractable chronic migraine TAKE ONE TABLET BY MOUTH DAILY AT BEDTIME 90 tablet Active lidocaine (Lidoderm) 5 % patch APPLY 1 PATCH TOPICALLY ONCE A DAY AT THE SAME TIME EACH DAY 30 patch Active Rimegepant Sulfate (Nurtec) 75 MG tablet dispersibleIndicat ions:Nonintractabl e chronic migraine PLACE ONE TABLET BY MOUTH EVERY DAY NEEDED FOR MIGRAINE REPEAT 1 DOSE IN 24 HOURS 12 tablet Active acetaminophen-code ine (Tylenol w/ Codeine #4) 300-60 MG tabletIndications: Nonintractable chronic migraine Take 1 tablet by mouth every 6 (six) hours if needed for severe pain. 30 tablet Active baclofen (Lioresal) 20 MG tabletIndications: Chronic pain of both shoulders Take 1 tablet (20 mg) by mouth every 8 (eight) hours if needed for muscle spasms. 90 tablet Active diazePAM (Valium) 10 MG tablet Take 1 tablet (10 mg) by mouth at bedtime for 28 days. 28 tablet 2024 Active Diclofenac Sodium 1 % gel Apply 2 g topically every 6 (six) hours if needed (pain). 150 g 3 023 2024 Discontinued(R eorder (will not trigger notification to Pharmacy)) amitriptyline (Elavil) 25 MG tabletIndications: Nonintractable chronic migraine TAKE ONE TABLET BY MOUTH DAILY AT BEDTIME 90 tablet 025 2024 Discontinued(R eorder (will not trigger notification to Pharmacy)) diazePAM (Valium) 10 MG tablet Take 1 tablet (10 mg) by mouth at bedtime. 30 tablet 2 025 2024 Discontinued(R eorder (will not trigger notification to Pharmacy)) baclofen (Lioresal) 20 MG tabletIndications: Chronic pain of both shoulders Take 1 tablet (20 mg) by mouth every 8 (eight) hours if needed for muscle spasms. 90 tablet 025 2024 Discontinued(R eorder (will not trigger notification to Pharmacy)) lidocaine (Lidoderm) 5 % patch APPLY 1 PATCH TOPICALLY ONCE A DAY AT THE SAME TIME EACH DAY 30 patch 025 2024 Discontinued(R eorder (will not trigger notification to Pharmacy)) Rimegepant Sulfate (Nurtec) 75 MG tablet dispersibleIndicat ions:Nonintractabl e chronic migraine PLACE ONE TABLET BY MOUTH EVERY DAY NEEDED FOR MIGRAINE REPEAT 1 DOSE IN 24 HOURS 12 tablet 025 2024 Discontinued(R eorder (will not trigger notification to Pharmacy)) acetaminophen-code ine (Tylenol w/ Codeine #4) 300-60 MG tabletIndications: Nonintractable chronic migraine Take 1 tablet by mouth every 6 (six) hours if needed for severe pain. Do not start before June 16, 2025. 30 tablet 025 2024 Discontinued(R eorder (will not trigger notification to Pharmacy)) Active Problems Problem Noted Date Diagnosed Date Long-term current use of opiate analgesic 2024 Long-term current use of benzodiazepine 05/19/20 25 Impacted tooth 10/12/2024 Dental plaque 10/12/2024 Fractured dental buddhism without loss of mat erial 10/12/2024 Chronic [...] Self Plan [facility], Patient to engage [...] Encounters Date Type Department Care Team Description 07/17/2025 Refill [facility] [address] [facility] [address] Marizol, Lynette, BUNCH TRIMMER MOLD Chronic pain of both shoulders 07/17/2025 Refill [facility] [address] [place] [address] Sera Molina, 07/17/2025 Refill [facility] [address] [place] [address] Sera Molina DO Nonintractable chronic migraine; Chronic pain of both shoulders 07/10/2025 Refill [facility] [address] [place] [address] Sera Molina, Chronic migraine 07/10/2025 Refill [facility] [address] [place] [address] Sera Molina DO 07/10/2025 Refill [facility] [address] [place] [address] Sera Molina, Chronic migraine 07/10/2025 Refill [facility] [address] [place] [address] Sera Molina DO Nonintractable chronic migraine 07/10/2025 Refill [facility] [address] [place] [address] Sera Molina DO 07/10/2025 Refill [facility] [address] [place] [address] Sera Molina DO Chronic migraine 07/07/2025 Telephone [facility] [address] [place] [address] Sera Molina DO Prior Authorization ( PA: [employer]) 07/07/2025 Telephone [facility] [address] [place] [address] Sera Molina DO Call Back Request 06/16/2025 1:00 PM EDT Office Visit [facility] [address] [place] [address] Jose, Kaela, OD Blurry vision, bilateral (Primary Dx); Severe myopia of both eyes 06/16/2025 Travel 06/16/2025 Refill [facility] [address] [place] [address] Sera Molina, 06/14/2025 Refill [facility] [address] [place] [address] Emmy Cruz MD Nonintractable chronic migraine 06/08/2025 Refill [facility] [address] [place] [address] Cony Yanez MD 06/08/2025 Refill [facility] [address] [place] [address] Sera Molina, 06/06/2025 Refill [facility] [address] [place] [address] Sera Molina DO Nonintractable chronic migraine 06/06/2025 Refill [facility] [address] [place] [address] Sera Molina, 06/06/2025 Refill [facility] [address] [place] [address] Sera Molina, 06/06/2025 Refill [facility] [address] [place] [address] Sera Molina DO Nonintractable chronic migraine 06/03/2025 Orders Only [facility] [address] [place] [address] Lynette Fontana FNP Chronic pain of both shoulders (Primary Dx) 06/02/2025 Telephone [facility] [address] [place] [address] Sera Molina DO Med Refill 05/19/2025 1:30 PM EDT Clinical Support [facility] [address] [place] [address] Caterina Lan RN Long-term current use of opiate analgesic (Primary Dx); Long-term current use of benzodiazepine 05/19/2025 Refill [facility] [address] [place] [address] Caterina Lan, RN Long-term current use of opiate analgesic (Primary Dx) 05/19/2025 Travel 05/13/2025 Refill [facility] [address] [place] [address] Caterina Lan, RN Nonintractable chronic migraine from Last 3 Months Immunizations Immunization Administration Dates Next Due Influenza, Split (incl. [...] Description 07/27/2025 9:00 AM EDT Office Visit [facility] [address] [place] [address] Sera Molina DO [address] [place] [address] 08/18/2025 1:00 PM EDT Clinical Support [facility] [address] [place] [address] Caterina Lan, ARVIN 09/05/2025 1:00 PM EST Office Visit [facility] [address] [place] [address] Kaela Garcia, OD [address] [place] [address] Health Maintenance Due Date Last Done Comments CT Colonography 1974 Colonoscopy 1974 Colorectal Cancer Screening 1974 FIT DNA/Cologuard 1974 FIT 1974 FOBT 1974 Sigmoidoscopy 1974 Disability Screening 1974 Family Planning (PISQ) 1989 Hepatitis B Vaccines (1 of 3 - 19+ 3-dose series) 1993 Pneumococcal Vaccine: 50+ Years (2 of 2 - PCV) 09/15/2007 09/15/2006 DTaP/Tdap/Td Vaccines (1 - Tdap) 02/22/2009 02/21/2009 Dental Oral Exam 10/25/2022 04/24/2022, 12/2020, 08/11/2019, Additional history exists Cervical Cancer Screening 07/24/2023 HPV/Cotest 07/24/2023 07/24/2018 Pap Smear 07/24/2023 07/24/2018 Zoster Vaccines (1 of 2) 2024 Mammogram 03/07/2025 03/07/2023, 03/27, 04/14/2020, Additional history exists Depression Monitoring 04/08/2025 10/08/2024, 024 Dental Prophylaxis 04/13/2025 10/12/2024, 0 04/24/2022, 01/04/2021, Additional history exists COVID-19 Vaccine ( season) 2025 03/08/2021, 02/08/2021 Influenza Vaccine (#1) 2025 08/31/2012 Diabetes: Hemoglobin A1C 07/02/2025 07/02/2024 SDOH Screening 09/02/2025 09/02/2024 Dental X-Ray: Bitewings 10/13/2025 10/12/20 24, 09/30/2023, 04/24/2022, Additional history exists Alcohol/Substance Use Screening 01/18/2026 01/18/2025 Tobacco Screening 06/16/2026 06/16/2025 Dental X-Ray: Full Mouth 10/13/2027 024, 12/27/2020, [...] Procedure Name Priority Date/Time Associated Diagnosis Comments POCT STAR-14 URINE DRUG SCREEN Routine 05/19/2025 2:22 PM EDT Long-term current use of opiate analgesic Long-term current use of benzodiazepine PROPHYLAXIS - ADULT Routine 10/12/2024 1 :00 [...] Recently Relevant to Health Maintenance Results * POCT STAR-14 Urine Drug Screen (05/19/2025 2:22 PM EDT) THC Positive Negative Cocaine Screen, Urine Negative Negative Opiate Screen, Urine Positive Negative Methamphetamine Screen Urine Negative Negative Amphetamine Screen, Urine Negative Negative Benzodiazepines Screen, Urine Positive Negative Barbiturate Screen, Urine Negative Negative Methadone Screen, Urine Negative Negative Buprenophine Screen, Urine Negative Negative TCA, Urine Positive Negative MDMA Urine Negative Negative ng/mL Oxycodone Screen, Urine Negative Negative Phencyclidine (PCP), Urine Negative Negative Propoxyphene, Urine Negative Negative Fentanyl, Urine Negative Negative Urine Urine specimen obtained by clean catch procedure / Unknown 05/19/2025 2:22 PM EDT Caterina Jones RN - 05/19/2025 2:22 PM EDT UTOX cup Lot#[id number] Exp. 08/02/26 Internal Pass Control Sera Molina DO POINT OF CARE TEST ENTER/NAT T ORDERABLES Final Result * (ABNORMAL) Lipid Panel, Standard (10/06/2024 12:46 PM EST) Triglycerides 272(H) <150 mg/dL [facility] Comment:Desirable Triglyceri de: less than 150 mg/dLBorderline High Triglyceride 150-199 mg/dLHigh Triglyceride: 200-499 mg/dLVery High Triglyceride: greater than or equal to 5OO mg/dL Cholesterol 249(H) <200 mg/dL [facility] Comment:Desirable Cholestero l: less than 200 mg/dLBorderline High Cholesterol: 200-239 mg/dLHigh Cholesterol: greater than 239 mg/dL LDL Cholesterol Calculated 152(H) <100 mg/dL [facility] Comment:Desirable LDL: less than 100 mg/dLNear Optimal/Above Optimal LDL: 110- 129 mg/dLBorderline High LDL: 130-159 mg/dLHigh LDL: 160-189 mg/dLVery High LDL: greater than or equal to 190 mg/dL HDL Cholesterol 43 >40 mg/dL [facility] Comment:Desirable HDL: great er than 40 mg/dL Note: This HDL assay may give artificially low results in patients with liver disease. Blood Venous blood specimen / Unknown 10/06/2024 12:46 PM EST 10/06/2024 1:13 PM EST us Sera Molina DO LAB BLOOD ORDERABLES Final R esult Performing Organization Address [facility] Co de Phone Number [facility] [address] [place] [phone] * Hepatitis B, C Profile (07/02/2024 12:34 PM EDT) ~Hepatitis B Surface Antibody NONREACTIVE Nonreactive [facility] Comment:Nonreactive: < 8.00 mIU/mL Hepatitis B Core Antibody Nonreactive Nonreactive [facility] Hepatitis C Antibody Nonreactive Nonreactive [facility] Comment:Antibodies to HCV no t detected; does not exclude early acuteHCV infection. Hepatitis B Surface Ag Negative Negative [facility] 07/02/2024 12:3 4 PM EDT 07/02/2024 12:34 PM EDT Sera Molina DO LAB BLOOD ORDERABLES Final R esult Performing Organization Address [facility] Co de Phone Number [facility] [address] [place] [phone] [phone] * HIV-1/2 Antigen and Antibodies, Fourth Generation, with Reflexes (07/02/2024 12:34 PM EDT) HIV AB/AG Nonreactive Nonreactive [facility] Comment:HIV-1 p24 Ag and/or HIV-1/HIV-2 Ab not detected.A test result that is nonreactive does not exclude thepossibility of exposure to or infection with HIV-1 and/orHIV-2. Nonreactive results in this assay for individualswith prior exposure to HIV-1 and/or HIV-2 may be due toantigen and antibody levels that are below the limit ofdetection of this assay.[facility] HIV Ag/Ab Combo assay result andsupplemental assay results should be interpreted inconjunction with the patient's clinical presentation,history and other laboratory results. If the results areinconsistent with clinical evidence, additional testing issuggested to confirm the result. Blood Venous blood specimen / Unknown 07/02/2024 12:34 PM EDT 07/02/2024 12:34 PM EDT Sera Molina DO LAB BLOOD ORDERABLES Final R esult Performing Organization Address [facility] Co de Phone Number [facility] [address] [place] [address] [phone] * Hemoglobin A1c (07/02/2024 12:34 PM EDT) Hemoglobin A1c 5.9 <6.0 % [facility] Comment:Hemoglobin A1C Refer ence Range Adults: 4.8 - 6.0 % Non diabetic: < 6.0 % Goal: < 7.0 %Additional Action Suggested: > 8.0 %Note: Hemoglobin A1c results are invalid for patients with abnormal amounts of HbF. Blood transfusions may impact the HbA1c concentration in the patient sample. Estimated Average Glucose 123 mg/dL [facility] Comment:eAG = Estimated ave rage glucose which is %A1C expressed asaverage glucose, using the formula of the J1R-XzzdeaeLpvwivk Glucose study (ADAG), Diabetes Care, Vol.31,#8,May. 2007 Blood Venous blood specimen / Unknown 07/02/2024 12:34 PM EDT 07/02/2024 12:34 PM EDT Sera Molina DO LAB BLOOD ORDERABLES Final R esult Performing Organization Address [facility]/ZIP Co de Phone Number [facility] [address] [place] [phone] * Mammography (03/07/2023 2:40 PM EDT) Pathologist [facility] Mammogram BI-rads 1 Anatomical Region Laterality Modality Other Radha Pascual CN HEALTH MAINTENANCE Final Result * HPV E6/E7 RFLX FAROOQ 16 18/45 (07/24/2018 10:25 AM EDT) Pathologist [facility] HPV 16 RNA Test not performed [facility] HPV 18/45 RNA Test not performed [facility] HPV mRNA E6/E7 Not Detected NOT DETECTED [facility] Comment: This test was performed using the APTIMA(R) HPV Assay ([employer] This assay detects E6/E7 viral messenger RNA (mRNA) from 14 high-risk HPV types (16,18,31,33,35,39,45,51, 52,56,58,59,66,68). For additional information please refer to: http://education.[employer]faq/LQW694o7 (This link is being provided for informational/ educational purposes only.) The analytical performance characteristics of this assay have been determined by [employer] [place], [place]. The modifications have not been cleared or approved by the FDA. This assay has been validated pursuant to the CLIA regulations and is used for clinical purposes. Please note: Effective 07/08/2016, HPV testing will be performed using [facility]'s APTIMA test which targets mRNA. Detecting mRNA instead of DNA, as in older methods, offers significant improvements in specificity. ADDITIONAL TESTING Not indicated () [facility] Comment: Test Performed by [facility], [employer], [address] [place], [place] Nikhil Ron M.D., Ph.D., Director of Laboratories , CLIA [id number] 07/24/2018 10:2 5 AM EDT Sera Molina DO HISTORICAL/NON ORDERABLE LAB S Final Result [facility] [address] [phone], * Pap Smear (07/24/2018) Pap smear performed Historical Provider MD HEALTH MAINTENANCE Final Result from Last 3 Months or Most Recently Relevant to Health Maintenance Insurance [id number] [employer] [facility] C3 [facility] MEDICAID STAND ADULT DENTAL - [facility] Care Teams Underground Electrician Relationship Specialty Start Date End Date Sera Molina DO [address] [place] [phone] PCP - General Family Medicine 09/09/13
--- OUTSIDE RECORDS SUMMARY | 2025-07-22 15:36 | XMS_ITS | Encounter Summary ---
Author Organization [employer] Address [address] [place] [address] [address] [place] [address] Care Team Providers Care Self Pay Representative Name Role Phone Sera Molina DO Primary Care Provider [phone] Encounter Details Date Type Department Care Team (Latest Contact Info) Description 04/24/2022 Abstract [facility] CONVERSIONS Dental, Provider, DDS Social History [...] Description 07/27/2025 9:00 AM EDT Office Visit [facility] [address] [place] [address] Sera Molina DO [address] [place] [address] 08/18/2025 1:00 PM EDT Clinical Support [facility] [address] [place] [address] Caterina Lan, ARVIN 09/05/2025 1:00 PM EST Office Visit [facility] OPT[facility] [address] [place] [address] Kaela Garcia, OD [address] [place] [address] documented as of this encounter Visit Diagnoses Not on filedocumented in this encounter Care Teams Self Pay Representative Relationship Specialty Start Date End Date Sera Molina DO [address] [place] [address] PCP - General Family Medicine 09/09/13 documented as of this encounter
--- OUTSIDE RECORDS SUMMARY | 2025-07-22 15:36 | XMS_ITS | Encounter Summary ---
Author Organization [employer] Address [address] [facility] 7 [place] [address] Care Team Providers Care Hydraulic Design Engineer Name Role Phone Sera Molina DO Primary Care Provider + [phone] Reason for Visit * Reason Onset Date Comments Med Refill 06/06/2025 Encounter Details Date Type Department Care Team (Late st Contact Info) Description 06/06/[address] [facility] [address] [place], [place] [phone] Sera Molina DO [address] [place], [place] [phone] Social History Tobacco Use Types Packs/Day Years [...] Description 07/27/2025 9:00 AM EDT Office Visit [facility] MEDICINE [address] [place] [phone] Sera Molina DO [address] [place] [address] 08/18/2025 1:00 PM EDT Clinical Support [facility] MED[facility] [address] [place] [address] Caterina Lan RN 09/05/2025 1:00 PM EST Office Visit [facility] OPTOMETRY [address] [place] [address] Kaela Garcia, OD [address] [place] [address] documented as of this encounter Visit Diagnoses Not on filedocumented in this encounter Additional Health Concerns Assessment Noted Time PHQ-9 Depression Total Score: 20 024 8:02 AM EST documented as of this encounter Care Teams Hydraulic Design Engineer Relationship Specialty Start Date End Date Sera Molina DO [address] [place] [address] PCP - General Family Medicine 09/09/13 documented as of this encounter
--- OUTSIDE RECORDS SUMMARY | 2025-07-22 15:36 | XMS_ITS | Encounter Summary ---
Author Organization [facility] Address [address] [place] [address] Care Team Providers Care Surveyor'S Assistant Name Role Phone Sera Molina Primary Care Provider [phone] Encounter Details Date Type Department Care Team (Late st Contact Info) Description 09/28/2024 Transcribe Orders [facility] Physician Referral Services [address] [place] [address] Sera Molina [address] [place] [address] Dorsal cervical fat pad (Primary Dx) Social [...] as of this encounter Plan of Treatment Not on file documented as of this encounter Visit Diagnoses Diagnosis Dorsal cervical fat pad- Primary documented in this encounter Care Teams Surveyor'S Assistant Relationship Specialty Start Date End Date Sera Molina [address] [place] [address] PCP - General Family Medicine 09/30/24 documented as of this encounter
--- OUTSIDE RECORDS SUMMARY | 2025-07-22 15:36 | XMS_ITS | Encounter Summary ---
Author Organization [employer] Address 75 [facility] 7 [place] [address] Care Team Providers Care Livestock Producer Name Role Phone Sera Molina DO Primary Care Provider + [phone] Reason for Visit * Reason Onset Date Comments Med Refill 01/10/2025 Encounter Details Date Type Department Care Team (Late st Contact Info) Description 01/10/2025 Refill [facility] MEDICINE [address] [place], [place] [phone] Sera Molina DO 230 [place] [address] Social History Tobacco Use Types Packs/Day Years [...] Description 07/27/2025 9:00 AM EDT Office Visit [facility] [address] [place] [address] Sera Molina DO 230 [place] [address] 08/18/2025 1:00 PM EDT Clinical Support [facility] MED[facility]INE [address] [place] [address] Caterina Lan RN 09/05/2025 1:00 PM EST Office Visit [facility] OPTOMETRY [address] [place] [address] Kaela Garcia, OD 230 [place] [address] documented as of this encounter Visit Diagnoses Not on filedocumented in this encounter Additional Health Concerns Assessment Noted Time PHQ-9 Depression Total Score: 20 024 8:02 AM EST documented as of this encounter Care Teams Livestock Producer Relationship Specialty Start Date End Date Sera Molina DO 230 [place] [address] PCP - General Family Medicine 09/09/13 documented as of this encounter
--- OUTSIDE RECORDS SUMMARY | 2025-07-22 15:36 | XMS_ITS | Encounter Summary ---
Author Organization [employer] Address [address] [place] [address] 7 [place] [address] Care Team Providers Care Adult Services Librarian Name Role Phone Sera Molina DO Primary Care Provider + [phone] Reason for Visit * Reason Onset Date Comments Order US abdomen 04/16/2023 Encounter Details Date Type Department Care Team (Late st Contact Info) Description 04/16/2023 Telephone [facility] MEDICINE 230 [place], [place] [phone] Sera Molina DO 230 [place] [address] Order US abdomen Social History Tobacco Use [...] calling in regards to US abdomen order. Correspondent does not see order on chart. Patientstates it was order on 03/22/23. documented in this encounter Plan of Treatment Upcoming Encounters Date Type Department Care Team (Late st Contact Info) Description 07/27/2025 9:00 AM EDT Office Visit [facility] MEDICINE 230 [place] [address] Sera Molina DO 230 [place] [address] 08/18/2025 1:00 PM EDT Clinical Support [facility] MEDICINE 230 [place] [address] Caterina Lan, RN 09/05/2025 1:00 PM EST Office Visit [facility] OPTOMETRY [address] [place] [address] Kaela Garcia, OD 230 [place] [address] documented as of this encounter Visit Diagnoses Not on filedocumented in this encounter Additional Health Concerns Assessment Noted Time PHQ-9 Depression Total Score: 15 023 10:49 AM EDT documented as of this encounter Care Teams Adult Services Librarian Relationship Specialty Start Date End Date Sera Molina DO 230 [place] [address] PCP - General Family Medicine 09/09/13 documented as of this encounter
--- OUTSIDE RECORDS SUMMARY | 2025-07-22 15:36 | XMS_ITS | Encounter Summary ---
Author Organization [employer] Address 75 [facility] 7 [place] [address] Care Team Providers Care Transfer And Line Up Worker Name Role Phone Sera Molina DO Primary Care Provider + [phone] Reason for Visit * Reason Onset Date Comments Med Refill 12/22/2024 Encounter Details Date Type Department Care Team (Late st Contact Info) Description 12/22/2024 Refill [facility] MEDICINE 230 [place], [place] [phone] Sera Molina DO 230 [place] [address] Social History Tobacco Use Types Packs/Day Years [...] Description 07/27/2025 9:00 AM EDT Office Visit [facility] MEDICINE [address] [place] [address] Sera Molina DO 230 [place] [address] 08/18/2025 1:00 PM EDT Clinical Support [facility] MEDICINE 230 [place] [address] Caterina Lan RN 09/05/2025 1:00 PM EST Office Visit [facility] OPTOMETRY [address] [place] [address] Kaela Garcia, OD 230 [place] [address] documented as of this encounter Visit Diagnoses Not on filedocumented in this encounter Additional Health Concerns Assessment Noted Time PHQ-9 Depression Total Score: 20 024 8:02 AM EST documented as of this encounter Care Teams Transfer And Line Up Worker Relationship Specialty Start Date End Date Sera Molina DO 230 [place] [address] PCP - General Family Medicine 09/09/13 documented as of this encounter
--- OUTSIDE RECORDS SUMMARY | 2025-07-22 15:36 | XMS_ITS | Encounter Summary ---
Author Organization [employer] Address 75 [facility] 7 [place] [address] Care Team Providers Care Process Control Operator Name Role Phone Sera Molina DO Primary Care Provider + [phone] Reason for Visit * Reason Comments Med Refill Encounter Details Date Type Department Care Team ([facility] st Contact Info) Description 09/10/2023 Refill [facility] MEDICINE 230 [place], [place] [phone] Sera Molina DO 230 [place], [place] [phone] Social History Tobacco Use Types Packs/Day Years [...] Description 07/27/2025 9:00 AM EDT Office Visit [facility] MED[facility] [address] [place] [address] Sera Molina DO 230 [place] [address] 08/18/2025 1:00 PM EDT Clinical Support [facility] MEDICINE 230 [place] [address] Caterina Lan, RN 09/05/2025 1:00 PM EST Office Visit [facility] OPTOMETRY [address] [place] [address] Kaela Garcia, OD 230 [place] [address] documented as of this encounter Visit Diagnoses Not on filedocumented in this encounter Additional Health Concerns Assessment Noted Time PHQ-9 Depression Total Score: 15 023 10:49 AM EDT documented as of this encounter Care Teams Process Control Operator Relationship Specialty Start Date End Date Sera Molina DO 230 [place] [address] PCP - General Family Medicine 09/09/13 documented as of this encounter
--- OUTSIDE RECORDS SUMMARY | 2025-07-22 15:36 | XMS_ITS | Encounter Summary ---
Author Organization [employer] Address 75 [facility] 7 [place] [address] Care Team Providers Care Entertainment Musician Name Role Phone Sera Molina DO Primary Care Provider + [phone] Reason for Visit * Reason Onset Date Comments Med Refill 01/06/2025 Encounter Details Date Type Department Care Team (Late st Contact Info) Description 01/06/2025 Refill [facility] MEDICINE 230 [place], [place] [phone] Sera Molina DO 230 [place], [place] [phone] Chronic migraine Social History Tobacco Use Types [...] 07/27/2025 9:00 AM EDT Office Visit [facility] MEDICINE [address] [place] [address] Sera Molina DO 230 [place] [address] 08/18/2025 1:00 PM EDT Clinical Support [facility] MEDICINE 230 [place] [address] Caterina Lan RN 09/05/2025 1:00 PM EST Office Visit [facility] OPTOMETRY [address] [place] [address] Kaela Garcia, OD 230 [place] [address] documented as of this encounter Visit Diagnoses Diagnosis Chronic migraine documented in this encounter Additional Health Concerns Assessment Noted Time PHQ-9 Depression Total Score: 20 024 8:02 AM EST documented as of this encounter Care Teams Entertainment Musician Relationship Specialty Start Date End Date Sera Molina DO 230 [place] [address] PCP - General Family Medicine 09/09/13 documented as of this encounter
--- OUTSIDE RECORDS SUMMARY | 2025-07-22 15:36 | XMS_ITS | Encounter Summary ---
Author Organization [employer] Address 75 [facility] 7t [place] [address] Care Team Providers Care Park Worker Supervisor Name Role Phone Jesse Sera Primary Care Provider + [phone] Reason for Visit * Reason Onset Date Comments Med Refill 07/17/2025 Encounter Details Date Type Department Care Team (Late st Contact Info) Description 07/17/2025 Refill [facility] 230 [place], [place] [phone] [facility] 230 [place] [address] Chronic pain of both shoulders Social History [...] Description 07/27/2025 9:00 AM EDT Office Visit [facility] MEDICINE [address] [place] [address] Sera Molina DO 230 [place] [address] 08/18/2025 1:00 PM EDT Clinical Support [facility] MEDICINE [address] [place] [address] Caterina Lan RN 09/05/2025 1:00 PM EST Office Visit [facility] OPTOMETRY [address] [place] [address] Kaela Garcia, OD 230 [place] [address] documented as of this encounter Visit Diagnoses Diagnosis Chronic pain of both shoulders documented in this encounter Additional Health Concerns Assessment Noted Time PHQ-9 Depression Total Score: 20 024 8:02 AM EST documented as of this encounter Care Teams Park Worker Supervisor Relationship Specialty Start Date End Date Sera Molina DO [address] [place] [address] PCP - General Family Medicine 09/09/13 documented as of this encounter
--- OUTSIDE RECORDS SUMMARY | 2025-07-22 15:36 | XMS_ITS | Encounter Summary ---
Author Organization [employer] Address 75 [facility] 7 [place] [address] Care Team Providers Care Stopping Builder Name Role Phone Sera Molina DO Primary Care Provider + [phone] Reason for Visit * Reason Onset Date Comments Med Refill 03/14/2025 Encounter Details Date Type Department Care Team (Late st Contact Info) Description 03/14/2025 Refill [facility] MEDICINE 230 [place], [place] [phone] Sera Molina DO 230 [place], [place] [phone] Social History Tobacco Use Types Packs/Day Years [...] Description 07/27/2025 9:00 AM EDT Office Visit [facility] MEDICINE [address] [place] [address] Sera Molina DO 230 [place] [address] 08/18/2025 1:00 PM EDT Clinical Support [facility] MEDICINE [address] [place] [address] Caterina Lan RN 09/05/2025 1:00 PM EST Office Visit [facility] OPTOMETRY [address] [place] [address] Kaela Garcia, OD 230 [place] [address] documented as of this encounter Visit Diagnoses Not on filedocumented in this encounter Additional Health Concerns Assessment Noted Time PHQ-9 Depression Total Score: 20 024 8:02 AM EST documented as of this encounter Care Teams Stopping Builder Relationship Specialty Start Date End Date Sera Molina DO 230 [place] [address] PCP - General Family Medicine 09/09/13 documented as of this encounter
--- OUTSIDE RECORDS SUMMARY | 2025-07-22 15:36 | XMS_ITS | Encounter Summary ---
Author Organization [employer] Address [address] [place] [address] 7 [place] [address] Care Team Providers Care Final Cleaner Name Role Phone Sera Molina DO Primary Care Provider + [phone] Reason for Referral * Imaging (Routine) - Closed Specialty Diagnoses / Procedures Referred By Contac t Referred To Contact Diagnoses Dizziness Tinnitus of both ears Procedures Mr Brain w/ and w/o Contrast Sera Molina DO 230 [place] [address] Phone: tel: fax: [address] Phone: tel: fax: Referral ID Status Reason Start Date Expiration Date Visits Re quested Visits Authorized [id number] Closed 03/12/2023 03/11/2024 1 1 Reason for Visit * Reason Onset Date Comments MRI order 03/12/2023 Encounter Details Date Type Department Care Team (Late st Contact Info) Description 03/12/2023 Telephone [facility] MEDICINE 230 [place], [place] [phone] Sera Molina DO 230 [place], [place] [phone] MRI order Social History Tobacco Use Types [...] 9:28 AM EDT Tc from Kwame at [facility] requesting status on message below. Pt is scheduled for tomorrow 03/14/23 * Telephone Encounter - Adriana Ochoa - 03/12/2023 1:57 PM EDT Tc from Kwame from [facility] MRI department requesting for order to be modify to MRI brain with and without contract . Please call to clarify [phone] . documented in this encounter Plan of Treatment Upcoming Encounters Date Type Department Care Team (Late st Contact Info) Description 07/27/2025 9:00 AM EDT Office Visit [facility] MEDICINE [address] [place] [address] Sera Molina DO 230 [place] [address] 08/18/2025 1:00 PM EDT Clinical Support [facility] MEDICINE [address] [place] [address] Caterina Lan, ARVIN 09/05/2025 1:00 PM EST Office Visit [facility] OPTOMETRY [address] [place] [address] Kaela Garcia, OD 230 [place] [address] Scheduled Orders Name Type Priority Associated Diagnoses [...] documented as of this encounter Care Teams Final Cleaner Relationship Specialty Start Date End Date Sera Molina DO 230 [place] [address] PCP - General Family Medicine 09/09/13 documented as of this encounter
--- OUTSIDE RECORDS SUMMARY | 2025-07-22 15:36 | XMS_ITS | Clinical Summary ---
Author Organization [facility] Address [address] [place] [address] Care Team Providers Care Creel Cleaner Name Role Phone Sera Molina Primary Care Provider [phone] Allergies No known active allergies Medications No known medications Active Problems Problem Noted Date Diagnosed Date Neck mass 11/23/2024 Encounters Date Type Department Care Team Description 07/22/2025 Telephone [facility] [address] [place] [address] Telephone Intake, Staff from Last 3 Months Social History Tobacco [...] - Tdap) 02/22/200901/26 Mammogram 04/14/2022 04/14/2020, 07/09/2019 Alcohol/Substance Use Screening 10/27/2024 Depression Screening and Follow-Up 10/27/2024 Social Drivers of Health Toya ual Screening 10/27/2024 Zoster Vaccines (1 of 2) 2024 COVID-19 Vaccine (2024- season) 2025, 02/08/2021 Influenza Vaccine (#1) 2025 08/31/2012 Colon Cancer Screening 07/02/2025 FOBT / Fit Test 07/02/2025 07/02/2024 RSV Vaccine (60+ years old a nd patients) (1 - 1-dose 75+ series) 2049 HIV Screening Completed 07/02/2024, 03/2024, 01/12/2021 Insurance [employer] Care Teams Creel Cleaner Relationship Specialty Start Date End Date Sera Molina [address] [place] [address] PCP - General Family Medicine 09/30/24
--- OUTSIDE RECORDS SUMMARY | 2025-07-22 15:36 | XMS_ITS | Encounter Summary ---
Author Organization [employer] Address 75 [facility] 7 [place] [address] Care Team Providers Care Tissue Technologist Name Role Phone Jesse Sera Primary Care Provider + [phone] Reason for Visit * Reason Comments Med Refill Encounter Details Date Type Department Care Team ([facility] st Contact Info) Description 01/24/2024 Refill [facility] MEDICINE 230 [place], [place] [phone] Tigist Belcher NP 230 [place] [address] Chronic gastroesophageal reflux disease Social History Tobacco [...] Description 07/27/2025 9:00 AM EDT Office Visit [facility] MEDICINE [address] [place] [address] Sera Molina DO 230 [place] [address] 08/18/2025 1:00 PM EDT Clinical Support [facility] MEDICINE 230 [place] [address] Caterina Lan, RN 09/05/2025 1:00 PM EST Office Visit [facility] OPTOMETRY [address] [place] [address] Kaela Garcia, OD 230 [place] [address] documented as of this encounter Visit Diagnoses Diagnosis Chronic gastroesophageal reflux disease documented in this encounter Additional Health Concerns Assessment Noted Time PHQ-9 Depression Total Score: 15 023 10:49 AM EDT documented as of this encounter Care Teams Tissue Technologist Relationship Specialty Start Date End Date Sera Molina DO 230 [place] [address] PCP - General Family Medicine 09/09/13 documented as of this encounter
--- OUTSIDE RECORDS SUMMARY | 2025-07-22 15:36 | XMS_ITS | Clinical Summary ---
Author Organization [facility] Address [id number] [place] [address] Care Team Providers Care Saddle Mechanic Name Role Phone Unavailable Primary Care Provider [...] Last Done Comments Breast Cancer Screening 1974 Hepatitis B Vaccines (1 of 3 - 19+ 3-dose series) 1993 Cervical Cancer Screening: P ap Smear 1995 DTaP,Tdap,and Td Vaccines (2 - Td or Tdap) 02/21/2019 02/21/2009 Depression Screening 10/27/2024 Pneumococcal Vaccine: 50+ Years (2 of 2 - PCV) 2024 09/15/2006 Zoster Vaccines (1 of 2) 2024 COVID-19 Vaccine (3 - 2024-2 6 season) 2025 03/08/2021, 02/08/2021 Influenza Vaccine (#1) 2025 08/31/2012 RSV Immunization Adult Patients (1 - 1-dose 75+ series) 2049 HIB Vaccines Aged Out No longer eligi [...] to complete this topic RSV Immunization Patients Under 20 months Aged Out No longer eligible b ased on patient's age to complete this topic Varicella Vaccines Aged Out No longer eligible based on patient's age to complete this topic
--- OUTSIDE RECORDS SUMMARY | 2025-07-22 15:36 | XMS_ITS | Encounter Summary ---
Author Organization [employer] Address 75 [facility] 7 [place] [address] Care Team Providers Care Press Hand Supervisor Name Role Phone Sera Molina DO Primary Care Provider + [phone] Reason for Visit * Reason Onset Date Comments Med Refill 08/22/2023 Encounter Details Date Type Department Care Team ([facility] st Contact Info) Description 08/22/2023 Telephone [facility] MEDICINE 230 [place], [place] [phone] Sera Molina DO 230 [place], [place] [phone] Med Refill Social History Tobacco Use Types [...] sign off on med. Please contact at [phone] * Telephone Encounter - Sera Zambrano LPN [...] 07/27/2025 9:00 AM EDT Office Visit [facility] MEDICINE [address] [place] [address] Sera Molina DO 230 [place] [address] 08/18/2025 1:00 PM EDT Clinical Support [facility] MEDICINE 230 [place], [place] [phone] Caterina Lan, ARVIN 09/05/2025 1:00 PM EST Office Visit [facility] OPTOMETRY [address] [place], [place] [phone] Kaela Garcia, OD 230 [place] [address] documented as of this encounter Visit Diagnoses Not on filedocumented in this encounter Additional Health Concerns Assessment Noted Time PHQ-9 Depression Total Score: 15 023 10:49 AM EDT documented as of this encounter Care Teams Press Hand Supervisor Relationship Specialty Start Date End Date Sera Molina DO 230 [place] [address] PCP - General Family Medicine 09/09/13 documented as of this encounter
--- OUTSIDE RECORDS SUMMARY | 2025-07-22 15:36 | XMS_ITS | Encounter Summary ---
Author Organization [employer] Address 75 [facility] 7t [place] [address] Care Team Providers Care Installation Supervisor Name Role Phone Sera Molina DO Primary Care Provider + [phone] Encounter Details Date Type Department Care Team ([facility] st Contact Info) Description 11/25/2023 Telephone [facility] MEDICINE 230 [place], [place] [phone] Sera Molina DO 230 [place], [place] [phone] Social History Tobacco Use Types Packs/Day Years [...] 9:00 AM EDT Office Visit [facility] MEDICINE 230 [place] [address] Sera Molina DO 230 [place] [address] 08/18/2025 1:00 PM EDT Clinical Support [facility] MEDICINE 230 [place] [address] Caterina Lan, ARVIN 09/05/2025 1:00 PM EST Office Visit [facility] OPTOMETRY [address] [place] [address] Kaela Garcia, OD 230 [place] [address] documented as of this encounter Visit Diagnoses Not on filedocumented in this encounter Additional Health Concerns Assessment Noted Time PHQ-9 Depression Total Score: 15 023 10:49 AM EDT documented as of this encounter Care Teams Installation Supervisor Relationship Specialty Start Date End Date Sera Molina DO [address] [place] [address] PCP - General Family Medicine 09/09/13 documented as of this encounter
--- OUTSIDE RECORDS SUMMARY | 2025-07-22 15:36 | XMS_ITS | Encounter Summary ---
Author Organization [employer] Address [address] [place] [address] 7 [place] [address] Care Team Providers Care Hotel And Dining Room Cashier Name Role Phone Sera Molina DO Primary Care Provider [phone] Encounter Details Date Type Department Care Team (Latest Contact Info) Description 01/04/2021 Abstract [facility] Dental, Provider, DDS Social [...] Description 07/27/2025 9:00 AM EDT Office Visit [facility] 230 [place] [address] Sera Molina DO [address] [place] [address] 08/18/2025 1:00 PM EDT Clinical Support [facility] [address] [place] [address] Caterina Lan RN 09/05/2025 1:00 PM EST Office Visit [facility] [address] [place] [address] Kaela Garcia, OD 230 [place] [address] documented as of this encounter Visit Diagnoses Not on filedocumented in this encounter Care Teams Hotel And Dining Room Cashier Relationship Specialty Start Date End Date Sera Molina DO [address] [place] [address] PCP - General Family Medicine 09/09/13 documented as of this encounter
--- OUTSIDE RECORDS SUMMARY | 2025-07-22 15:36 | XMS_ITS | Encounter Summary ---
Author Organization [employer] Address 75 [facility] 7 [place] [address] Care Team Providers Care Health And Social Care Teacher Name Role Phone Sera Molina DO Primary Care Provider + [phone] Reason for Visit * Reason Onset Date Comments Med Refill 06/06/2025 Encounter Details Date Type Department Care Team (Late st Contact Info) Description 06/06/2025 Refill [facility] MEDICINE 230 [place], [place] [phone] Sera Molina DO 230 [place], [place] [phone] Social History Tobacco Use Types Packs/Day Years [...] Description 07/27/2025 9:00 AM EDT Office Visit [facility] MEDICINE [address] [place] [address] Sera Molina DO 230 [place] [address] 08/18/2025 1:00 PM EDT Clinical Support [facility] 230 [place] [address] Caterina Lan RN 09/05/2025 1:00 PM EST Office Visit [facility] OPTOMETRY [address] [place] [address] Kaela Garcia, OD 230 [place] [address] documented as of this encounter Visit Diagnoses Not on filedocumented in this encounter Additional Health Concerns Assessment Noted Time PHQ-9 Depression Total Score: 20 024 8:02 AM EST documented as of this encounter Care Teams Health And Social Care Teacher Relationship Specialty Start Date End Date Sera Molina DO 230 [place] [address] PCP - General Family Medicine 09/09/13 documented as of this encounter
--- OUTSIDE RECORDS SUMMARY | 2025-07-22 15:37 | XMS_ITS | Encounter Summary ---
Author Organization [email or web address] Address 75 [facility] 7 [place] [address] Care Team Providers Care Deputy Sheriff Civil Division Name Role Phone Sera Molina DO Primary Care Provider + [phone] Reason for Visit * Reason Onset Date Comments Med Refill 07/10/2025 Encounter Details Date Type Department Care Team (Late st Contact Info) Description 07/10/2025 Refill [facility] MEDICINE 230 [place], [place] [phone] Sera Molina DO 230 [place] [address] Social History Tobacco Use Types Packs/Day Years [...] Description 07/27/2025 9:00 AM EDT Office Visit [facility] MEDICINE [address] [place] [address] Sera Molina DO 230 [place] [address] 08/18/2025 1:00 PM EDT Clinical Support [facility] MEDICINE [address] [place] [address] Caterina Lan RN 09/05/2025 1:00 PM EST Office Visit [facility] OPTOMETRY [address] [place] [address] Kaela Garcia, OD 230 [place] [address] documented as of this encounter Visit Diagnoses Not on filedocumented in this encounter Additional Health Concerns Assessment Noted Time PHQ-9 Depression Total Score: 20 024 8:02 AM EST documented as of this encounter Care Teams Deputy Sheriff Civil Division Relationship Specialty Start Date End Date Sera Molina DO 230 [place] [address] PCP - General Family Medicine 09/09/13 documented as of this encounter
--- OUTSIDE RECORDS SUMMARY | 2025-07-22 15:37 | XMS_ITS | Encounter Summary ---
Author Organization [employer] Address [address] [facility] 7 [place] [address] Care Team Providers Care Assistant Statistician Name Role Phone Sera Molina DO Primary Care Provider + [phone] Reason for Visit * Reason Onset Date Comments Nurse Triage 08/18/2024 Encounter Details Date Type Department Care Team ([facility] st Contact Info) Description 08/18/2024 Telephone [facility] [address] [place], [place] [phone] Sera Molina DO [address] [place] [address] Nurse Triage Social History Tobacco Use Types [...] vapo rub liquid and was seen in [facility] 07/29/24. Pt reports ever since then has had some asthma symptoms that are not going away. Pt denies fever, cough. Pt reports using daughters symbicort inhaler with good effect. Pt is aware that using another persons prescription medication is not to be done. Pt is advised to come to [facility] and Pt reports will come tomorrow, Hours given thurs-fri 830am- 400pm and Sat. 900am-12pm. Pt agrees with this disposition. Pt is advised to bring insurance card to visit sign writer hand unable to verify. Protocol Used: Asthma Attack [...] Description 07/27/2025 9:00 AM EDT Office Visit [facility] [address] [place] [address] Sera Molina DO [address] [place] [address] 08/18/2025 1:00 PM EDT Clinical Support [facility] [address] [place] [address] Caterina Lan, ARVIN 09/05/2025 1:00 PM EST Office Visit [facility] [address] [place] [address] Jose, Kaela, OD [address] [place] [address] documented as of this encounter Visit Diagnoses Not on filedocumented in this encounter Additional Health Concerns Assessment Noted Time PHQ-9 Depression Total Score: 15 023 10:49 AM EDT documented as of this encounter Care Teams Assistant Statistician Relationship Specialty Start Date End Date Sera Molina DO [address] [place] [address] PCP - General Family Medicine 09/09/13 documented as of this encounter
--- OUTSIDE RECORDS SUMMARY | 2025-07-22 15:37 | XMS_ITS | Encounter Summary ---
Author Organization [employer] Address [address] [place] [address] 7 [place] [address] Care Team Providers Care Wood Miller Name Role Phone Srea Molina DO Primary Care Provider + [phone] Reason for Visit * Reason Onset Date Comments Med Refill 07/17/2025 Encounter Details Date Type Department Care Team (Late st Contact Info) Description 07/17/2025 Refill [facility] MED[facility]INE [address] [place], [place] [phone] Sera Molian DO [address] [place], [place] [phone] Nonintractable chronic migraine; Chronic pain of both shoulders Social History [...] 9:00 AM EDT Office Visit [facility] MED[facility]INE [address] [place] [address] Sera Molina DO [address] [place] [address] 08/18/2025 1:00 PM EDT Clinical Support [facility] MED[facility]INE [address] [place] [address] Caterina Lan RN 09/05/2025 1:00 PM EST Office Visit [facility] OPTOMETRY [address] [place] [address] Kaela Garcia, OD [address] [place] [address] documented as of this encounter Visit Diagnoses Diagnosis Nonintractable chronic migraine Chronic pain of both shoulders documented in this encounter Additional Health Concerns Assessment Noted Time PHQ-9 Depression Total Score: 20 024 8:02 AM EST documented as of this encounter Care Teams Wood Miller Relationship Specialty Start Date End Date Sera Molina DO [address] [place] [id number] PCP - General Family Medicine 09/09/13 documented as of this encounter
--- OUTSIDE RECORDS SUMMARY | 2025-07-22 15:37 | XMS_ITS | Encounter Summary ---
Author Organization [employer] Address [address] [facility] 7 [place] [address] Care Team Providers Care Can Doffer Name Role Phone Sera Molina DO Primary Care Provider + [phone] Reason for Visit * Reason Onset Date Comments Med Refill 07/10/2025 Encounter Details Date Type Department Care Team (Late st Contact Info) Description 07/10/2025 Refill [facility] MEDICINE [address] [place], [place] [phone] Sera Molina DO [address] [place], [place] [phone] Nonintractable chronic migraine Social History Tobacco Use [...] 07/27/2025 9:00 AM EDT Office Visit [facility] MEDICINE [address] [place] [address] Sera Molina DO [address] [place] [address] 08/18/2025 1:00 PM EDT Clinical Support [facility] MEDICINE [address] [place] [address] Caterina Lan RN 09/05/2025 1:00 PM EST Office Visit [facility] OPTOMETRY [address] [place] [address] Kaela Garcia, OD [address] [place] [address] documented as of this encounter Visit Diagnoses Diagnosis Nonintractable chronic migraine documented in this encounter Additional Health Concerns Assessment Noted Time PHQ-9 Depression Total Score: 20 024 8:02 AM EST documented as of this encounter Care Teams Can Doffer Relationship Specialty Start Date End Date Sera Molina DO [address] [place] [id number] PCP - General Family Medicine 09/09/13 documented as of this encounter
--- OUTSIDE RECORDS SUMMARY | 2025-07-22 15:37 | XMS_ITS | Encounter Summary ---
Author Organization [employer] Address [address] [facility] 7 [place] [address] Care Team Providers Care Spline Rolling Machine Job Setter Name Role Phone Sera Molina DO Primary Care Provider + [phone] Reason for Visit * Reason Onset Date Comments Med Refill 07/10/2025 Encounter Details Date Type Department Care Team (Late st Contact Info) Description 07/10/2025 Refill [facility] MEDICINE [address] [place], [place] [phone] Sera Molina DO [address] [place] [address] Social History Tobacco Use Types Packs/Day Years [...] Description 07/27/2025 9:00 AM EDT Office Visit [facility] MEDIC[facility] [address] [place] [address] Sera Molina DO [address] [place] [address] 08/18/2025 1:00 PM EDT Clinical Support [facility] [address] [place] [address] Caterian Lan RN 09/05/2025 1:00 PM EST Office Visit [facility] OPTOMETRY [address] [place] [address] Kaela Garcia, OD [address] [place] [address] documented as of this encounter Visit Diagnoses Not on filedocumented in this encounter Additional Health Concerns Assessment Noted Time PHQ-9 Depression Total Score: 20 024 8:02 AM EST documented as of this encounter Care Teams Spline Rolling Machine Job Setter Relationship Specialty Start Date End Date Sera Molina DO [address] [place] [address] PCP - General Family Medicine 09/09/13 documented as of this encounter
--- OUTSIDE RECORDS SUMMARY | 2025-07-22 15:37 | XMS_ITS | Encounter Summary ---
Author Organization [employer] Address [address] [facility] 7 [place] [address] Care Team Providers Care Hospitalist Program Director Name Role Phone Sera Molina DO Primary Care Provider + [phone] Reason for Visit * Reason Onset Date Comments Med Refill 07/10/2025 Encounter Details Date Type Department Care Team (Late st Contact Info) Description 07/10/2025 Refill [facility] MED[facility]INE [address] [place], [place] [phone] Sera Molina DO [address] [place], [place] [phone] Chronic migraine Social History Tobacco Use Types [...] 9:00 AM EDT Office Visit [facility] MEDICINE [address] [place] [address] Sera Molina DO [address] [place] [address] 08/18/2025 1:00 PM EDT Clinical Support [facility] MED[facility] [address] [place] [address] Caterina Lan RN 09/05/2025 1:00 PM EST Office Visit [facility] OPTOMETRY [address] [place] [address] Kaela Garcia, OD [address] [place] [address] documented as of this encounter Visit Diagnoses Diagnosis Chronic migraine documented in this encounter Additional Health Concerns Assessment Noted Time PHQ-9 Depression Total Score: 20 024 8:02 AM EST documented as of this encounter Care Teams Hospitalist Program Director Relationship Specialty Start Date End Date Sera Molina DO [address] [place] [address] PCP - General Family Medicine 09/09/13 documented as of this encounter
== END 2025-07-22 15:19 | disposition home or self-care (01) ==
LOC: HO.HGI 14:48
PROVIDERS: Visit Provider Nurse Practitioner Family
DX: R10.13 Epigastric pain (principal); K21.9 Gastro-esophageal reflux disease without esophagitis; K58.1 Irritable bowel syndrome with constipation
CPT/HCPCS: 99214

== ENCOUNTER → 2025-07-22 14:47 | Outpatient (BNVA) | payer MEDICAID, SELFPAY | PROVIDERS: Visit Provider Nurse Practitioner Family | DX: K21.9 Gastro-esophageal reflux disease without esophagitis (principal) | CPT/HCPCS: 99212 ==